=== PATIENT | male | born 1945 | race Caucasian/White ===

== ENCOUNTER 2020-08-15 11:14 | Outpatient (REF) | payer MEDICARE, SELFPAY ==
[2020-08-15 13:29] LABS: MANUAL DIFF FLAG NO
[2020-08-15 13:34] LABS: Basophils Percent Auto 0.5 % (0-2); Eosinophils Absolute Auto 0.3 X10*3/uL (0.0-0.4); Hematocrit 42.4 % (42-52); Hemoglobin 14.4 g/dl (14.0-18.0); Imm Gran Abs Auto 0.01 X10*3/uL (0.00-0.03); Imm Gran Pct Auto 0.2 % (0.0-0.4); Lymphocytes Absolute Auto 1.1 X10*3/uL (1.2-4.9); Lymphocytes Percent Auto 17.3 % (20-40); Mean Corpuscular Hemoglobin 32.2 pg (27.0-33.0); Mean Corpuscular Volume 94.9 fL (80-98); Mean Platelet Volume 9.9 fL (9.4-12.4); Monocytes Absolute Auto 0.6 X10*3/uL (0.1-1.2); Neutrophils Absolute Auto 4.3 X10*3/uL (2.0-8.3); Platelet Count 226 X10*3/uL (160-400); Red Blood Count 4.47 X10*6/uL (4.60-5.80); Red Cell Distribution Width 13.7 % (11.0-16.0); White Blood Count 6.4 X10*3/uL (4.8-10.8)
[2020-08-15 13:41] LABS: Estimated Average Glucose 137 mg/dL; Hemoglobin A1c % 6.4 %
[2020-08-15 13:49] LABS: Alanine Aminotransferase 19 U/L (0-40); Albumin Level 4.6 g/dL (3.5-5.0); Alkaline Phosphatase 53 U/L (39-117); Anion Gap 16 (12-20); Aspartate Amino Transferase 18 U/L (5-37); Bilirubin Total 1.1 mg/dL (0.0-1.0); Blood Urea Nitrogen 24 mg/dL (9-16); Calcium 9.1 mg/dL (8.4-10.2); Carbon Dioxide 23 mmol/L (22-29); Chloride 103 mmol/L (96-108); Cholesterol 129 mg/dL; Estimated Glomerular Filt Rate > 60; Glucose Random 108 mg/dL (60-115); HDL Cholesterol 50 mg/dL; LDL Cholesterol Calculated 57 mg/dl; Potassium 4.3 mmol/l (3.3-5.1); Sodium 138 mmol/L (135-145); Total Protein 6.9 g/dL (6.5-8.0); Triglycerides 114 mg/dL
== END 2020-08-15 11:15 | disposition home or self-care (01) ==
LOC: HO.LAB 11:14
PROVIDERS: Absent Provider Internal Medicine; PCP Family Medicine; Visit Provider Internal Medicine Medical Oncology
DX: C79.9 Secondary malignant neoplasm of unspecified site (principal); E11.9 Type 2 diabetes mellitus without complications; I10 Essential (primary) hypertension; E66.3 Overweight
CPT/HCPCS: 36415; 80053; 80061; 83036; 85025

== ENCOUNTER 2020-08-16 10:01 | Outpatient (REF) | payer MEDICARE, SELFPAY ==
--- NOTE | 2020-08-16 10:11 | XR_ITS ---
EXAMINATION: XR CHEST CLINICAL INFORMATION: Fall, trauma, pain right lateral chest. COMPARISON: Chest radiographs 12/01/2018, CT chest 11/15/2014 TECHNIQUE: 2 views of the chest were obtained. FINDINGS: There are minimally displaced fractures right posterior seventh and eighth ribs. There is no pneumothorax or pleural reaction or effusion. No lobar or segmental airspace consolidation. The heart is normal in size. The vascularity is normal. The hilar and mediastinal contours are normal. Remainder of the bony structures are unremarkable. There are surgical clips again seen outside the chest overlying the upper right hemithorax on the frontal view. IMPRESSION: 1. Fractures right posterior seventh and eighth ribs. 2. No pneumothorax, airspace consolidation, or effusion.
== END 2020-08-16 10:02 | disposition home or self-care (01) ==
LOC: HO.XRAY 10:01
PROVIDERS: PCP Family Medicine; Visit Provider Internal Medicine Medical Oncology
DX: S22.39XA Fracture of one rib, unspecified side, initial encounter for closed fracture (principal); W19.XXXA Unspecified fall, initial encounter; Y93.9 Activity, unspecified; Y92.9 Unspecified place or not applicable; Y99.9 Unspecified external cause status
CPT/HCPCS: 71046

== ENCOUNTER 2020-09-10 06:11 | Outpatient (REF) | payer MEDICARE, SELFPAY ==
[2020-09-10 06:59] LABS: Estimated Average Glucose 140 mg/dL; Hemoglobin A1c % 6.5 %
[2020-09-10 07:21] LABS: Alanine Aminotransferase 17 U/L (0-40); Albumin Level 4.5 g/dL (3.5-5.0); Alkaline Phosphatase 70 U/L (39-117); Anion Gap 13 (12-20); Aspartate Amino Transferase 16 U/L (5-37); Bilirubin Total 1.1 mg/dL (0.0-1.0); Blood Urea Nitrogen 18 mg/dL (9-16); Carbon Dioxide 25 mmol/L (22-29); Chloride 104 mmol/L (96-108); Estimated Glomerular Filt Rate > 60; Glucose Random 129 mg/dL (60-115); Potassium 4.4 mmol/l (3.3-5.1); Sodium 138 mmol/L (135-145); Total Protein 6.9 g/dL (6.5-8.0)
== END 2020-09-10 06:12 | disposition home or self-care (01) ==
LOC: HO.LAB 06:11
PROVIDERS: PCP Family Medicine; Visit Provider Internal Medicine
DX: I10 Essential (primary) hypertension (principal)
CPT/HCPCS: 80053; 83036

== ENCOUNTER 2020-10-22 05:57 | Outpatient (REF) | payer MEDICARE, SELFPAY ==
[2020-10-22 07:07] LABS: MANUAL DIFF FLAG NO
[2020-10-22 07:20] LABS: Basophils Percent Auto 0.4 % (0-2); Eosinophils Absolute Auto 0.4 X10*3/uL (0.0-0.4); Hematocrit 43.6 % (42-52); Hemoglobin 14.7 g/dl (14.0-18.0); Imm Gran Abs Auto 0.03 X10*3/uL (0.00-0.03); Imm Gran Pct Auto 0.4 % (0.0-0.4); Lymphocytes Percent Auto 12.6 % (20-40); Mean Corpuscular HGB Conc 33.7 g/dl (31.0-36.0); Mean Corpuscular Hemoglobin 32.1 pg (27.0-33.0); Mean Corpuscular Volume 95.2 fL (80-98); Mean Platelet Volume 9.9 fL (9.4-12.4); Monocytes Absolute Auto 0.8 X10*3/uL (0.1-1.2); Monocytes Percent Auto 9.6 % (2-11); Neutrophils Absolute Auto 5.9 X10*3/uL (2.0-8.3); Platelet Count 214 X10*3/uL (160-400); Red Blood Count 4.58 X10*6/uL (4.60-5.80); Red Cell Distribution Width 13.3 % (11.0-16.0); White Blood Count 8.1 X10*3/uL (4.8-10.8)
[2020-10-22 07:36] LABS: Estimated Average Glucose 140 mg/dL; Hemoglobin A1c % 6.5 %
[2020-10-22 07:40] LABS: Alanine Aminotransferase 17 U/L (0-40); Albumin Level 4.5 g/dL (3.5-5.0); Alkaline Phosphatase 54 U/L (39-117); Anion Gap 13 (12-20); Aspartate Amino Transferase 15 U/L (5-37); Blood Urea Nitrogen 23 mg/dL (9-16); Calcium 9.5 mg/dL (8.4-10.2); Carbon Dioxide 23 mmol/L (22-29); Chloride 106 mmol/L (96-108); Cholesterol 124 mg/dL; Estimated Glomerular Filt Rate > 60; Glucose Fasting 126 mg/dL (60-99); HDL Cholesterol 54 mg/dL; LDL Cholesterol Calculated 53 mg/dl; Potassium 4.4 mmol/l (3.3-5.1); Sodium 138 mmol/L (135-145); Triglycerides 88 mg/dL
[2020-10-22 07:48] LABS: TSH reflex Free T4 0.97 mIU/mL (0.32-4.0)
[2020-10-22 08:04] LABS: Prostate Specific Antigen 2.04 ng/mL (<0.05-4.0)
[2020-10-22 08:27] LABS: Creatinine Urine 68.21 mg/dL; Microalbum/Creatinine Ratio Ur 13.1 ug/mg cr
== END 2020-10-22 05:58 | disposition home or self-care (01) ==
LOC: HO.LAB 05:57
PROVIDERS: PCP Family Medicine; Visit Provider Internal Medicine Medical Oncology
DX: E78.5 Hyperlipidemia, unspecified (principal); C79.9 Secondary malignant neoplasm of unspecified site; E11.9 Type 2 diabetes mellitus without complications; I10 Essential (primary) hypertension; E66.3 Overweight
CPT/HCPCS: 36415; 80053; 80061; 82043; 83036; 84153; 84443; 85025

== ENCOUNTER → 2020-10-23 08:51 | Outpatient (BNVA) | payer MEDICARE, SELFPAY | PROVIDERS: PCP Family Medicine; Visit Provider Internal Medicine | DX: Z76.89 Persons encountering health services in other specified circumstances (principal) ==

== ENCOUNTER → 2020-10-24 14:24 | Outpatient (BNVA) | payer MEDICARE, SELFPAY | PROVIDERS: PCP Family Medicine; Visit Provider Internal Medicine | DX: Z13.89 Encounter for screening for other disorder (principal) | CPT/HCPCS: Q3014 ==

== ENCOUNTER 2021-01-21 06:14 | Outpatient (REF) | payer MEDICARE, SELFPAY ==
[2021-01-21 07:26] LABS: Alanine Aminotransferase 15 U/L (0-40); Albumin Level 4.3 g/dL (3.5-5.0); Alkaline Phosphatase 57 U/L (39-117); Anion Gap 15 (12-20); Aspartate Amino Transferase 18 U/L (5-37); Blood Urea Nitrogen 20 mg/dL (9-16); Calcium 9.2 mg/dL (8.4-10.2); Carbon Dioxide 22 mmol/L (22-29); Chloride 107 mmol/L (96-108); Estimated Glomerular Filt Rate > 60; Glucose Random 128 mg/dL (60-115); Potassium 4.8 mmol/L (3.3-5.1); Sodium 139 mmol/L (135-145); Total Protein 6.9 g/dL (6.5-8.0)
[2021-01-21 08:04] LABS: Estimated Average Glucose 137 mg/dL; Hemoglobin A1c % 6.4 %
== END 2021-01-21 06:15 | disposition home or self-care (01) ==
LOC: HO.LAB 06:14
PROVIDERS: PCP Internal Medicine Medical Oncology; Visit Provider Internal Medicine
DX: E11.65 Type 2 diabetes mellitus with hyperglycemia (principal)
CPT/HCPCS: 36415; 80053; 83036

== ENCOUNTER → 2021-01-23 15:18 | Outpatient (BNVA) | payer MEDICARE, SELFPAY | PROVIDERS: PCP Internal Medicine Medical Oncology; Visit Provider Internal Medicine | DX: E11.65 Type 2 diabetes mellitus with hyperglycemia (principal); E78.5 Hyperlipidemia, unspecified; I10 Essential (primary) hypertension; Z79.84 Long term (current) use of oral hypoglycemic drugs; Z71.3 Dietary counseling and surveillance | CPT/HCPCS: 82947; 99212 ==

== ENCOUNTER 2021-02-05 06:07 | Outpatient (REF) | payer MEDICARE, SELFPAY ==
[2021-02-05 06:57] LABS: Basophils Percent Auto 0.6 % (0-2); Eosinophils Absolute Auto 0.4 X10*3/uL (0.0-0.4); Eosinophils Percent Auto 7.7 % (0-4); Hematocrit 41.4 % (42-52); Hemoglobin 14.3 g/dl (14.0-18.0); Lymphocytes Absolute Auto 1.2 X10*3/uL (1.2-4.9); Lymphocytes Percent Auto 22.5 % (20-40); MANUAL DIFF FLAG NO; Mean Corpuscular HGB Conc 34.5 g/dl (31.0-36.0); Mean Corpuscular Hemoglobin 32.4 pg (27.0-33.0); Mean Corpuscular Volume 93.9 fL (80-98); Mean Platelet Volume 9.9 fL (9.4-12.4); Monocytes Absolute Auto 0.5 X10*3/uL (0.1-1.2); Monocytes Percent Auto 8.8 % (2-11); Neutrophils Absolute Auto 3.2 X10*3/uL (2.0-8.3); Neutrophils Percent Auto 60.4 % (45-73); Platelet Count 210 X10*3/uL (160-400); Red Blood Count 4.41 X10*6/uL (4.60-5.80); Red Cell Distribution Width 13.7 % (11.0-16.0); White Blood Count 5.3 X10*3/uL (4.8-10.8)
[2021-02-05 07:38] LABS: Alanine Aminotransferase 18 U/L (0-40); Albumin Level 4.4 g/dL (3.5-5.0); Alkaline Phosphatase 52 U/L (39-117); Anion Gap 14 (12-20); Aspartate Amino Transferase 16 U/L (5-37); Blood Urea Nitrogen 20 mg/dL (9-16); Calcium 9.1 mg/dL (8.4-10.2); Carbon Dioxide 23 mmol/L (22-29); Chloride 104 mmol/L (96-108); Cholesterol 132 mg/dL; Estimated Glomerular Filt Rate > 60; Glucose Random 133 mg/dL (60-115); HDL Cholesterol 47 mg/dL; LDL Cholesterol Calculated 62 mg/dl; Potassium 4.2 mmol/L (3.3-5.1); Sodium 137 mmol/L (135-145); Total Protein 6.7 g/dL (6.5-8.0); Triglycerides 116 mg/dL
[2021-02-05 07:52] LABS: Prostate Specific Antigen 1.78 ng/mL (<0.05-4.0)
[2021-02-05 08:05] LABS: Estimated Average Glucose 140 mg/dL; Hemoglobin A1c % 6.5 %
[2021-02-05 10:50] LABS: Creatinine Urine 79.99 mg/dL; Microalbum/Creatinine Ratio Ur 11.2 ug/mg cr
[2021-02-06 06:37] LABS: LDL Cholesterol Direct 66 mg/dL (<100)
== END 2021-02-05 06:08 | disposition home or self-care (01) ==
LOC: HO.LAB 06:07
PROVIDERS: Internal Medicine; PCP Internal Medicine Medical Oncology; Visit Provider Internal Medicine Medical Oncology
DX: I10 Essential (primary) hypertension (principal); E11.65 Type 2 diabetes mellitus with hyperglycemia; C79.9 Secondary malignant neoplasm of unspecified site; R07.9 Chest pain, unspecified; Z12.5 Encounter for screening for malignant neoplasm of prostate
CPT/HCPCS: 36415; 80053; 80061; 82043; 83036; 83721; 84153; 85025

== ENCOUNTER 2021-04-21 10:01 | Outpatient (REF) | payer MEDICARE, SELFPAY ==
[2021-04-21 12:57] LABS: Creatinine Urine 24.55 mg/dL
== END 2021-04-21 10:02 | disposition home or self-care (01) ==
LOC: HO.LAB 10:01
PROVIDERS: PCP Internal Medicine Medical Oncology; Visit Provider Internal Medicine
DX: Z13.89 Encounter for screening for other disorder (principal)

== ENCOUNTER → 2021-04-28 07:25 | Outpatient (BNVA) | payer MEDICARE, SELFPAY | PROVIDERS: PCP Internal Medicine Medical Oncology; Visit Provider Internal Medicine | DX: E11.65 Type 2 diabetes mellitus with hyperglycemia (principal); E78.5 Hyperlipidemia, unspecified; I10 Essential (primary) hypertension; Z79.899 Other long term (current) drug therapy | CPT/HCPCS: 82947; 99212 ==

== ENCOUNTER 2021-05-07 06:29 | Outpatient (REF) | payer MEDICARE, SELFPAY ==
[2021-05-07 06:59] LABS: MANUAL DIFF FLAG NO
[2021-05-07 07:02] LABS: Basophils Percent Auto 0.4 % (0-2); Eosinophils Absolute Auto 0.4 X10*3/uL (0.0-0.4); Eosinophils Percent Auto 7.4 % (0-4); Hematocrit 41.2 % (42-52); Hemoglobin 14.1 g/dl (14.0-18.0); Imm Gran Abs Auto 0.01 X10*3/uL (0.00-0.03); Imm Gran Pct Auto 0.2 % (0.0-0.4); Lymphocytes Absolute Auto 1.1 X10*3/uL (1.2-4.9); Lymphocytes Percent Auto 22.3 % (20-40); Mean Corpuscular HGB Conc 34.2 g/dl (31.0-36.0); Mean Corpuscular Hemoglobin 32.3 pg (27.0-33.0); Mean Corpuscular Volume 94.5 fL (80-98); Mean Platelet Volume 9.6 fL (9.4-12.4); Monocytes Absolute Auto 0.5 X10*3/uL (0.1-1.2); Neutrophils Absolute Auto 3.1 X10*3/uL (2.0-8.3); Neutrophils Percent Auto 59.7 % (45-73); Platelet Count 200 X10*3/uL (160-400); Red Blood Count 4.36 X10*6/uL (4.60-5.80); Red Cell Distribution Width 13.3 % (11.0-16.0); White Blood Count 5.1 X10*3/uL (4.8-10.8)
[2021-05-07 07:32] LABS: Anion Gap 12 (12-20); Blood Urea Nitrogen 27 mg/dL (9-16); Calcium 9.2 mg/dL (8.4-10.2); Carbon Dioxide 24 mmol/L (22-29); Chloride 106 mmol/L (96-108); Estimated Glomerular Filt Rate > 60; Glucose Fasting 127 mg/dL (60-99); Potassium 4.5 mmol/L (3.3-5.1); Sodium 137 mmol/L (135-145)
[2021-05-07 07:33] LABS: Alanine Aminotransferase 18 U/L (0-40); Albumin Level 4.4 g/dL (3.5-5.0); Alkaline Phosphatase 50 U/L (39-117); Aspartate Amino Transferase 19 U/L (5-37); Bilirubin Total 0.5 mg/dL (0.0-1.0); Cholesterol 125 mg/dL; HDL Cholesterol 49 mg/dL; LDL Cholesterol Calculated 59 mg/dl; Total Protein 6.6 g/dL (6.5-8.0); Triglycerides 85 mg/dL
[2021-05-07 08:09] LABS: Estimated Average Glucose 143 mg/dL; Hemoglobin A1c % 6.6 %
== END 2021-05-07 06:30 | disposition home or self-care (01) ==
LOC: HO.LAB 06:29
PROVIDERS: Absent Provider Internal Medicine; PCP Internal Medicine Medical Oncology; Visit Provider Internal Medicine Medical Oncology
DX: C79.9 Secondary malignant neoplasm of unspecified site (principal); I10 Essential (primary) hypertension; E11.9 Type 2 diabetes mellitus without complications; E66.3 Overweight
CPT/HCPCS: 36415; 80053; 80061; 83036; 85025

== ENCOUNTER 2021-05-16 10:29 | Outpatient (REF) | payer MEDICARE, SELFPAY ==
--- NOTE | ~2021-05-16 | XR_ITS ---
EXAMINATION: XR SHOULDER, LEFT CLINICAL INFORMATION: Left shoulder pain COMPARISON: None TECHNIQUE: AP external rotation, Grashey, scapular Y, and axillary views of the left shoulder. FINDINGS: There is a loss of left AC joint and lateral joint space with periarticular spurring. No visible acute fracture, dislocation or subluxation seen. The soft tissues are normal. XR/XR shoulder LT min 2V IMPRESSION: Mild degenerative changes left glenohumeral joint and AC joint. No visible acute fracture, dislocation or subluxation seen.
== END 2021-05-16 10:30 | disposition home or self-care (01) ==
LOC: HO.XRAY 10:29
PROVIDERS: PCP Internal Medicine Medical Oncology; Visit Provider Internal Medicine Medical Oncology
DX: M25.512 Pain in left shoulder (principal)
CPT/HCPCS: 73030

== ENCOUNTER 2021-09-03 06:01 | Outpatient (REF) | payer MEDICARE, SELFPAY ==
[2021-09-03 06:12] LABS: MANUAL DIFF FLAG NO
[2021-09-03 07:28] LABS: Basophils Percent Auto 0.5 % (0-2); Eosinophils Absolute Auto 0.4 X10*3/uL (0.0-0.4); Hematocrit 43.4 % (42-52); Hemoglobin 14.4 g/dl (14.0-18.0); Imm Gran Abs Auto 0.02 X10*3/uL (0.00-0.03); Imm Gran Pct Auto 0.3 % (0.0-0.4); Lymphocytes Absolute Auto 1.3 X10*3/uL (1.2-4.9); Lymphocytes Percent Auto 20.2 % (20-40); Mean Corpuscular HGB Conc 33.2 g/dl (31.0-36.0); Mean Corpuscular Hemoglobin 31.4 pg (27.0-33.0); Mean Corpuscular Volume 94.8 fL (80-98); Mean Platelet Volume 9.8 fL (9.4-12.4); Monocytes Absolute Auto 0.6 X10*3/uL (0.1-1.2); Monocytes Percent Auto 9.3 % (2-11); Neutrophils Percent Auto 63.7 % (45-73); Platelet Count 205 X10*3/uL (160-400); Red Blood Count 4.58 X10*6/uL (4.60-5.80); Red Cell Distribution Width 13.4 % (11.0-16.0); White Blood Count 6.3 X10*3/uL (4.8-10.8)
[2021-09-03 07:54] LABS: Alanine Aminotransferase 17 U/L (0-40); Albumin Level 4.5 g/dL (3.5-5.0); Alkaline Phosphatase 57 U/L (39-117); Anion Gap 14 (12-20); Aspartate Amino Transferase 15 U/L (5-37); Bilirubin Total 0.7 mg/dL (0.0-1.0); Blood Urea Nitrogen 23 mg/dL (9-16); Calcium 9.5 mg/dL (8.4-10.2); Carbon Dioxide 24 mmol/L (22-29); Chloride 102 mmol/L (96-108); Cholesterol 127 mg/dL; Estimated Glomerular Filt Rate > 60; Glucose Fasting 125 mg/dL (60-99); HDL Cholesterol 48 mg/dL; LDL Cholesterol Calculated 58 mg/dl; Potassium 4.4 mmol/L (3.3-5.1); Sodium 136 mmol/L (135-145); Triglycerides 107 mg/dL
[2021-09-03 08:08] LABS: Prostate Specific Antigen 1.45 ng/mL (<0.05-4.0)
== END 2021-09-03 06:02 | disposition home or self-care (01) ==
LOC: HO.LAB 06:01
PROVIDERS: Absent Provider Internal Medicine; PCP Internal Medicine Medical Oncology; Visit Provider Internal Medicine Medical Oncology
DX: Z12.5 Encounter for screening for malignant neoplasm of prostate (principal); C79.9 Secondary malignant neoplasm of unspecified site; I10 Essential (primary) hypertension; E11.9 Type 2 diabetes mellitus without complications; E66.3 Overweight; M25.512 Pain in left shoulder; Z87.891 Personal history of nicotine dependence
CPT/HCPCS: 36415; 80053; 80061; 84153; 85025

== ENCOUNTER 2022-01-13 06:07 | Outpatient (REF) | payer MEDICARE, SELFPAY ==
[2022-01-13 06:32] LABS: MANUAL DIFF FLAG NO
[2022-01-13 07:27] LABS: Basophils Percent Auto 0.6 % (0-2); Eosinophils Absolute Auto 0.4 X10*3/uL (0.0-0.4); Hematocrit 44.3 % (42.0-52.0); Hemoglobin 14.7 g/dl (14.0-18.0); Imm Gran Abs Auto 0.01 X10*3/uL (0.00-0.03); Imm Gran Pct Auto 0.2 % (0.0-0.4); Lymphocytes Absolute Auto 1.2 X10*3/uL (1.2-4.9); Lymphocytes Percent Auto 22.8 % (20-40); Mean Corpuscular HGB Conc 33.2 g/dl (31.0-36.0); Mean Corpuscular Hemoglobin 31.9 pg (27.0-33.0); Mean Corpuscular Volume 96.1 fL (80.0-98.0); Mean Platelet Volume 9.8 fL (9.4-12.4); Monocytes Absolute Auto 0.5 X10*3/uL (0.1-1.2); Monocytes Percent Auto 8.4 % (2-11); Neutrophils Absolute Auto 3.2 x10*3/uL (2.0-8.3); Platelet Count 221 X10*3/uL (160-400); Red Blood Count 4.61 X10*6/uL (4.60-5.80); Red Cell Distribution Width 13.4 % (11.0-16.0); White Blood Count 5.4 X10*3/uL (4.8-10.8)
[2022-01-13 07:33] LABS: Estimated Average Glucose 154 mg/dL
[2022-01-13 07:55] LABS: Alanine Aminotransferase 22 U/L (0-40); Albumin Level 4.3 g/dL (3.5-5.0); Alkaline Phosphatase 55 U/L (39-117); Anion Gap 13 (12-20); Aspartate Amino Transferase 17 U/L (5-37); Bilirubin Total 0.6 mg/dL (0.0-1.0); Blood Urea Nitrogen 19 mg/dL (9-16); Calcium 9.7 mg/dL (8.4-10.2); Carbon Dioxide 25 mmol/L (22-29); Chloride 104 mmol/L (96-108); Cholesterol 121 mg/dL; Estimated Glomerular Filt Rate > 60; Glucose Fasting 141 mg/dL (60-99); HDL Cholesterol 44 mg/dL; LDL Cholesterol Calculated 54 mg/dl; Potassium 4.4 mmol/L (3.3-5.1); Sodium 138 mmol/L (135-145); Total Protein 6.6 g/dL (6.5-8.0); Triglycerides 115 mg/dL
[2022-01-13 08:17] LABS: Prostate Specific Antigen 1.49 ng/mL (<0.05-4.0)
== END 2022-01-13 06:08 | disposition home or self-care (01) ==
LOC: HO.LAB 06:07
PROVIDERS: PCP Internal Medicine Medical Oncology; Visit Provider Internal Medicine Medical Oncology
DX: Z12.5 Encounter for screening for malignant neoplasm of prostate (principal); I10 Essential (primary) hypertension; E11.9 Type 2 diabetes mellitus without complications; N40.0 Benign prostatic hyperplasia without lower urinary tract symptoms; C79.9 Secondary malignant neoplasm of unspecified site
CPT/HCPCS: 36415; 80053; 80061; 83036; 84153; 85025

== ENCOUNTER 2022-04-22 05:58 | Outpatient (REF) | payer MEDICARE, SELFPAY ==
[2022-04-22 06:04] LABS: MANUAL DIFF FLAG NO
[2022-04-22 07:12] LABS: Basophils Percent Auto 0.4 % (0-2); Eosinophils Absolute Auto 0.3 X10*3/uL (0.0-0.4); Eosinophils Percent Auto 4.7 % (0-4); Hematocrit 43.3 % (42.0-52.0); Hemoglobin 14.3 g/dl (14.0-18.0); Imm Gran Abs Auto 0.02 X10*3/uL (0.00-0.03); Imm Gran Pct Auto 0.4 % (0.0-0.4); Lymphocytes Absolute Auto 1.1 X10*3/uL (1.2-4.9); Mean Corpuscular Hemoglobin 31.2 pg (27.0-33.0); Mean Corpuscular Volume 94.5 fL (80.0-98.0); Mean Platelet Volume 9.3 fL (9.4-12.4); Monocytes Absolute Auto 0.6 X10*3/uL (0.1-1.2); Monocytes Percent Auto 10.6 % (2-11); Neutrophils Absolute Auto 3.3 x10*3/uL (2.0-8.3); Neutrophils Percent Auto 62.9 % (45-73); Platelet Count 251 X10*3/uL (160-400); Red Blood Count 4.58 X10*6/uL (4.60-5.80); Red Cell Distribution Width 13.5 % (11.0-16.0); White Blood Count 5.3 X10*3/uL (4.8-10.8)
[2022-04-22 07:22] LABS: Estimated Average Glucose 157 mg/dL; Hemoglobin A1c % 7.1 %
[2022-04-22 07:44] LABS: Alanine Aminotransferase 19 U/L (0-40); Albumin Level 4.3 g/dL (3.5-5.0); Alkaline Phosphatase 62 U/L (39-117); Anion Gap 11 (12-20); Aspartate Amino Transferase 16 U/L (5-37); Bilirubin Total 0.7 mg/dL (0.0-1.0); Blood Urea Nitrogen 20 mg/dL (9-16); Calcium 9.2 mg/dL (8.4-10.2); Carbon Dioxide 26 mmol/L (22-29); Chloride 104 mmol/L (96-108); Cholesterol 127 mg/dL; Estimated Glomerular Filt Rate > 60; Glucose Random 122 mg/dL (60-115); HDL Cholesterol 36 mg/dL; LDL Cholesterol Calculated 66 mg/dl; Potassium 4.4 mmol/L (3.3-5.1); Sodium 137 mmol/L (135-145); Total Protein 6.7 g/dL (6.5-8.0); Triglycerides 126 mg/dL
[2022-04-22 09:07] LABS: Creatinine Urine 75.28 mg/dL; Microalbum/Creatinine Ratio Ur 21.2 ug/mg cr
== END 2022-04-22 05:59 | disposition home or self-care (01) ==
LOC: HO.LAB 05:58
PROVIDERS: PCP Internal Medicine Medical Oncology; Visit Provider Internal Medicine Medical Oncology
DX: I10 Essential (primary) hypertension (principal); E11.9 Type 2 diabetes mellitus without complications; C79.9 Secondary malignant neoplasm of unspecified site
CPT/HCPCS: 36415; 80053; 80061; 82043; 83036; 85025

== ENCOUNTER 2022-07-21 06:08 | Outpatient (REF) | payer MEDICARE, SELFPAY ==
[2022-07-21 06:13] LABS: MANUAL DIFF FLAG NO
[2022-07-21 07:12] LABS: Basophils Percent Auto 0.7 % (0-2); Eosinophils Absolute Auto 0.4 X10*3/uL (0.0-0.4); Eosinophils Percent Auto 7.3 % (0-4); Hematocrit 42.3 % (42.0-52.0); Hemoglobin 14.4 g/dl (14.0-18.0); Imm Gran Abs Auto 0.02 X10*3/uL (0.00-0.03); Imm Gran Pct Auto 0.3 % (0.0-0.4); Lymphocytes Absolute Auto 1.2 X10*3/uL (1.2-4.9); Lymphocytes Percent Auto 21.1 % (20-40); Mean Corpuscular Hemoglobin 31.8 pg (27.0-33.0); Mean Corpuscular Volume 93.4 fL (80.0-98.0); Mean Platelet Volume 9.4 fL (9.4-12.4); Monocytes Absolute Auto 0.5 X10*3/uL (0.1-1.2); Monocytes Percent Auto 9.3 % (2-11); Neutrophils Absolute Auto 3.5 x10*3/uL (2.0-8.3); Neutrophils Percent Auto 61.3 % (45-73); Platelet Count 185 X10*3/uL (160-400); Red Blood Count 4.53 X10*6/uL (4.60-5.80); Red Cell Distribution Width 13.4 % (11.0-16.0); White Blood Count 5.8 X10*3/uL (4.8-10.8)
[2022-07-21 07:16] LABS: Estimated Average Glucose 143 mg/dL; Hemoglobin A1c % 6.6 %
[2022-07-21 07:29] LABS: Alanine Aminotransferase 19 U/L (0-40); Albumin Level 4.3 g/dL (3.5-5.0); Alkaline Phosphatase 53 U/L (39-117); Anion Gap 15 (12-20); Aspartate Amino Transferase 18 U/L (5-37); Blood Urea Nitrogen 17 mg/dL (9-16); Calcium 9.4 mg/dL (8.4-10.2); Carbon Dioxide 23 mmol/L (22-29); Chloride 104 mmol/L (96-108); Cholesterol 133 mg/dL; Estimated Glomerular Filt Rate > 60; Glucose Fasting 126 mg/dL (60-99); HDL Cholesterol 45 mg/dL; LDL Cholesterol Calculated 55 mg/dl; Potassium 4.3 mmol/L (3.3-5.1); Sodium 138 mmol/L (135-145); Total Protein 6.9 g/dL (6.5-8.0); Triglycerides 168 mg/dL
[2022-07-21 07:42] LABS: Prostate Specific Antigen 1.93 ng/mL (<0.05-4.0)
== END 2022-07-21 06:09 | disposition home or self-care (01) ==
LOC: HO.LAB 06:08
PROVIDERS: PCP Internal Medicine Medical Oncology; Visit Provider Internal Medicine Medical Oncology
DX: Z12.5 Encounter for screening for malignant neoplasm of prostate (principal); C79.9 Secondary malignant neoplasm of unspecified site; E11.9 Type 2 diabetes mellitus without complications
CPT/HCPCS: 36415; 80053; 80061; 83036; 84153; 85025

== ENCOUNTER 2022-10-30 05:59 | Outpatient (REF) | payer MEDICARE, SELFPAY ==
[2022-10-30 06:05] LABS: MANUAL DIFF FLAG NO
[2022-10-30 07:19] LABS: Basophils Percent Auto 0.7 % (0-2); Eosinophils Absolute Auto 0.5 X10*3/uL (0.0-0.4); Hemoglobin 14.5 g/dl (14.0-18.0); Imm Gran Abs Auto 0.01 X10*3/uL (0.00-0.03); Imm Gran Pct Auto 0.2 % (0.0-0.4); Lymphocytes Absolute Auto 1.4 X10*3/uL (1.2-4.9); Lymphocytes Percent Auto 23.7 % (20-40); Mean Corpuscular HGB Conc 33.7 g/dl (31.0-36.0); Mean Corpuscular Hemoglobin 31.6 pg (27.0-33.0); Mean Corpuscular Volume 93.7 fL (80.0-98.0); Mean Platelet Volume 9.8 fL (9.4-12.4); Monocytes Absolute Auto 0.6 X10*3/uL (0.1-1.2); Neutrophils Absolute Auto 3.4 x10*3/uL (2.0-8.3); Neutrophils Percent Auto 57.4 % (45-73); Platelet Count 221 X10*3/uL (160-400); Red Blood Count 4.59 X10*6/uL (4.60-5.80); Red Cell Distribution Width 13.2 % (11.0-16.0)
[2022-10-30 07:34] LABS: Estimated Average Glucose 143 mg/dL; Hemoglobin A1c % 6.6 %
[2022-10-30 08:59] LABS: Alanine Aminotransferase 17 U/L (0-40); Albumin Level 4.4 g/dL (3.5-5.0); Alkaline Phosphatase 61 U/L (39-117); Anion Gap 16 (12-20); Aspartate Amino Transferase 17 U/L (5-37); Bilirubin Total 0.7 mg/dL (0.0-1.0); Blood Urea Nitrogen 17 mg/dL (9-16); Calcium 9.7 mg/dL (8.4-10.2); Carbon Dioxide 22 mmol/L (22-29); Chloride 105 mmol/L (96-108); Cholesterol 121 mg/dL; Estimated Glomerular Filt Rate > 60; Glucose Fasting 130 mg/dL (60-99); HDL Cholesterol 45 mg/dL; LDL Cholesterol Calculated 57 mg/dl; Potassium 4.6 mmol/L (3.3-5.1); Prostate Specific Antigen 1.24 ng/mL (<0.05-4.0); Sodium 138 mmol/L (135-145); Total Protein 6.7 g/dL (6.5-8.0); Triglycerides 99 mg/dL
[2022-10-30 09:39] LABS: Creatinine Urine 61.28 mg/dL
== END 2022-10-30 06:00 | disposition home or self-care (01) ==
LOC: HO.LAB 05:59
PROVIDERS: PCP Internal Medicine Medical Oncology; Visit Provider Internal Medicine Medical Oncology
DX: Z12.5 Encounter for screening for malignant neoplasm of prostate (principal); I10 Essential (primary) hypertension; E66.9 Obesity, unspecified; N40.0 Benign prostatic hyperplasia without lower urinary tract symptoms; E11.9 Type 2 diabetes mellitus without complications
CPT/HCPCS: 36415; 80053; 80061; 82043; 83036; 84153; 85025

== ENCOUNTER 2023-02-03 05:57 | Outpatient (REF) | payer MEDICARE, SELFPAY ==
[2023-02-03 06:02] LABS: MANUAL DIFF FLAG NO
[2023-02-03 08:15] LABS: Estimated Average Glucose 154 mg/dL
[2023-02-03 08:20] LABS: Basophils Percent Auto 0.7 % (0-2); Eosinophils Absolute Auto 0.4 X10*3/uL (0.0-0.4); Eosinophils Percent Auto 7.9 % (0-4); Hematocrit 44.3 % (42.0-52.0); Hemoglobin 14.6 g/dl (14.0-18.0); Lymphocytes Absolute Auto 1.2 X10*3/uL (1.2-4.9); Lymphocytes Percent Auto 22.6 % (20-40); Mean Corpuscular Hemoglobin 31.6 pg (27.0-33.0); Mean Corpuscular Volume 95.9 fL (80.0-98.0); Mean Platelet Volume 9.9 fL (9.4-12.4); Monocytes Absolute Auto 0.5 X10*3/uL (0.1-1.2); Monocytes Percent Auto 9.2 % (2-11); Neutrophils Absolute Auto 3.2 x10*3/uL (2.0-8.3); Neutrophils Percent Auto 59.6 % (45-73); Platelet Count 213 X10*3/uL (160-400); Red Blood Count 4.62 X10*6/uL (4.60-5.80); Red Cell Distribution Width 13.5 % (11.0-16.0); White Blood Count 5.4 X10*3/uL (4.8-10.8)
[2023-02-03 08:26] LABS: Creatinine Urine 89.55 mg/dL; Microalbum/Creatinine Ratio Ur 13.4 ug/mg cr
[2023-02-03 08:28] LABS: Alanine Aminotransferase 19 U/L (0-40); Albumin Level 4.3 g/dL (3.5-5.0); Alkaline Phosphatase 58 U/L (39-117); Anion Gap 15 (12-20); Aspartate Amino Transferase 17 U/L (5-37); Blood Urea Nitrogen 19 mg/dL (9-16); Calcium 9.5 mg/dL (8.4-10.2); Carbon Dioxide 24 mmol/L (22-29); Chloride 107 mmol/L (96-108); Cholesterol 125 mg/dL; Estimated Glomerular Filt Rate > 60; Glucose Fasting 136 mg/dL (60-99); HDL Cholesterol 42 mg/dL; LDL Cholesterol Calculated 57 mg/dl; Potassium 4.5 mmol/L (3.3-5.1); Sodium 141 mmol/L (135-145); Total Protein 6.5 g/dL (6.5-8.0); Triglycerides 131 mg/dL
== END 2023-02-03 05:58 | disposition home or self-care (01) ==
LOC: HO.LAB 05:57
PROVIDERS: PCP Internal Medicine Medical Oncology; Referring Provider Family Medicine; Visit Provider Internal Medicine Medical Oncology
DX: C79.9 Secondary malignant neoplasm of unspecified site (principal); I10 Essential (primary) hypertension; N40.0 Benign prostatic hyperplasia without lower urinary tract symptoms; E11.9 Type 2 diabetes mellitus without complications; E66.3 Overweight
CPT/HCPCS: 36415; 80053; 80061; 82043; 83036; 85025

== ENCOUNTER 2023-05-17 05:59 | Outpatient (REF) | payer MEDICARE, SELFPAY | END 2023-05-17 06:00 | disposition home or self-care (01) | LOC: HO.LAB 05:59 | PROVIDERS: PCP Internal Medicine Medical Oncology; Visit Provider Internal Medicine Medical Oncology | DX: I10 Essential (primary) hypertension (principal); E11.9 Type 2 diabetes mellitus without complications; E66.3 Overweight | CPT/HCPCS: 36415; 80053; 80061; 83036; 85025 ==

== ENCOUNTER 2023-11-20 07:50 | Outpatient (REF) | payer MEDICARE, SELFPAY ==
[2023-11-20 08:15] LABS: MANUAL DIFF FLAG NO
[2023-11-20 08:22] LABS: Basophils Percent Auto 0.5 % (0-2); Eosinophils Absolute Auto 0.2 X10*3/uL (0.0-0.4); Eosinophils Percent Auto 3.1 % (0-4); Hematocrit 39.6 % (42.0-52.0); Hemoglobin 13.3 g/dl (14.0-18.0); Imm Gran Abs Auto 0.02 X10*3/uL (0.00-0.03); Imm Gran Pct Auto 0.3 % (0.0-0.4); Lymphocytes Absolute Auto 1.1 X10*3/uL (1.2-4.9); Lymphocytes Percent Auto 19.3 % (20-40); Mean Corpuscular HGB Conc 33.6 g/dl (31.0-36.0); Mean Corpuscular Hemoglobin 31.1 pg (27.0-33.0); Mean Corpuscular Volume 92.5 fL (80.0-98.0); Mean Platelet Volume 8.5 fL (9.4-12.4); Monocytes Absolute Auto 0.7 X10*3/uL (0.1-1.2); Monocytes Percent Auto 11.3 % (2-11); Neutrophils Absolute Auto 3.8 x10*3/uL (2.0-8.3); Neutrophils Percent Auto 65.5 % (45-73); Platelet Count 269 X10*3/uL (160-400); Red Blood Count 4.28 X10*6/uL (4.60-5.80); Red Cell Distribution Width 13.9 % (11.0-16.0); White Blood Count 5.8 X10*3/uL (4.8-10.8)
[2023-11-20 08:39] LABS: Estimated Average Glucose 137 mg/dL; Hemoglobin A1C 159.1633 umol/L; Hemoglobin A1c % 6.4 % (<6.0)
[2023-11-20 09:15] LABS: Erythrocyte Sedimentation Rate 18 MM/HR (0-15)
[2023-11-20 09:18] LABS: Alanine Aminotransferase 13 U/L (0-40); Albumin Level 4.1 g/dL (3.5-5.0); Alkaline Phosphatase 85 U/L (39-117); Anion Gap 13 (12-20); Aspartate Amino Transferase 13 U/L (5-37); Bilirubin Total 0.3 mg/dL (0.0-1.0); Blood Urea Nitrogen 19 mg/dL (9-16); Calcium 9.7 mg/dL (8.4-10.2); Carbon Dioxide 25 mmol/L (22-29); Chloride 103 mmol/L (96-108); Cholesterol 116 mg/dL (<200); Estimated Glomerular Filt Rate > 60; Glucose Random 132 mg/dL (60-115); HDL Cholesterol 40 mg/dL (>40); LDL Cholesterol Calculated 66 mg/dL (<100); Potassium 4.1 mmol/L (3.3-5.1); Sodium 137 mmol/L (135-145); Total Protein 7.1 g/dL (6.5-8.0); Triglycerides 52 mg/dL (<150)
[2023-11-20 09:35] LABS: Prostate Specific Antigen 2.24 ng/mL (<0.05-4.0)
[2023-11-20 09:35] LABS: Creatinine Urine 85.29 mg/dL
[2023-11-20 09:36] LABS: Free T4 (Free Thyroxine) 1.09 ng/dL (0.71-1.85); Thyroid Stimulating Hormone 0.76 uIU/mL (0.32-4.0)
== END 2023-11-20 07:51 | disposition home or self-care (01) ==
LOC: HO.LAB 07:50
PROVIDERS: PCP Internal Medicine Medical Oncology; Visit Provider Internal Medicine Medical Oncology
DX: N40.0 Benign prostatic hyperplasia without lower urinary tract symptoms (principal); C79.9 Secondary malignant neoplasm of unspecified site; I10 Essential (primary) hypertension; E11.9 Type 2 diabetes mellitus without complications; E53.9 Vitamin B deficiency, unspecified; Z12.5 Encounter for screening for malignant neoplasm of prostate
CPT/HCPCS: 36415; 80053; 80061; 82043; 82550; 82570; 83036; 84153; 84439; 84443; 85025; 85652

== ENCOUNTER 2023-11-24 13:27 | Outpatient (AMB) | payer MEDICARE, SELFPAY ==
--- NOTE | 2023-11-24 13:30 | MHC.OFFVIS ---
Intake Vital Signs 11/24/23 13:33 Height 5 ft 10 in Weight 181 lb 8 oz BMI 26.0 BP 124/82 Blood Pressure Location Lt brachial Position Sitting Intake Visit Reasons: ENP-Peripheral Neuropathy-Confirmed Allergies morphine Allergy (Unknown, Verified 11/24/23 13:35) hallucinations HPI HPI Comments History of Present Illness Details 78 y/o male patient presents for new in-person visit for bilateral feet neuropathy. Pt reports bilateral feet numbness, started last July and got worsened lately, right foot is worse than left. Pt reports he went to camp in July, he felt really tired due to very high temp, it was over 90s. The next day, he woke up very tired and could not walk well. The weakness has been improved but still has difficulty walking and he feels numbness on ball of feet. Pt also reports lower back pain. He finished 25 session of physical therapy. he has been doing home PT. Pt had left hip replacement done 12 years ago, and ROM of left legs a little limited and slow. Pt reports he lost 25 lb since last July. He feels his whole body weakness. Thoracic spine and lumbar spine MRI result was C6-C7, L1-L2 suspicious for discitis osteomyelitis with progression of disc space and vertebral body collapse compared to 08/02/23. No epidural abscess. Degenerative changes of lumbar spine are similar to the previsous exam. Pt has Stage 4 melanoma s/p chemo, cleaned for 12 years. Pt has not have EMG done. [facility] Medical History HLD (hyperlipidemia) HTN (hypertension) T2DM (type 2 diabetes mellitus) Surgical History History of adenectomy History of excision of pilonidal cyst History of left hip replacement Hx of appendectomy Hx of tonsillectomy Family History Father Congestive heart failure Mother Aneurysm Social History (Updated 11/24/23 @ 13:41 by Shannan Gonsalez) Alcohol intake: current Comment: 2-3 a month Patient Tobacco Use Status: Former Tobacco user Cigarette Packs Per Day: 2 Years Smoked: 20 Review of Systems Const All systems reviewed & are unremarkable except as noted in HPI and below Physical Exam Vital Signs: Last Vital Signs BP 124/82 11/24/23 13:33 BMI result Body Mass Index 26.0 Const General: cooperative Nutritional Appearance: overweight Orientation/consciousness: patient oriented x3 Neck Neck: Yes full ROM and Yes supple Resp Effort & Inspection: normal respiratory effort and able to speak in complete sentences Neuro General: patient oriented x3 and moves all extremities Cranial nerves: Yes CN's II-XII intact bilaterally Cognition (Neuro): normal cognition Gait exam (Neuro): Antalgic gait present Motor exam (neuro): 5/5 motor strength present throughout Deep tendon reflexes (DTR's): Right patellar reflex intensity grade: 2+ and Left patellar reflex intensity grade: 1+ Assessment & Plan Assessment & Plan (1) Numbness and tingling of both feet: Code(s): R20.0 - Anesthesia of skin; R20.2 - Paresthesia of skin Plan Advised patient to undergo EMG of bilateral lower extremities. Will check labs for reversible causes of lower extremities numbness. May try Nervive supplement. Manage blood sugar well. Orders: Orders Vitamin B12 and Folate 11/24/23 R20.0 - Anesthesia of skin, R20.2 - Paresthesia of skin, E78.5 - Hyperlipidemia, unspecified, I10 - Essential (primary) hypertension, E11.9 - Type 2 diabetes mellitus without complications NE electromyogram (EMG) 11/24/23 R20.0 - Anesthesia of skin, R20.2 - Paresthesia of skin Erythrocyte Sedimentation Rate 11/24/23 R20.0 - Anesthesia of skin, R20.2 - Paresthesia of skin, E78.5 - Hyperlipidemia, unspecified, I10 - Essential (primary) hypertension, E11.9 - Type 2 diabetes mellitus without complications SIMONE Reflex Titer and Pattern 11/24/23 R20.0 - Anesthesia of skin, R20.2 - Paresthesia of skin, E78.5 - Hyperlipidemia, unspecified, I10 - Essential (primary) hypertension, E11.9 - Type 2 diabetes mellitus without complications Coding Level of Care Code New Pt Level 3 (55507) Diagnoses Numbness and tingling of both feet R20.0; R20.2
[2023-11-24 13:33] VITALS: BP 124/82; BMI 26.0
== END 2023-11-24 14:45 | disposition home or self-care (01) ==
PROVIDERS: PCP Internal Medicine Medical Oncology; Visit Provider Nurse Practitioner Family
DX: R20.0 Anesthesia of skin (principal); R20.2 Paresthesia of skin
CPT/HCPCS: 99203

== ENCOUNTER → 2023-11-24 13:27 | Outpatient (BNVA) | payer MEDICARE, SELFPAY | PROVIDERS: PCP Internal Medicine Medical Oncology; Visit Provider Nurse Practitioner Family | DX: R20.0 Anesthesia of skin (principal); R20.2 Paresthesia of skin | CPT/HCPCS: 99202 ==

== ENCOUNTER 2023-12-09 08:05 | Outpatient (REF) | payer MEDICARE, SELFPAY ==
--- NOTE | 2023-12-09 08:09 | EMG_ITS ---
Bilateral tibial and peroneal motor studies were performed. Bilateral superficial peroneal and sural sensory studies were performed. Tibial H reflexes were obtained and paraspinal muscles were tested with a needle. 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 MD LUKE Sun/YOANA / [id number]
== END 2023-12-09 08:06 | disposition home or self-care (01) ==
LOC: HO.NEURO 08:05
PROVIDERS: PCP Internal Medicine Medical Oncology; Visit Provider Nurse Practitioner Family
DX: R20.0 Anesthesia of skin (principal); R20.2 Paresthesia of skin
CPT/HCPCS: 95886; 95911

== ENCOUNTER 2023-12-28 08:01 | Outpatient (REF) | payer MEDICARE, SELFPAY ==
[2023-12-28 09:23] LABS: Erythrocyte Sedimentation Rate 13 MM/HR (0-15)
[2023-12-28 09:30] LABS: Folate 16.5 ng/mL (> or = 4.0); Vitamin B12 793 pg/mL (200-900)
[2024-01-03 14:58] LABS: Anti Nuclear Antibody Pattern Nuclear, Nucleolar; Anti Nuclear Antibody Screen POSITIVE (NEGATIVE)
== END 2023-12-28 08:02 | disposition home or self-care (01) ==
LOC: HO.LAB 08:01
PROVIDERS: PCP Internal Medicine Medical Oncology; Visit Provider Nurse Practitioner Family
DX: R20.0 Anesthesia of skin (principal); R20.2 Paresthesia of skin; E78.5 Hyperlipidemia, unspecified; I10 Essential (primary) hypertension; E11.9 Type 2 diabetes mellitus without complications
CPT/HCPCS: 36415; 82607; 82746; 85652; 86038; 86039

== ENCOUNTER 2024-01-12 06:00 | Outpatient (REF) | payer MEDICARE, SELFPAY ==
[2024-01-12 06:20] LABS: MANUAL DIFF FLAG NO
[2024-01-12 07:46] LABS: Basophils Percent Auto 0.6 % (0-2); Eosinophils Absolute Auto 0.3 X10*3/uL (0.0-0.4); Eosinophils Percent Auto 4.7 % (0-4); Hematocrit 40.3 % (42.0-52.0); Hemoglobin 13.6 g/dl (14.0-18.0); Imm Gran Abs Auto 0.01 X10*3/uL (0.00-0.03); Imm Gran Pct Auto 0.2 % (0.0-0.4); Lymphocytes Absolute Auto 1.2 X10*3/uL (1.2-4.9); Lymphocytes Percent Auto 18.6 % (20-40); Mean Corpuscular HGB Conc 33.7 g/dl (31.0-36.0); Mean Corpuscular Volume 91.8 fL (80.0-98.0); Mean Platelet Volume 9.2 fL (9.4-12.4); Monocytes Absolute Auto 0.6 X10*3/uL (0.1-1.2); Monocytes Percent Auto 9.5 % (2-11); Neutrophils Absolute Auto 4.3 x10*3/uL (2.0-8.3); Neutrophils Percent Auto 66.4 % (45-73); Platelet Count 262 X10*3/uL (160-400); Red Blood Count 4.39 X10*6/uL (4.60-5.80); Red Cell Distribution Width 14.5 % (11.0-16.0); White Blood Count 6.4 X10*3/uL (4.8-10.8)
[2024-01-12 07:55] LABS: Estimated Average Glucose 140 mg/dL; Hemoglobin A1c % 6.5 % (<6.0)
[2024-01-12 08:24] LABS: Creatinine Urine 52.08 mg/dL; Microalbum/Creatinine Ratio Ur 9.6 ug/mg cr (<30)
[2024-01-12 08:30] LABS: Alanine Aminotransferase 15 U/L (0-40); Albumin Level 4.1 g/dL (3.5-5.0); Alkaline Phosphatase 77 U/L (39-117); Anion Gap 12 (12-20); Aspartate Amino Transferase 13 U/L (5-37); Bilirubin Total 0.6 mg/dL (0.0-1.0); Blood Urea Nitrogen 24 mg/dL (9-16); Calcium 9.5 mg/dL (8.4-10.2); Carbon Dioxide 24 mmol/L (22-29); Chloride 104 mmol/L (96-108); Cholesterol 121 mg/dL (<200); Estimated Glomerular Filt Rate > 60; Glucose Fasting 123 mg/dL (60-99); HDL Cholesterol 42 mg/dL (>40); LDL Cholesterol Calculated 61 mg/dL (<100); Sodium 136 mmol/L (135-145); Triglycerides 91 mg/dL (<150)
== END 2024-01-12 06:01 | disposition home or self-care (01) ==
LOC: HO.LAB 06:00
PROVIDERS: PCP Internal Medicine Medical Oncology; Visit Provider Internal Medicine Medical Oncology
DX: I10 Essential (primary) hypertension (principal); E11.9 Type 2 diabetes mellitus without complications; E66.3 Overweight
CPT/HCPCS: 36415; 80053; 80061; 82043; 82570; 83036; 85025

== ENCOUNTER 2024-01-25 08:27 | Outpatient (AMB) | payer MEDICARE, SELFPAY ==
--- NOTE | 2024-01-25 08:32 | MHC.OFFVIS ---
Vital Signs 01/25/24 08:48 Height 5 ft 10 in Weight 176 lb 6 oz BMI 25.3 BP 118/70 Blood Pressure Location Lt brachial Position Sitting Pulse 79 Pulse Source Pulse Oximeter Pulse Oximetry (%) 99 Oxygen Delivery Method Room Air Intake Visit Reasons: 2 mo f/u - CONF w/address Intake Note: Patient presents 2 months f/u. Allergies morphine Allergy (Unknown, Verified 01/25/24 08:48) hallucinations HPI Comments Details: 78 y/o male patient presents for follow up of neuropathy. The bilateral lower extremities EMG result was moderately severe sensory and motor axonal peripheral neuropahty. Lab result reviewed. Fasting glucose was 123 and A1C was 6.5. SIMONE was positive and titer was 1:80. Pt reports bilateral feet numbness, started last July and got worsened lately, right foot is worse than left. The weakness has been improved but still has difficulty walking and he feels numbness on ball of feet. Pt also reports lower back pain. He finished 25 session of physical therapy, abd has been doing home PT. Pt had left hip replacement done 12 years ago, and ROM of left legs a little limited and slow. Pt reports he lost 25 lb since last July. He feels his whole body weakness. Thoracic spine and lumbar spine MRI result was C6-C7, L1-L2 suspicious for discitis osteomyelitis with progression of disc space and vertebral body collapse compared to 08/02/23. No epidural abscess. Degenerative changes of lumbar spine are similar to the previous exam. Pt has Stage 4 melanoma s/p chemo, cleaned for 12 years. [facility] Medical History HLD (hyperlipidemia) HTN (hypertension) T2DM (type 2 diabetes mellitus) Surgical History History of adenectomy History of excision of pilonidal cyst History of left hip replacement Hx of appendectomy Hx of tonsillectomy Family History (Updated 01/25/24 @ 08:52 by Charissa Lawrence CMA) Father Congestive heart failure Mother Aneurysm Sister Cancer Social History Alcohol intake: current Comment: 2-3 a month Patient Tobacco Use Status: Former Tobacco user Cigarette Packs Per Day: 2 Years Smoked: 20 Review of Systems Const All systems reviewed & are unremarkable except as noted in HPI and below Physical Exam Vital Signs: Last Vital Signs Pulse 79 01/25/24 08:48 BP 118/70 01/25/24 08:48 Pulse Ox 99 01/25/24 08:48 Oxygen Delivery Method Room Air 01/25/24 08:48 BMI result Body Mass Index 25.3 Const General: cooperative Nutritional Appearance: overweight Orientation/consciousness: patient oriented x3 Neck Neck: Yes full ROM and Yes supple Resp Effort & Inspection: normal respiratory effort and able to speak in complete sentences Neuro General: patient oriented x3 and moves all extremities Cranial nerves: Yes CN's II-XII intact bilaterally Cognition (Neuro): normal cognition Gait exam (Neuro): Antalgic gait present Motor exam (neuro): 5/5 motor strength present throughout Deep tendon reflexes (DTR's): Right patellar reflex intensity grade: 2+ and Left patellar reflex intensity grade: 1+ Assessment & Plan Assessment & Plan (1) Numbness and tingling of both feet: Code(s): R20.0 - Anesthesia of skin; R20.2 - Paresthesia of skin Category: Medical Plan Advised patient to try Nervive supplement for neuropathy. Manage blood sugar well.
[2024-01-25 08:48] VITALS: BP 118/70; PULSE 79; O2SAT 99; BMI 25.3
== END 2024-01-25 09:11 | disposition home or self-care (01) ==
PROVIDERS: PCP Internal Medicine Medical Oncology; Visit Provider Nurse Practitioner Family
DX: R20.0 Anesthesia of skin (principal); R20.2 Paresthesia of skin
CPT/HCPCS: 99213

== ENCOUNTER → 2024-01-25 08:27 | Outpatient (BNVA) | payer MEDICARE, SELFPAY | PROVIDERS: PCP Internal Medicine Medical Oncology; Visit Provider Nurse Practitioner Family | DX: R20.0 Anesthesia of skin (principal); R20.2 Paresthesia of skin | CPT/HCPCS: 99212 ==

== ENCOUNTER 2024-03-07 07:21 | Day surgery (SDC) | payer MEDICARE, SELFPAY ==
[2024-03-03 14:02] VITALS: BMI 25.3
--- NOTE | 2024-03-03 15:06 | P.CONAN_ITS ---
Documented by User: Amrita Zhang NP 03/03/24 15:06 HPI - Anesthesia Eval Consult details Narrative: 78yo M for Colonoscopy Anesthesia Pre-Procedure Meds Is the patient on any of the following meds?: GLP1/DPP4 PMFSH Active Problems Active Problems: All Active Problems Numbness and tingling of both feet (Acute) Stenosing tenosynovitis of finger (Acute) Immunization counseling (Acute) HLD (hyperlipidemia) (Acute) HTN (hypertension) (Acute) T2DM (type 2 diabetes mellitus) (Acute) Past Medical History Medical History (Updated 03/07/24 @ 08:13 by Lesa Cabrera, RN) Melanoma Degenerative disc disease, lumbar Back pain HLD (hyperlipidemia) HTN (hypertension) T2DM (type 2 diabetes mellitus) Family History Family History (Updated 01/25/24 @ 08:52 by Charissa Lawrence CMA) Father Congestive heart failure Mother Aneurysm Sister Cancer Surgical History Surgical History (Updated 03/03/24 @ 13:53 by Rubia Bullock RN) H/O colonoscopy History of adenectomy History of excision of pilonidal cyst History of left hip replacement Hx of appendectomy Hx of tonsillectomy Social History Social History Alcohol intake: current Alcohol intake frequency: holidays/special occasions only Comment: 2-3 a month Patient Tobacco Use Status: Former Tobacco user Cigarette Packs Per Day: 2 Years Smoked: 20 Are you DNR?: No Advance Directives: No Advance Directives Information Provided: Yes Meds Allergies Allergy/AdvReac Type Severity Reaction Status Date / Time morphine Allergy Unknown hallucinati Verified 01/25/24 08:48 ons Home Medications ?Medication ?Instructions ?Recorded ?Confirmed ?Last Taken ?Type amlodipine 5 mg tablet 5 mg PO DAILY 10/23/20 03/03/24 03/07/24 History blood sugar diagnostic #10 ea 10/23/20 01/23/21 Unknown History empagliflozin 25 mg tablet 25 mg PO DAILY 10/23/20 03/03/24 03/03/24 History irbesartan 150 mg tablet 150 mg PO DAILY 10/23/20 03/03/24 Unknown History metformin 1,000 mg tablet 500 mg PO BID 10/23/20 03/03/24 Unknown History multivitamin 1 tab PO DAILY 10/23/20 03/03/24 Unknown History omega-3 fatty acids 1,000 mg 1,000 mg PO TID 10/23/20 03/03/24 02/28/24 History capsule (Fish Oil Concentrate) pen needle, diabetic 32 gauge x #50 ea 10/23/20 04/28/21 Unknown History blood sugar diagnostic #10 ea 11/29/20 01/23/21 Unknown History tamsulosin 0.4 mg capsule 0.4 mg PO DAILY 11/24/23 03/03/24 Unknown History atorvastatin 40 mg tablet 80 mg PO DAILY 03/03/24 03/03/24 Unknown History glipizide 2.5 mg tablet, extended 2.5 mg PO DAILY 03/03/24 03/03/24 Unknown History release 24 hr zinc acetate 50 mg (zinc) capsule 50 mg PO DAILY 03/03/24 03/03/24 Unknown History Exam Height,Weight and Vital Signs: Height 5 ft 10 in Weight 79.832 kg Assessment and Plan Assessment Anesthesia Assessment: Chart Reviewed Documented by User: Stacie Bland MD 03/07/24 08:25 [facility] Past Medical History Medical History (Updated 03/07/24 @ 08:13 by Lesa Cabrera RN) Melanoma Degenerative disc disease, lumbar Back pain HLD (hyperlipidemia) HTN (hypertension) T2DM (type 2 diabetes mellitus) Family History Family History (Updated 01/25/24 @ 08:52 by Charissa Lwarence CMA) Father Congestive heart failure Mother Aneurysm Sister Cancer Family history of problems with anesthesia: No Surgical History Surgical History (Updated 03/03/24 @ 13:53 by Rubia Bullock RN) H/O colonoscopy History of adenectomy History of excision of pilonidal cyst History of left hip replacement Hx of appendectomy Hx of tonsillectomy History of Problems with Anesthesia: No Social History Social History Alcohol intake: current Alcohol intake frequency: holidays/special occasions only Comment: 2-3 a month Patient Tobacco Use Status: Former Tobacco user Cigarette Packs Per Day: 2 Years Smoked: 20 Are you DNR?: No Advance Directives: No Advance Directives Information Provided: Yes Meds Allergies Allergy/AdvReac Type Severity Reaction Status Date / Time morphine Allergy Unknown hallucinati Verified 01/25/24 08:48 ons Home Medications ?Medication ?Instructions ?Recorded ?Confirmed ?Last Taken ?Type amlodipine 5 mg tablet 5 mg PO DAILY 10/23/20 03/03/24 03/07/24 History blood sugar diagnostic #10 ea 10/23/20 01/23/21 Unknown History empagliflozin 25 mg tablet 25 mg PO DAILY 10/23/20 03/03/24 03/03/24 History irbesartan 150 mg tablet 150 mg PO DAILY 10/23/20 03/03/24 Unknown History metformin 1,000 mg tablet 500 mg PO BID 10/23/20 03/03/24 Unknown History multivitamin 1 tab PO DAILY 10/23/20 03/03/24 Unknown History omega-3 fatty acids 1,000 mg 1,000 mg PO TID 10/23/20 03/03/24 02/28/24 History capsule (Fish Oil Concentrate) pen needle, diabetic 32 gauge x #50 ea 10/23/20 04/28/21 Unknown History blood sugar diagnostic #10 ea 11/29/20 01/23/21 Unknown History tamsulosin 0.4 mg capsule 0.4 mg PO DAILY 11/24/23 03/03/24 Unknown History atorvastatin 40 mg tablet 80 mg PO DAILY 03/03/24 03/03/24 Unknown History glipizide 2.5 mg tablet, extended 2.5 mg PO DAILY 03/03/24 03/03/24 Unknown History release 24 hr zinc acetate 50 mg (zinc) capsule 50 mg PO DAILY 03/03/24 03/03/24 Unknown History Exam Airway Mallampati Class: III TM Dist: >3cm Neck ROM: Full Assessment and Plan Assessment Anesthesia Assessment: Anesthesia Plan Discussed Final Anesthetic Review Family History of Problems with Anesthesia: No History of Problems with Anesthesia: No NPO: Yes ASA Class: III Final Preanesthetic Review: No Changes in Pt Med Stat, Meds/Allgs Chart Reviewed, Consent Obtained/Reviewed and Anes Risks/Benef Reviewed Patient Risk: Intermediate Procedure Risk: Low Anesthetic Plan Anesthetic Plan: TIVA Disposition: Standard PACU
[2024-03-07 07:34] VITALS: BP 144/76; PULSE 90; RESP 20; TEMP 36.3; O2SAT 97; BMI 25.3
[2024-03-07 07:47] LABS: Glucose, Whole Blood 111 mg/dL (60-115)
--- NOTE | 2024-03-07 07:59 | PC.NURSE ---
results from fleets light liquid brown to tannish no solids
[2024-03-07] MEDS: Lactated Ringers 1,000 ML 100 ML IVCONT (08:09)
--- NOTE | 2024-03-07 09:00 | MHC.SHP ---
Pre-Procedural Eval Section A - 24 Hr Update-Section A only Date of Service: 03/07/24 Section B - Complete if H&P > 30 days Chief Complaint: Encounter for screening for malignant neoplasm of Details of Present Illness: see H&P no changes Relevant Family History (Specify if Yes): No Relevant Social History: None Present Medications: see Short Stay Collaborative assessment Medical History: No relevant PMH History of Previous Operations: No relevant previous surgery Allergies: Allergies Allergy/AdvReac Type Severity Reaction Status Date / Time morphine Allergy Unknown hallucinati Verified 01/25/24 08:48 ons Review of Systems Sugical H&P ROS: Negative: Constitution, Cardiovascular, Respiratory, Neurological, Psychiatric, Hem-Onc, Allergic/Immunologic, Gastrointestinal, Genitourinary, Musculoskeletal, Integumentary, Endocrine and Eyes/Ears/Nose/Throat Exam Surgical H&P Exam: Normal: HEENT, Normal: Heart, Normal: Lungs, Normal: Extremities, Normal: Abdomen, Normal: Skin and Normal: Neurological Plan Diagnosis/Plan: Unchanged I have reviewed the history and physical and performed a pertinent physical examination on my patient. No changes have occurred unless specified. Time Spent With Patient Time: Total time managing care of this patient today ____ minutes.
[2024-03-07 09:58] VITALS: BP 117/64; PULSE 85; RESP 16; TEMP 36.9; O2SAT 98
--- NOTE | 2024-03-07 10:09 | OP_ITS ---
DATE OF SERVICE: 03/07/2024 SURGEON: Eduardo Sandoval MD INDICATIONS: Colon cancer screening and prior history of adenomatous colon polyps. PREOPERATIVE DIAGNOSIS: POSTOPERATIVE DIAGNOSIS: PROCEDURE PERFORMED: Colonoscopy to the cecum with snare polypectomy. ESTIMATED BLOOD LOSS: COMPLICATIONS: ANESTHESIA: Monitored anesthesia care. ASSISTANTS: SPECIMENS: DESCRIPTION OF PROCEDURE: A history and physical was performed. The risks and benefits of the procedure were explained to the patient and informed consent was obtained. The patient was placed in the left lateral decubitus position. A digital rectal exam was performed and was found to be normal. The Olympus pediatric video colonoscope was introduced into the rectum and advanced to the cecum. The cecum was identified by transillumination, palpation, and identification of ileocecal valve. Examination was performed and the scope was removed. He tolerated the procedure well and was taken to recovery area in stable condition. FINDINGS: The terminal ileum was not examined. The visualized colonic mucosa was normal. The quality of the prep was marginal with a large amount of liquid stool left in the colon as well as some formed stool, which was washed and suctioned as best possible. This limited the sensitivity examination for detection of small polyps. Two polyps were identified. These measured less than 10 mm and were removed with a cold snare. These were located at 70 cm and 45 cm. There was moderate sigmoid diverticulosis. Retroflexed examination showed internal hemorrhoids. IMPRESSION: Colon polyps. RECOMMENDATION: Follow up the biopsy results. MD HAVEN Keating/JOSEL / [id number]
[2024-03-07 10:13] VITALS: BP 128/65; PULSE 86; RESP 16; TEMP 36.9; O2SAT 98
== END 2024-03-07 10:58 | disposition home or self-care (01) ==
PROVIDERS: PCP Internal Medicine Medical Oncology; Visit Provider Internal Medicine Gastroenterology
PROC: 0DJD8ZZ Inspection of Lower Intestinal Tract, Via Natural or Artificial Opening Endoscopic (ICD-10-PCS; CPT 45378; principal; 2024-03-07 09:10)
DX: Z12.11 Encounter for screening for malignant neoplasm of colon (principal); D12.6 Benign neoplasm of colon, unspecified; K57.30 Diverticulosis of large intestine without perforation or abscess without bleeding; K64.8 Other hemorrhoids; Z86.010 Personal history of colon polyps; I10 Essential (primary) hypertension; E11.9 Type 2 diabetes mellitus without complications; Z79.84 Long term (current) use of oral hypoglycemic drugs; Z88.5 Allergy status to narcotic agent
CPT/HCPCS: 45385; 82947; 88305; J2704

== ENCOUNTER 2024-04-04 06:04 | Outpatient (REF) | payer MEDICARE, SELFPAY ==
[2024-04-04 06:22] LABS: MANUAL DIFF FLAG NO
[2024-04-04 08:06] LABS: Basophils Percent Auto 0.6 % (0-2); Eosinophils Absolute Auto 0.3 X10*3/uL (0.0-0.4); Eosinophils Percent Auto 4.5 % (0-4); Hematocrit 41.1 % (42.0-52.0); Hemoglobin 13.8 g/dl (14.0-18.0); Imm Gran Abs Auto 0.02 X10*3/uL (0.00-0.03); Imm Gran Pct Auto 0.3 % (0.0-0.4); Lymphocytes Absolute Auto 1.1 X10*3/uL (1.2-4.9); Lymphocytes Percent Auto 16.2 % (20-40); Mean Corpuscular HGB Conc 33.6 g/dl (31.0-36.0); Mean Corpuscular Hemoglobin 31.5 pg (27.0-33.0); Mean Corpuscular Volume 93.8 fL (80.0-98.0); Mean Platelet Volume 9.6 fL (9.4-12.4); Monocytes Absolute Auto 0.6 X10*3/uL (0.1-1.2); Monocytes Percent Auto 8.7 % (2-11); Neutrophils Absolute Auto 4.6 x10*3/uL (2.0-8.3); Neutrophils Percent Auto 69.7 % (45-73); Platelet Count 252 X10*3/uL (160-400); Red Blood Count 4.38 X10*6/uL (4.60-5.80); Red Cell Distribution Width 14.2 % (11.0-16.0); White Blood Count 6.7 X10*3/uL (4.8-10.8)
[2024-04-04 08:18] LABS: Estimated Average Glucose 137 mg/dL; Hemoglobin A1c % 6.4 % (<6.0)
[2024-04-04 08:41] LABS: Alanine Aminotransferase 15 U/L (0-40); Albumin Level 4.2 g/dL (3.5-5.0); Alkaline Phosphatase 68 U/L (39-117); Anion Gap 15 (12-20); Aspartate Amino Transferase 16 U/L (5-37); Bilirubin Total 0.6 mg/dL (0.0-1.0); Blood Urea Nitrogen 20 mg/dL (9-16); Calcium 9.5 mg/dL (8.4-10.2); Carbon Dioxide 21 mmol/L (22-29); Chloride 106 mmol/L (96-108); Cholesterol 104 mg/dL (<200); Estimated Glomerular Filt Rate > 60; Glucose Fasting 112 mg/dL (60-99); HDL Cholesterol 45 mg/dL (>40); LDL Cholesterol Calculated 50 mg/dL (<100); Potassium 4.2 mmol/L (3.3-5.1); Sodium 138 mmol/L (135-145); Total Protein 6.9 g/dL (6.5-8.0); Triglycerides 46 mg/dL (<150)
[2024-04-04 08:58] LABS: Prostate Specific Antigen 1.52 ng/mL (<0.05-4.0)
== END 2024-04-04 06:05 | disposition home or self-care (01) ==
LOC: HO.LAB 06:04
PROVIDERS: PCP Internal Medicine Medical Oncology; Visit Provider Internal Medicine Medical Oncology
DX: N40.0 Benign prostatic hyperplasia without lower urinary tract symptoms (principal); I10 Essential (primary) hypertension; E11.9 Type 2 diabetes mellitus without complications; Z12.5 Encounter for screening for malignant neoplasm of prostate
CPT/HCPCS: 36415; 80053; 80061; 83036; 84153; 85025

== ENCOUNTER 2024-07-11 06:01 | Outpatient (REF) | payer MEDICARE, SELFPAY ==
[2024-07-11 07:34] LABS: Basophils Percent Auto 0.5 % (0-2); Eosinophils Absolute Auto 0.4 X10*3/uL (0.0-0.4); Eosinophils Percent Auto 6.6 % (0-4); Hematocrit 43.4 % (42.0-52.0); Hemoglobin 14.4 g/dl (14.0-18.0); Imm Gran Abs Auto 0.02 X10*3/uL (0.00-0.03); Imm Gran Pct Auto 0.4 % (0.0-0.4); Lymphocytes Absolute Auto 1.2 X10*3/uL (1.2-4.9); Lymphocytes Percent Auto 21.5 % (20-40); MANUAL DIFF FLAG SCAN; Mean Corpuscular HGB Conc 33.2 g/dl (31.0-36.0); Mean Corpuscular Hemoglobin 32.1 pg (27.0-33.0); Mean Corpuscular Volume 96.7 fL (80.0-98.0); Monocytes Absolute Auto 0.6 X10*3/uL (0.1-1.2); Monocytes Percent Auto 10.4 % (2-11); Neutrophils Absolute Auto 3.4 x10*3/uL (2.0-8.3); Neutrophils Percent Auto 60.6 % (45-73); PLT CLUMP 1; Red Blood Count 4.49 X10*6/uL (4.60-5.80); Red Cell Distribution Width 14.1 % (11.0-16.0); SCAN SMEAR FLAG 1
[2024-07-11 07:35] LABS: Estimated Average Glucose 134 mg/dL; Hemoglobin A1c % 6.3 % (<6.0)
[2024-07-11 07:51] LABS: Alanine Aminotransferase 19 U/L (0-40); Albumin Level 4.4 g/dL (3.5-5.0); Alkaline Phosphatase 70 U/L (39-117); Anion Gap 14 (12-20); Aspartate Amino Transferase 17 U/L (5-37); Bilirubin Total 0.7 mg/dL (0.0-1.0); Blood Urea Nitrogen 18 mg/dL (9-16); Carbon Dioxide 25 mmol/L (22-29); Chloride 105 mmol/L (96-108); Cholesterol 111 mg/dL (<200); Estimated Glomerular Filt Rate > 60; Glucose Fasting 115 mg/dL (60-99); HDL Cholesterol 47 mg/dL (>40); LDL Cholesterol Calculated 45 mg/dL (<100); Potassium 4.3 mmol/L (3.3-5.1); Sodium 140 mmol/L (135-145); Total Protein 7.3 g/dL (6.5-8.0); Triglycerides 99 mg/dL (<150)
[2024-07-11 08:02] LABS: Mean Platelet Volume 10.6 fL (9.4-12.4); Platelet Count 215 X10*3/uL (160-400); White Blood Count 5.6 X10*3/uL (4.8-10.8)
[2024-07-11 08:04] LABS: SLIDE REVIEW VERIFIED
[2024-07-11 12:24] LABS: Creatinine Urine 68.65 mg/dL; Microalbum/Creatinine Ratio Ur 14.5 ug/mg cr (<30)
== END 2024-07-11 06:02 | disposition home or self-care (01) ==
LOC: HO.LAB 06:01
PROVIDERS: PCP Internal Medicine Medical Oncology; Referring Provider Hospitalist; Visit Provider Internal Medicine Medical Oncology
DX: N40.0 Benign prostatic hyperplasia without lower urinary tract symptoms (principal); E11.9 Type 2 diabetes mellitus without complications; E66.3 Overweight; Z12.5 Encounter for screening for malignant neoplasm of prostate
CPT/HCPCS: 36415; 80053; 80061; 82043; 82570; 83036; 84153; 85025

== ENCOUNTER 2024-07-11 11:30 | Outpatient (REF) | payer MEDICARE, SELFPAY | END 2024-07-11 11:31 | disposition home or self-care (01) | LOC: HO.LNP 11:30 | PROVIDERS: Visit Provider Internal Medicine Medical Oncology | DX: Z13.89 Encounter for screening for other disorder (principal) ==

== ENCOUNTER 2025-01-05 06:33 | Outpatient (REF) | payer MEDICARE, SELFPAY ==
--- OUTSIDE RECORDS SUMMARY | 2025-01-05 06:37 | XMS_ITS ---
Author Organization Rony Roberts III, MD Address [address] [place] [address] [place] [address] Care Team Providers Care Territory Sales Executive Name Role Phone Rony Roberts Primary Care Provider REASON FOR VISIT Lab Request Social History Sex Assigned At : Social History Observation Description Sex Assigned At Male Encounters Encounter Location Date Provider Diagnosis Rony Roberts III, MD [address] [place] [address] [place] [phone] 01/04/2025 Rony Roberts Essential hypertensi on I10 ; Diabetes mellitus E11.9 ; Benign prostatic hyperplasia, unspecified whether lower urinary tract symptoms present N40.0 and Overweight E66.3 Assessments Encounter Date Diagnosis (ICD Code) Assessment Notes Treat ment Notes Treatment Clinical Notes 01/04/2025 Essential hypertension (ICD-10 - I10) 01/04/2025 Diabetes mellitus (ICD-10 - E11.9) 01/04/2025 Benign prostatic hyperplasia, unspecified whether lower urinary tract symptoms present (ICD-10 - N40.0) 01/04/2025 Overweight (ICD-10 - E66.3) Plan Of Treatment Pending Test Test Name Order Date PROFILE, FASTING (COMPREHENSIVE METABOLI C) 01/04/2025 PSA, TOTAL 01/04/2025 MICROALBUMIN, RANDOM 01/04/2025 CBC w DIFF 01/04/2025 Lipid Panel 01/04/2025 Hemoglobin A1c 01/04/2025 Next Appt Details Provider Name:Rony Roberts, 01/09/2025 02:00:00 PM, [address] [place] [address] [address], [place], [address], Progress Notes * Tj PAGEDOB: [birth year] (79 yo M)Acc No.[id number]:01/04/2025 Patient:?Tj PAGE :1945???Age:79 Y???Sex:Male Address:[address] [place] [phone] Subjective: * Chief Complaints: * ???Lab Request * Medical History:? * Surgical History:? * Hospitalization/Major Diagno stic Procedure:? * Medications:? Objective: * Vitals:? * Physical Examination:? Assessment: * Assessment: 1.?Essential hypertension - I10???2.?Diabetes mellitus - E11.9???3.?Benign prostatic hyperplasia, unspecified whether lower urinary tract symptoms present - N40.0???4.?Overweight - E66.3??? Plan: * Treatment: 2.?Diabetes mellitus?LAB: PROFILE, FASTING (COMPREHENSIVE METABOLIC) ?LAB: PSA, TOTAL ?LAB: MICROALBUMIN, RANDOM ?LAB: CBC w DIFF ?LAB: Lipid Panel ?LAB: Hemoglobin A1c 3.?Benign prostatic hyperpla glenn, unspecified whether lower urinary tract symptoms present?LAB: PROFILE, FASTING (COMPREHENSIVE METABOLIC) ?LAB: PSA, TOTAL ?LAB: MICROALBUMIN, RANDOM ?LAB: CBC w DIFF ?LAB: Lipid Panel ?LAB: Hemoglobin A1c 4.?Overweight?LAB: PROFILE, FASTING (COMPREHENSIVE METABOLIC) ?LAB: PSA, TOTAL ?LAB: MICROALBUMIN, RANDOM ?LAB: CBC w DIFF ?LAB: Lipid Panel ?LAB: Hemoglobin A1c * Procedure Codes:? * true * Date:? Generated for Roseann russ/Mahin/Gagan on:?01/05/2025 06:37 AM EST
--- OUTSIDE RECORDS SUMMARY | 2025-01-05 06:37 | XMS_ITS ---
Author Organization [facility] Address [address] [place] [address] Care Team Providers Care Cherry Picker Operator Name Role Phone Rony Roberts MD Primary Care Provider UnavailEduardo Feliz Jr Unavailable ALLERGIES Allergen (clinical drug ingredient) Drug/Non Drug Allergy documented on EMR Reaction Allergy Type Onset Date Status morphine Morphine Sulfate Unknown Drug Allergy Active REASON FOR VISIT Patient presents today for a recall colonoscopy MEDICATIONS Medication SIG (Take, Route, Frequency, Duration) Notes Start Date End Date Status glipiZIDE XL 2.5 MG 1 tablet Orally Once a day Active Ozempic (1 MG/DOSE) 2 MG/1.5ML as directed Subcutaneous Act vanessa Irbesartan 150 MG 1 tablet Orally Once a day Active amLODIPine Besylate 5 MG 1 tablet Orally Once a day Active metFORMIN HCl ER 500 MG 1 tablet with ev ening meal Orally twice a day Active Fish Oil 1000 MG 1 capsule Orally Thr ee times a day for 30 day(s) Active Zinc 50 MG 1 tablet Orally Once a day for 30 day(s) Active Empagliflozin 25 MG 1 tablet Orally Once a day for 30 day(s) Active Atorvastatin Calcium 80 MG 1 tablet Oral ly Once a day for 30 day(s) Active Tamsulosin HCl 0.4 MG as directed Orally Active Vision Formula - as directed Orally Active Multi Vitamin - 1 tablet Orally Once a day for 30 day(s) Active MiraLax (colon prep) 17 GM/SCOOP mixed with Gatorade or Crystal Light Orally begin at 5:00 p.m. the day before the procedure for 1 day 01/10/2024 Active Vitamin C & D3/Kaye Hips 500-1000-20 MG-UNIT-MG as directed Orally Active IMMUNIZATIONS Vaccine Route Administration Date Status Comme nts Influenza Unknown 01/10/2024 Refused PROBLEMS Problem Type ICD Code Onset Dates Problem Status W/U Status Risk SNOMED Code Notes Problem Personal history of colonic polyps (Z86.010) Active confirmed 034902742 Problem Long-term current use of high risk medication other than anticoagulant (Z79.899) Active confirmed 570764101 VITAL SIGNS Blood pressure systolic 000 mm Hg 01/10/20 24 Blood pressure diastolic 00 mm Hg 024 Height 70 in 01/10/2024 Weight 176 lb 6 oz lbs 01/10/2024 BMI 25.30 kg/m2 01/10/2024 Encounters Encounter Location Date Provider Diagnosis [facility] [address] [place] [address] 01/10/2024 Eduardo Sandoval Jr Colon cancer screening Z12.11 ; correction (current) use of oral hypoglycemic drugs Z79.84 ; Personal history of colonic polyps Z86.010 and Long-term current use of high risk medication other than anticoagulant Z79.899 ASSESSMENTS Encounter Date Diagnosis Assessment Notes Treatment Notes Treatment Clinical Notes 01/10/2024 Colon cancer screening (ICD-10 - Z12.11) Colonoscopy material was printed 01/10/2024 correction (current) use of oral hypoglycemic drugs (ICD-10 - Z79.84) 01/10/2024 Personal history of colonic polyps (ICD-10 - Z86.010) 01/10/2024 Long-term current use of high risk medication other than anticoagulant (ICD-10 - Z79.899) PLAN OF TREATMENT Medication Medication Name Sig Start Date Stop Date Notes MiraLax (colon prep) 17 GM/SCOOP mixed with Gatorade or Crystal Light Orally begin at 5:00 p.m. the day before the procedure for 1 day 01/10/2024 Treatment Notes Assessment Notes Colon cancer screening Colonoscopy mater ial was printed Future Test Test Name Order Date COLONOSCOPY 01/10/2024 Next Appt Details Follow Up: 1 Year, Reason: Progress Notes * Examination Category Sub-Category Detail Notes General Examination GENERAL APPEARANCE: in no ac [place] distress HEAD: normocephalic EYES: sclera non-icteric NECK/THYROID: no lymphadenopathy HEART: S1, S2 normal, no mu rmurs CHEST: normal shape and exp ansion LUNGS: clear to auscultatio n bilaterally ABDOMEN: soft, nontender, non distended, bowel sounds present, no organomegaly SKIN: anicteric EXTREMITIES: no clubbing, cyanosi s, or edema PSYCH: cognitive function i ntact ORAL CAVITY: mucosa moist
--- OUTSIDE RECORDS SUMMARY | 2025-01-05 06:37 | XMS_ITS | Patient Health Record ---
Author Organization [facility] Address [address] [place] [address] Care Team Providers Care Transportation Planning Technician Name Role Phone Rony Roberts MD Primary Care Provider Eduardo Tomlinson Jr Unavailable [phone] ALLERGIES Allergen (clinical drug ingredient) Drug/Non Drug Allergy documented on EMR Reaction Allergy Type Onset Date Status morphine Morphine Sulfate Unknown Drug Allergy Active RESULTS Component Value Reference Range Notes Glucose, Whole Blood Reviewed date:03/08/2024 08:41:24 AM Interpretation: Performing Lab:[facility], [address] [place] [phone] Notes/Report: Glucose, Whole Blood 111 60-115 mg/dL METER # : [id number] Pathology Reviewed date:03/09/2024 11:20:44 AM Interpretation: Performing Lab:[facility], [address] [place] [phone] Notes/Report: REASON FOR REFERRAL No Information MEDICATIONS Medication SIG (Take, Route, Frequency, Duration) Notes Start Date End Date Status MiraLax (colon prep) 17 GM/SCOOP mixed with Gatorade or Crystal Light Orally begin at 5:00 p.m. the day before the procedure for 1 day 01/10/2024 Active Atorvastatin Calcium 80 MG 1 tablet Oral ly Once a day for 30 day(s) Active Tamsulosin HCl 0.4 MG as directed Orally Active Ozempic (1 MG/DOSE) 2 MG/1.5ML as directed Subcutaneous Act vanessa Irbesartan 150 MG 1 tablet Orally Once a day Active amLODIPine Besylate 5 MG 1 tablet Orally Once a day Active Vitamin C & D3/Kaye Hips 500-1000-20 MG-UNIT-MG as directed Orally Active metFORMIN HCl ER 500 MG 1 tablet with ev ening meal Orally twice a day Active Vision Formula - as directed Orally Active glipiZIDE XL 2.5 MG 1 tablet Orally Once a day Active Multi Vitamin - 1 tablet Orally Once a day for 30 day(s) Active Fish Oil 1000 MG 1 capsule Orally Thr ee times a day for 30 day(s) Active Zinc 50 MG 1 tablet Orally Once a day for 30 day(s) Active Empagliflozin 25 MG 1 tablet Orally Once a day for 30 day(s) Active IMMUNIZATIONS Vaccine Route Administration Date Status Comme nts Flu vaccine no Preserv 3 and > Unknown 08/08/2014 Admin istered Flu vaccine no Preserv 3 and > Unknown 07/20/2017 Admin istered Influenza Unknown 01/10/2024 Refused SOCIAL HISTORY Sex Assigned At : Social History Observation Description Sex Assigned At Unknown PROBLEMS Problem Type ICD Code Onset Dates Problem Status W/U Status Risk SNOMED Code Notes Problem Colon cancer screening (Z12.11) Active confirmed 785328102 Problem Personal history of colonic polyps (Z86.010) Active confirmed 385183018 Problem Long-term use of aspirin therapy (Z79.82) Active confirmed 145233782 Problem Long-term current use of high risk medication other than anticoagulant (Z79.899) Active confirmed 848956762 Problem housing project 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 (current) use of oral hypoglycemic drugs (Z79.84) Active confirmed 191561782 VITAL SIGNS Blood pressure diastolic 00 mm Hg 01/10/2024 Height 70 in 01/10/2024 Blood pressure systolic 000 mm Hg 01/10/2024 Weight 176 lb 6 oz lbs 01/10/2024 BMI 25.30 kg/m2 01/10/2024 Encounters Encounter Location Date Provider Diagnosis [facility] [address] [place], [place] [id number] 03/07/2024 Eduardo Sandoval Jr Encounter for screening colonoscopy Z12.11 ; Personal history of colonic polyps Z86.010 and Colon polyps K63.5 [facility] [address] [place] [address] 01/10/2024 Eduardo Sandoval Jr Colon cancer screening Z12.11 ; housing project manager (current) use of oral hypoglycemic drugs Z79.84 ; Personal history of colonic polyps Z86.010 and Long-term current use of high risk medication other than anticoagulant Z79.899 [facility] [address] [place] [address] 03/09/2024 Eduardo Sandoval Jr ASSESSMENTS Encounter Date Diagnosis Assessment Notes Treatment Notes Treatment Clinical Notes 03/07/2024 Encounter for screening colonoscopy (ICD-10 - Z12.11) 03/07/2024 Personal history of colonic polyps (ICD-10 - Z86.010) 01/10/2024 Colon cancer screening (ICD-10 - Z12.11) Colonoscopy material was printed 01/10/2024 housing project manager (current) use of oral hypoglycemic drugs (ICD-10 - Z79.84) 03/07/2024 Colon polyps (ICD-10 - K63.5) 01/10/2024 Personal history of colonic polyps (ICD-10 - Z86.010) 01/10/2024 Long-term current use of high risk medication other than anticoagulant (ICD-10 - Z79.899) PLAN OF TREATMENT Future Test Test Name Order Date COLONOSCOPY 01/02/2015 COLONOSCOPY 05/27/2018 COLONOSCOPY 01/10/2024 Insurance Providers Payer Name Payer Address Payer Phone Subscriber Number Group Number Insured Name Patient Relationship to Insured Coverage Start Date Coverage End Date MEDICARE OF [place] [address] [place] [address] [phone] [id number] DESILETS , VINCENT Self - patient is the insured MEDEX ATTN CLAIMS [address] [place] [address] [id number] DESILETS , VINCENT Self - patient is the insured MEDICAL (GENERAL) HISTORY Medical History History ICD Code Hypertension Diabetes mellitus Colonoscopy, 09/25, tubular adenoma, fiv e-year followup Hyperlipidemia Low back pain, degenerative disc disease Melanoma Surgical History Surgery Date(Month/Year) appendectomy tonsillectomy pilonidal cyst excision left hip replacement 2009
--- OUTSIDE RECORDS SUMMARY | 2025-01-05 06:37 | XMS_ITS ---
Author Organization [facility] Address [address] [place] [address] Care Team Providers Care Card Puncher Name Role Phone Armando PARRA, Rony Primary Care Provider Unavailab Eduardo Cardenas Jr [phone] REASON FOR VISIT pathology/benign/no further screening colonoscopies Encounters Encounter Location Date Provider Diagnosis [facility] [address] [place] [address] 03/09/2024 Eduardo Sandoval Jr PLAN OF TREATMENT No Information
--- OUTSIDE RECORDS SUMMARY | 2025-01-05 06:38 | XMS_ITS | Clinical Summary ---
Author Organization [address] [facility] Address [address] [place] [address] Phone Care Team Providers Care Hospice Liaison Name Role Phone Physician, Pcp Unknown Primary Care Provider Michelle vailable Allergies No known active allergies Encounters Date Type Department Care Team Description 11/09/2024 1:15 PM EST Office Visit [facility] [place] [address] [address] Nazario Herrera DPM Diabetic mononeuropathy simplex (CMS/HCC) (Primary Dx); Dermatophytosis of nail; Type II diabetes mellitus with peripheral circulatory disorder (CMS/HCC); Pain in toe of right foot; Pain in toe of left foot from Last 3 Months Social History Tobacco Use Types Packs/Day Years Used Date Smoking Tobacco: Never Assessed Sex and Gender Information Value Date Recorded Sex Assigned at Not on file Legal Sex Male 4:37 PM EDT Gender Identity Not on file Sexual Orientation Not on file Last Filed Vital Signs Vital Sign Reading Time Taken Comments Blood Pressure - - Pulse - - Temperature - - Respiratory Rate - - Oxygen Saturation - - Inhaled Oxygen Concentration - - Weight 83.9 kg (185 lb) 11/09/2024 1:37 PM EST Height 175.3 cm (5' 9 ) 11/09/2024 1:37 PM EST Body Mass Index 27.32 11/09/2024 1:37 PM EST Plan of Treatment Upcoming Encounters Date Type Department Care Team (Late st Contact Info) Description 02/07/2025 8:15 AM EDT Office Visit [facility] [address] [address] Nazario Herrera DPM [address] [address] Health Maintenance Due Date Last Done Comments Diabetes: Annual GFR (Glomerular Filtration Rate) 1945 Diabetes: Annual Foot Exam 1957 Diabetes: Annual Retina Eye Exam 1957 DTaP,Tdap,and Td Vaccines (1 - Tdap) 1966 RSV Immunization Patients 60+ Years Old (1 - 1-dose 75+ series) 2022 COVID-19 Vaccine ( season) 2024 10/20/2021, 02/08/2021, 01/11/2021 Influenza Vaccine (#1) 2024 , 08/03/2020, 09/12/2019, Additional history exists Cholesterol Screening (Lipid Panel) 09/03/2024 Depression Screening 09/03/2024 Falls Risk Assessment 09/03/2024 Hepatitis C Screening 09/03/2024 Medicare Annual Wellness Visit 09/03/2024 Social Influencers of Health Screening 09/03/2024 Diabetes: Annual Urine Albumin-Creatinine Ratio (uACR) 11/09/2024 Diabetes: Blood Sugar Control Test (HGBA1C) 11/09/2024 Hypertension/CHF/CAD Annual BMP Blood Test 11/09/2024 Zoster Vaccines Completed 04/08/2021, 10/21/2020 Pneumococcal Vaccine: 50+ Years Completed 12/03/2021, 09/12/2019 HIB Vaccines Aged Out No longer eligi ble based on patient's age to complete this topic HPV Vaccines Aged Out No longer eligi ble based on patient's age to complete this topic Hepatitis A Vaccines Aged Out No long er eligible based on patient's age to complete this topic Hepatitis B Vaccines Aged Out No long er eligible based on patient's age to complete this topic IPV Vaccines Aged Out No longer eligi ble based on patient's age to complete this topic MMR Vaccines Aged Out No longer eligi ble based on patient's age to complete this topic Meningococcal ACWY Vaccine Aged Out N o longer eligible based on patient's age to complete this topic Meningococcal B Vacine Aged Out No lo nger eligible based on patient's age to complete this topic RSV Immunization Patients Under 20 months Aged Out No longer eligible based on patient's age to complete this topic Varicella Vaccines Aged Out No longer eligible based on patient's age to complete this topic Insurance MEDICARE MEDEX Care Teams Hospice Liaison Relationship Specialty Start Date End Date Physician, Pcp Unknown PCP - General 09/07/24
--- OUTSIDE RECORDS SUMMARY | 2025-01-05 06:38 | XMS_ITS ---
Author Organization Rony Roberts III, MD Address [address] [place] [address] [place] [address] Care Team Providers Care Revenue Audit Clerk Name Role Phone Rony Roberts Primary Care Provider REASON FOR VISIT Annual Exam Social History Sex Assigned At : Social History Observation Description Sex Assigned At Male Encounters Encounter Location Date Provider Diagnosis Rony Roberts III, MD [address] [place] [address] [place] [address] 11/23/2024 Rony Roberts Plan Of Treatment Next Appt Details Provider Name:Rony Roberts, 01/09/2025 02:00:00 PM, [address] [place] [address] [place], [address], Progress Notes * Tj PAGEDOB: [birth year] (79 yo M)Acc No.[id number]:11/23/2024 Progress Notes Patient:?Tj PAGE Provider:?Rony Robrets MD :1945???Age:79 Y???Sex:Male Kuldeep e:11/23/2024 Address:[address] [place], [place] [phone] Subjective: * Chief Complaints: * ???1. Annual Exam. * Medical History:? Objective: * Vitals:? Assessment: Plan: * Treatment: * Images: * The named appointment provid er may or may not be the originator of this progress note, and it is not deemed complete until electronically signed by the appointment provider. Sign off status: Pending * Provider:?Rony Roberts MD Date:?11/08 Generated for Roseann russ/Mahin/Yaimlaitting on:?01/05/2025 06:38 AM EST
[2025-01-05 06:53] LABS: MANUAL DIFF FLAG NO
[2025-01-05 07:50] LABS: Basophils Percent Auto 0.7 % (0-2); Eosinophils Absolute Auto 0.3 X10*3/uL (0.0-0.4); Eosinophils Percent Auto 5.7 % (0-4); Hematocrit 40.3 % (42.0-52.0); Hemoglobin 13.7 g/dl (14.0-18.0); Imm Gran Abs Auto 0.02 X10*3/uL (0.00-0.03); Imm Gran Pct Auto 0.3 % (0.0-0.4); Lymphocytes Absolute Auto 1.2 X10*3/uL (1.2-4.9); Mean Corpuscular Hemoglobin 31.6 pg (27.0-33.0); Mean Corpuscular Volume 93.1 fL (80.0-98.0); Mean Platelet Volume 9.1 fL (9.4-12.4); Monocytes Absolute Auto 0.7 X10*3/uL (0.1-1.2); Monocytes Percent Auto 11.6 % (2-11); Neutrophils Absolute Auto 3.7 x10*3/uL (2.0-8.3); Neutrophils Percent Auto 61.7 % (45-73); Platelet Count 264 X10*3/uL (160-400); Red Blood Count 4.33 X10*6/uL (4.60-5.80); Red Cell Distribution Width 13.2 % (11.0-16.0)
[2025-01-05 07:55] LABS: Estimated Average Glucose 151 mg/dL; Hemoglobin A1C 187.8351 umol/L; Hemoglobin A1c % 6.9 % (<6.0); Total Hemoglobin (HGBA1C) 3593.4256 umol/L
[2025-01-05 08:36] LABS: Microalbum/Creatinine Ratio Ur 15.6 ug/mg cr (<30)
[2025-01-05 08:53] LABS: Alanine Aminotransferase 17 U/L (0-40); Alkaline Phosphatase 65 U/L (39-117); Anion Gap 13 (12-20); Aspartate Amino Transferase 18 U/L (5-37); Bilirubin Total 0.4 mg/dL (0.0-1.0); Blood Urea Nitrogen 16 mg/dL (9-16); Calcium 9.4 mg/dL (8.4-10.2); Carbon Dioxide 22 mmol/L (22-29); Chloride 108 mmol/L (96-108); Cholesterol 97 mg/dL (<200); Estimated Glomerular Filt Rate > 60; Glucose Fasting 125 mg/dL (60-99); HDL Cholesterol 41 mg/dL (>40); LDL Cholesterol Calculated 47 mg/dL (<100); Potassium 4.3 mmol/L (3.3-5.1); Sodium 139 mmol/L (135-145); Total Protein 7.1 g/dL (6.5-8.0); Triglycerides 45 mg/dL (<150)
[2025-01-05 08:56] LABS: Prostate Specific Antigen 2.29 ng/mL (<0.05-4.0)
== END 2025-01-05 06:34 | disposition home or self-care (01) ==
LOC: HO.LAB 06:33
PROVIDERS: PCP Internal Medicine Medical Oncology; Visit Provider Internal Medicine Medical Oncology
DX: I10 Essential (primary) hypertension (principal); E11.9 Type 2 diabetes mellitus without complications; Z12.5 Encounter for screening for malignant neoplasm of prostate; N40.0 Benign prostatic hyperplasia without lower urinary tract symptoms; E66.3 Overweight
CPT/HCPCS: 36415; 80053; 80061; 82043; 82570; 83036; 84153; 85025

== ENCOUNTER 2025-04-03 06:00 | Outpatient (REF) | payer MEDICARE, SELFPAY ==
--- OUTSIDE RECORDS SUMMARY | 2025-04-03 06:03 | XMS_ITS ---
Author Organization Rony Roberts III, MD Address [address] [place] [address] [place] [address] Care Team Providers Care Director [employer] Name Role Phone Rony Roberts Primary Care Provider REASON FOR VISIT Message Social History Sex Assigned At : Social History Observation Description Sex Assigned At Male Encounters Encounter Location Date Provider Diagnosis Rony Roberts III, MD [address] [place] [address] [place] [address] 02/07/2025 Rony Roberts Plan Of Treatment Next Appt Details Provider Name:Rony Roberts, 04/11/2025 10:00:00 AM, [address] [place] [address] [place], [phone], Provider Name:Rony Roberts, 01/11/2026 02:00:00 PM, [address] [place] [address] [place], [address], Progress Notes * Tj PAGEDOB: [birth year] (79 yo M)Acc No.[id number]:02/07/2025 Patient:?Tj PAGE :1945???Age:79 Y???Sex:Male Address:[address] [place] [phone] * true * Date:? Generated for Roseann russ/Mahin/Gagan on:?04/03/2025 06:03 AM EDT
[2025-04-03 06:13] LABS: MANUAL DIFF FLAG NO
[2025-04-03 07:17] LABS: Basophils Percent Auto 0.6 % (0-2); Eosinophils Absolute Auto 0.3 X10*3/uL (0.0-0.4); Eosinophils Percent Auto 4.8 % (0-4); Hematocrit 40.6 % (42.0-52.0); Hemoglobin 13.7 g/dl (14.0-18.0); Imm Gran Abs Auto 0.02 X10*3/uL (0.00-0.03); Imm Gran Pct Auto 0.3 % (0.0-0.4); Lymphocytes Absolute Auto 1.4 X10*3/uL (1.2-4.9); Lymphocytes Percent Auto 20.4 % (20-40); Mean Corpuscular HGB Conc 33.7 g/dl (31.0-36.0); Mean Corpuscular Hemoglobin 32.3 pg (27.0-33.0); Mean Corpuscular Volume 95.8 fL (80.0-98.0); Mean Platelet Volume 9.6 fL (9.4-12.4); Monocytes Absolute Auto 0.7 X10*3/uL (0.1-1.2); Neutrophils Absolute Auto 4.3 x10*3/uL (2.0-8.3); Neutrophils Percent Auto 63.9 % (45-73); Platelet Count 234 X10*3/uL (160-400); Red Blood Count 4.24 X10*6/uL (4.60-5.80); Red Cell Distribution Width 13.9 % (11.0-16.0); White Blood Count 6.7 X10*3/uL (4.8-10.8)
[2025-04-03 07:57] LABS: Alanine Aminotransferase 19 U/L (0-40); Albumin Level 4.4 g/dL (3.5-5.0); Alkaline Phosphatase 67 U/L (39-117); Anion Gap 13 (12-20); Aspartate Amino Transferase 19 U/L (5-37); Bilirubin Total 0.5 mg/dL (0.0-1.0); Blood Urea Nitrogen 18 mg/dL (9-16); Calcium 9.5 mg/dL (8.4-10.2); Carbon Dioxide 24 mmol/L (22-29); Chloride 107 mmol/L (96-108); Cholesterol 113 mg/dL (<200); Estimated Glomerular Filt Rate > 60; Glucose Fasting 144 mg/dL (60-99); HDL Cholesterol 48 mg/dL (>40); LDL Cholesterol Calculated 52 mg/dL (<100); Potassium 4.2 mmol/L (3.3-5.1); Sodium 140 mmol/L (135-145); Total Protein 7.2 g/dL (6.5-8.0); Triglycerides 66 mg/dL (<150)
[2025-04-03 08:14] LABS: Prostate Specific Antigen 3.34 ng/mL (<0.05-4.0)
== END 2025-04-03 06:01 | disposition home or self-care (01) ==
LOC: HO.LAB 06:00
PROVIDERS: PCP Internal Medicine Medical Oncology; Visit Provider Internal Medicine Medical Oncology
DX: N40.0 Benign prostatic hyperplasia without lower urinary tract symptoms (principal); I10 Essential (primary) hypertension; C79.9 Secondary malignant neoplasm of unspecified site; E66.3 Overweight; Z12.5 Encounter for screening for malignant neoplasm of prostate
CPT/HCPCS: 36415; 80053; 80061; 84153; 85025

== ENCOUNTER 2025-07-05 06:02 | Outpatient (REF) | payer MEDICARE, SELFPAY ==
--- OUTSIDE RECORDS SUMMARY | 2024-03-07 05:10 | XMS_ITS ---
Author Organization [facility] Address [address] [place] [id number] Care Team Providers Care Tumble Tailstock Turret Lathe Operator Name Role Phone Armando PARRA, Rony Primary Care Provider Unavailab Eduardo Cardenas Jr [phone] REASON FOR VISIT screening Encounters Encounter Location Date Provider Diagnosis [facility] [place] [address] [place] [phone] 03/07/2024 Eduardo Sandoval Jr Encounter for screening [...] Of Treatment No Information Progress Notes * WNADA CREWS RDOB:[birth year] (79 yo M)Acc No.[id number]:03/07/2024 COLON WITH MAC Patient: Jona HEREDIA WANDA English Provider: Carri Sandoval MD :1945 A ge:78 Y S ex:Male Date:03/07/2024 Address:[address] [place], [place] [phone] Pcp:Rony Roberts MD Subjective: * Chief Complaints: * 1 . Screening. * Medical History: Objective: * Vitals: Assessment: * Assessment: 1. E ncounter for screening colonoscopy - Z12.11 (Primary) 2 . P ersonal history of colonic polyps - Z86.010 3 . C olon polyps - K63.5 Plan: * Treatment: * Procedure Codes: G 0105 COLOREC CANCR SCR; COLNSCPY HI RISK, [address]2063 LESION REMOVAL COLONOSCOPY, 0529F INTRVL 3+YRS PTS CLNSCP DOCD * * The named appointment provid er may or may not be the originator of this progress note, and it is not deemed complete until electronically signed by the appointment provider. Sign off status: Pending * Provider: Carri Sandoval MD Date: 0 03/07/2024 Generated for Roseann russ/Mahin/Yamilaitting on: 0 07/05/2025 06:04 AM EDT
--- OUTSIDE RECORDS SUMMARY | 2025-02-07 06:49 | XMS_ITS ---
Author Organization Rony Roberts III, MD Address [address] [place] [address] [place] [address] Care Team Providers Care User Experience Researcher Name Role Phone Rony Roberts Primary Care Provider [phone] REASON FOR VISIT Message Social History Sex Assigned At : Social History Observation Description Sex Assigned At Male Encounters Encounter Location Date Provider Diagnosis Rony Roberts III, MD [address] [place] [address] [place] [address] 02/07/2025 Rony Roberts Plan Of Treatment Next Appt Details Provider Name:Rony Roberts, 07/12/2025 09:15:00 AM, [address] [place] [address] [place], [address], Provider Name:Rony Roberts, 01/11/2026 02:00:00 PM, [address] [place] [address] [place], [address], Progress Notes * Tj PAGEDOB: [birth year] (79 yo M)Acc No.[id number]:02/07/2025 Patient: Jona HEREDIATj :1945 A ge:79 Y S ex:Male Address:[address] [place] [phone] * true * Date: Generated for Roseann russ/Mahin/Gagan on: 07/05/2025 06:05 AM EDT
--- OUTSIDE RECORDS SUMMARY | 2025-04-11 06:00 | XMS_ITS ---
Author Organization Rony Roberts III, MD Address [address] [place] [address] Care Team Providers Care Business Planner Name Role Phone Rony Roberts Primary Care Provider [phone] Allergies Allergen (clinical drug ingredient) Drug/Non Drug [...] Date Provider Diagnosis Rony Roberts III, MD [address] [place] [address] [place] [address] 04/11/2025 Rony Roberts Benign prostatic hyperplasia, unspecified [...] Up: 3 Months, Reason: OV Provider Name:Rony Roberts, 07/12/2025 09:15:00 AM, [address] [place] [address] , [facility] [address], [place], [address], Provider Name:Rony Roberts, 01/11/2026 02:00:00 PM, [address] [place] [address] [address], [place], [address], Progress Notes * Tj PAGEDOB: [birth year] (79 yo M)Acc No.[id number]:04/11/2025 Progress Notes Patient: Tj IVERSON Provider: Amador Roberts MD :1945 A ge:79 Y S ex:Male Date:04/11/2025 Address:[address] [place], [place] [phone] Subjective: * Chief Complaints: * B lepharospasmHistory of melanomaHypertensionDiabetesBenign prostatic hypertrophyLeft shoulder pain * HPI: C OVID-19 Screening: Kassie cagle recently had Botox injections around his eyes to stop twitching. He now has some twitching of his upper lip,, which the hand outside cutter is treating with observation. 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 He has a daughter and a 2 grandaughters and 2 grand sons. He was born in [place], [place]. * Medications: T akingOneTouch Ultra Test [...] List reviewed and reconciled with the patientTaking Perv[employer]rapeutics Ultra Test - Strip as directed In [...] 0.000 (Ref Range: 0.0-0.012 X10*3/uL) * Lab:[facility] * Collection Date 04/03/2025 01/05/2025 07/11/2024 Collection [...] 0 04/11/2025 Generated for Roseann russ/Mahin/Yamilaitting on: 0 07/05/2025 06:04 AM EDT History and Physical Notes * HPI (History [...]
--- OUTSIDE RECORDS SUMMARY | 2025-06-02 16:59 | XMS_ITS ---
Author Organization Rony Roberts III, MD Address [address] [place] [address] [place] [address] Care Team Providers Care Magazine Journalist Name Role Phone Rony Roberts Primary Care Provider Social History Sex Assigned At : Social History Observation Description Sex Assigned At Male Encounters Encounter Location Date Provider Diagnosis Rony Roberts III, MD [address] [place] [address] [place] [address] 06/02/2025 Rony Roberts Plan Of Treatment Next Appt Details Provider Name:Rony Roberts, 07/12/2025 09:15:00 AM, [address] [place] [address] [place], [address], Provider Name:Rony Roberts, 01/11/2026 02:00:00 PM, [address] [place] [address] [place], [address], Progress Notes * Tj PAGEDOCarri: [birth year] (79 yo M)Acc No.[id number]:06/02/2025 Patient: Jona HEREDIA Tj :1945 A ge:79 Y S ex:Male Address:[address] [place] [phone] * true * Date: Generated for Roseann russ/Mahin/Gagan on: 0 07/05/2025 06:05 AM EDT
--- OUTSIDE RECORDS SUMMARY | 2025-07-05 06:05 | XMS_ITS | Encounter Summary ---
Author Organization [facility] Address [address] [address] Phone Care Team Providers Care Biomedical Analytical Scientist Name Role Phone Rony Roberts MD Unavailable [phone] Bobby Pedraza DO Primary Care Provider [phone] Fabi Snell ADAPTED PHYSICAL EDUCATION TEACHER Unavailable [phone] Encounter Details Date Type Department Care Team (Late st Contact Info) Description 11/24/2017 Procedure Pass Jennifer Lank Imaging Department, [facility] [place], [place] [address] [facility], Floor [address] [place] [address] Social History Tobacco Use Types Packs/Day Years Used Date Smoking Tobacco: Former Sex and Gender Information Value Date Recorded Sex Assigned at Not on file Legal Sex Male 7:33 PM EST Gender Identity Not on file Sexual Orientation Not on file documented as of this encounter Plan of Treatment Not on file documented as of this encounter Visit Diagnoses Not on filedocumented in this encounter Care Teams Biomedical Analytical Scientist Relationship Specialty Start Date End Date Bobby Pedraza DO [address] [place], [place] [phone] PCP - General Internal Medicine 03/30/16 Rony Roberts MD [facility] [place] [address] Referring Physician Internal Medicine 02/03/16 Fabi Snell NP [address] [place] [address] [place] [address] [email or web address] 04/28/17 05/24/18 documented as of this encounter Additional Source Comments The information contained in this document represents components of the legal health record. It is not the complete legal health record.[facility]
--- OUTSIDE RECORDS SUMMARY | 2025-07-05 06:05 | XMS_ITS | Encounter Summary ---
Author Organization [facility] Address [address] [address] Phone Care Team Providers Care Laborer Cheesemaking Name Role Phone Rony Roberts MD Unavailable [phone] Bobby Pedraza DO Primary Care Provider [phone] Fabi Snell KILN TRANSFER OPERATOR Unavailable [phone] Encounter Details Date Type Department Care Team (Late st Contact Info) Description 04/28/2017 Procedure Pass Jennifer Lank Imaging Department, [facility] [place], [place] [address] [facility], Floor [address] [place] [address] Social History Tobacco Use Types Packs/Day Years [...] on filedocumented in this encounter Care Teams Laborer Cheesemaking Relationship Specialty Start Date End Date Bobby Pedraza DO 5 [place], [place] [phone] PCP - General Internal Medicine 03/30/16 Rony Roberts MD [facility] [place] [address] Referring Physician Internal Medicine 02/03/16 Fabi Snell NP [address] [place] [address] [place] [address] [email or web address] 04/28/17 05/24/18 documented as of this encounter Additional Source Comments The information contained in this document represents components of the legal health record. It is not the complete legal health record.[facility]
--- OUTSIDE RECORDS SUMMARY | 2025-07-05 06:05 | XMS_ITS | Encounter Summary ---
Author Organization [facility] Address [address] [address] Phone Care Team Providers Care New Account Interviewer Name Role Phone Rony Roberts MD Unavailable [phone] Bobby Pedraza DO Primary Care Provider [phone] Fabi Snell INTAKE NURSE Unavailable [phone] Encounter Details Date Type Department Care Team (Late st Contact Info) Description 04/28/2017 Procedure Pass Jennifer Lank Imaging Department, [facility] [place], [place] [address] [facility], Floor [address] [place] [address] Social History Tobacco Use Types Packs/Day Years [...] on filedocumented in this encounter Care Teams New Account Interviewer Relationship Specialty Start Date End Date Bobby Pedraza DO 5 [place], [place] [phone] PCP - General Internal Medicine 03/30/16 Rony Roberts MD [facility] [place] [address] Referring Physician Internal Medicine 02/03/16 Fabi Snell NP [address] [place] [address] [place] [address] [email or web address] 04/28/17 05/24/18 documented as of this encounter Additional Source Comments The information contained in this document represents components of the legal health record. It is not the complete legal health record.[facility]
--- OUTSIDE RECORDS SUMMARY | 2025-07-05 06:05 | XMS_ITS | Encounter Summary ---
Author Organization [facility] Address [address] [address] Phone Care Team Providers Care Clerical Adjuster Name Role Phone Rony Roberts MD Unavailable [phone] Bobby Pedraza DO Primary Care Provider [phone] Fabi Snell CRIMINAL PROFILER Unavailable [phone] Encounter Details Date Type Department Care Team (Late st Contact Info) Description 11/24/2017 Procedure Pass Jennifer Lank Imaging Department, [facility] [place], [place] [address] [facility], Floor [address] [place] [address] Social History Tobacco Use Types Packs/Day Years [...] on filedocumented in this encounter Care Teams Clerical Adjuster Relationship Specialty Start Date End Date Bobby Pedraza DO 5 [place], [place] [phone] PCP - General Internal Medicine 03/30/16 Rony Roberts MD [facility] [place] [address] Referring Physician Internal Medicine 02/03/16 Fabi Snell NP [address] [place] [address] [place] [address] [email or web address] 04/28/17 05/24/18 documented as of this encounter Additional Source Comments The information contained in this document represents components of the legal health record. It is not the complete legal health record.[facility]
--- OUTSIDE RECORDS SUMMARY | 2025-07-05 06:05 | XMS_ITS | Clinical Summary ---
Author Organization [facility] Address [address] [address] Phone Care Team Providers Care Sample Checker Name Role Phone Rony Roberts MD Unavailable [phone] Bobby Pedraza DO Primary Care Provider [phone] Allergies Active Allergy Reactions Criticality Noted Date Comments Morphine Unknown 02/06/2011 Medications amLODIPine (NORVASC) 5 MG tablet Dose: Not available; Form: Not available; Route: PO; Frequency: QD; Directions: Not available; Details: Dispense: Tablet(s); Date: 01/06/2011 01/06/2011 Active irbesartan (AVAPRO) 150 MG tablet Dose: 150 MG; Form: Take 1 TABLET; Route: PO; Frequency: QD; Directions: Not available; Details: Dispense: Tablet(s); Date: 01/06/2011 01/06/2011 Active glipiZIDE (GLUCOTROL) 2.5 MG 24 hr tablet 2 (two) times a day. Dose: 2.5 MG; Form: Take 1 TAB ER 24; Route: PO; Frequency: BID; Directions: Not available; Details: Dispense: Tablet(s); Date: 03/12/2015 03/12/2015 Active metFORMIN (GLUCOPHAGE) 500 MG tablet Take by mouth 2 (two) times a day. Dose: 750 MG; Form: Take 1.5 TABLET; Route: PO; Frequency: BID; Directions: Not available; Details: Dispense: Tablet(s); Date: 01/06/2011 01/06/2011 Active liraglutide (VICTOZA) 0.6 mg/0.1 mL (18 mg/3 mL) PnIj Inject 1.8 mg under the skin daily. Active empagliflozin (JARDIANCE) 10 mg tablet Take 10 mg by mouth daily. Active atorvastatin (LIPITOR) 40 MG tablet Take 40 mg by mouth daily. Active aspirin 81 MG EC tablet Take 81 mg by mouth daily. Active amoxicillin (AMOXIL) 250 MG capsuleIndicatio ns:prior to dental work Take 2,000 mg by mouth 3 (three) times a day. Indications : prior to dental work Active Active Problems Problem Noted Date Diagnosed Date Malignant melanoma 08/10/2012 Overview (12/29/2014): Malignant melanoma Hypertensive disorder 08/10/2012 Overview (12/29/2014): Hypertensive disorder Type 2 diabetes mellitus 01/06/2011 Overview (12/29/2014): Diabetes mellitus type 2 History of total hip replacement 01/06/2011 Overview (12/29/2014): Total replacement of hip; Left Social History Tobacco Use Types Packs/Day Years Used Date Smoking Tobacco: Former Education Answer Date Recorded Are you interested in more education? Not on akua e 03/04/2023 Are you concerned about learning? Not on file 03/04/2023 No 03/04/2023 No 03/04/2023 Digital Access Answer Date Recorded No 04/05/2023 No 04/05/2023 No 04/05/2023 Reliable internet access at home? Not on file 04/05/2023 Device with a working camera? Not on file Sex and Gender Information Value Date Recorded Sex Assigned at Not on file Legal Sex Male 7:33 PM EST Gender Identity Not on file Sexual Orientation Not on file Last Filed Vital Signs Vital Sign Reading Time Taken Comments Blood Pressure 145/76 07/08/2021 7:23 AM EDT Pulse 97 07/08/2021 7:23 AM EDT Temperature 36.8 C (98.2 F) 07/08/2021 7:23 AM EDT Respiratory Rate 18 07/08/2021 7:23 AM EDT Oxygen Saturation 95% 07/08/2021 7:23 AM EDT Inhaled Oxygen Concentration - - Weight 88.3 kg (194 lb 10.7 oz) 07/08/2021 7:23 AM EDT Height 175.5 cm (5' 9.09 ) 07/08/2021 7:23 AM ED T Body Mass Index 28.67 07/08/2021 7:23 AM EDT Plan of Treatment Health Maintenance Due Date Last Done Comments Adult Td,Tdap Booster 1945 BLOOD PRESSURE 1945 DEPRESSION SCREENING 1959 SMOKING Hx and SMOKELESS TOBACCO SCREENING 1960 HEMOGLOBIN A1C 04/24/2012 10/24/2011, 10/21/2011 DIABETIC EYE EXAM 01/05/2015 CREATININE LEVEL 05/25/2019 05/25/2018, , 11/24/2017, Additional history exists POTASSIUM LEVEL 05/25/2019 05/25/2018, 11/08, 04/28/2017, Additional history exists PNEUMOCOCCAL VACCINES (50+ years) (2 of 2 - PCV) 09/12/2020 09/12/2019 RSV VACCINE (1 - 1-dose 75+ series) 2022 COVID-19 VACCINE (2 - 2023- season) 2024 02/08/2021 HEPATITIS C SCREENING Completed 01/13/2011, 011 ZOSTER VACCINES Completed 04/08/2021, 10/08, 06/30/2017 HEPATITIS A VACCINES Aged Out No long er eligible based on patient's age to complete this topic HIB VACCINES Aged Out No longer eligi ble based on patient's age to complete this topic MENINGOCOCCAL VACCINES (ACWY) Aged Out No longer eligible based on patient's age to complete this topic MENINGOCOCCAL VACCINES (B) Aged Out N o longer eligible based on patient's age to complete this topic Medical Devices Not on file Procedures Procedure Name Priority Date/Time Associated Diagnosis Comments BASIC METABOLIC PANEL Routine 05/25/2018 6:38 AM EDT Malignant melanoma, unspecified site HISTORICAL LAB Routine 10/24/2011 9:48 AM EST HISTORICAL LAB Routine 01/13/2011 10:44 AM EST from Last 3 Months or Most Recently Relevant to Health Maintenance Results * (ABNORMAL) Basic metabolic panel (05/25/2018 6:38 AM EDT) SODIUM 139 135 - 145 mmol/L [facility] LIC# [id number] Comment:SLT HEMOLYSIS CHLORIDE 105 98 - 108 mmol/L [facility] LIC# [id number] Comment:SLT HEMOLYSIS POTASSIUM 5.0 3.5 - 5.0 mmol/L [facility] LIC# [id number] Comment:SLT HEMOLYSIS CO2 23 23 - 32 mmol/L [facility] LIC# [id number] Comment:SLT HEMOLYSIS BUN 21 9 - 25 mg/dL [facility] LIC# [id number] Comment:SLT HEMOLYSIS CREATININE 0.72 0.7 - 1.3 mg/dL [facility] LIC# [id number] Comment:SLT HEMOLYSIS GLUCOSE 154(H) 70 - 100 mg/dL [facility] LIC# [id number] Comment:SLT HEMOLYSIS CALCIUM 9.7 8.8 - 10.5 mg/dL [facility] LIC# [id number] Comment:SLT HEMOLYSIS EGFR 95 >59 mL/min/1.7 3m2 [facility] LIC# [id number] Comment:If patient is Kisha n-Marshallese, multiply result by 1.159. Estimated glomerular filtration rate calculated using the CKD-EPI equation. ANION GAP 11 5 - 17 mmol/L [facility] LIC# [id number] Blood 05/25/2018 6:38 AM EDT 05/25/2018 6:48 AM EDT us Femi Wyman MD LAB BLOOD ORDERABLES Edited Resu lt - Final [facility] LIC# [id number] [address] [place] [address] * (ABNORMAL) Historical Lab (10/24/2011 9:48 AM EST) Only the most recent of2 resultswithin the time period is included. HGB A1C 7.6(A) 4.2 - 5.8 % [facility] 10/24/2011 9:48 AM EST Comment:BLOOD us Edmond Feliciano MD LAB BLOOD ORDERABLES Final Re sult [address] [address] from Last 3 Months or Most Recently Relevant to Health Maintenance Insurance MEDICARE PART A & B [facility] MEDEX SUPPLEMENT MEDICARE PART A & B [employer] MEDEX SUPPLEMENT MEDICARE PART A & B [employer] MEDEX SUPPLEMENT MEDICARE PART A & B [facility] MEDEX SUPPLEMENT MEDICARE PART A & B [employer] MEDEX SUPPLEMENT MEDICARE PART A & B [employer] MEDEX SUPPLEMENT MEDICARE PART A & B [employer] MEDEX SUPPLEMENT MEDICARE PART A & B [employer] MEDEX SUPPLEMENT MEDICARE PART A & B [facility] MEDEX SUPPLEMENT Care Teams Sample Checker Relationship Specialty Start Date End Date Bobby Pedraza DO [address] [place] [address] PCP - General Internal Medicine 03/30/16 Rony Roberts MD [address] [place] [address] Referring Physician Internal Medicine 02/03/16 Additional Source Comments The information contained in this document represents components of the legal health record. It is not the complete legal health record.[facility]
--- OUTSIDE RECORDS SUMMARY | 2025-07-05 06:05 | XMS_ITS | Encounter Summary ---
Author Organization [facility] Address [address] [address] Phone Care Team Providers Care Interactive Media Marketing Strategist Name Role Phone Rony Roberts MD Unavailable [phone] Bobby Pedraza DO Primary Care Provider [phone] Fabi Snell SECURITY SYSTEMS MANAGER Unavailable [phone] Encounter Details Date Type Department Care Team (Late st Contact Info) Description 11/24/2017 Procedure Pass Jennifer Lank Imaging Department, [facility] [place], [place] [address] [facility], Floor [address] [place] [address] Social History Tobacco Use Types Packs/Day Years [...] on filedocumented in this encounter Care Teams Interactive Media Marketing Strategist Relationship Specialty Start Date End Date Bobby Pedraza DO 5 [place], [place] [phone] PCP - General Internal Medicine 03/30/16 Rony Roberts MD [facility] [place] [address] Referring Physician Internal Medicine 02/03/16 Fabi Snell NP [address] [place] [address] [place] [address] [email or web address] 04/28/17 05/24/18 documented as of this encounter Additional Source Comments The information contained in this document represents components of the legal health record. It is not the complete legal health record.[facility]
--- OUTSIDE RECORDS SUMMARY | 2025-07-05 06:05 | XMS_ITS | Patient Health Record ---
Author Organization Rony Roberts III, MD Address [address] [place] [address] Care Team Providers Care Zoning Assistant Name Role Phone Rony Roberts Primary Care Provider Allergies Allergen (clinical drug ingredient) Drug/Non Drug Allergy documented on EMR Reaction Allergy Type Onset Date Status morphine Morphine Sulfate Unknown Drug Allergy Active Results Component Value Reference Range Notes Lipid Panel Reviewed date:01/08/2025 03:16:11 PM Interpretation: Performing Lab:[facility], [address] [place] [phone] Notes/Report: Triglycerides 45 <150 mg/dL Desirable Triglyceride: less than 150 mg/dL Borderline High Triglyceride 150-199 mg/dL High Triglyceride: 200-499 mg/dL Very High Triglyceride: greater than or equal to 5OO mg/dL Cholesterol 97 <200 mg/dL Desirable Cholesterol: less than 200 mg/dL Borderline High Cholesterol: 200-239 mg/dL High Cholesterol: greater than 239 mg/dL LDL Cholesterol Calculated 47 <100 mg/dL Desirable LDL: less than 100 mg/dL Near Optimal/Above Optimal LDL: 110-129 mg/dL Borderline High LDL: 130-159 mg/dL High LDL: 160-189 mg/dL Very High LDL: greater than or equal to 190 mg/dL HDL Cholesterol 41 >40 mg/dL Desirable HDL: greater than 40 mg/dL Note: This HDL assay may give artificially low results in patients with liver disease. Hemoglobin A1c Reviewed date:01/08/2025 03:16:12 PM Interpretation: Performing Lab:[facility], [address] [place] [phone] Notes/Report: Hemoglobin A1c % 6.9 <6.0 % Hemoglobin A1C Reference Range Adults: 4.8 - 6.0 % Non diabetic: < 6.0 % Goal: < 7.0 % Additional Action Suggested: > 8.0 % Note: Hemoglobin A1c results are invalid for patients with abnormal amounts of HbF. Blood transfusions may impact the HbA1c concentration in the patient sample. Estimated Average Glucose 151 eAG = Estimated average glucose which is %A1C expressed as average glucose, using the formula of the B6V-Lujlbye Average Glucose study (ADAG), Diabetes Care, Vol.31,#8, Jun. 2007 Complete Blood Count Auto Di ff Reviewed date:07/12/2024 09:07:02 AM Interpretation: Performing Lab:[facility], [address] [place] [phone] Notes/Report: White Blood Count 5.6 4.8-10.8 X10*3/uL Red Blood Count 4.49 4.60-5.80 X10*6/uL Hemoglobin 14.4 14.0-18.0 g/dl Hematocrit 43.4 42.0-52.0 % Mean Corpuscular Volume 96.7 80.0-98.0 fL Mean Corpuscular Hemoglobin 32.1 27.0-33.0 pg Mean Corpuscular HGB Conc 33.2 31.0-36.0 g/dl Red Cell Distribution Width 14.1 11.0-16.0 % Platelet Count 215 160-400 X10*3/uL Mean Platelet Volume 10.6 9.4-12.4 fL Neutrophils Percent Auto 60.6 45-73 % Imm Gran Pct Auto 0.4 0.0-0.4 % Lymphocytes Percent Auto 21.5 20-40 % Monocytes Percent Auto 10.4 2-11 % Eosinophils Percent Auto 6.6 0-4 % Basophils Percent Auto 0.5 0-2 % NRBC Pct Auto 0.0 0.0-0.2 /100WBC Neutrophils Absolute Auto 3.4 2.0-8.3 x10*3/u L Imm Gran Abs Auto 0.02 0.00-0.03 X10*3/uL Lymphocytes Absolute Auto 1.2 1.2-4.9 X10*3/u L Monocytes Absolute Auto 0.6 0.1-1.2 X10*3/uL Eosinophils Absolute Auto 0.4 0.0-0.4 X10*3/u L Basophils Absolute Auto 0.0 0.0-0.2 X10*3/uL NRBC Abs Auto 0.000 0.0-0.012 X10*3/uL White Blood Count 5.6 4.8-10.8 X10*3/uL Red Blood Count 4.49 4.60-5.80 X10*6/uL Hemoglobin 14.4 14.0-18.0 g/dl Hematocrit 43.4 42.0-52.0 % Mean Corpuscular Volume 96.7 80.0-98.0 fL Mean Corpuscular Hemoglobin 32.1 27.0-33.0 pg Mean Corpuscular HGB Conc 33.2 31.0-36.0 g/dl Red Cell Distribution Width 14.1 11.0-16.0 % Platelet Count 215 160-400 X10*3/uL Mean Platelet Volume 10.6 9.4-12.4 fL Neutrophils Percent Auto 60.6 45-73 % Imm Gran Pct Auto 0.4 0.0-0.4 % Lymphocytes Percent Auto 21.5 20-40 % Monocytes Percent Auto 10.4 2-11 % Eosinophils Percent Auto 6.6 0-4 % Basophils Percent Auto 0.5 0-2 % NRBC Pct Auto 0.0 0.0-0.2 /100WBC Neutrophils Absolute Auto 3.4 2.0-8.3 x10*3/u L Imm Gran Abs Auto 0.02 0.00-0.03 X10*3/uL Lymphocytes Absolute Auto 1.2 1.2-4.9 X10*3/u L Monocytes Absolute Auto 0.6 0.1-1.2 X10*3/uL Eosinophils Absolute Auto 0.4 0.0-0.4 X10*3/u L Basophils Absolute Auto 0.0 0.0-0.2 X10*3/uL NRBC Abs Auto 0.000 0.0-0.012 X10*3/uL CORRECTED REPORT CORRECTED REPORT Comprehensive [place]. Panel Fa st Reviewed date:07/12/2024 09:07:02 AM Interpretation: Performing Lab:[facility], [address] [place] [phone] Notes/Report: Sodium 140 135-145 mmol/L Potassium 4.3 3.3-5.1 mmol/L Chloride 105 96-108 mmol/L Carbon Dioxide 25 22-29 mmol/L Anion Gap 14 12-20 Blood Urea Nitrogen 18 9-16 mg/dL Creatinine 0.75 0.5-1.4 mg/dL Estimated Glomerular Filt Rate > 60 NOTE: For -[place] individuals, multiply the result by 1.210. Chronic Kidney Disease: Estimated GFR < 60 mL/min/1.73m2 Severe Kidney Disease: Estimated GFR < 15 mL/min/1.73m2 Glucose Fasting 115 60-99 mg/dL A fasting glucose from 100-125 mg/dl is considered impaired (pre-diabetes). Calcium 10.0 8.4-10.2 mg/dL Bilirubin Total 0.7 0.0-1.0 mg/dL Aspartate Amino Transferase 17 5-37 U/L Alanine Aminotransferase 19 0-40 U/L Total Protein 7.3 6.5-8.0 g/dL Albumin Level 4.4 3.5-5.0 g/dL Alkaline Phosphatase 70 39-117 U/L Lipid Panel Reviewed date:07/12/2024 09:07:02 AM Interpretation: Performing Lab:[facility], [address] [place] [phone] Notes/Report: Triglycerides 99 <150 mg/dL Desirable Triglyceride: less than 150 mg/dL Borderline High Triglyceride 150-199 mg/dL High Triglyceride: 200-499 mg/dL Very High Triglyceride: greater than or equal to 5OO mg/dL Cholesterol 111 <200 mg/dL Desirable Cholesterol: less than 200 mg/dL Borderline High Cholesterol: 200-239 mg/dL High Cholesterol: greater than 239 mg/dL LDL Cholesterol Calculated 45 <100 mg/dL Desirable LDL: less than 100 mg/dL Near Optimal/Above Optimal LDL: 110-129 mg/dL Borderline High LDL: 130-159 mg/dL High LDL: 160-189 mg/dL Very High LDL: greater than or equal to 190 mg/dL HDL Cholesterol 47 >40 mg/dL Desirable HDL: greater than 40 mg/dL Note: This HDL assay may give artificially low results in patients with liver disease. Prostate Specific Antigen Reviewed date:07/12/2024 09:07:02 AM Interpretation: Performing Lab:[facility], [address] [place] [phone] Notes/Report: Prostate Specific Antigen 2.00 <0.05-4.0 ng/mL PSA methodology: Nath Alinity i Chemiluminescent Microparticle Immunoassay (CMIA) Microalbumin, Random Reviewed date:07/12/2024 09:07:02 AM Interpretation: Performing Lab:[facility], [address] [place] [phone] Notes/Report: Creatinine Urine 68.65 Microalbumin Urine 10.0 Microalbum/Creatinine Ratio Ur 14.5 <30 ug/mg cr Albumin/Creatinine Ratio Reference Ranges: Normal: < 30 ug/mg creatinine Microalbuminuria: 30 - 300 ug/mg creatinine Clinical Albuminuria: > 300 ug/mg creatinine SLIDE REVIEW Reviewed date:07/12/2024 09:07:02 AM Interpretation: Performing Lab:[facility], [address] [place] [phone] Notes/Report: SLIDE REVIEW VERIFIED Hemoglobin A1c Reviewed date:07/12/2024 09:07:02 AM Interpretation: Performing Lab:[facility], [address] [place] [phone] Notes/Report: Hemoglobin A1c % 6.3 <6.0 % Hemoglobin A1C Reference Range Adults: 4.8 - 6.0 % Non diabetic: < 6.0 % Goal: < 7.0 % Additional Action Suggested: > 8.0 % Note: Hemoglobin A1c results are invalid for patients with abnormal amounts of HbF. Blood transfusions may impact the HbA1c concentration in the patient sample. Estimated Average Glucose 134 eAG = Estimated average glucose which is %A1C expressed as average glucose, using the formula of the I8O-Qbapndm Average Glucose study (ADAG), Diabetes Care, Vol.31,#8, 2007 Diabetic Eye Exam Reviewed date:01/09/2025 03:19:12 PM Interpretation:undefined Performing Lab: Notes/Report: undefined Complete Blood Count Auto Di ff Reviewed date:01/08/2025 03:16:11 PM Interpretation: Performing Lab:[facility], [address] [place] [phone] Notes/Report: White Blood Count 6.0 4.8-10.8 X10*3/uL Red Blood Count 4.33 4.60-5.80 X10*6/uL Hemoglobin 13.7 14.0-18.0 g/dl Hematocrit 40.3 42.0-52.0 % Mean Corpuscular Volume 93.1 80.0-98.0 fL Mean Corpuscular Hemoglobin 31.6 27.0-33.0 pg Mean Corpuscular HGB Conc 34.0 31.0-36.0 g/dl Red Cell Distribution Width 13.2 11.0-16.0 % Platelet Count 264 160-400 X10*3/uL Mean Platelet Volume 9.1 9.4-12.4 fL Neutrophils Percent Auto 61.7 45-73 % Imm Gran Pct Auto 0.3 0.0-0.4 % Lymphocytes Percent Auto 20.0 20-40 % Monocytes Percent Auto 11.6 2-11 % Eosinophils Percent Auto 5.7 0-4 % Basophils Percent Auto 0.7 0-2 % NRBC Pct Auto 0.0 0.0-0.2 /100WBC Neutrophils Absolute Auto 3.7 2.0-8.3 x10*3/u L Imm Gran Abs Auto 0.02 0.00-0.03 X10*3/uL Lymphocytes Absolute Auto 1.2 1.2-4.9 X10*3/u L Monocytes Absolute Auto 0.7 0.1-1.2 X10*3/uL Eosinophils Absolute Auto 0.3 0.0-0.4 X10*3/u L Basophils Absolute Auto 0.0 0.0-0.2 X10*3/uL NRBC Abs Auto 0.000 0.0-0.012 X10*3/uL Comprehensive [place]. Panel Fa st Reviewed date:01/08/2025 03:16:11 PM Interpretation: Performing Lab:[address] [phone] Notes/Report: Sodium 139 135-145 mmol/L Potassium 4.3 3.3-5.1 mmol/L Chloride 108 96-108 mmol/L Carbon Dioxide 22 22-29 mmol/L Anion Gap 13 12-20 Blood Urea Nitrogen 16 9-16 mg/dL Creatinine 0.67 0.5-1.4 mg/dL Estimated Glomerular Filt Rate > 60 Chronic Kidney Disease: Estimated GFR < 60 mL/min/1.73m2 Severe Kidney Disease: Estimated GFR < 15 mL/min/1.73m2 Glucose Fasting 125 60-99 mg/dL A fasting glucose from 100-125 mg/dl is considered impaired (pre-diabetes). Calcium 9.4 8.4-10.2 mg/dL Bilirubin Total 0.4 0.0-1.0 mg/dL Aspartate Amino Transferase 18 5-37 U/L Alanine Aminotransferase 17 0-40 U/L Total Protein 7.1 6.5-8.0 g/dL Albumin Level 4.0 3.5-5.0 g/dL Alkaline Phosphatase 65 39-117 U/L Prostate Specific Antigen Reviewed date:01/08/2025 03:16:11 PM Interpretation: Performing Lab:[address] [phone] Notes/Report: Prostate Specific Antigen 2.29 <0.05-4.0 ng/mL PSA methodology: Nath Alinity i Chemiluminescent Microparticle Immunoassay (CMIA) Microalbumin, Random Reviewed date:01/08/2025 03:16:11 PM Interpretation: Performing Lab:[address] [phone] Notes/Report: Creatinine Urine 63.90 Microalbumin Urine 10.0 Microalbum/Creatinine Ratio Ur 15.6 <30 ug/mg cr Albumin/Creatinine Ratio Reference Ranges: Normal: < 30 ug/mg creatinine Microalbuminuria: 30 - 300 ug/mg creatinine Clinical Albuminuria: > 300 ug/mg creatinine Complete Blood Count Auto Di ff Reviewed date:04/03/2025 03:31:57 PM Interpretation: Performing Lab:[address] [phone] Notes/Report: White Blood Count 6.7 4.8-10.8 X10*3/uL Red Blood Count 4.24 4.60-5.80 X10*6/uL Hemoglobin 13.7 14.0-18.0 g/dl Hematocrit 40.6 42.0-52.0 % Mean Corpuscular Volume 95.8 80.0-98.0 fL Mean Corpuscular Hemoglobin 32.3 27.0-33.0 pg Mean Corpuscular HGB Conc 33.7 31.0-36.0 g/dl Red Cell Distribution Width 13.9 11.0-16.0 % Platelet Count 234 160-400 X10*3/uL Mean Platelet Volume 9.6 9.4-12.4 fL Neutrophils Percent Auto 63.9 45-73 % Imm Gran Pct Auto 0.3 0.0-0.4 % Lymphocytes Percent Auto 20.4 20-40 % Monocytes Percent Auto 10.0 2-11 % Eosinophils Percent Auto 4.8 0-4 % Basophils Percent Auto 0.6 0-2 % NRBC Pct Auto 0.0 0.0-0.2 /100WBC Neutrophils Absolute Auto 4.3 2.0-8.3 x10*3/u L Imm Gran Abs Auto 0.02 0.00-0.03 X10*3/uL Lymphocytes Absolute Auto 1.4 1.2-4.9 X10*3/u L Monocytes Absolute Auto 0.7 0.1-1.2 X10*3/uL Eosinophils Absolute Auto 0.3 0.0-0.4 X10*3/u L Basophils Absolute Auto 0.0 0.0-0.2 X10*3/uL NRBC Abs Auto 0.000 0.0-0.012 X10*3/uL Comprehensive [place]. Panel Fa st Reviewed date:04/03/2025 03:31:57 PM Interpretation: Performing Lab:[facility], [address] [place] [phone] Notes/Report: Sodium 140 135-145 mmol/L Potassium 4.2 3.3-5.1 mmol/L Chloride 107 96-108 mmol/L Carbon Dioxide 24 22-29 mmol/L Anion Gap 13 12-20 Blood Urea Nitrogen 18 9-16 mg/dL Creatinine 0.77 0.5-1.4 mg/dL Estimated Glomerular Filt Rate > 60 Chronic Kidney Disease: Estimated GFR < 60 mL/min/1.73m2 Severe Kidney Disease: Estimated GFR < 15 mL/min/1.73m2 Glucose Fasting 144 60-99 mg/dL A fasting glucose of 126 mg/dl or greater on more than one occasion is considered diagnostic of diabetes. Calcium 9.5 8.4-10.2 mg/dL Bilirubin Total 0.5 0.0-1.0 mg/dL Aspartate Amino Transferase 19 5-37 U/L Alanine Aminotransferase 19 0-40 U/L Total Protein 7.2 6.5-8.0 g/dL Albumin Level 4.4 3.5-5.0 g/dL Alkaline Phosphatase 67 39-117 U/L Lipid Panel Reviewed date:04/03/2025 03:31:57 PM Interpretation: Performing Lab:[address] [phone] Notes/Report: Triglycerides 66 <150 mg/dL Desirable Triglyceride: less than 150 mg/dL Borderline High Triglyceride 150-199 mg/dL High Triglyceride: 200-499 mg/dL Very High Triglyceride: greater than or equal to 5OO mg/dL Cholesterol 113 <200 mg/dL Desirable Cholesterol: less than 200 mg/dL Borderline High Cholesterol: 200-239 mg/dL High Cholesterol: greater than 239 mg/dL LDL Cholesterol Calculated 52 <100 mg/dL Desirable LDL: less than 100 mg/dL Near Optimal/Above Optimal LDL: 110-129 mg/dL Borderline High LDL: 130-159 mg/dL High LDL: 160-189 mg/dL Very High LDL: greater than or equal to 190 mg/dL HDL Cholesterol 48 >40 mg/dL Desirable HDL: greater than 40 mg/dL Note: This HDL assay may give artificially low results in patients with liver disease. Prostate Specific Antigen Reviewed date:04/03/2025 03:31:57 PM Interpretation: Performing Lab:[address] [phone] Notes/Report: Prostate Specific Antigen 3.34 <0.05-4.0 ng/mL PSA methodology: Nath Alinity i Chemiluminescent Microparticle Immunoassay (CMIA) Reason For Referral Reason Consult and Treat Routine Nail Care Diagnosis 1 Diabetes mellitus (E 11.9) Referral Organization Rony Roberts III, MD Referring Provider First Name Rony Referring Provider Last Name Armando Referring Provider Speciality Internal M edicine Referred Provider MESFIN HERRERA Referred Provider Specialty Podiatry General Notes Elly Tenorio 08/23/2024 10:18:37 AM > Referral faxed with attachments. Patient contacted Dr. 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 Referral Priority Routine Referral Appointment Date 11/09/2024 Reason evaluation and treat ment back pain for 12 months DJD and DDD Diagnosis 1 Back pain (M54.9) Referral Organization Rony Roberts III, MD Referring Provider First Name Rony Referring Provider Last Name Armando Referring Provider Speciality Internal edicine Referred Provider Spine and Sp ann marie Cowen Referred Provider Specialty Physical Med icine General Notes Neetu Lai CMA 01/15 11:03:02 AM > ref/demo/progress note and prior MRI faxed to [facility] pt aware of this, Neetu Lai CMA 01/16/2025 03:33:07 PM >Called [facility] pt has appt with Dr Traore on 02/07/2025 at 10:30am Referral Priority Routine Referral Appointment Date 02/07/2025 Medications Medication SIG (Take, Route, Frequency, Duration) Notes Start Date End Date Status Tamsulosin HCl 0.4 MG 1 capsule Orally Once a day 06/09/2021 Active Ozempic (0.25 or 0.5 MG/DOSE) 2 MG/3ML as directed Subcutaneous Active Semaglutide 3 MG as directed Orally Active Empagliflozin 25 MG 1 tablet Orally Once a day Active Fish Oil Active amLODIPine Besylate 5 MG 1 tablet Orally Once a day Active Zinc Active Lutein Active Multivitamin Active OneTouch Ultra Test - One strip In Vitro Once a day for 90 days E11.9 Diabetes mellitus Active traZODone HCl 100 MG 1 tablet at bedtime Orally one tab at bedtime 01/09/2025 Active Atorvastatin Calcium 40 MG 1 tablet Orally Once a day Active metFORMIN HCl 1000 MG 1 tablet with a me al Orally Twice a day Active Vitamin C Active Irbesartan 150 MG 1 tablet Oral Once a day (Avapro) Active Immunizations Vaccine Route Administration Date Status Comme nts Influenza no Preserv 3 and > Unknown 08/18/2016 Adminis tered Influenza no Preserv 3 and > Unknown 09/14/2018 Adminis tered Influenza no Preserv 3 and > Unknown 09/12/2019 Adminis tered PCV Unknown 09/12/2019 Administered PCV13 Unknown 12/03/2021 Administered Pneumococcal Unknown 09/12/2019 Administered FLuzone HD PF Unknown 10/15/2022 Administered Decline: Influenza Unknown 08/22/2014 Refused Social History Tobacco Use: Social History Observation Description Date Details (start date - stop date) Former Smoker NA - NA Sex Assigned At : Social History Observation Description Sex Assigned At Male Tobacco Control (Standard) Question Answer Notes Tobacco use: Former smoker How long has it been since you last smoked? Grea ter than 10 years Additional Findings: Tobacco non-user Ex-cigaret te smoker AUDIT-C (Standard) Question Answer Notes Did you have a drink contain ing alcohol in the past year? Yes How often did you have six o r more drinks on one occasion in the past year? 2 to 4 times a month (2 points) How many drinks did you have on a typical day when you were drinking in the past year? 1 or 2 drinks (0 point) How often did you have a dri nk containing alcohol in the past year? Never (0 point) Points 2 Interpretation Negative Problems Problem Type SNOMED Code ICD Code Onset Dates Problem Status W/U Status Risk Notes Problem [id number] Former smoker (Z87.891) Active confirmed He is highly motivated not to smoke and we have discussed strategies for maintenance of abstinence in time of illness distress. Problem 102539689 Overweight (E66.3) Active confirmed He remains overweight but has gained 5 pounds. We discussed diet and nutrition. We made a plan to lose weight at a rate of 1 pound per week through a diet restricted in fat calories and sodium. Problem 26824507 Diabetes mellitus (E11.9) Active confirmed His fasting glucose is 144. He is feeling well. No change in his regimen was made. He has gained 5 pounds we discussed a weight reduction program. Problem 49385310 Essential hypertension (I10) Active confirmed His blood pressure is currently stable and no change in his regimen was necessary today. Problem Peripheral neuropathy (612017758) Peripheral neuropathy (G62.9) Active confirmed Diabetic ppolyneuropathy is mild and he is able to conduct all of the activities of daily living. No additional treatment is recommended today. Problem 88513633 Colonic polyp (K63.5) Active confirmed He will continu e to have his colonoscopies at the appropriate intervals. Problem 826130761 Metastatic malignant melanoma (C79.9) Active confirmed There was no si gn of a new primary melanoma or recurrent melanoma in any location on today's examination. Problem Shoulder pain, left (M25.512) Active confirmed He has had a mild pain in his shoulder for over a year but it is recently become worse. It is likely arthritic or inflammatory but x-rays have been ordered. He will use ibuprofen and a heating pad. If necessary he will be referred for injections. Problem 47937891 Age-related cataract of both eyes, unspecified age-related cataract type (H25.9) Active confirmed He is medically cleared for both operations. If necessary, he'll be seen before the first procedure. The rrisk is small and the benefit is great. He is given medical clearance. Problem 245977944 Benign prostatic hyperplasia, unspecified whether lower urinary tract symptoms present (N40.0) Active confirmed He rises from sleep twice a night to urinate. We discussed lifestyle modification has a way of reducing nocturia.His prostatism is stable. Problem 365981817 Obstipation (K59.00) Active confirmed He will use MiraLax and milk of magnesia and senna. He will also is fleets enemas. Vital Signs Heart Rate 85 /min 04/11/2025 Temperature 97.9 degrees Fahrenheit 04/11/2025 Blood pressure diastolic 67 mm Hg 04/11/2025 Height 70 in 04/11/2025 Blood pressure systolic 126 mm Hg 04/11/2025 Weight 192 lbs 04/11/2025 BMI 27.55 kg/m2 04/11/2025 Encounters Encounter Location Date Provider Diagnosis Rony Roberts III, MD [address] [place] [address] [place] [address] 2024 Rony Roberts Benign prostatic hyperplasia, unspecified whether lower urinary tract symptoms present N40.0 ; Former smoker Z87.891 ; Metastatic malignant melanoma C79.9 ; Essential hypertension I10 ; Shoulder pain, left M25.512 ; Diabetes mellitus E11.9 and Age-related cataract of both eyes, unspecified age-related cataract type H25.9 Rony Roberts III, MD [address] [place] [address] [place] [address] 08/31/2024 Rony Roberts Diabetes mellitus E11.9 ; Age-related cataract of both eyes, unspecified age-related cataract type H25.9 ; Benign prostatic hyperplasia, unspecified whether lower urinary tract symptoms present N40.0 ; Metastatic malignant melanoma C79.9 ; Essential hypertension I10 ; Peripheral neuropathy G62.9 and Former smoker Z87.891 Rony Roberts III, MD [address] [place] [address] [place] [address] 01/09/2025 Rony Roberts Benign prostatic hyperplasia, unspecified whether lower urinary tract symptoms present N40.0 ; Metastatic malignant melanoma C79.9 ; Essential hypertension I10 ; Overweight E66.3 ; Diabetes mellitus E11.9 ; Peripheral neuropathy G62.9 ; Age-related cataract of both eyes, unspecified age-related cataract type H25.9 and Former smoker Z87.891 Rony Roberts III, MD [address] [place] [address] [place] [address] 02/06/2025 Rony Roberts Benign prostatic hyperplasia, unspecified whether lower urinary tract symptoms present N40.0 ; Metastatic malignant melanoma C79.9 ; Former smoker Z87.891 ; Diabetes mellitus E11.9 ; Essential hypertension I10 ; Shoulder pain, left M25.512 ; Overweight E66.3 and Recurrent low back pain M54.50 Rony Roberts III, MD [address] [place] [address] [place] [address] 04/11/2025 Rony Roberts Benign prostatic hyperplasia, unspecified whether lower urinary tract symptoms present N40.0 ; Metastatic malignant melanoma C79.9 ; Diabetes mellitus E11.9 ; Overweight E66.3 ; Essential hypertension I10 ; Former smoker Z87.891 ; Shoulder pain, left M25.512 and Peripheral neuropathy G62.9 Rony Roberts III, MD [address] [place] [address] [place] [address] 2024 Rony Roberts III, MD [address] [place] [address] [place] [address] 07/19/2024 Rony Roberts III, MD [address] [place] [address] [place] [address] 08/23/2024 Rony Roberts III, MD [address] [place] [address] [place] [address] 01/04/2025 Rony Roberts Essential hypertensi on I10 ; Diabetes mellitus E11.9 ; Benign prostatic hyperplasia, unspecified whether lower urinary tract symptoms present N40.0 and Overweight E66.3 Rony Roberts III, MD [address] [place] [address] [place] [address] 01/09/2025 Rony Roberts III, MD [address] [place] [address] [place] [address] 01/15/2025 Rony Roberts III, MD [address] [place] [address] [place] [address] 02/07/2025 Rony Roberts III, MD [address] [place] [address] [place] [address] 06/02/2025 Rony Roberts III, MD [address] [place] [address] [place] [address] 07/11/2024 Rony Roberts III, MD [address] [place] [address] [place] [address] 08/15/2024 Rony Roberts Assessments Encounter Date Diagnosis (ICD Code) Assessment Notes Treatment Notes Treatment Clinical Notes 2024 Former smoker (ICD-10 - Z87.891) He is highly motivated not to smoke and we have discussed strategies for maintenance of abstinence in time of illness distress. 2024 Benign prostatic hyperplasia, unspecified whether lower urinary tract symptoms present (ICD-10 - N40.0) He rises from sleep once a night to urinate. We discussed lifestyle modification has a way of reducing nocturia. 08/31/2024 Diabetes mellitus (ICD-10 - E11.9) His fasting glucose was 115 and his hemoglobin A1c is 6.3. His weight is in the normal range. His lipids are stable. No change in his regimen as needed. 08/31/2024 Age-related cataract of both eyes, unspecified age-related cataract type (ICD-10 - H25.9) He is medically cleared for both operations. If necessary, he'll be seen before the first procedure. The rrisk is small and the benefit is great. He is given medical clearance. 01/09/2025 Metastatic malignant melanoma (ICD-10 - C79.9) There was no sign of a new primary melanoma or recurrent melanoma in any location on today's examination. 01/09/2025 Benign prostatic hyperplasia, unspecified whether lower urinary tract symptoms present (ICD-10 - N40.0) He rises from sleep once a night to urinate. We discussed lifestyle modification has a way of reducing nocturia. 02/06/2025 Metastatic malignant melanoma (ICD-10 - C79.9) There was no sign of a new primary melanoma or recurrent melanoma in any location on today's examination. 02/06/2025 Benign prostatic hyperplasia, unspecified whether lower urinary tract symptoms present (ICD-10 - N40.0) He rises from sleep twice a night to urinate. We discussed lifestyle modification has a way of reducing nocturia.His prostatism is stable. 04/11/2025 Metastatic malignant melanoma (ICD-10 - C79.9) There was no sign of a new primary melanoma or recurrent melanoma in any location on today's examination. 04/11/2025 Benign prostatic hyperplasia, unspecified whether lower urinary tract symptoms present (ICD-10 - N40.0) He rises from sleep twice a night to urinate. We discussed lifestyle modification has a way of reducing nocturia.His prostatism is stable. 01/04/2025 Essential hypertension (ICD-10 - I10) 2024 Metastatic malignant melanoma (ICD-10 - C79.9) There is no sign of recurrent malignant melanoma at this time. Observation and surveillance will continue. 08/31/2024 Benign prostatic hyperplasia, unspecified whether lower urinary tract symptoms present (ICD-10 - N40.0) He rises from sleep once a night to urinate. We discussed lifestyle modification has a way of reducing nocturia. 01/09/2025 Essential hypertension (ICD-10 - I10) His blood pressure is currently stable and no change in his regimen was necessary today. 02/06/2025 Former smoker (ICD-10 - Z87.891) He is highly motivated not to smoke and we have discussed strategies for maintenance of abstinence in time of illness distress. 04/11/2025 Diabetes mellitus (ICD-10 - E11.9) His fasting glucose is 144. He is feeling well. No change in his regimen was made. He has gained 5 pounds we discussed a weight reduction program. 01/04/2025 Diabetes mellitus (ICD-10 - E11.9) 2024 Essential hypertension (ICD-10 - I10) His blood pressure is currently stable at 135/70. with No change in his regimen was needed. 08/31/2024 Metastatic malignant melanoma (ICD-10 - C79.9) There is no sign of recurrent malignant melanoma at this time. Observation and surveillance will continue. 01/09/2025 Overweight (ICD-10 - E66.3) His body mass index is 26. He has gained 2 pounds. We discussed diet and nutrition today. We discussed lifestyle modifications she could make to reduce his weight. We made a plan to lose weight at a rate of one half of a pound per week. 02/06/2025 Diabetes mellitus (ICD-10 - E11.9) His fasting glucose was 125 and his hemoglobin A1c is 6.9. His weight is in the normal range. His lipids are stable. No change in his regimen as needed. 04/11/2025 Overweight (ICD-10 - E66.3) He remains overweight but has gained 5 pounds. We discussed diet and nutrition. We made a plan to lose weight at a rate of 1 pound per week through a diet restricted in fat calories and sodium. 01/04/2025 Benign prostatic hyperplasia, unspecified whether lower urinary tract symptoms present (ICD-10 - N40.0) 2024 Shoulder pain, left (ICD-10 - M25.512) He has had a mild pain in his shoulder for over a year but it is recently become worse. It is likely arthritic or inflammatory but x-rays have been ordered. He will use ibuprofen and a heating pad. If necessary he will be referred for injections. 08/31/2024 Essential hypertension (ICD-10 - I10) His blood pressure is currently stable at 128/65. with No change in his regimen was needed. 01/09/2025 Diabetes mellitus (ICD-10 - E11.9) His fasting glucose was 125 and his hemoglobin A1c is 6.9. His weight is in the normal range. His lipids are stable. No change in his regimen as needed. 02/06/2025 Essential hypertension (ICD-10 - I10) His blood pressure is currently stable and no change in his regimen was necessary today. 04/11/2025 Essential hypertension (ICD-10 - I10) His blood pressure is currently stable and no change in his regimen was necessary today. 01/04/2025 Overweight (ICD-10 - E66.3) 2024 Diabetes mellitus (ICD-10 - E11.9) His fasting glucose was 115 and his hemoglobin A1c is 6.3. His weight is in the normal range. His lipids are stable. No change in his regimen as needed. 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 No additional treatment is recommended today. 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 No additional treatment is recommended today. 02/06/2025 Shoulder pain, left (ICD-10 - M25.512) He has had a mild pain in his shoulder for over a year but it is recently become worse. It is likely arthritic or inflammatory but x-rays have been ordered. He will use ibuprofen and a heating pad. If necessary he will be referred for injections. 04/11/2025 Former smoker (ICD-10 - Z87.891) He is highly motivated not to smoke and we have discussed strategies for maintenance of abstinence in time of illness distress. 2024 Age-related cataract of both eyes, unspecified age-related cataract type (ICD-10 - H25.9) He is medically cleared for both operations. If necessary, he'll be seen before the first procedure. The rrisk is small and the benefit is great. He is given medical clearance. 08/31/2024 Former smoker (ICD-10 - Z87.891) He is highly motivated not to smoke and we have discussed strategies for maintenance of abstinence in time of illness distress. 01/09/2025 Age-related cataract of both eyes, unspecified age-related cataract type (ICD-10 - H25.9) He is medically cleared for both operations. If necessary, he'll be seen before the first procedure. The rrisk is small and the benefit is great. He is given medical clearance. 02/06/2025 Overweight (ICD-10 - E66.3) His body mass index is 26. He has gained 2 pounds. We discussed diet and nutrition today. We discussed lifestyle modifications she could make to reduce his weight. We made a plan to lose weight at a rate of one half of a pound per week. 04/11/2025 Shoulder pain, left (ICD-10 - M25.512) He has had a mild pain in his shoulder for over a year but it is recently become worse. It is likely arthritic or inflammatory but x-rays have been ordered. He will use ibuprofen and a heating pad. If necessary he will be referred for injections. 01/09/2025 Former smoker (ICD-10 - Z87.891) He is highly motivated not to smoke and we have discussed strategies for maintenance of abstinence in time of illness distress. 02/06/2025 Recurrent low back pain (ICD-10 - M54.50) This is resolving and is 90% gone. He will gradually resume normal life. 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 No additional treatment is recommended today. Plan Of Treatment Pending Test Test Name Order Date PROFILE, FASTING (COMPREHENSIVE METABOLI C) 01/09/2025 PROFILE, FASTING (COMPREHENSIVE METABOLI C) 01/10/2024 PROFILE, FASTING (COMPREHENSIVE METABOLI C) 06/09/2021 PROFILE, FASTING (COMPREHENSIVE METABOLI C) 02/17/2021 PROFILE, FASTING (COMPREHENSIVE METABOLI C) 11/15/2020 PROFILE, FASTING (COMPREHENSIVE METABOLI C) 11/19/2023 PROFILE, FASTING (COMPREHENSIVE METABOLI C) 05/24/2023 PROFILE, FASTING (COMPREHENSIVE METABOLI C) 01/04/2025 PROFILE, FASTING (COMPREHENSIVE METABOLI C) 01/25/2020 PROFILE, FASTING (COMPREHENSIVE METABOLI C) 10/26/2019 PROFILE, FASTING (COMPREHENSIVE METABOLI C) 07/29/2022 PROFILE, FASTING (COMPREHENSIVE METABOLI C) 04/27/2022 PROFILE, FASTING (COMPREHENSIVE METABOLI C) 02/11/2023 PROFILE, FASTING (COMPREHENSIVE METABOLI C) 01/19/2022 PROFILE, FASTING (COMPREHENSIVE METABOLI C) 11/05/2022 PROFILE, FASTING (COMPREHENSIVE METABOLI C) 04/11/2025 PROFILE, FASTING (COMPREHENSIVE METABOLI C) 09/15/2021 PROFILE, FASTING (COMPREHENSIVE METABOLI C) 04/17/2024 PROFILE, FASTING (COMPREHENSIVE METABOLI C) 01/17/2024 PROFILE, RANDOM (COMPREHENSIVE METABOLIC ) 12/02/2020 PROFILE, RANDOM (COMPREHENSIVE METABOLIC ) 07/26/2018 PROFILE, RANDOM (COMPREHENSIVE METABOLIC ) 12/12/2018 HEMOGLOBIN A1C (GLYCOHEMOGLOBIN) 022 HEMOGLOBIN A1C (GLYCOHEMOGLOBIN) 022 HEMOGLOBIN A1C (GLYCOHEMOGLOBIN) 021 HEMOGLOBIN A1C (GLYCOHEMOGLOBIN) 019 HEMOGLOBIN A1C (GLYCOHEMOGLOBIN) 021 HEMOGLOBIN A1C (GLYCOHEMOGLOBIN) 021 HEMOGLOBIN A1C (GLYCOHEMOGLOBIN) 018 HEMOGLOBIN A1C (GLYCOHEMOGLOBIN) 021 HEMOGLOBIN A1C (GLYCOHEMOGLOBIN) 023 HEMOGLOBIN A1C (GLYCOHEMOGLOBIN) 020 HEMOGLOBIN A1C (GLYCOHEMOGLOBIN) 019 HEMOGLOBIN A1C (GLYCOHEMOGLOBIN) 022 HEMOGLOBIN A1C (GLYCOHEMOGLOBIN) 023 LIPID PANEL 10/26/2019 LIPID PANEL 07/29/2022 LIPID PANEL 02/11/2023 LIPID PANEL 11/05/2022 LIPID PANEL 09/15/2021 LIPID PANEL 06/09/2021 LIPID PANEL 12/02/2020 LIPID PANEL 02/17/2021 LIPID PANEL 05/24/2023 LIPID PANEL 01/25/2020 TSH (THYROID STIMULATING HORMONE) 2023 CPK 11/19/2023 PSA, TOTAL 04/11/2025 PSA, TOTAL 11/19/2023 PSA, TOTAL 04/17/2024 PSA, TOTAL 01/17/2024 PSA, TOTAL 01/09/2025 PSA, TOTAL 09/15/2021 PSA, TOTAL 06/09/2021 PSA, TOTAL 12/02/2020 PSA, TOTAL 01/04/2025 PSA, TOTAL 04/27/2022 PSA, TOTAL SCREEN 07/29/2022 MICROALBUMIN, RANDOM 05/24/2023 MICROALBUMIN, RANDOM 01/19/2022 MICROALBUMIN, RANDOM 11/05/2022 MICROALBUMIN, RANDOM 07/29/2022 MICROALBUMIN, RANDOM 11/15/2020 MICROALBUMIN, RANDOM 12/02/2020 MICROALBUMIN, RANDOM 01/04/2025 CBC w DIFF 12/02/2020 CBC w DIFF 01/04/2025 CBC w DIFF 04/27/2022 CBC w DIFF 01/25/2020 CBC w DIFF 10/26/2019 CBC w DIFF 04/11/2025 CBC w DIFF 12/12/2018 CBC w DIFF 05/24/2023 CBC w DIFF 02/11/2023 CBC w DIFF 01/19/2022 CBC w DIFF 01/17/2024 CBC w DIFF 01/09/2025 CBC w DIFF 11/05/2022 CBC w DIFF 09/15/2021 CBC w DIFF 07/29/2022 CBC w DIFF 06/09/2021 CBC w DIFF 07/26/2018 CBC w DIFF 02/17/2021 CBC w DIFF 11/15/2020 SED RATE (ESR) 11/19/2023 SED RATE (ESR) 10/26/2019 SED RATE (ESR) 12/12/2018 MRI LUMBAR SPINE W&WO CONTRAST MRI THORACIC SPINE W&WO CONTRAST 024 XR CHEST 2 VIEW PA & LAT 08/16/2020 XR SHOULDER LT 2 VIEWS 05/16/2021 CBC WITH AUTO DIFF 04/17/2024 CBC WITH AUTO DIFF 01/10/2024 CBC WITH AUTO DIFF 11/19/2023 Lipid Panel 04/27/2022 Lipid Panel 04/11/2025 Lipid Panel 04/17/2024 Lipid Panel 01/19/2022 Lipid Panel 01/17/2024 Lipid Panel 01/09/2025 Microalbumin, Random 04/11/2025 Microalbumin, Random 04/17/2024 Hemoglobin A1c 04/27/2022 Hemoglobin A1c 01/17/2024 Hemoglobin A1c 04/11/2025 Hemoglobin A1c 04/17/2024 Next Appt Details Provider Name:Rony Roberts, 07/12/2025 09:15:00 AM, [address] [place] [address] [place], [address], Provider Name:Rony Roberts, 01/11/2026 02:00:00 PM, [address] [place] [address] [place], [place], [address], Insurance Providers Payer Name Payer Address Payer Phone Subscriber Number Group Number Insured Name Patient Relationship to Insured Coverage Start Date Coverage End Date MEDICARE NGS [address] [place] [phone] [id number] DesileTj kurtz Self - patient is the insured [facility] [address] [place], [place] [id number] [phone] [id number] DesileTj kurtz Self - patient is the insured Medical (General) History Medical History History ICD Code hypertension type II diabetes obesity melanoma colonic polyps 2015 bph Bilateral cataracts Diabetes Surgical History Surgery Date(Month/Year) Cataract surgery No history Colonoscopy 09/2018 Left Hip replacement Interferon axillary dissection Appendectomy Tonsilectomy colonoscopy 5 polyps 2015 right axillary dissection 2012 excision Robinson 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
--- OUTSIDE RECORDS SUMMARY | 2025-07-05 06:06 | XMS_ITS | Encounter Summary ---
Author Organization [facility] Address [address] [address] Phone Care Team Providers Care Retail Beauty Specialist Name Role Phone Rony Roberts MD Unavailable [phone] Bobby Pedraza DO Primary Care Provider [phone] Fabi Snell FRONT END ARCHITECT Unavailable [phone] Encounter Details Date Type Department Care Team (Late st Contact Info) Description 10/21/2016 Procedure Pass [facility] [address] [address] Social History Tobacco Use Types Packs/Day Years [...] on filedocumented in this encounter Care Teams Retail Beauty Specialist Relationship Specialty Start Date End Date Bobby Pedraza DO [address] [place] [address] PCP - General Internal Medicine 03/30/16 Rony Roberts MD [address] [place] [address] Referring Physician Internal Medicine 02/03/16 Fabi Snell NP [address] [place] [address] [place] [address] [email or web address] 04/28/17 05/24/18 documented as of this encounter Additional Source Comments The information contained in this document represents components of the legal health record. It is not the complete legal health record.[facility]
--- OUTSIDE RECORDS SUMMARY | 2025-07-05 06:06 | XMS_ITS | Encounter Summary ---
Author Organization [facility] Address [address] [address] Phone Care Team Providers Care Hospice Liaison Name Role Phone Rony Roberts MD Unavailable [phone] Bobby Pedraza DO Primary Care Provider [phone] Fabi Snell ADOPTION COUNSELOR Unavailable [phone] Encounter Details Date Type Department Care Team (Late st Contact Info) Description 10/21/2016 Procedure Pass [facility] Provider Relations Representative [facility] [address] [address] Social History Tobacco Use Types Packs/Day Years [...] on filedocumented in this encounter Care Teams Hospice Liaison Relationship Specialty Start Date End Date Bobby Pedraza DO [address] [place] [address] PCP - General Internal Medicine 03/30/16 Rony Roberts MD [address] [place] [address] Referring Physician Internal Medicine 02/03/16 Fabi Snell NP [address] [place] [address] [place] [address] [email or web address] 04/28/17 05/24/18 documented as of this encounter Additional Source Comments The information contained in this document represents components of the legal health record. It is not the complete legal health record.[facility]
--- OUTSIDE RECORDS SUMMARY | 2025-07-05 06:06 | XMS_ITS | Clinical Summary ---
Author Organization [address] [place] [address] Address [address] [place] [address] Phone Care Team Providers Care Equine Manager Name Role Phone Physician, Pcp Unknown Primary Care Provider Michelle vailable Allergies No known active allergies Encounters Date Type Department Care Team Description 05/14/2025 8:30 AM EDT Office Visit [facility] [address] [address] Nazario Herrera DPM Acquired hammer toe of right foot (Primary Dx); Dermatophytosis of nail; Diabetic mononeuropathy simplex (CMS/HCC V24, CMS/HCC V28); Type II diabetes mellitus with peripheral circulatory disorder (CMS/HCC V24, CMS/HCC V28); Pain in toe of right foot; Pain in toe of left foot; Hammer toe of left foot from Last 3 [...] - - Weight 83.9 kg (185 lb) 02/07/2025 8:04 AM EDT Height 175.3 cm (5' 9.02 ) 02/07/2025 8:04 AM ED T Body Mass Index 27.31 02/07/2025 8:04 AM EDT Plan of Treatment Upcoming Encounters Date Type Department Care Team ([facility] st Contact Info) Description 08/14/2025 8:30 AM EDT Office Visit [facility] [address] [address] Nazario Herrera, DPM [address] [place] [address] Health Maintenance Due Date Last Done Comments Diabetes: Annual GFR (Glomerular Filtration Rate) 1947 Diabetes: Annual Foot Exam 1957 Diabetes: Annual Retina Eye Exam 1957 RSV Immunization Adult Patients (1 - 1-dose 75+ series) 2022 COVID-19 Vaccine ( season) 2024 10/20/2021, 02/08/2021, 01/11/2021 Cholesterol Screening (Lipid Panel) 09/03/2024 Falls Risk Assessment 09/03/2024 Hepatitis C Screening 09/03/2024 Medicare Annual Wellness Visit 09/03/2024 Social Influencers of Health Screening 09/03/2024 Depression Screening 11/08/2024 Diabetes: Annual Urine Albumin-Creatinine Ratio (uACR) 11/09/2024 Diabetes: Blood Sugar Control Test (HGBA1C) 11/09/2024 Hypertension/CHF/CAD Annual BMP Blood Test 11/09/2024 Influenza Vaccine (#1) 2025 , 10/15/2022, 07/09/2021, Additional history exists DTaP,Tdap,and Td Vaccines (2 - Td or Tdap) 11/26/2031 11/26/2021 Zoster Vaccines Completed 04/08/2021, 10/08, 04/08/2020, Additional history exists Pneumococcal Vaccine: 50+ Years Completed 12/03/2021, 09/12/2019 [...] age to complete this topic Meningococcal B Vaccine Aged Out No l onger eligible based on patient's age to complete this topic RSV Immunization Patients Under 20 months Aged Out No longer eligible based on patient's age to complete this topic Varicella Vaccines Aged Out No longer eligible based on patient's age to complete this topic Insurance MEDICARE MED [id number] Care Teams Equine Manager Relationship Specialty Start Date End Date Physician, Pcp Unknown PCP - General 09/07/24
--- OUTSIDE RECORDS SUMMARY | 2025-07-05 06:06 | XMS_ITS | Patient Health Record ---
Author Organization [facility] Address [address] [place] [address] Care Team Providers Care Devulcanizer Tender Name Role Phone Rony Roberts MD Primary Care Provider UnavailEduardo Feliz Jr Unavailable Allergies Allergen (clinical drug ingredient) Drug/Non Drug Allergy documented on EMR Reaction Allergy Type Onset Date Status morphine Morphine Sulfate Unknown Drug Allergy Active Reason For Referral No Information Medications Medication SIG (Take, Route, Frequency, Duration) [...] Once a day for 30 day(s) Active Immunizations Vaccine Route Administration Date Status Comme nts Flu vaccine no Preserv 3 and > Unknown 08/08/2014 Admin istered Flu vaccine no Preserv 3 and > Unknown 07/20/2017 Admin istered Influenza Unknown 01/10/2024 Refused Problems Problem Type SNOMED Code ICD Code Onset Dates Problem Status W/U Status Risk Notes Problem 511341108 Colon cancer screening (Z12.11) Active confirmed Problem 842094829 Personal history of colonic polyps (Z86.010) Active confirmed Problem 093618002 Long-term use of aspirin therapy (Z79.82) Active confirmed Problem 621083007 Long-term curren t use of high risk medication other than anticoagulant (Z79.899) Active confirmed Problem 513430001 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 animal 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) use of oral hypoglycemic drugs (Z79.84) Active confirmed Plan Of Treatment Future Test Test Name Order Date COLONOSCOPY 01/02/2015 COLONOSCOPY 05/27/2018 COLONOSCOPY 01/10/2024 Insurance Providers Payer Name Payer Address Payer Phone Subscriber Number Group Number Insured Name Patient Relationship to Insured Coverage Start Date Coverage End Date MEDICARE OF [place] [address] [place] [address] [id number] DESILETS , VINCENT Self - patient is the insured [employer] CLAIMS [address] [place] [address] [phone] [id number] DESILETS , VINCENT Self - patient is the insured Medical (General) History Medical History History ICD Code Hypertension Diabetes mellitus Colonoscopy, 09/25, tubular adenoma, fiv e-year followup Hyperlipidemia Low back pain, degenerative disc disease Melanoma Surgical History Surgery Date(Month/Year) appendectomy tonsillectomy pilonidal cyst excision left hip replacement 2009
--- OUTSIDE RECORDS SUMMARY | 2025-07-05 06:06 | XMS_ITS | Encounter Summary ---
Author Organization [facility] Address [address] [address] Phone Care Team Providers Care Brake Lining Finisher Name Role Phone Rony Roberts MD Unavailable Bobby Pedraza DO Primary Care Provider [phone] Fabi Snell LABOR RELATIONS OFFICER Unavailable [phone] Encounter Details Date Type Department Care Team (Late st Contact Info) Description 03/18/2017 Procedure Pass [facility] [address] [address] Social History Tobacco Use Types Packs/Day Years [...] on filedocumented in this encounter Care Teams Brake Lining Finisher Relationship Specialty Start Date End Date Bobby Pedraza DO [address] [place] [address] PCP - General Internal Medicine 03/30/16 Rony Roberts MD [address] [place] [address] Referring Physician Internal Medicine 02/03/16 Fabi Snell NP [address] [place] [address] [place] [address] [email or web address] 04/28/17 05/24/18 documented as of this encounter Additional Source Comments The information contained in this document represents components of the legal health record. It is not the complete legal health record.[facility]
--- OUTSIDE RECORDS SUMMARY | 2025-07-05 06:06 | XMS_ITS | Encounter Summary ---
Author Organization [facility] Address [address] [address] Phone Care Team Providers Care Lamination Inspector Name Role Phone Rony Roberts MD Unavailable [phone] Bobby Pedraza DO Primary Care Provider [phone] Fabi Snell NP Unavailable [phone] Encounter Details Date Type Department Care Team (Late st Contact Info) Description 10/19/2016 Transcribe Orders Jennifer Lank Imaging Department, [facility], Radiography [address] [facility], Floor [address] [place] [address] Miguel Ángel Florentino MD [address] [place] [address] [email or web address] Pre-procedural laboratory examination (Primary Dx) Social History Tobacco Use Types Packs/Day Years Used Date Smoking Tobacco: Former Sex and Gender Information Value Date Recorded Sex Assigned at Not on file Legal Sex Male 7:33 PM EST Gender Identity Not on file Sexual Orientation Not on file documented as of this encounter Plan of Treatment Not on file documented as of this encounter Results * Creatinine/eGFR (10/21/2016 7:48 AM EST) CREATININE 0.78 0.7 - 1.3 mg/dL [facility] LIC# [id number] EGFR >60 mL/min/1.7 3m2 [facility] LIC# [id number] Comment:Abnormal if <60 mL/m in/1.73m2. If patient is -[place], multiply the result by 1.21. 10/21/2016 7:48 AM EST 10/21/2016 7:57 AM EST us Miguel Ángel Florentino MD LAB BLOOD ORDERABL ES Final Result [facility] LIC# [id number] [address] [id number] documented in this encounter Visit Diagnoses Diagnosis Pre-procedural laboratory examination- Primary documented in this encounter Care Teams Lamination Inspector Relationship Specialty Start Date End Date Bobby Pedraza DO [address] [place] [address] PCP - General Internal Medicine 03/30/16 Rony Roberts MD [address] [place] [address] Referring Physician Internal Medicine 02/03/16 Fabi Snell, MECHANICAL SERVICE TECHNICIAN [address] [place] [address] [place] [address] [email or web address] 04/28/17 05/24/18 documented as of this encounter Additional Source Comments The information contained in this document represents components of the legal health record. It is not the complete legal health record.[facility]
[2025-07-05 06:39] LABS: MANUAL DIFF FLAG NO
[2025-07-05 07:15] LABS: Hematocrit 42.0 % (42.0-52.0); Hemoglobin 14.1 g/dl (14.0-18.0); Imm Gran Abs Auto 0.01 X10*3/uL (0.00-0.03); Imm Gran Pct Auto 0.2 % (0.0-0.4); Lymphocytes Absolute Auto 0.9 X10*3/uL (1.2-4.9); Mean Corpuscular HGB Conc 33.6 g/dl (31.0-36.0); Mean Corpuscular Hemoglobin 31.6 pg (27.0-33.0); Mean Corpuscular Volume 94.2 fL (80.0-98.0); NRBC Abs Auto 0.000 X10*3/uL (0.0-0.012); NRBC Pct Auto 0.0 /100WBC (0.0-0.2); Platelet Count 243 X10*3/uL (160-400); Red Blood Count 4.46 X10*6/uL (4.60-5.80); White Blood Count 5.4 X10*3/uL (4.8-10.8)
[2025-07-05 07:55] LABS: Alanine Aminotransferase 23 U/L (0-40); Albumin Level 4.6 g/dL (3.5-5.0); Alkaline Phosphatase 66 U/L (39-117); Anion Gap 14 (12-20); Aspartate Amino Transferase 21 U/L (5-37); Blood Urea Nitrogen 21 mg/dL (9-16); Calcium 9.6 mg/dL (8.4-10.2); Carbon Dioxide 25 mmol/L (22-29); Chloride 103 mmol/L (96-108); Cholesterol 118 mg/dL (<200); Estimated Glomerular Filt Rate > 60; HDL Cholesterol 42 mg/dL (>40); Potassium 4.3 mmol/L (3.3-5.1); Sodium 138 mmol/L (135-145); Total Protein 7.5 g/dL (6.5-8.0); Triglycerides 112 mg/dL (<150)
[2025-07-05 07:58] LABS: Hemoglobin A1C 209.7775 umol/L; Total Hemoglobin (HGBA1C) 3751.1097 umol/L
[2025-07-05 08:06] LABS: Prostate Specific Antigen 2.83 ng/mL (<0.05-4.0)
[2025-07-05 08:09] LABS: Microalbum/Creatinine Ratio Ur 10.9 ug/mg cr (<30)
== END 2025-07-05 06:03 | disposition home or self-care (01) ==
LOC: HO.LAB 06:02
PROVIDERS: PCP Internal Medicine Medical Oncology; Visit Provider Internal Medicine Medical Oncology
DX: N40.0 Benign prostatic hyperplasia without lower urinary tract symptoms (principal); E11.9 Type 2 diabetes mellitus without complications; E66.3 Overweight; Z12.5 Encounter for screening for malignant neoplasm of prostate
CPT/HCPCS: 36415; 80053; 80061; 82043; 82570; 83036; 84153; 85025

== ENCOUNTER 2025-08-13 14:40 | Emergency (ER) | payer MEDICARE, SELFPAY ==
--- OUTSIDE RECORDS SUMMARY | 2024-03-07 05:10 | XMS_ITS ---
Author Organization [facility] Address [address] [place] [id number] Care Team Providers Care Escrow Clerk Name Role Phone Armando PARRA, Rony Primary Care Provider Unavailab Eduardo Cardenas Jr [phone] REASON FOR VISIT screening Encounters Encounter Location Date Provider Diagnosis [facility] [place] [place] Outpatient [address] [place] [phone] 03/07/2024 Eduardo Sandoval Jr Encounter for screening [...] * WANDA CREWS RDOB:[birth year] (80 yo M)Acc No.[id number]:03/07/2024 COLON WITH MAC Patient: Jona HEREDIA WANDA English Provider: Carri Sandoval MD :1945 A ge:78 Y S ex:Male Date:03/07/2024 Address:[address] [place], [place] [phone] Pcp:Rony Roberts MD Subjective: * Chief Complaints: * 1 . Screening. * Medical History: Objective: * Vitals: Assessment: * Assessment: 1. E ncounter for screening colonoscopy - Z12.11 (Primary) 2 . P ersonal history of colonic polyps - Z86.010 3 . C olon polyps - K63.5 Plan: * Treatment: * Procedure Codes: G 0105 COLOREC CANCR SCR; COLNSCPY HI RISK, [address]41 LESION REMOVAL COLONOSCOPY, 0529F INTRVL 3+YRS PTS CLNSCP DOCD * * The named appointment provid er may or may not be the originator of this progress note, and it is not deemed complete until electronically signed by the appointment provider. Sign off status: Pending * Provider: Carri Sandoval MD Date: 0 03/07/2024 Generated for Roseann russ/Mahin/Yamilaitting on: 06:36 PM EDT
--- OUTSIDE RECORDS SUMMARY | 2025-02-07 06:49 | XMS_ITS ---
Author Organization Rony Roberts III, MD Address [address] [place] [address] [place] [address] Care Team Providers Care Supervisor [employer] Name Role Phone Dr. Rony Roberts III Primary Care Provider REASON FOR VISIT Message Social History Sex Assigned At : Social History Observation Description Sex Assigned At Male Encounters Encounter Location Date Provider Diagnosis Rony Roberts III, MD [address] [place] [address] [place] [address] 02/07/2025 Rony Roberts Plan Of Treatment Next Appt Details Provider Name:Rony Roberts , 10/11/2025 09:45:00 AM, [address] [place] [address] [place], [address], Provider Name:Rony Roberts , 01/11/2026 02:00:00 PM, [address] [place] [address] [place], [address], Progress Notes * Tj PAGEDOB: [birth year] (79 yo M)Acc No.[id number]:02/07/2025 Patient: Jona Tj HEREDIA :1945 A ge:79 Y S ex:Male Address:[address] [place] [phone] * true * Date: Generated for Roseann russ/Mahin/Gagan on: 06:37 PM EDT
--- OUTSIDE RECORDS SUMMARY | 2025-04-11 06:00 | XMS_ITS ---
Author Organization Rony Roberts III, MD Address [address] [place] [address] Care Team Providers Care Bow String Maker Name Role Phone Dr. Rony Roberts III Primary Care Provider [phone] Allergies Allergen (clinical drug ingredient) Drug/Non Drug Allergy documented on EMR Reaction Allergy Type Onset Date Status Morphine Sulfate Unknown Drug Allergy Active REASON [...] Date Provider Diagnosis Rony Roberts III, MD [address] [place] [address] [place] [address] 04/11/2025 Rony Roberts Benign prostatic hyperplasia, unspecified [...] Provider Name:Rony Roberts , 10/11/2025 09:45:00 AM, [address] [place] [address] DR, [facility] [address], [place], [address], Provider Name:Rony Roberts , 01/11/2026 02:00:00 PM, [address] [place] [address] [address], [place], [address], Progress Notes * Tj PAGEDOB: [birth year] (79 yo M)Acc No.[id number]:04/11/2025 Progress Notes Patient: Tj IVERSON Provider: Amador Roberts MD :1945 A ge:79 Y S ex:Male Date:04/11/2025 Address:[address] [place], [place] [id number] Subjective: * Chief Complaints: * B lepharospasmHistory of melanomaHypertensionDiabetesBenign prostatic hypertrophyLeft shoulder pain * HPI: C OVID-19 Screening: Kassie cagle recently had Botox injections around his eyes to stop twitching. He now has some twitching of his upper lip,, which the ram car operator is treating with observation. 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 He has a daughter and a 2 grandaughters and 2 grand sons. He was born in [place], [place]. * Medications: T akingOneTouch Ultra Test [...] List reviewed and reconciled with the patientTaking Omniox Ultra Test - Strip as directed In [...] 0 04/11/2025 Generated for Roseann russ/Mahin/Yamilaitting on: 1 06:36 PM EDT History and Physical Notes * HPI [...]
--- OUTSIDE RECORDS SUMMARY | 2025-06-02 16:59 | XMS_ITS ---
Author Organization Rony Roberts III, MD Address [address] [place] [address] [place] [address] Care Team Providers Care Bank Manager Name Role Phone Dr. Rony Roberts III Primary Care Provider Social History Sex Assigned At : Social History Observation Description Sex Assigned At Male Encounters Encounter Location Date Provider Diagnosis Rony Roberts III, MD [address] [place] [address] [place] [address] 06/02/2025 Rony Roberts Plan Of Treatment Next Appt Details Provider Name:Rony Roberts , 10/11/2025 09:45:00 AM, [address] [place] [address] [place], [address], Provider Name:Rony Roberts , 01/11/2026 02:00:00 PM, [address] [place] [address] [place], [address], Progress Notes * Tj PAGEDOB: [birth year] (79 yo M)Acc No.[id number]:06/02/2025 Patient: Jona HEREDIATj :1945 A ge:79 Y S ex:Male Address:[address] [place] [address] * true * Date: Generated for Roseann russ/Mahin/Gagan on: 06:37 PM EDT
--- OUTSIDE RECORDS SUMMARY | 2025-07-12 05:15 | XMS_ITS ---
Author Organization Rony Roberts III, MD Address [address] [place] [address] Care Team Providers Care Sisal Operator Name Role Phone Dr. Rony Roberts [...] has it been since you last smoked? Boboa ter than 10 years Additional Findings: Tobacco non-user Ex-cigaret te smoker Vital Signs Blood pressure systolic 129 mm Hg 07/12/20 25 Blood pressure diastolic 64 mm Hg 025 Heart Rate 80 /min 07/12/2025 Height 70 in 07/12/2025 Weight 183 lbs 07/12/2025 BMI 26.25 kg/m2 07/12/2025 Encounters Encounter Location Date Provider Diagnosis Rony Roberts III, MD [address] [place] [address] [place] [address] 07/12/2025 Rony Roberts Benign prostatic hyperplasia, unspecified [...] Provider Name:Rony Roberts , 10/11/2025 09:45:00 AM, [address] [place] [address] [address] [place], [place], [address], Provider Name:Rony Roberts , 01/11/2026 02:00:00 PM, [address] [place] [address] [address], [place], [address], Progress Notes * Ehsan PAGEnatashaDOB: [birth year] (79 yo M)Acc No.[id number]:07/12/2025 Progress Notes Patient: Tj IVERSON Provider: Amador Roberts MD :1945 A ge:79 Y S ex:Male Date:07/12/2025 Address:[address] [place], [place] [id number] Subjective: * Chief Complaints: * H istory [...] 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 He has a daughter and a 2 grandaughters and 2 grand sons. He was born in [place], [place]. * Medications: T akingamLODIPine Besylate 5 [...] Range: 0.0-0.012 X10*3/uL) * Lab:Rosalba Kaplan Elvira fonutain Fast * Collection Date 07/05/2025 04/03/2025 01/05/2025 [...] AB: Hemoglobin A1c 4. O thers Continue OneDelivery Herouch Ultra Test Strip, -, One strip, In [...] 07/12/2025 Generated for Roseann russ/Mahin/Yamilaitting on: 1 06:36 [...]
--- NOTE | ~2025-08-13 | CT_ITS ---
CLINICAL HISTORY: fall. hip fracture CT abdomen and pelvis without IV contrast. COMPARISON: None FINDINGS: Small hiatal hernia. Small left pleural effusion. Non-contrast appearance of the liver, spleen and pancreas are without evidence of injury. Normal gallbladder. Normal adrenal glands. Markedly atrophic pancreas. Non-contrast appearance of the kidneys are without evidence of injury. No hydronephrosis. Large right renal cystic lesion measuring up to 10.5 cm. Right renal calculi measuring up to 0.5 cm Nonobstructing left renal calculi measuring up to 0.8 cm. Left renal cystic lesions measuring up to 2.0 cm. No free intraperitoneal fluid or air. No mesenteric edema. No bowel obstruction. Moderate colonic stool burden. Mild distal colonic diverticulosis without evidence of diverticulitis. Appendix is not seen. No mesenteric or retroperitoneal lymphadenopathy. No evidence of abdominal aorta injury. Phrase with moderate No evidence of urinary bladder injury. No free fluid present in the pelvis. No inguinal lymphadenopathy. Visualized portions of the proximal right femur appear intact. Left total hip arthroplasty appears in anatomic alignment. No evidence of hardware loosening or failure. Visualized portions of the proximal left femur appear intact. Bones of the pelvis including the sacrum appear intact. Straightening of the normal lumbar lordosis. Vertebral body heights are maintained. Fusion of the L1 and L2 vertebral bodies. Advanced multilevel lumbar spondylosis. No lower rib fracture identified. IMPRESSION: 1. No acute intra-abdominal or pelvic findings. No evidence of solid organ injury on this noncontrast exam. 2. Status post left total hip arthroplasty without evidence of hardware complication. 3. Small left pleural effusion. 4. Nonobstructing renal calculi present bilaterally measuring up to 0.8 cm on the left. This document has been electronically signed by: Evelio Purcell MD on 08/13/2025 17:44:13
--- NOTE | ~2025-08-13 | CT_ITS ---
CLINICAL HISTORY: fall. Pnuemoni? CT chest without IV contrast. COMPARISON: CT abdomen and pelvis dated 08/13/25 at 16:38 EDT FINDINGS: No pericardial effusion. Coronary artery calcifications present within the LAD, circumflex and RCA. Aortic annular calcifications. Normal esophagus. Small hiatal hernia. No supraclavicular or axillary lymphadenopathy. There is edema along the left axilla. No pneumothorax. Trace left pleural effusion. Subpleural fibrosis along the anterior right upper lobe. Small amount of secretions present within the trachea and left mainstem bronchus. No bronchial wall thickening. No bronchiectasis. Findings of the upper abdomen are reported on CT of the abdomen and pelvis performed at the same time. Normal vertebral body alignment. No vertebral body height loss. No evidence of vertebral injury. There is edema within the left axilla. Displaced fracture of the left scapular body with likely extension into the glenoid. Advanced degenerative changes of the right shoulder. Sternum is intact. No acute rib fracture identified. 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 IMPRESSION: 1. Comminuted displaced fracture of the left scapular body with likely extension into the glenoid. There is adjacent soft tissue edema. 2. Small left pleural effusion. 3. Coronary artery atherosclerosis. This document has been electronically signed by: Evelio Purcell MD on 08/13/2025 17:53:55
--- NOTE | ~2025-08-13 | CT_ITS ---
CLINICAL HISTORY: fall head trauma CT cervical spine without contrast. COMPARISON: None FINDINGS: Straightening of the normal cervical lordosis, likely positional. Vertebral body heights are maintained. No evidence of acute vertebral body injury. Nuchal ligament ossification present. Skull base and intracranial structures appear normal. Calcified plaque present at the carotid bulb on the right. Degenerative pannus present at C1-C2 anteriorly. C2-C3: Facet joint arthrosis on the left. C3-C4: Anterior marginal osteophytes. Loss of disc space height. Uncovertebral joint hypertrophy. Facet joint arthrosis. Moderate bilateral neural foraminal narrowing. C4-C5: No significant neuroforaminal narrowing or spinal canal stenosis. C5-C6: Anterior marginal osteophytes. Loss of disc space height. Uncovertebral joint hypertrophy. Mild to moderate bilateral neural foraminal narrowing, [id number]-right. C6-C7: Anterior marginal osteophytes. Loss of disc space height. Uncovertebral joint hypertrophy. Mild right neural foraminal narrowing. IMPRESSION: 1. No evidence of acute injury to the cervical spine. This document has been electronically signed by: Evelio Purcell MD on 08/13/2025 17:44:46
--- NOTE | ~2025-08-13 | XR_ITS ---
EXAMINATION: XR SHOULDER, LEFT CLINICAL INFORMATION: fall. Fracture? COMPARISON: 05/16/2021. TECHNIQUE: Three views of the left shoulder. FINDINGS: There is an acute fracture through the superior glenoid, which traverses the base of the coracoid process. There is mild displacement. There are no additional fractures or dislocation. Glenohumeral joint is anatomically aligned. The AC joint is intact. There are moderate degenerative changes in the AC joint. There is no soft tissue abnormality. The ribs appear intact. XR/XR shoulder LT min 2V IMPRESSION: Mildly displaced fracture through the superior glenoid, extending through the base of the coracoid process. Electronically signed by: Sarmad Robles MD 08/13/2025 04:57 PM EDT
--- NOTE | ~2025-08-13 | CT_ITS ---
CLINICAL HISTORY: Fall CT head without contrast. COMPARISON: None FINDINGS: The visualized paranasal sinuses are clear. The mastoid air cells are clear. No calvarial fracture. Atherosclerotic intracranial vasculature. No evidence for mass or mass effect. No intracranial hemorrhage or abnormal extra-axial fluid collection. Basal ganglia mineralization present bilaterally. No CT evidence of acute infarct. The ventricles are proportional with the degree of mild global cerebral volume loss without evidence of hydrocephalus. Basilar cisterns are patent. There are periventricular areas of low attenuation compatible with mild white matter small vessel disease. Posterior fossa appears unremarkable. IMPRESSION: 1. No acute intracranial findings. This document has been electronically signed by: Evelio Purcell MD on 08/13/2025 17:54:50
--- NOTE | ~2025-08-13 | XR_ITS ---
EXAMINATION: XR FEMUR, LEFT CLINICAL INFORMATION: fall. medial thigh pain COMPARISON: None available. TECHNIQUE: AP and lateral views of the left femur were obtained. FINDINGS: Total hip replacement has been performed on the left. Acetabular cup is secured with 2 screws. The femoral stem makes good cortical contact. No fracture is evident. There is moderate narrowing of the medial greater than lateral joint spaces of the knee with marginal and central osteophytes. No knee joint effusion is evident. XR/XR femur LT 2V IMPRESSION: No acute fracture. Total left hip replacement. Moderate left knee osteoarthritis. Electronically signed by: Geo Castelan MD 08/13/2025 04:59 PM EDT
--- OUTSIDE RECORDS SUMMARY | 2025-08-13 09:30 | XMS_ITS ---
Author Organization Rony Roberts III, MD Address [address] [place] [address] Care Team Providers Care Oil Spraying Machine Operator Name Role Phone Dr. Rony Roberts III Primary Care Provider Allergies Allergen (clinical drug ingredient) Drug/Non Drug Allergy documented on EMR Reaction Allergy Type Onset Date Status Morphine Sulfate Unknown Drug Allergy Active REASON FOR VISIT Fell down some stairs today 08/13/2025- Left shoulder and left thigh injury Medications Medication SIG (Take, Route, Frequency, Duration) [...] non-user Ex-cigaret te smoker Vital Signs Temperature 97.3 degrees Fahrenheit 08/13/20 25 Blood pressure systolic 157 mm Hg 08/13/20 25 Blood pressure diastolic 78 mm Hg 025 Heart Rate 85 /min 08/13/2025 Height 70 in 08/13/2025 Weight 181 lbs 08/13/2025 BMI 25.97 kg/m2 08/13/2025 Encounters Encounter Location Date Provider Diagnosis Rony Roberts III, MD [address] [place] [address] [address] [place] [address] 08/13/2025 Rony Roberts Benign prostatic hyperplasia, unspecified whether lower urinary tract symptoms present N40.0 Assessments Encounter Date Diagnosis (ICD Code) Assessment Notes Treatment Notes Treatment Clinical Notes 08/13/2025 Benign prostatic hyperplasia, unspecified whether lower urinary tract symptoms present (ICD-10 - N40.0) He rises from sleep twice a night to urinate. We discussed lifestyle modification has a way of reducing nocturia.His prostatism is stable. Plan Of Treatment Medication Medication Name Sig [...] day E11.9 Diabetes mellitus Next Appt Details Provider Name:Rony Roberts , 10/11/2025 09:45:00 AM, [address] [place] [address] [address], [place], [address], Provider Name:Rony Roberts , 01/11/2026 02:00:00 PM, [address] [place] [address] [address], [place], [address], Progress Notes * Tj PAGEDOB: [birth year] (80 yo M)Acc No.[id number]:08/13/2025 Patient: Tj IVERSON Provider: Amador Roberts MD :1945 A ge:80 Y S ex:Male Date:08/13/2025 Address:[address] [place], [place] [id number] Subjective: * Chief Complaints: * 1 . Fell down some stairs today 08/13/2025- Left shoulder and left thigh injury. * HPI: C OVID-19 Screening: patient ended up going to ER at [facility] from office. * Medical History: H ypertension, type II diabetes, Obesity, Melanoma, Colonic polyps 2014, Bph, Bilateral cataracts, Diabetes. * Surgical History: e xcision Robinson level IV melanoma from back 11/2002, right axillary dissection 2011, colonoscopy 5 polyps 2014, Tonsilectomy , Appendectomy , axillary dissection , Interferon , Left Hip replacement , Colonoscopy 09/2018, No history , Cataract surgery . * Hospitalization/Major Diagno stic Procedure: D enies Past Hospitalization. 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 He has a daughter and a 2 grandaughters and 2 grand sons. He was born in [place], [place]. * Medications: T aking OneTouch Ultra Test - Strip One strip In Vitro Once a day , Notes to Pharmacist: E11.9 Diabetes mellitus, Taking amLODIPine Besylate 5 MG Tablet 1 tablet Orally Once a day , Taking metFORMIN HCl 1000 MG Tablet 1 tablet with a meal Orally Twice a day , Taking Irbesartan 150 MG Tablet 1 tablet Oral Once a day , Notes to Pharmacist: (Demarcus), Taking Atorvastatin Calcium 40 MG Tablet 1 tablet Orally Once a day , Taking Semaglutide 3 MG Tablet as directed Orally , Taking Empagliflozin 25 MG Tablet 1 tablet Orally Once a day , Taking Tamsulosin HCl 0.4 MG Capsule 1 capsule Orally Once a day , Taking Ozempic (0.25 or 0.5 MG/DOSE) 2 MG/3ML Solution Pen-injector as directed Subcutaneous , Taking Lutein , Taking Multivitamin , Taking Fish Oil , Taking Zinc , Taking Vitamin C , Taking traZODone HCl 100 MG Tablet 1 tablet at bedtime Orally one tab at bedtime , Medication List reviewed and reconciled with the patient * Allergies: M orphine Sulfate: Side Effects. Objective: * Vitals: H t: 70, Wt:181, BMI:25.97, BP:157/78, HR:85, Temp:97.3, Ht-cm: 177.8, Wt-k.1. Assessment: * Assessment: 1. B enign prostatic hyperplasia, unspecified whether lower urinary tract symptoms present - N40.0 N otes :He rises from sleep twice a night to urinate. We discussed lifestyle modification has a way of reducing nocturia.His prostatism is stable. Plan: * Treatment: 2. O thers Continue OneTouch Ultra Test Strip, -, One strip, In Vitro, Once a day, Notes to Pharmacist: E11.9 Diabetes mellitus. * Images: * The named appointment provid er may or may not be the originator of this progress note, and it is not deemed complete until electronically signed by the appointment provider. Sign off status: Pending * Provider: Amador Roberts MD Date: Generated for Roseann russ/Mahin/Gagan on: 06:37 PM EDT
[2025-08-13 15:53] VITALS: BP 143/73; PULSE 93; RESP 16; TEMP 36.8; O2SAT 99; BMI 25.7
--- NOTE | 2025-08-13 16:21 | ED_ITS ---
HPI - General Adult General Chief complaint: Fall Stated complaint: Sent here by pcp to get xray of hips and shoulder Time Seen by Provider: 08/13/25 16:58 Source: patient and family (patient's ) Mode of arrival: ambulatory Limitations: no limitations History of Present Illness ED Provider: Erinn Cheney PA-C HPI narrative: This is a 80 year old male with a history of melanoma in remission, HLD, HTN, and diabetes mellitus that presents for evaluation post mechanical fall. He reports that around 9:45 this morning he was bringing a large cooler among other things up the stairs when he fell down 4-5 stairs primarily on his left side. He denies blood thinner use or loss of consciousness. He denies hitting his head but states that it dragged down the stairs creating a bruise on the left side. He has a lump on the left side of his head. He is reporting posterior left shoulder pain as well as medial thigh pain. He describes the thigh pain as feeling muscular. He denies headache, hearing changes, or vision changes. He denies chest pain or abdominal pain. Related Data Home Medications ?Medication ?Instructions ?Recorded ?Confirmed amlodipine 5 mg tablet 5 mg PO DAILY 10/23/2003/03 blood sugar diagnostic #10 ea 10/23/20 01/23/21 empagliflozin 25 mg tablet 25 mg PO DAILY 10/23/20 irbesartan 150 mg tablet 150 mg PO DAILY 10/23/20 metformin 1,000 mg tablet 500 mg PO BID 10/23/2003/03 multivitamin 1 tab PO DAILY 10/23/2002/07 omega-3 fatty acids 1,000 mg 1,000 mg PO TID 10/23/20 03/03/24 capsule (Fish Oil Concentrate) pen needle, diabetic 32 gauge x #50 ea 10/23/20 blood sugar diagnostic #10 ea 11/29/20 01/23/21 tamsulosin 0.4 mg capsule 0.4 mg PO DAILY 11/24/23 atorvastatin 40 mg tablet 80 mg PO DAILY 03/03/2402/07 glipizide 2.5 mg tablet, extended 2.5 mg PO DAILY 02/0703/03/24 release 24 hr zinc acetate 50 mg (zinc) capsule 50 mg PO DAILY 03/0303/03/24 Previous Rx's ?Medication ?Instructions ?Recorded semaglutide 0.25 mg or 0.5 mg (2 0.5 mg (0.374 mL) sub cut QWEEK 4 01/06/21 mg/1.5 mL) subcutaneous pen doses #1.5 mL injector (Ozempic) blood-glucose meter (OneTouch #1 ea 03/19/21 Ultra2 Meter kit) blood sugar diagnostic (OneTouch #100 strips 02/25/23 Ultra Test strips) Allergies Allergy/AdvReac Type Severity Reaction Status Date / Time morphine Allergy Unknown hallucinati Verified 08/13/25 15:57 ons Review of Systems Constitutional: Constitutional: Reports as per HPI Eyes: Eyes: Reports as per HPI ENT: Reports as per HPI Cardiovascular: Cardiovascular: Reports as per HPI Respiratory: Respiratory: Reports as per HPI Gastrointestinal: Gastrointestinal: Reports as per HPI Genitourinary: Genitourinary: Reports as per HPI Musculoskeletal: Musculoskeletal: Reports as per HPI Integumentary/Breasts: Skin/Breast: Reports as per HPI Neurologic: Reports as per HPI Psychiatric: Psychiatric: Reports as per HPI Endocrine: Endocrine: Reports as per HPI Hematologic/Lymphatic: Hematologic/Lymphatic: Reports as per HPI Allergic/Immunologic: Allergic/Immunologic: Reports as per HPI [facility] Past Medical History Attestation statement: The following information was validated with the patient. (all information validated with the patient's ) Source: old records reviewed, obtained from family (patient's provided additional history and confirmed the history provided by the patient. ) and nursing notes reviewed Medical History Melanoma Degenerative disc disease, lumbar Back pain HLD (hyperlipidemia) HTN (hypertension) T2DM (type 2 diabetes mellitus) Surgical History H/O colonoscopy History of adenectomy History of excision of pilonidal cyst History of left hip replacement Hx of appendectomy Hx of tonsillectomy Family History Family History Father Congestive heart failure Mother Aneurysm Sister Cancer Social History Social History Alcohol intake: current Alcohol intake frequency: holidays/special occasions only Comment: 2-3 a month Patient Tobacco Use Status: Former Tobacco user Cigarette Packs Per Day: 2 Years Smoked: 20 Physical Exam ED Vital Signs: Vital Signs - 24 hr 08/13/25 15:53 08/13/25 16:59 Temperature 98.2 F 98.5 F Pulse Rate 93 96 Respiratory Rate 16 14 Blood Pressure 143/73 H 162/78 H Pulse Oximetry 99 98 Oxygen Delivery Method Room Air Room Air BMI result Body Mass Index 25.7 Const General: cooperative, no acute distress, alert and awake Nutritional Appearance: well nourished Orientation/consciousness: patient oriented x3 HENMT Head: Yes atraumatic and Yes hematoma (left side of scalp / forehead) Ears: hearing grossly normal bilaterally and external ears normal General nose exam: Normal external nose present, no nasal discharge noted and no epistaxis Face and sinus: Yes normal facial exam, No abrasion and No laceration Mouth: Normal oral and palatal mucosa present, no drooling and no muffled voice Eyes General: appearance normal, both eyes and all related structures Periorbital: periorbital findings normal Eyelids: Yes eyelids normal Conjunctivae: conjunctivae normal Pupils: Equal, round and reactive pupils present EOM: EOMs intact bilaterally Neck Neck: Yes other (Cervical collar present. ) Resp Effort & Inspection: normal respiratory effort and able to speak in complete sentences Neuro General: patient oriented x3, moves all extremities and CN's II-XI intact bilaterally Cranial nerves: Yes Equal, round and reactive pupils present Cognition (Neuro): normal cognition Extrem Other: pain with ROM of the left shoulder General: Yes capillary refill normal Psych Appearance: grossly normal Mental Status: mental status grossly normal Affect: normal affect Attitude: cooperative Thought process: Normal thought process present Thought content: Normal thought content present Insight: Good insight present (Psych) Course Course Course Narrative: RME: [age] year male presents to ED for left shoulder left medial thigh pain after walking up the stairs and tripping and falling and hitting left side of his head. Patient has small lump or abrasion hematoma left lateral scalp. Positive for left shoulder and left medial thigh tenderness. Patient is sent for imaging. Patient denies having any chest pain dizziness or abdominal pain before falling. Patient was carrying items on up the stairs tripped and fell onto his left side. Procedures Orthopedic Splinting/Casting Left shoulder: Side: left Upper Extremity Injury Location: shoulder Upper Extremity Immobilizer: sling/shoulder immobilizer Medical Decision Making Medical Decision Making MDM Narrative: Patient is a 80 year old assigned male at with a history of melanoma in remission, HLD, HTN, and diabetes mellitus that presents for evaluation post mechanical fall. Patient's physical exam was as noted in the physical exam portion of this note. Patient's left shoulder x-ray showed a mildly displaced fracture through the superior glenoid extended through the base of the coracoid process. Patient's left femur x-ray showed no acute process. Patient's CT head and c-spine showed no acute findings. Patient's chest CT ordered by the provider in triage showed a comminuted displaced fracture of the left scapular body with likely extension into the glenoid with soft tissue edema. Incidental finding of a small left pleural effusion and coronary artery atherosclerosis. Patient's abdominal / pelvis CT ordered by the provider in triage showed no acute process but did show an incidental finding of non-obstructing bilateral calculi measuring 0.8cm at their largest. I consulted with the orthopedic team who recommended placing the patient's LUE in a sling and having him follow up on an outpatient basis. I explained my physical exam findings as well as all test results to the patient and the patient's . I answered all questions asked by the patient and the patient's . Patient's LUE was placed in a sling, without incident. Patient's PMS was intact prior to and after sling placement. I stressed the importance of the patient taking his medication as directed (either prescribed or as the over the counter packaging recommends). I stressed the importance of the patient following up with his primary care provider and the orthopedic team. I stressed the importance of the patient returning to the emergency department immediately if his symptoms were to worsen or if he were to develop any dizziness, shortness of breath, difficulty breathing, chest pain, blurry vision, loss of vision, nausea, vomiting, abdominal pain, fever, chills, back pain, or any other complaints. Patient and the patient's verbalized agreement and understanding with this treatment plan and discharge. Differential Diagnosis Differential Diagnoses: The differential diagnosis associated with the presentation includes Left shoulder fracture Left humerus fracture Fall Admission/Observation Consideration of admission/observation: Escalation of care including admission/observation considered Patient would have been admitted to the hospital had his work up had any findings where hospital admission was appropriate and his clinical presentation warranted hospital admission. Consult Healthcare Provider Management of the patient was discussed with: Vice President Of Instruction (I spoke with the orthopedic team as noted in the MDM Rationale portion of this note. ) Independent Interpretation I performed an independent interpretation of an: Plain X-Ray and CT Scan Interpretation: My interpretation is in agreement with the radiologist's impression of these imaging studies. Reason for Exam: fall. Fracture? EXAMINATION: XR SHOULDER, LEFT CLINICAL INFORMATION: fall. Fracture? COMPARISON: 05/16/2021. TECHNIQUE: Three views of the left shoulder. FINDINGS: There is an acute fracture through the superior glenoid, which traverses the base of the coracoid process. There is mild displacement. There are no additional fractures or dislocation. Glenohumeral joint is anatomically aligned. The AC joint is intact. There are moderate degenerative changes in the AC joint. There is no soft tissue abnormality. The ribs appear intact. XR/XR shoulder LT min 2V IMPRESSION: Mildly displaced fracture through the superior glenoid, extending through the base of the coracoid process. Electronically signed by: Sarmad Robles MD 08/13/2025 04:57 PM EDT Dictated By: Sarmad Robles MD Signed By: Electronically signed by Sarmad Robles MD 08/13/25 1657 Reason for Exam: fall. medial thigh pain EXAMINATION: XR FEMUR, LEFT CLINICAL INFORMATION: fall. medial thigh pain COMPARISON: None available. TECHNIQUE: AP and lateral views of the left femur were obtained. FINDINGS: Total hip replacement has been performed on the left. Acetabular cup is secured with 2 screws. The femoral stem makes good cortical contact. No fracture is evident. There is moderate narrowing of the medial greater than lateral joint spaces of the knee with marginal and central osteophytes. No knee joint effusion is evident. XR/XR femur LT 2V IMPRESSION: No acute fracture. Total left hip replacement. Moderate left knee osteoarthritis. Electronically signed by: Geo Castelan MD 08/13/2025 04:59 PM EDT RP Dictated By: Geo Castelan MD Signed By: Electronically signed by Geo Castelan MD 08/13/25 1659 Report Number: [id number] Reason for Exam: fall. hip fracture CLINICAL HISTORY: fall. hip fracture CT abdomen and pelvis without IV contrast. COMPARISON: None FINDINGS: Small hiatal hernia. Small left pleural effusion. Non-contrast appearance of the liver, spleen and pancreas are without evidence of injury. Normal gallbladder. Normal adrenal glands. Markedly atrophic pancreas. Non-contrast appearance of the kidneys are without evidence of injury. No hydronephrosis. Large right renal cystic lesion measuring up to 10.5 cm. Right renal calculi measuring up to 0.5 cm Nonobstructing left renal calculi measuring up to 0.8 cm. Left renal cystic lesions measuring up to 2.0 cm. No free intraperitoneal fluid or air. No mesenteric edema. No bowel obstruction. Moderate colonic stool burden. Mild distal colonic diverticulosis without evidence of diverticulitis. Appendix is not seen. No mesenteric or retroperitoneal lymphadenopathy. No evidence of abdominal aorta injury. Phrase with moderate No evidence of urinary bladder injury. No free fluid present in the pelvis. No inguinal lymphadenopathy. Visualized portions of the proximal right femur appear intact. Left total hip arthroplasty appears in anatomic alignment. No evidence of hardware loosening or failure. Visualized portions of the proximal left femur appear intact. Bones of the pelvis including the sacrum appear intact. Straightening of the normal lumbar lordosis. Vertebral body heights are maintained. Fusion of the L1 and L2 vertebral bodies. Advanced multilevel lumbar spondylosis. No lower rib fracture identified. IMPRESSION: 1. No acute intra-abdominal or pelvic findings. No evidence of solid organ injury on this noncontrast exam. 2. Status post left total hip arthroplasty without evidence of hardware complication. 3. Small left pleural effusion. 4. Nonobstructing renal calculi present bilaterally measuring up to 0.8 cm on the left. This document has been electronically signed by: Evelio Purcell MD on 08/13/2025 17:44:13 Dictated By: Evelio Purcell MD Signed By: Electronically signed by Evelio Purcell MD 08/13/25 1745 Report Number: [id number] Reason for Exam: fall head trauma CLINICAL HISTORY: fall head trauma CT cervical spine without contrast. COMPARISON: None FINDINGS: Straightening of the normal cervical lordosis, likely positional. Vertebral body heights are maintained. No evidence of acute vertebral body injury. Nuchal ligament ossification present. Skull base and intracranial structures appear normal. Calcified plaque present at the carotid bulb on the right. Degenerative pannus present at C1-C2 anteriorly. C2-C3: Facet joint arthrosis on the left. C3-C4: Anterior marginal osteophytes. Loss of disc space height. Uncovertebral joint hypertrophy. Facet joint arthrosis. Moderate bilateral neural foraminal narrowing. C4-C5: No significant neuroforaminal narrowing or spinal canal stenosis. C5-C6: Anterior marginal osteophytes. Loss of disc space height. Uncovertebral joint hypertrophy. Mild to moderate bilateral neural foraminal narrowing, [id number]. C6-C7: Anterior marginal osteophytes. Loss of disc space height. Uncovertebral joint hypertrophy. Mild right neural foraminal narrowing. IMPRESSION: 1. No evidence of acute injury to the cervical spine. This document has been electronically signed by: Evelio Purcell MD on 08/13/2025 17:44:46 Dictated By: Evelio Purcell MD Signed By: Electronically signed by Evelio Purcell MD 08/13/25 9314 Report Number: [id number] Reason for Exam: fall. Pnuemoni? CLINICAL HISTORY: fall. Pnuemoni? CT chest without IV contrast. COMPARISON: CT abdomen and pelvis dated 08/13/25 at 16:38 EDT FINDINGS: No pericardial effusion. Coronary artery calcifications present within the LAD, circumflex and RCA. Aortic annular calcifications. Normal esophagus. Small hiatal hernia. No supraclavicular or axillary lymphadenopathy. There is edema along the left axilla. No pneumothorax. Trace left pleural effusion. Subpleural fibrosis along the anterior right upper lobe. Small amount of secretions present within the trachea and left mainstem bronchus. No bronchial wall thickening. No bronchiectasis. Findings of the upper abdomen are reported on CT of the abdomen and pelvis performed at the same time. Normal vertebral body alignment. No vertebral body height loss. No evidence of vertebral injury. There is edema within the left axilla. Displaced fracture of the left scapular body with likely extension into the glenoid. Advanced degenerative changes of the right shoulder. Sternum is intact. No acute rib fracture identified. 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 IMPRESSION: 1. Comminuted displaced fracture of the left scapular body with likely extension into the glenoid. There is adjacent soft tissue edema. 2. Small left pleural effusion. 3. Coronary artery atherosclerosis. This document has been electronically signed by: Evelio Purcell MD on 08/13/2025 17:53:55 Dictated By: Evelio Purcell MD Signed By: Electronically signed by Evelio Purcell MD 08/13/25 7008 Report Number: [id number] Reason for Exam: Fall CLINICAL HISTORY: Fall CT head without contrast. COMPARISON: None FINDINGS: The visualized paranasal sinuses are clear. The mastoid air cells are clear. No calvarial fracture. Atherosclerotic intracranial vasculature. No evidence for mass or mass effect. No intracranial hemorrhage or abnormal extra-axial fluid collection. Basal ganglia mineralization present bilaterally. No CT evidence of acute infarct. The ventricles are proportional with the degree of mild global cerebral volume loss without evidence of hydrocephalus. Basilar cisterns are patent. There are periventricular areas of low attenuation compatible with mild white matter small vessel disease. Posterior fossa appears unremarkable. IMPRESSION: 1. No acute intracranial findings. This document has been electronically signed by: Evelio Purcell MD on 08/13/2025 17:54:50 Dictated By: Evelio Purcell MD Signed By: Electronically signed by Evelio Purcell MD 08/13/25 [id number] Radiology Impression Discussion of test interpretation with radiology: I have reviewed the radiologist's reading. Independent Historian Clinical information obtained from an independent historian. History obtained fr om or confirmed by: Spouse (Patient's provided additional history and confirmed the history provided by the patient. ) Critical Care Time Critical Care Time Critical Care Time: Yes Total Critical Care Time: 33 Attestation: I spent 33 minutes of Critical Care Time with this patient. This does not include time spent on separately reported billable procedures. Discharge Plan Discharge Clinical Impression: Closed fracture of shoulder, Fall Patient Disposition: Home, Self-Care Instructions: Scapular Fracture (ED), Fall Prevention (ED) Additional Instructions: Please keep your left upper extremity in the sling and do NOT bear any weight on it (use it to brace yourself or help get yourself out of chairs, etc.). Every 1 hour for 10 minutes, remove the sling and move your left ELBOW ONLY to avoid freezing the joint. Your CT scan of the chest showed an incidental finding of bilateral kidney stones measuring at the largest, 0.8cm on the left side. It also showed an incidental finding of a small left sided pleural effusion - there is nothing to do about this at this time. Call to establish and follow up with the orthopedic team. IF you are prescribed home medications and/or you are taking over the counter medications at home - it is very important you continue to do so as prescribed / directed unless told otherwise. Follow up with your primary care provider. Return to the emergency department immediately if your symptoms worsen or if you develop any numbness, tingling, dizziness, shortness of breath, difficulty breathing, chest pain, blurry vision, loss of vision, nausea, vomiting, abdominal pain, fever, chills, back pain, or any other complaints. Please see the information below about our Patient Portal. If you are not yet enrolled in the [facility] Patient Portal, you will receive an enrollment email invitation following your visit to any [facility] care setting. You may also self-enroll in the Patient Portal by visiting our website: [email or web address] The following information is required to access the Patient Portal: - Your [facility] Medical Record Number - Your personal home email address (must match what is in your electronic medical record, Registration staff can assist with this) - Name - Date of Capabilities of the Patient Portal: - Message some providers - View upcoming appointments - Access your health summary, medical history, and visit history - View current conditions and allergies - View procedure and lab results - View your medications, including guidelines, side effects, and precautions - Complete pre-appointment questionnaires requested by your provider - Ready summary reports of your office visits and procedures To access the Patient Portal Mobile Audra, follow these directions: - Search TripConnect in the Audra Store or SeeSpace Store - Download the Audra - Search for [facility] - Enter your login/password Prescriptions: No Action amlodipine 5 mg tablet 5 mg PO DAILY metformin 1,000 mg tablet 500 mg PO BID Jardiance 25 mg tablet 25 mg PO DAILY irbesartan 150 mg tablet 150 mg PO DAILY (DME) pen needle, diabetic 32 gauge x 32 needle See Rx Instructions .ROUTE DAILY Qty: 50 Rx Instructions: As directed (DME) blood sugar diagnostic Strip See Rx Instructions .ROUTE .MEDSUPPLY Qty: 10 Rx Instructions: As directed omega-3 fatty acids [Fish Oil Concentrate] 1,000 mg capsule 1,000 mg PO TID multivitamin Tablet 1 tab PO DAILY (DME) blood sugar diagnostic Strip See Rx Instructions .ROUTE .MEDSUPPLY Qty: 10 Rx Instructions: As directed Ozempic 0.25 mg or 0.5 mg(2 mg/1.5 mL) pen injector 0.5 mg subcut QWEEK Qty: 1.5 11RF Patient Comments: Pt takes on Wednesday Rx Instructions: Start 0.25 mg once a week x 4 weeks, then increase to 0.5 mg once a week thereafter. (DME) blood-glucose meter [OneTouch Ultra2 Meter] Kit See Rx Instructions .ROUTE .MEDSUPPLY Qty: 1 0RF Rx Instructions: As directed (DME) OneTouch Ultra Test Strip See Rx Instructions .ROUTE .COMPLEX Qty: 100 11RF Dose Instruction: USE TO TEST BLOOD SUGAR TWICE DAILY Rx Instructions: USE TO TEST BLOOD SUGAR TWICE DAILY zinc acetate 50 mg (zinc) Capsule 50 mg PO DAILY glipizide 2.5 mg Tablet Extended Release 24hr 2.5 mg PO DAILY atorvastatin 40 mg tablet 80 mg PO DAILY tamsulosin 0.4 mg capsule 0.4 mg PO DAILY Referrals: [facility] Orthopedic Surgeons [Provider Group] Referral Note: Call to establish and follow up with the orthopedic team for your left shoulder fracture. Rony Roberts MD [Primary Care Provider, Internal Medicine] Interventions: ED Discharge Assessment Last Done: 08/13/25 18:20 Discharge Date/Time: 08/13/25 18:20 Print Language: Norwegian
[2025-08-13 16:59] VITALS: BP 162/78; PULSE 96; RESP 14; TEMP 36.9; O2SAT 98
[2025-08-13 18:20] VITALS: BP 162/78; PULSE 96; RESP 14; TEMP 36.9; O2SAT 98
--- OUTSIDE RECORDS SUMMARY | 2025-08-13 18:36 | XMS_ITS | Encounter Summary ---
Author Organization [facility] Address [address] [address] Phone Care Team Providers Care Craft Recruiter Name Role Phone Rony Roberts MD Unavailable [phone] Bobby Pedraza DO Primary Care Provider [phone] Fabi Snell AGRICULTURAL EQUIPMENT OPERATOR Unavailable [phone] Encounter Details Date Type Department Care Team (Late st Contact Info) Description 04/28/2017 Procedure Pass Jennifer Lank Imaging Department, [facility] [place], [place] [address] [facility] [place] [address] Social History Tobacco Use Types Packs/Day Years [...] on filedocumented in this encounter Care Teams Craft Recruiter Relationship Specialty Start Date End Date Bobby Pedraza DO [address] [place] [address] [id number] PCP - General Internal Medicine 03/30/16 Rony Roberts MD [address] [place] [address] [place] [address] Referring Physician Internal Medicine 02/03/16 Fabi Snell AGRICULTURAL EQUIPMENT OPERATOR [address] [place] [address] [place] [address] [email or web address] 04/28/17 05/24/18 documented as of this encounter Additional Source Comments The information contained in this document represents components of the legal health record. It is not the complete legal health record.[facility]
--- OUTSIDE RECORDS SUMMARY | 2025-08-13 18:36 | XMS_ITS | Encounter Summary ---
Author Organization [facility] Address [address] [address] Phone Care Team Providers Care Rouge Sifter Name Role Phone Rony Roberts MD Unavailable [phone] Bobby Pedraza DO Primary Care Provider [phone] Fabi Snell RETAIL INTERIOR DESIGNER Unavailable [phone] Encounter Details Date Type Department Care Team (Late st Contact Info) Description 04/28/2017 Procedure Pass Jennifer Lank Imaging Department, [facility] [place] [place] [address] [facility], Floor [address] [place] [address] Social History Tobacco Use Types Packs/Day Years [...] on filedocumented in this encounter Care Teams Rouge Sifter Relationship Specialty Start Date End Date Bobby Pedraza DO [address] [place] [address] [id number] PCP - General Internal Medicine 03/30/16 Rony Roberts MD [address] [place] [address] [place] [id number] Referring Physician Internal Medicine 02/03/16 Fabi Snell RETAIL INTERIOR DESIGNER [address] [place] [address] [place] [address] [email or web address] 04/28/17 05/24/18 documented as of this encounter Additional Source Comments The information contained in this document represents components of the legal health record. It is not the complete legal health record.[facility]
--- OUTSIDE RECORDS SUMMARY | 2025-08-13 18:37 | XMS_ITS | Patient Health Record ---
Author Organization [facility] Address [address] [place] [phone] Care Team Providers Care Machine Joint Cutter Name Role Phone Rony Roberts MD Primary Care Provider UnavailEduardo Feliz Jr Unavailable Allergies Allergen (clinical drug ingredient) Drug/Non Drug Allergy documented on EMR Reaction Allergy Type Onset Date Status Morphine Sulfate Unknown Drug Allergy Active Reason [...] Problem Status W/U Status Risk Notes Problem 140496515 Colon cancer screening (Z12.11) Active confirmed Problem 481979659 Personal history of colonic polyps (Z86.010) Active confirmed Problem 475261172 Long-term use of aspirin therapy (Z79.82) Active confirmed Problem 895827561 Long-term curren t use of high risk medication other than anticoagulant (Z79.899) Active confirmed Problem 327663587 detention (current) use of oral hypoglycemic drugs (Z79.84) Active confirmed Plan Of Treatment Future Test Test Name Order Date COLONOSCOPY 01/02/2015 COLONOSCOPY 05/27/2018 COLONOSCOPY 01/10/2024 Insurance Providers Payer Name Payer Address Payer Phone Subscriber Number Group Number Insured Name Patient Relationship to Insured Coverage Start Date Coverage End Date MEDICARE OF [place] [address] [place] [address] [id number] DESILETS , VINCENT Self - patient is the insured [employer] ATT[employer] CLAIMS [address] [place] [address] [id number] DESILETS , VINCENT Self - patient is the insured Medical (General) History Medical History History ICD Code Hypertension Diabetes mellitus Colonoscopy, 09/25, tubular adenoma, fiv e-year followup Hyperlipidemia Low back pain, degenerative disc disease Melanoma Surgical History Surgery Date(Month/Year) appendectomy tonsillectomy pilonidal cyst excision left hip replacement 2009
--- OUTSIDE RECORDS SUMMARY | 2025-08-13 18:37 | XMS_ITS | Encounter Summary ---
Author Organization [facility] Address [address] [address] Phone Care Team Providers Care Instructional Coordinator Name Role Phone Rony Roberts MD Unavailable [phone] Bobby Pedraza DO Primary Care Provider [phone] Fabi Snell WICK TENDER Unavailable [phone] Encounter Details Date Type Department Care Team (Late st Contact Info) Description 11/24/2017 Procedure Pass Jennifer Lank Imaging Department, [facility] [place], [place] [address] [facility], Floor [address] [place] [address] Social History Tobacco Use Types Packs/Day Years [...] on filedocumented in this encounter Care Teams Instructional Coordinator Relationship Specialty Start Date End Date Bobby Pedraza DO [address] [place] [address] [id number] PCP - General Internal Medicine 03/30/16 Rony Roberts MD [address] [place] [address] [place] [address] Referring Physician Internal Medicine 02/03/16 Fabi Snell WICK TENDER [address] [place] [address] [place] [address] [email or web address] 04/28/17 05/24/18 documented as of this encounter Additional Source Comments The information contained in this document represents components of the legal health record. It is not the complete legal health record.[facility]
--- OUTSIDE RECORDS SUMMARY | 2025-08-13 18:37 | XMS_ITS | Encounter Summary ---
Author Organization [facility] Address [address] [address] Phone Care Team Providers Care Freight Rate Clerk Name Role Phone Rony Roberts MD Unavailable Bobby Pedraza DO Primary Care Provider [phone] Fabi Snell BICYCLE I ASSEMBLER Unavailable [phone] Encounter Details Date Type Department Care Team (Late st Contact Info) Description 11/24/2017 Procedure Pass Jennifer Lank Imaging Department, [facility] [place], [place] [address] [facility], Floor [address] [place] [address] Social History Tobacco Use Types Packs/Day Years [...] on filedocumented in this encounter Care Teams Freight Rate Clerk Relationship Specialty Start Date End Date Bobby Pedraza DO [address] [place] [address] PCP - General Internal Medicine 03/30/16 Rony Roberts MD [address] [place] [address] [place] [address] Referring Physician Internal Medicine 02/03/16 Fabi Snell BICYCLE I ASSEMBLER [address] [place] [address] [place] [address] [email or web address] 04/28/17 05/24/18 documented as of this encounter Additional Source Comments The information contained in this document represents components of the legal health record. It is not the complete legal health record.[facility]
--- OUTSIDE RECORDS SUMMARY | 2025-08-13 18:37 | XMS_ITS | Clinical Summary ---
Author Organization [facility] Address [address] [address] Phone Care Team Providers Care Metal Model Builder Name Role Phone Rony Roberts MD Unavailable [phone] Bobby Pedraza DO Primary Care Provider [phone] Allergies Active Allergy Reactions Criticality Noted Date [...] VACCINE (1 - 1-dose 75+ series) 2022 INFLUENZA VACCINE (#1) 2025 0, 07/09/2020, 09/12/2019, Additional history exists COVID-19 VACCINE (2 - 2024- season) 2025 02/08/2021 HEPATITIS C SCREENING Completed 01/13/2011, 011 [...] EDT) SODIUM 139 135 - 145 mmol/L [facility] LIC# [id number] Comment:SLT HEMOLYSIS CHLORIDE 105 98 - 108 mmol/L [facility] LIC# [id number] Comment:SLT HEMOLYSIS POTASSIUM 5.0 3.5 - 5.0 mmol/L [facility] LIC# [id number] Comment:SLT HEMOLYSIS CO2 23 23 - 32 mmol/L [facility] LIC# [id number] Comment:SLT HEMOLYSIS BUN 21 9 - 25 mg/dL [facility] LIC# [id number] Comment:SLT HEMOLYSIS CREATININE 0.72 0.7 - 1.3 mg/dL [facility] LIC# [id number] Comment:SLT HEMOLYSIS GLUCOSE 154(H) 70 - 100 mg/dL [facility] LIC# [id number] Comment:SLT HEMOLYSIS CALCIUM 9.7 8.8 - 10.5 mg/dL [facility] LIC# [id number] Comment:SLT HEMOLYSIS EGFR 95 >59 mL/min/1.7 3m2 [facility] LIC# [id number] Comment:If patient is Kisha n-Romanian, multiply result by 1.159. Estimated glomerular filtration rate calculated using the CKD-EPI equation. ANION GAP 11 5 - 17 mmol/L [facility] LIC# [id number] Blood 05/25/2018 6:38 AM EDT 05/25/2018 6:48 AM EDT us Femi Wyman MD LAB BLOOD ORDERABLES Edited Resu lt - Final [facility] [place] LIC# [id number] [address] [place] [address] * (ABNORMAL) Historical Lab (10/24/2011 9:48 AM EST) Only the most recent of2 resultswithin the time period is included. HGB A1C 7.6(A) 4.2 - 5.8 % [facility] 10/24/2011 9:48 AM EST Comment:BLOOD us Edmond Feliciano MD LAB BLOOD ORDERABLES Final Re sult Performing Organization Address City/[facility] Co de Phone Number [address] [address] from Last 3 Months or Most Recently Relevant to Health Maintenance Insurance MEDICARE PART A & B [facility] MEDEX SUPPLEMENT MEDICARE PART A & B [employer] SU[employer] MEDICARE PART A & B [employer] SUPP[employer] MEDICARE PART A & B [facility] MEDEX SUPPLEMENT MEDICARE PART A & B [employer] SUPPLEMENT MEDICARE PART A & B [employer] SUPPLEMENT MEDICARE PART A & B [employer] SUPPLEMENT [employer] SUPPLE[employer] MEDICARE PART A & B [employer] SUPPLEMENT Care Teams Metal Model Builder Relationship Specialty Start Date End Date Bobby Pedraza DO [address] [place] [address] PCP - General Internal Medicine 03/30/16 Rony Roberts MD [address] [place] [address] [place] [address] Referring Physician Internal Medicine 02/03/16 Additional Source Comments The information contained in this document represents components of the legal health record. It is not the complete legal health record.[facility]
--- OUTSIDE RECORDS SUMMARY | 2025-08-13 18:37 | XMS_ITS | Encounter Summary ---
Author Organization [facility] Address [address] [address] Phone Care Team Providers Care Commercial Loan Collection Officer Name Role Phone Rony Roberts MD Unavailable [phone] Bobby Pedraza DO Primary Care Provider [phone] Fabi Snell MANAGEMENT RECRUITER Unavailable [phone] Encounter Details Date Type Department Care Team (Late st Contact Info) Description 11/24/2017 Procedure Pass Jennifer Lank Imaging Department, [facility] [place] [place] [address] [facility], Floor [address] [place] [address] Social History Tobacco Use Types Packs/Day Years [...] on filedocumented in this encounter Care Teams Commercial Loan Collection Officer Relationship Specialty Start Date End Date Bobby Pedraza DO [address] [place] [address] [phone] PCP - General Internal Medicine 03/30/16 Rony Roberts MD [address] [place] [address] [place] [address] Referring Physician Internal Medicine 02/03/16 Fabi Snell MANAGEMENT RECRUITER [address] [place] [address] [place] [address] [email or web address] 04/28/17 05/24/18 documented as of this encounter Additional Source Comments The information contained in this document represents components of the legal health record. It is not the complete legal health record.[facility]
--- OUTSIDE RECORDS SUMMARY | 2025-08-13 18:37 | XMS_ITS | Patient Health Record ---
Author Organization Rony Roberts III, MD Address [address] 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 Rony Roberts III Primary Care Provider Allergies Allergen (clinical drug ingredient) Drug/Non Drug Allergy documented on EMR Reaction Allergy Type Onset Date Status Morphine Sulfate Unknown Drug Allergy Active Results Component Value Reference Range Notes Lipid Panel Reviewed date:01/08/2025 03:16:11 PM Interpretation: Performing Lab:[facility], [address] [place] [phone] Notes/Report: Triglycerides 45 <150 mg/dL Desirable Triglyceride: [...] A1c Reviewed date:01/08/2025 03:16:12 PM Interpretation: Performing Lab:[facility], [address] [place] [phone] Notes/Report: Hemoglobin A1c % 6.9 <6.0 % [...] average glucose, using the formula of the N1N-Dclzuxs Average Glucose study (ADAG), Diabetes Care, Vol.31,#8, Jun. 2007 Diabetic Eye Exam Reviewed date:01/09/2025 03:19:12 PM Interpretation:undefined Performing Lab: Notes/Report: undefined Complete Blood Count Auto Di ff Reviewed date:01/08/2025 03:16:11 PM Interpretation: Performing Lab:[facility], [address] [place] [phone] Notes/Report: White Blood Count 6.0 4.8-10.8 X10*3/uL [...] 0.0-0.2 /100WBC Neutrophils Absolute Auto 3.7 2.0-8.3 x10*3/uL Imm Gran Abs Auto 0.02 0.00-0.03 X10*3/uL Lymphocytes Absolute Auto 1.2 1.2-4.9 X10*3/uL Monocytes Absolute Auto 0.7 0.1-1.2 X10*3/uL Eosinophils Absolute Auto 0.3 0.0-0.4 X10*3/uL Basophils Absolute Auto 0.0 0.0-0.2 X10*3/uL NRBC Abs Auto 0.000 0.0-0.012 X10*3/uL Comprehensive [facility]. Panel Fa st Reviewed date:01/08/2025 03:16:11 PM Interpretation: Performing Lab:[address] [phone] Notes/Report: Sodium 139 135-145 mmol/L Potassium 4.3 [...] Antigen Reviewed date:01/08/2025 03:16:11 PM Interpretation: Performing Lab:[address] [phone] Notes/Report: Prostate Specific Antigen 2.29 <0.05-4.0 ng/mL PSA methodology: Nath Alinity i Chemiluminescent Microparticle Immunoassay (CMIA) Microalbumin, Random Reviewed date:01/08/2025 03:16:11 PM Interpretation: Performing Lab:[facility], [address] [place] [phone] Notes/Report: Creatinine Urine 63.90 Microalbumin Urine 10.0 Microalbum/Creatinine Ratio Ur 15.6 <30 ug/mg cr Albumin/Creatinine Ratio Reference Ranges: Normal: < 30 ug/mg creatinine Microalbuminuria: 30 - 300 ug/mg creatinine Clinical Albuminuria: > 300 ug/mg creatinine Complete Blood Count Auto Di ff Reviewed date:04/03/2025 03:31:57 PM Interpretation: Performing Lab:[facility], [address] [place] [phone] Notes/Report: White Blood Count 6.7 4.8-10.8 X10*3/uL [...] 0.0-0.2 /100WBC Neutrophils Absolute Auto 4.3 2.0-8.3 x10*3/uL Imm Gran Abs Auto 0.02 0.00-0.03 X10*3/uL Lymphocytes Absolute Auto 1.4 1.2-4.9 X10*3/uL Monocytes Absolute Auto 0.7 0.1-1.2 X10*3/uL Eosinophils Absolute Auto 0.3 0.0-0.4 X10*3/uL Basophils Absolute Auto 0.0 0.0-0.2 X10*3/uL NRBC Abs Auto 0.000 0.0-0.012 X10*3/uL Comprehensive [facility]. Panel Fa Reviewed date:04/03/2025 03:31:57 PM Interpretation: Performing Lab:[facility], [address] [place] [phone] Notes/Report: Sodium 140 135-145 mmol/L Potassium 4.2 [...] Panel Reviewed date:04/03/2025 03:31:57 PM Interpretation: Performing Lab:[facility], [address] [place] [phone] Notes/Report: Triglycerides 66 <150 mg/dL Desirable Triglyceride: [...] Antigen Reviewed date:04/03/2025 03:31:57 PM Interpretation: Performing Lab:[facility], [address] [place] [phone] Notes/Report: Prostate Specific Antigen 3.34 <0.05-4.0 ng/mL PSA methodology: Nath Alinity i Chemiluminescent Microparticle Immunoassay (CMIA) Complete Blood Count Auto Di ff Reviewed date:07/10/2025 04:49:00 AM Interpretation: Performing Lab:[facility], [address] [place] [phone] Notes/Report: White Blood Count 5.4 4.8-10.8 X10*3/uL Red Blood Count 4.46 4.60-5.80 X10*6/uL Hemoglobin 14.1 14.0-18.0 g/dl Hematocrit 42.0 42.0-52.0 % Mean Corpuscular Volume 94.2 80.0-98.0 fL Mean Corpuscular Hemoglobin 31.6 27.0-33.0 pg Mean Corpuscular HGB Conc 33.6 31.0-36.0 g/dl Red Cell Distribution Width 13.8 11.0-16.0 % Platelet Count 243 160-400 X10*3/uL Mean Platelet Volume 9.1 9.4-12.4 fL Neutrophils Percent Auto 67.8 45-73 % Imm Gran Pct Auto 0.2 0.0-0.4 % Lymphocytes Percent Auto 16.3 20-40 % Monocytes Percent Auto 8.3 2-11 % Eosinophils Percent Auto 6.8 0-4 % Basophils Percent Auto 0.6 0-2 % NRBC Pct Auto 0.0 0.0-0.2 /100WBC Neutrophils Absolute Auto 3.7 2.0-8.3 x10*3/uL Imm Gran Abs Auto 0.01 0.00-0.03 X10*3/uL Lymphocytes Absolute Auto 0.9 1.2-4.9 X10*3/uL Monocytes Absolute Auto 0.5 0.1-1.2 X10*3/uL Eosinophils Absolute Auto 0.4 0.0-0.4 X10*3/uL Basophils Absolute Auto 0.0 0.0-0.2 X10*3/uL NRBC Abs Auto 0.000 0.0-0.012 X10*3/uL Comprehensive [facility]. Panel Fa Reviewed date:07/10/2025 04:49:00 AM Interpretation: Performing Lab:[facility], [address] [place] [phone] Notes/Report: Sodium 138 135-145 mmol/L Potassium 4.3 3.3-5.1 mmol/L Chloride 103 96-108 mmol/L Carbon Dioxide 25 22-29 mmol/L Anion Gap 14 12-20 Blood Urea Nitrogen 21 9-16 mg/dL Creatinine 0.71 0.5-1.4 mg/dL Estimated Glomerular Filt Rate > 60 Chronic Kidney Disease: Estimated GFR < 60 mL/min/1.73m2 Severe Kidney Disease: Estimated GFR < 15 mL/min/1.73m2 Glucose Fasting 119 60-99 mg/dL A fasting glucose from 100-125 mg/dl is considered impaired (pre-diabetes). Calcium 9.6 8.4-10.2 mg/dL Bilirubin Total 0.6 0.0-1.0 mg/dL Aspartate Amino Transferase 21 5-37 U/L Alanine Aminotransferase 23 0-40 U/L Total Protein 7.5 6.5-8.0 g/dL Albumin Level 4.6 3.5-5.0 g/dL Alkaline Phosphatase 66 39-117 U/L Lipid Panel Reviewed date:07/10/2025 04:49:00 AM Interpretation: Performing Lab:[facility], [address] [place] [phone] Notes/Report: Triglycerides 112 <150 mg/dL Desirable Triglyceride: less than 150 mg/dL Borderline High Triglyceride 150-199 mg/dL High Triglyceride: 200-499 mg/dL Very High Triglyceride: greater than or equal to 5OO mg/dL Cholesterol 118 <200 mg/dL Desirable Cholesterol: less than 200 mg/dL Borderline High Cholesterol: 200-239 mg/dL High Cholesterol: greater than 239 mg/dL LDL Cholesterol Calculated 54 <100 mg/dL Desirable LDL: less than 100 mg/dL Near Optimal/Above Optimal LDL: 110-129 mg/dL Borderline High LDL: 130-159 mg/dL High LDL: 160-189 mg/dL Very High LDL: greater than or equal to 190 mg/dL HDL Cholesterol 42 >40 mg/dL Desirable HDL: greater than 40 mg/dL Note: This HDL assay may give artificially low results in patients with liver disease. Prostate Specific Antigen Reviewed date:07/10/2025 04:49:00 AM Interpretation: Performing Lab:[facility], [address] [place] [phone] Notes/Report: Prostate Specific Antigen 2.83 <0.05-4.0 ng/mL PSA methodology: Nath Alinity i Chemiluminescent Microparticle Immunoassay (CMIA) Microalbumin, Random Reviewed date:07/10/2025 04:49:00 AM Interpretation: Performing Lab:[facility], [address] [place] [phone] Notes/Report: Creatinine Urine 54.99 Microalbumin Urine 6.0 Microalbum/Creatinine Ratio Ur 10.9 <30 ug/mg cr Albumin/Creatinine Ratio Reference Ranges: Normal: < 30 ug/mg creatinine Microalbuminuria: 30 - 300 ug/mg creatinine Clinical Albuminuria: > 300 ug/mg creatinine Hemoglobin A1c Reviewed date:07/10/2025 04:49:00 AM Interpretation: Performing Lab:[facility], [address] [place] [phone] Notes/Report: Hemoglobin A1c % 7.3 <6.0 % Hemoglobin A1C Reference Range Adults: 4.8 - 6.0 % Non diabetic: < 6.0 % Goal: < 7.0 % Additional Action Suggested: > 8.0 % Note: Hemoglobin A1c results are invalid for patients with abnormal amounts of HbF. Blood transfusions may impact the HbA1c concentration in the patient sample. Estimated Average Glucose 163 eAG = Estimated average glucose which is %A1C expressed as average glucose, using the formula of the L3P-Uefjcnv Average Glucose study (ADAG), Diabetes Care, Vol.31,#8, Jun. 2007 CT cervical spine wo con (No t yet reviewed by provider) Interpretation: Performing Lab: Notes/Report: [address] [place] [address] CT Scan Report Signed Patient: Tj Page MR#: [id number] : 1945 Acct:[id number] Age/Sex: 80 / M ADM Date: 08/13/25 Loc: HO.ED Attending Dr: Ordering Physician: Valdemar Li Date of Service: 08/13/25 Procedure(s): CT cervical spine wo IV con Accession Number(s): [id number] cc: Valdemar Li; Rony Roberts MD Report Number: [id number]: Total DLP = 0.00 mGy-cm Reason for Exam: fall head trauma CLINICAL HISTORY: fall head trauma CT cervical spine without contrast. COMPARISON: None FINDINGS: Straightening of the normal cervical lordosis, likely positional. Vertebral body heights are maintained. No evidence of acute vertebral body injury. Nuchal ligament ossification present. Skull base and intracranial structures appear normal. Calcified plaque present at the carotid bulb on the right. Degenerative pannus present at C1-C2 anteriorly. C2-C3: Facet joint arthrosis on the left. C3-C4: Anterior marginal osteophytes. Loss of disc space height. Uncovertebral joint hypertrophy. Facet joint arthrosis. Moderate bilateral neural foraminal narrowing. C4-C5: No significant neuroforaminal narrowing or spinal canal stenosis. C5-C6: Anterior marginal osteophytes. Loss of disc space height. Uncovertebral joint hypertrophy. Mild to moderate bilateral neural foraminal narrowing, [id number]-cdta-right. C6-C7: Anterior marginal osteophytes. Loss of disc space height. Uncovertebral joint hypertrophy. Mild right neural foraminal narrowing. IMPRESSION: 1. No evidence of acute injury to the cervical spine. This document has been electronically signed by: Evelio Purcell MD on 08/13/2025 17:44:46 Dictated By: Evelio Purcell MD Signed By: <Electronically signed by Evelio Purcell MD in [place]> 08/13/251745 DD/ 43 TD/TT: 08/13/251743 Breeder Hen Service Technician: [address] [address] [address] Scan Report Signed Patient: Tj Page MR#: [id number] : 1945 Acct:[id number] Age/Sex: 80 / M ADM Date: 08/13/25 Loc: HO.ED Attending Dr: Ordering Physician: Valdemar Li Date of Service: 08/13/25 Procedure(s): CT cervical spine wo IV con Accession Number(s): [id number] cc: Valdemar Li; Rony Roberts MD Report Number: [id number]: Total DLP = 0.00 mGy-cm Reason for Exam: fal l head trauma CLINICAL HISTORY: fa ll head trauma CT cervical spine without contrast. COMPARISON: None FINDINGS: Straightening of the normal cervical lordosis, likely positional. Vertebral body heigh ts are maintained. No evidence of acute vertebral body injury. Nuchal ligam ent ossification present. Skull base and intracranial structures appear normal. Calcified plaque present at the carotid bulb on the right. Degenerative pannus present at C1 -C2 anteriorly. C2-C3: Facet joint arthrosis on the left. C3-C4: Anterior marginal osteophytes. Loss of disc space height. Uncovertebral joint hypertrophy. Facet joint arthrosis. Moderate bilateral neural foraminal narrowing. C4-C5: No significan t neuroforaminal narrowing or spinal canal stenosis. C5-C6: Anterior marginal osteophytes. Loss of disc space height. Uncovertebral joint hypertrophy. Mild to moderate bilateral neural foraminal narrowing, ropy-hnujolf-pynl-right . C6-C7: Anterior marginal osteophytes. Loss of disc space height. Uncovertebral joint hypertrophy. Mild right neural foraminal narrowing. IMPRESSION: 1. No evidence of ac [place] injury to the cervical spine. This document has be en electronically signed by: Evelio Purcell MD on 08/13/2025 17:44:46 Dictated By: Evelio Purcell MD Signed By: <Electronically signed by Evelio Purcell MD in [place]> 08/13/251745 DD/ 43 TD/TT: 08/13/251743 Breeder Hen Service Technician: CT chest wo con (Not yet rev iewed by provider) Interpretation: Performing Lab: Notes/Report: [address] [address] [address] Scan Report Signed Patient: Tj Page MR#: [id number] : 1945 Acct:[id number] Age/Sex: 80 / M ADM Date: 08/13/25 Loc: HO.ED Attending Dr: Ordering Physician: Valdemar Li Date of Service: 08/13/25 Procedure(s): CT chest wo IV con Accession Number(s): [id number] cc: Valdemar Li; Rony Roberts MD Report Number: [id number]: Total DLP = 0.00 mGy-cm Reason for Exam: fall. Pnuemoni? CLINICAL HISTORY: fall. Pnuemoni? CT chest without IV contrast. COMPARISON: CT abdomen and pelvis dated 08/13/25 at 16:38 EDT FINDINGS: No pericardial effusion. Coronary artery calcifications present within the LAD, circumflex and RCA. Aortic annular calcifications. Normal esophagus. Small hiatal hernia. No supraclavicular or axillary lymphadenopathy. There is edema along the left axilla. No pneumothorax. Trace left pleural effusion. Subpleural fibrosis along the anterior right upper lobe. Small amount of secretions present within the trachea and left mainstem bronchus. No bronchial wall thickening. No bronchiectasis. Findings of the upper abdomen are reported on CT of the abdomen and pelvis performed at the same time. Normal vertebral body alignment. No vertebral body height loss. No evidence of vertebral injury. There is edema within the left axilla. Displaced fracture of the left scapular body with likely extension into the glenoid. Advanced degenerative changes of the right shoulder. Sternum is intact. No acute rib fracture identified. 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 IMPRESSION: 1. Comminuted displaced fracture of the left scapular body with likely extension into the glenoid. There is adjacent soft tissue edema. 2. Small left pleural effusion. 3. Coronary artery atherosclerosis. This document has been electronically signed by: Evelio Purcell MD on 08/13/2025 17:53:55 Dictated By: Evelio Purcell MD Signed By: <Electronically signed by Evelio Purcell MD in [place]> 08/13/251754 DD/ 52 TD/TT: 08/13/251752 Breeder Hen Service Technician: [address] [address] [address] Scan Report Signed Patient: Tj Page MR#: [id number] : 1945 Acct:[id number] Age/Sex: 80 / M ADM Date: 08/13/25 Loc: HO.ED Attending Dr: Ordering Physician: Valdemar Li Date of Service: 08/13/25 Procedure(s): CT ned st wo IV con Accession Number(s): [id number] cc: Valdemar Li; Rony Roberts MD Report Number: [id number]: Total DLP = 0.00 mGy-cm Reason for Exam: fal l. Pnuemoni? CLINICAL HISTORY: fa ll. Pnuemoni? CT chest without IV contrast. COMPARISON: CT abdom en and pelvis dated 08/13/25 at 16:38 EDT FINDINGS: No pericardial effusion. Coronary artery calcifications present within the LAD, circumflex and RCA. Aortic annular calcifications. Normal esophagus. Sm all hiatal hernia. No supraclavicular or axillary lymphadenopathy. There is edema along the left axilla. No pneumothorax. Tra ce left pleural effusion. Subpleural fibrosis along the anterior right upper lobe. Small amount of secretions present within the trachea and left mainstem bronchus. No bronchi al wall thickening. No bronchiectasis. Findings of the uppe r abdomen are reported on CT of the abdomen and pelvis performed at the [facility] e time. Normal vertebral bod y alignment. No vertebral body height loss. No evidence of vertebra l injury. There is edema withi n the left axilla. Displaced fracture o f the left scapular body with likely extension into the glenoid. Advanced degenerativ e changes of the right shoulder. Sternum is intact. No acute rib fractur e identified. 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 IMPRESSION: 1. Comminuted displa zhang fracture of the left scapular body with likely extension into the glenoid. There is adjacent soft tissue edema. 2. Small left pleura l effusion. 3. Coronary artery atherosclerosis. This document has be en electronically signed by: Evelio Purcell MD on 08/13/2025 17:53:55 Dictated By: Evelio Purcell MD Signed By: <Electronically signed by Evelio Purcell MD in [place]> 08/13/251754 DD/ 52 TD/TT: 08/13/251752 Breeder Hen Service Technician: CT head/brain wo con (Not ye t reviewed by provider) Interpretation: Performing Lab: Notes/Report: [facility] [address] [place] [address] CT Scan Report Signed Patient: Tj Page MR#: [id number] : 1945 Acct:[id number] Age/Sex: 80 / M ADM Date: 08/13/25 Loc: .ED Attending Dr: Ordering Physician: Valdemar Li Date of Service: 08/13/25 Procedure(s): CT head/brain wo IV con Accession Number(s): [id number] cc: Valdemar Li; Rony Roberts MD Report Number: [id number]: Total DLP = 0.00 mGy-cm Reason for Exam: Fall CLINICAL HISTORY: Fall CT head without contrast. COMPARISON: None FINDINGS: The visualized paranasal sinuses are clear. The mastoid air cells are clear. No calvarial fracture. Atherosclerotic intracranial vasculature. No evidence for mass or mass effect. No intracranial hemorrhage or abnormal extra-axial fluid collection. Basal ganglia mineralization present bilaterally. No CT evidence of acute infarct. The ventricles are proportional with the degree of mild global cerebral volume loss without evidence of hydrocephalus. Basilar cisterns are patent. There are periventricular areas of low attenuation compatible with mild white matter small vessel disease. Posterior fossa appears unremarkable. IMPRESSION: 1. No acute intracranial findings. This document has been electronically signed by: Evelio Purcell MD on 08/13/2025 17:54:50 Dictated By: Evelio Purcell MD Signed By: <Electronically signed by Evelio Purcell MD in OV> 08/13/251755 DD/ 53 TD/TT: 08/13/251753 Breeder Hen Service Technician: [address] [address] [address] Scan Report Signed Patient: Tj Page MR#: [id number] : 1945 Acct:[id number] Age/Sex: 80 / M ADM Date: 08/13/25 Loc: .ED Attending Dr: Ordering Physician: Valdemar Li Date of Service: 08/13/25 Procedure(s): CT head/brain wo IV con Accession Number(s): [id number] cc: Valdemar Li; Rony Roberts MD Report Number: [id number]: Total DLP = 0.00 mGy-cm Reason for Exam: Fall CLINICAL HISTORY: Fall CT head without contrast. COMPARISON: None FINDINGS: The visualized paranasal sinuses are clear. The mastoid air cells are clear. No calvarial fractur e. Atherosclerotic intracranial vasculature. No evidence for mass or mass effect. No intracranial hemorrhage or abnormal extra-axial fluid collection. Basal ganglia mineralizati on present bilaterally. No CT evidence of ac [place] infarct. The ventricles are proportional with the degree of mild global cerebral volume loss without evidence of hydrocephalus. Basilar cisterns are patent. There are periventricular areas of low attenuation compatible with mild white matter small vessel disease. Posterior fossa appe ars unremarkable. IMPRESSION: 1. No acute intracranial findings. This document has be en electronically signed by: Evelio Purcell MD on 08/13/2025 17:54:50 Dictated By: Evelio Purcell MD Signed By: <Electronically signed by Evelio Purcell MD in OV> 08/13/251755 DD/ 53 TD/TT: 08/13/251753 Breeder Hen Service Technician: CT abdomen pelvis wo con (No t yet reviewed by provider) Interpretation: Performing Lab: Notes/Report: [address] [address] [address] Scan Report Signed Patient: Tj Page MR#: [id number] : 1945 Acct:[id number] Age/Sex: 80 / M ADM Date: 08/13/25 Loc: HO.ED Attending Dr: Ordering Physician: Valdemar Li Date of Service: 08/13/25 Procedure(s): CT abdomen pelvis wo IV con Accession Number(s): [id number] cc: Valdemar Li; Rony Roberts MD Report Number: [id number]: Total DLP = 0.00 mGy-cm Reason for Exam: fall. hip fracture CLINICAL HISTORY: fall. hip fracture CT abdomen and pelvis without IV contrast. COMPARISON: None FINDINGS: Small hiatal hernia. Small left pleural effusion. Non-contrast appearance of the liver, spleen and pancreas are without evidence of injury. Normal gallbladder. Normal adrenal glands. Markedly atrophic pancreas. Non-contrast appearance of the kidneys are without evidence of injury. No hydronephrosis. Large right renal cystic lesion measuring up to 10.5 cm. Right renal calculi measuring up to 0.5 cm Nonobstructing left renal calculi measuring up to 0.8 cm. Left renal cystic lesions measuring up to 2.0 cm. No free intraperitoneal fluid or air. No mesenteric edema. No bowel obstruction. Moderate colonic stool burden. Mild distal colonic diverticulosis without evidence of diverticulitis. Appendix is not seen. No mesenteric or retroperitoneal lymphadenopathy. No evidence of abdominal aorta injury. Phrase with moderate No evidence of urinary bladder injury. No free fluid present in the pelvis. No inguinal lymphadenopathy. Visualized portions of the proximal right femur appear intact. Left total hip arthroplasty appears in anatomic alignment. No evidence of hardware loosening or failure. Visualized portions of the proximal left femur appear intact. Bones of the pelvis including the sacrum appear intact. Straightening of the normal lumbar lordosis. Vertebral body heights are maintained. Fusion of the L1 and L2 vertebral bodies. Advanced multilevel lumbar spondylosis. No lower rib fracture identified. IMPRESSION: 1. No acute intra-abdominal or pelvic findings. No evidence of solid organ injury on this noncontrast exam. 2. Status post left total hip arthroplasty without evidence of hardware complication. 3. Small left pleural effusion. 4. Nonobstructing renal calculi present bilaterally measuring up to 0.8 cm on the left. This document has been electronically signed by: Evelio Purcell MD on 08/13/2025 17:44:13 Dictated By: Evelio Purcell MD Signed By: <Electronically signed by Evelio Purcell MD in [place]> 08/13/251744 DD/ 43 TD/TT: 08/13/251743 Breeder Hen Service Technician: [address] [address] [address] Scan Report Signed Patient: Tj Page MR#: [id number] : 1945 Acct:[id number] Age/Sex: 80 / M ADM Date: 08/13/25 Loc: HO.ED Attending Dr: Ordering Physician: Valdemar Li Date of Service: 08/13/25 Procedure(s): CT abdomen pelvis wo IV con Accession Number(s): [id number] cc: Valdemar Li; Rony Roberts MD Report Number: [id number]: Total DLP = 0.00 mGy-cm Reason for Exam: fal l. hip fracture CLINICAL HISTORY: fa ll. hip fracture CT abdomen and pelvi s without IV contrast. COMPARISON: None FINDINGS: Small hiatal hernia. Small left pleural effusion. Non-contrast appeara nce of the liver, spleen and pancreas are without evidence of injury. Normal gallbladder. Normal adrenal glands. Markedly atrophic pancreas. Non-contrast appeara nce of the kidneys are without evidence of injury. No hydronephrosis. Larg e right renal cystic lesion measuring up to 10.5 cm. Right renal calculi measuring up to 0.5 cm Nonobstructing left renal calculi measuring up to 0.8 cm. Left renal cystic lesions measuring up to 2.0 cm. No free intraperiton eal fluid or air. No mesenteric edema. No bowel obstruction. Moderat e colonic stool burden. Mild distal colonic diverticulosis witho ut evidence of diverticulitis. Appendix is not seen . No mesenteric or retroperitoneal lymphadenopathy. No evidence of abdominal aorta injury. Phrase with moderate No evidence of urina ry bladder injury. No free fluid presen t in the pelvis. No inguinal lymphadenopathy. Visualized portions of the proximal right femur appear intact. Left total hip arthroplasty appears in anatomic alignment. No evidence of hardware loosening o r failure. Visualized portions of the proximal left femur appear intact. Bones of the pelvis including the sacrum appear intact. Straightening of the normal lumbar lordosis. Vertebral body heights are maintained. Fusion o f the L1 and L2 vertebral bodies. Advanced multilevel lumbar spondylosis. No lower rib fractur e identified. IMPRESSION: 1. No acute intra-abdominal or pelvic findings. No evidence of solid organ injury on this noncontrast exam. 2. Status post left total hip arthroplasty without evidence of hardware complication. 3. Small left pleura l effusion. 4. Nonobstructing re nal calculi present bilaterally measuring up to 0.8 cm on the left. This document has be en electronically signed by: Evelio Purcell MD on 08/13/2025 17:44:13 Dictated By: Evelio Purcell MD Signed By: <Electronically signed by Evelio Purcell MD in OV> 08/13/25 1745 DD/ 1744 TD/TT: 08/13/25 1744 Breeder Hen Service Technician: XR femur LT 2V (Not yet revi ewed by provider) Interpretation: Performing Lab: Notes/Report: [address] [address] XRay Report Signed Patient: Tj Page MR#: [id number] : 1945 Acct:[id number] Age/Sex: 80 / M ADM Date: 08/13/25 Loc: HO.ED Attending Dr: Ordering Physician: Valdemar Li Date of Service: 08/13/25 Procedure(s): XR femur LT 2V Accession Number(s): [id number] cc: Valdemar Li; Rony Roberts MD Reason for Exam: fall. medial thigh pain EXAMINATION: XR FEMUR, LEFT CLINICAL INFORMATION: fall. medial thigh pain COMPARISON: None available. TECHNIQUE: AP and lateral views of the left femur were obtained. FINDINGS: Total hip replacement has been performed on the left. Acetabular cup is secured with 2 screws. The femoral stem makes good cortical contact. No fracture is evident. There is moderate narrowing of the medial greater than lateral joint spaces of the knee with marginal and central osteophytes. No knee joint effusion is evident. XR/XR femur LT 2V IMPRESSION: No acute fracture. Total left hip replacement. Moderate left knee osteoarthritis. Electronically signed by: Geo Castelan MD 08/13/2025 04:59 PM EDT Dictated By: Geo Castelan MD Signed By: <Electronically signed by Geo Castelan MD in OV> 08/13/25 1659 DD/ 1630 TD/TT: 08/13/25 1640 Breeder Hen Service Technician: [address] [address] XRay Report Signed Patient: Tj Page MR#: [id number] : 1945 Acct:[id number] Age/Sex: 80 / M ADM Date: 08/13/25 Loc: HO.ED Attending Dr: Ordering Physician: Valdemar Li Date of Service: 08/13/25 Procedure(s): XR fem ur LT 2V Accession Number(s): [id number] cc: Valdemar Li; Rony Roberts MD Reason for Exam: fal l. medial thigh pain EXAMINATION: XR FEMUR, LEFT CLINICAL INFORMATION: fall. medial thigh pain COMPARISON: None available. TECHNIQUE: AP and lateral views of the left femur were obtained. FINDINGS: Total hip replacemen t has been performed on the left. Acetabular cup is secured with 2 screws. The femoral stem aniket es good cortical contact. No fracture is evident. There is moderate narrowing of the medial greater than lateral joint spaces of the knee w ith marginal and central osteophytes. No knee joint effusion is evident. XR/XR femur LT 2V IMPRESSION: No acute fracture. Total left hip replacement. Moderate left knee osteoarthritis. Electronically ingrid d by: Geo Castelan MD 08/13/2025 04:59 PM EDT RP Dictated By: Geo Castelan MD Signed By: <Electronically signed by Geo Castelan MD in OV> 08/13/25 1659 DD/ 1630 TD/TT: 08/13/25 1640 Breeder Hen Service Technician: XR shoulder LT min 2V (Not y et reviewed by provider) Interpretation: Performing Lab: Notes/Report: [address] [address] XRay Report Signed Patient: Tj Page MR#: [id number] : 1945 Acct:[id number] Age/Sex: 80 / M ADM Date: 08/13/25 Loc: HO.ED Attending Dr: Ordering Physician: Valdemar Li Date of Service: 08/13/25 Procedure(s): XR shoulder LT min 2V Accession Number(s): [id number] cc: Valdemar Li; Rony Roberts MD Reason for Exam: fall. Fracture? EXAMINATION: XR SHOULDER, LEFT CLINICAL INFORMATION: fall. Fracture? COMPARISON: 05/16/2021. TECHNIQUE: Three views of the left shoulder. FINDINGS: There is an acute fracture through the superior glenoid, which traverses the base of the coracoid process. There is mild displacement. There are no additional fractures or dislocation. Glenohumeral joint is anatomically aligned. The AC joint is intact. There are moderate degenerative changes in the AC joint. There is no soft tissue abnormality. The ribs appear intact. XR/XR shoulder LT min 2V IMPRESSION: Mildly displaced fracture through the superior glenoid, extending through the base of the coracoid process. Electronically signed by: Sarmad Robles MD 08/13/2025 04:57 PM EDT RP Dictated By: Sarmad Robles MD Signed By: <Electronically signed by Sarmad Robles MD in OV> 08/13/25 1657 DD/ 1629 TD/TT: 08/13/25 1640 Breeder Hen Service Technician: [place] [address] XRay Report Signed Patient: Tj Page MR#: [id number] : 1945 Acct:[id number] Age/Sex: 80 / M ADM Date: 08/13/25 Loc: HO.ED Attending Dr: Ordering Physician: Valdemar Li Date of Service: 08/13/25 Procedure(s): XR shoulder LT min 2V Accession Number(s): [id number] cc: Valdemar Li; Rony Roberts MD Reason for Exam: fal l. Fracture? EXAMINATION: XR SHOULDER, LEFT CLINICAL INFORMATION: fall. Fracture? COMPARISON: 05/16/2021. TECHNIQUE: Three views of the l eft shoulder. FINDINGS: There is an acute fracture through the superior glenoid, which traverses the base o f the coracoid process. There is mild displacement. There are no additio nal fractures or dislocation. Glenohumeral joint is anatomically aligned. The AC joint is inta ct. There are moderate degenerative changes in the AC joint. There is no soft tis navid abnormality. The ribs appear intact. XR/XR shoulder LT min 2V IMPRESSION: Mildly displaced fracture through the superior glenoid, extending through the base of the coracoid process. Electronically ingrid d by: Sarmad Robles MD 08/13/2025 04:57 PM EDT Dictated By: Sarmad Robles MD Signed By: <Electronically signed by Sarmad Robles MD in OV> 08/13/25 1657 DD/ 1629 TD/TT: 08/13/25 1640 Breeder Hen Service Technician: Reason For Referral Reason Consult and Treat Routine Nail Care Diagnosis 1 Diabetes mellitus (E 11.9) Referral Organization Rony Roberts III, MD Referring Provider First Name Rony Referring Provider Last Name Armando Referring Provider Speciality Internal edicine Referred Provider MESFIN HERRERA Referred Provider Specialty Podiatry General Notes DElly 08/23/2024 10:18:37 AM > Referral faxed with attachments. Patient contacted Dr. 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 Referral Priority Routine Referral Appointment Date 11/09/2024 Reason evaluation and treat ment back pain for 12 months DJD and DDD Diagnosis 1 Back pain (M54.9) Referral Organization Rony Roberts III, MD Referring Provider First Name Rony Referring Provider Last Name Armando Referring Provider Speciality Internal edicine Referred Provider [facility] Referred Provider Specialty Physical Med icine General Notes Joelle Neetuvicente VELASCO 01/15 11:03:02 AM > ref/demo/progress note and prior MRI [facility] pt aware of this, Joelle Neetuvicente VELASCO 01/16/2025 03:33:07 PM >[facility]ed [facility] pt has appt with Dr Traore on 02/07/2025 at 10:30am Referral Priority Routine Referral Appointment Date 02/07/2025 Medications Medication SIG (Take, Route, Frequency, Duration) Notes Start Date End Date Status metFORMIN HCl 1000 MG 1 tablet with a me al Orally Twice a day Active Vitamin C Active Atorvastatin Calcium 40 MG 1 tablet Orally Once a day Active Irbesartan 150 MG 1 tablet Oral Once a day (Avapro) Active traZODone HCl 100 MG 1 tablet at bedtime Orally one tab at bedtime 01/09/2025 Active Multivitamin Active Lutein Active amLODIPine Besylate 5 MG 1 tablet Orally Once a day Active Zinc Active OneTouch Ultra Test - One strip In Vitro Once a day E11.9 Diabetes mellitus Active Fish Oil Active Empagliflozin 25 MG 1 tablet Orally Once a day Active Semaglutide 3 MG as directed Orally Active Ozempic (0.25 or 0.5 MG/DOSE) 2 MG/3ML as directed Subcutaneous Active Tamsulosin HCl 0.4 MG 1 capsule Orally Once a day 06/09/2021 Active Immunizations Vaccine Route Administration Date Status [...] Problem Status W/U Status Risk Notes Problem 4858816 Former smoker (Z87.891) Active confirmed He is highly motivated not to smoke and we have discussed strategies for maintenance of abstinence in time of illness distress. Problem 673625387 Overweight (E66.3) Active confirmed He has lost 9 pounds and his body mass index is 26. We reviewed diet and nutrition today. We made a plan to continue weight loss until his BMI is in the normal range. Problem 64257471 Diabetes mellitus (E11.9) Active confirmed His hemoglobin A1c has increased from 6.9-7.3. His fasting glucose is 119. He has lost weight. He admits to dietary indiscretions but says he is now back on the wagon. Problem 14663174 Essential hypertension (I10) Active confirmed His blood pressure is currently stable. The current regimen was continued. 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 No additional treatment is recommended today. Problem 56758503 Colonic polyp (K63.5) Active confirmed He will continu e to have his colonoscopies at the appropriate intervals. Problem 408416594 Metastatic malignant melanoma (C79.9) Active confirmed There was no si gn of a new primary melanoma or recurrent melanoma in any location on today's examination. Problem Shoulder joint pain (797680716) Shoulder pain, left (M25.512) Active confirmed He has had a mild pain in his shoulder for over a year but it is recently become worse. It is likely arthritic or inflammatory but x-rays have been ordered. He will use ibuprofen and a heating pad. If necessary he will be referred for injections. Problem 62055814 Age-related cataract of both eyes, unspecified age-related cataract type (H25.9) Active confirmed He is medically cleared for both operations. If necessary, he'll be seen before the first procedure. The rrisk is small and the benefit is great. He is given medical clearance. Problem 694716574 Benign prostatic hyperplasia, unspecified whether lower urinary tract symptoms present (N40.0) Active confirmed He rises from sleep twice a night to urinate. We discussed lifestyle modification has a way of reducing nocturia.His prostatism is stable. Problem 201439147 Obstipation (K59.00) Active confirmed He will use MiraLax and milk of magnesia and senna. He will also is fleets enemas. Vital Signs Heart Rate 85 /min 08/13/2025 Temperature 97.3 degrees Fahrenheit 08/13/2025 Blood pressure diastolic 78 mm Hg 08/13/2025 Height 70 in 08/13/2025 Blood pressure systolic 157 mm Hg 08/13/2025 Weight 181 lbs 08/13/2025 BMI 25.97 kg/m2 08/13/2025 Encounters Encounter Location Date Provider Diagnosis Rony Roberts III, MD [address] [place] [address] [place] [address] 08/13/2025 Rony Roberts Benign prostatic hyperplasia, unspecified whether lower urinary tract symptoms present N40.0 Rony Roberts III, MD [address] [place] [address] [place] [address] 08/31/2024 Rony Roberts Diabetes mellitus E11.9 ; Age-related cataract of both eyes, unspecified age-related cataract type H25.9 ; Benign prostatic hyperplasia, unspecified whether lower urinary tract symptoms present N40.0 ; Metastatic malignant melanoma C79.9 ; Essential hypertension I10 ; Peripheral neuropathy G62.9 and Former smoker Z87.891 Rony Roberts III, MD [address] [place] [address] [place] [address] 01/09/2025 Rony Roberts Benign prostatic hyperplasia, unspecified whether lower urinary tract symptoms present N40.0 ; Metastatic malignant melanoma C79.9 ; Essential hypertension I10 ; Overweight E66.3 ; Diabetes mellitus E11.9 ; Peripheral neuropathy G62.9 ; Age-related cataract of both eyes, unspecified age-related cataract type H25.9 and Former smoker Z87.891 Rony Roberts III, MD [address] [place] [address] [place] [address] 02/06/2025 Rony Roberts Benign prostatic hyperplasia, unspecified whether lower urinary tract symptoms present N40.0 ; Metastatic malignant melanoma C79.9 ; Former smoker Z87.891 ; Diabetes mellitus E11.9 ; Essential hypertension I10 ; Shoulder pain, left M25.512 ; Overweight E66.3 and Recurrent low back pain M54.50 Rony Roberts III, MD [address] [place] [address] [place] [address] 04/11/2025 Rony Roberts Benign prostatic hyperplasia, unspecified whether lower urinary tract symptoms present N40.0 ; Metastatic malignant melanoma C79.9 ; Diabetes mellitus E11.9 ; Overweight E66.3 ; Essential hypertension I10 ; Former smoker Z87.891 ; Shoulder pain, left M25.512 and Peripheral neuropathy G62.9 Rony Roberts III, MD [address] [place] [address] [place] [address] 07/12/2025 Rony Roberts Benign prostatic hyperplasia, unspecified whether lower urinary tract symptoms present N40.0 ; Metastatic malignant melanoma C79.9 ; Diabetes mellitus E11.9 ; Essential hypertension I10 ; Former smoker Z87.891 and Overweight E66.3 Rony Roberts III, MD [address] [place] [address] [place] [address] 08/23/2024 Rony Roberts III, MD [address] [place] [address] [place] [address] 01/04/2025 Rony Roberts Essential hypertensi on I10 ; Diabetes mellitus E11.9 ; Benign prostatic hyperplasia, unspecified whether lower urinary tract symptoms present N40.0 and Overweight E66.3 Rony Roberts III, MD [address] [place] [address] [place] [address] 01/09/2025 Rony Roberts III, MD [address] [place] [address] [place] [address] 01/15/2025 Rony Roberts III, MD [address] [place] [address] [place] [address] 02/07/2025 Rony Roberts III, MD [address] [place] [address] [place] [address] 06/02/2025 Rony Roberts III, MD [address] [place] [address] [place] [address] 08/15/2024 Rony Roberts Assessments Encounter Date Diagnosis (ICD Code) Assessment Notes Treatment Notes Treatment Clinical Notes 08/13/2025 Benign prostatic hyperplasia, unspecified whether lower urinary tract symptoms present (ICD-10 - N40.0) He rises from sleep twice a night to urinate. We discussed lifestyle modification has a way of reducing nocturia.His prostatism is stable. 08/31/2024 Diabetes mellitus (ICD-10 - E11.9) His [...] in any location on today's examination. 07/12/2025 Benign prostatic hyperplasia, unspecified whether lower urinary tract symptoms present (ICD-10 - N40.0) He rises from sleep twice a night to urinate. We discussed lifestyle modification has a way of reducing nocturia.His prostatism is stable. 01/04/2025 Essential hypertension (ICD-10 - I10) 08/31/2024 Benign prostatic hyperplasia, unspecified whether lower [...] pounds we discussed a weight reduction program. 07/12/2025 Diabetes mellitus (ICD-10 - E11.9) His hemoglobin A1c has increased from 6.9-7.3. His fasting glucose is 119. He has lost weight. He admits to dietary indiscretions but says he is now back on the wagon. 01/04/2025 Diabetes mellitus (ICD-10 - E11.9) 08/31/2024 Metastatic malignant melanoma (ICD-10 - C79.9) [...] diet restricted in fat calories and sodium. 07/12/2025 Essential hypertension (ICD-10 - I10) His blood pressure is currently stable. The current regimen was continued. 01/04/2025 Benign prostatic hyperplasia, unspecified whether lower urinary tract symptoms present (ICD-10 - N40.0) 08/31/2024 Essential hypertension (ICD-10 - I10) His [...] change in his regimen was necessary today. 07/12/2025 Former smoker (ICD-10 - Z87.891) He is highly motivated not to smoke and we have discussed strategies for maintenance of abstinence in time of illness distress. 01/04/2025 Overweight (ICD-10 - E66.3) 08/31/2024 Peripheral neuropathy (ICD-10 - G62.9) Diabetic [...] his BMI is in the normal range. 08/31/2024 Former smoker (ICD-10 - Z87.891) He [...] Order Date PROFILE, FASTING (COMPREHENSIVE METABOLI C) 06/09/2021 PROFILE, FASTING (COMPREHENSIVE METABOLI C) 01/09/2025 PROFILE, FASTING (COMPREHENSIVE METABOLI C) 02/17/2021 PROFILE, FASTING (COMPREHENSIVE METABOLI C) 01/10/2024 PROFILE, FASTING (COMPREHENSIVE METABOLI C) 11/15/2020 PROFILE, FASTING (COMPREHENSIVE METABOLI C) 11/19/2023 PROFILE, FASTING (COMPREHENSIVE METABOLI C) 05/24/2023 PROFILE, FASTING (COMPREHENSIVE METABOLI C) 01/25/2020 PROFILE, FASTING (COMPREHENSIVE METABOLI C) 01/04/2025 PROFILE, FASTING (COMPREHENSIVE METABOLI C) 10/26/2019 PROFILE, FASTING (COMPREHENSIVE METABOLI C) 07/29/2022 PROFILE, FASTING (COMPREHENSIVE METABOLI C) 04/27/2022 PROFILE, FASTING (COMPREHENSIVE METABOLI C) 02/11/2023 PROFILE, FASTING (COMPREHENSIVE METABOLI C) 01/19/2022 PROFILE, FASTING (COMPREHENSIVE METABOLI C) 11/05/2022 PROFILE, FASTING (COMPREHENSIVE METABOLI C) 09/15/2021 PROFILE, FASTING (COMPREHENSIVE METABOLI C) 04/11/2025 PROFILE, FASTING (COMPREHENSIVE METABOLI C) 01/17/2024 PROFILE, FASTING (COMPREHENSIVE METABOLI C) 04/17/2024 PROFILE, FASTING (COMPREHENSIVE METABOLI C) 07/12/2025 PROFILE, RANDOM (COMPREHENSIVE METABOLIC ) 07/26/2018 PROFILE, RANDOM (COMPREHENSIVE METABOLIC ) 12/12/2018 PROFILE, RANDOM (COMPREHENSIVE METABOLIC ) 12/02/2020 HEMOGLOBIN A1C (GLYCOHEMOGLOBIN) 021 HEMOGLOBIN A1C (GLYCOHEMOGLOBIN) 021 HEMOGLOBIN A1C (GLYCOHEMOGLOBIN) 018 HEMOGLOBIN A1C (GLYCOHEMOGLOBIN) 021 HEMOGLOBIN A1C (GLYCOHEMOGLOBIN) 023 HEMOGLOBIN A1C (GLYCOHEMOGLOBIN) 020 HEMOGLOBIN A1C (GLYCOHEMOGLOBIN) 019 HEMOGLOBIN A1C (GLYCOHEMOGLOBIN) 022 HEMOGLOBIN A1C (GLYCOHEMOGLOBIN) 023 HEMOGLOBIN A1C (GLYCOHEMOGLOBIN) 022 HEMOGLOBIN A1C (GLYCOHEMOGLOBIN) 022 HEMOGLOBIN A1C (GLYCOHEMOGLOBIN) 021 HEMOGLOBIN A1C (GLYCOHEMOGLOBIN) 019 LIPID PANEL 02/11/2023 LIPID PANEL 11/05/2022 LIPID PANEL 09/15/2021 LIPID PANEL 06/09/2021 LIPID PANEL 12/02/2020 LIPID PANEL 02/17/2021 LIPID PANEL 05/24/2023 LIPID PANEL 01/25/2020 LIPID PANEL 10/26/2019 LIPID PANEL 07/29/2022 TSH (THYROID STIMULATING HORMONE) 2023 CPK 11/19/2023 PSA, TOTAL 04/11/2025 PSA, TOTAL 04/17/2024 PSA, TOTAL 07/12/2025 PSA, TOTAL 01/17/2024 PSA, TOTAL 01/09/2025 PSA, TOTAL 09/15/2021 PSA, TOTAL 06/09/2021 PSA, TOTAL 12/02/2020 PSA, TOTAL 01/04/2025 PSA, TOTAL 04/27/2022 PSA, TOTAL 11/19/2023 PSA, TOTAL SCREEN 07/29/2022 MICROALBUMIN, RANDOM 01/19/2022 MICROALBUMIN, RANDOM 11/05/2022 MICROALBUMIN, RANDOM 07/29/2022 MICROALBUMIN, RANDOM 11/15/2020 MICROALBUMIN, RANDOM 12/02/2020 MICROALBUMIN, RANDOM 01/04/2025 MICROALBUMIN, RANDOM 05/24/2023 CBC w DIFF 01/04/2025 CBC w DIFF 04/27/2022 CBC w DIFF 01/25/2020 CBC w DIFF 10/26/2019 CBC w DIFF 12/12/2018 CBC w DIFF 05/24/2023 CBC w DIFF 02/11/2023 CBC w DIFF 04/11/2025 CBC w DIFF 01/19/2022 CBC w DIFF 07/12/2025 CBC w DIFF 01/17/2024 CBC w DIFF 11/05/2022 CBC w DIFF 01/09/2025 CBC w DIFF 09/15/2021 CBC w DIFF 07/29/2022 CBC w DIFF 06/09/2021 CBC w DIFF 07/26/2018 CBC w DIFF 02/17/2021 CBC w DIFF 11/15/2020 CBC w DIFF 12/02/2020 SED RATE (ESR) 11/19/2023 SED RATE (ESR) 10/26/2019 SED RATE (ESR) 12/12/2018 MRI LUMBAR SPINE W&WO CONTRAST MRI THORACIC SPINE W&WO CONTRAST 024 XR CHEST 2 VIEW PA & LAT 08/16/2020 XR SHOULDER LT 2 VIEWS 05/16/2021 CBC WITH AUTO DIFF 11/19/2023 CBC WITH AUTO DIFF 01/10/2024 CBC WITH AUTO DIFF 04/17/2024 Lipid Panel 04/27/2022 Lipid Panel 04/11/2025 Lipid Panel 01/19/2022 Lipid Panel 04/17/2024 Lipid Panel 07/12/2025 Lipid Panel 01/17/2024 Lipid Panel 01/09/2025 Microalbumin, Random 04/11/2025 Microalbumin, Random 04/17/2024 CT cervical spine wo con 08/13/2025 CT chest wo con 08/13/2025 CT head/brain wo con 08/13/2025 CT abdomen pelvis wo con 08/13/2025 XR femur LT 2V 08/13/2025 XR shoulder LT min 2V 08/13/2025 Hemoglobin A1c 04/27/2022 Hemoglobin A1c 07/12/2025 Hemoglobin A1c 01/17/2024 Hemoglobin A1c 04/11/2025 Hemoglobin A1c 04/17/2024 Next Appt Details Provider Name:Rony Roberts , 10/11/2025 09:45:00 AM, [address] [facility] [address], [place], [address], Provider Name:Rony Roberts , 01/11/2026 02:00:00 PM, [address] [facility] [address], [place], [address], Insurance Providers Payer Name Payer Address Payer Phone Subscriber Number Group Number Insured Name Patient Relationship to Insured Coverage Start Date Coverage End Date MEDICARE NGS [address] [place] [address] [id number] Desilets , Vincent Self - patient is the insured [facility] [address] [place], [place] [id number] [phone] [id number] Desilets , Vincent Self - patient is the insured Medical (General) History Medical History History ICD Code hypertension type II diabetes obesity melanoma colonic polyps 2014 bph Bilateral cataracts Diabetes Surgical History Surgery Date(Month/Year) Cataract surgery No history Colonoscopy 09/2018 Left Hip replacement Interferon axillary dissection Appendectomy Tonsilectomy colonoscopy 5 polyps 2014 right axillary dissection 2012 excision Robinson level IV melanoma from ba ck 11/2002 Hospitalization History Reason Date(Month/Year)
--- OUTSIDE RECORDS SUMMARY | 2025-08-13 18:38 | XMS_ITS | Clinical Summary ---
Author Organization [address] [place] [address] [address] [place] [address] Phone Care Team Providers Care Electrical Technician Instructor Name Role Phone Physician, Pcp Unknown Primary Care Provider Michelle vailable Allergies No known active allergies Encounters Date Type Department Care Team Description 05/14/2025 8:30 AM EDT Office Visit Orthopedic Surgery [facility] [address] [address] Nazario Herrera DPM Acquired hammer [...] 02/07/2025 8:04 AM EDT Plan of Treatment Health Maintenance Due Date Last Done Comments Diabetes: Annual GFR (Glomerular Filtration Rate) 1945 Diabetes: Annual Foot Exam 1957 Diabetes: Annual Retina Eye Exam 1955 RSV Immunization Adult Patients (1 - 1-dose 75+ series) 2022 Cholesterol Screening (Lipid Panel) 09/03/2024 Falls Risk Assessment 09/03/2024 Hepatitis C Screening 09/03/2024 Medicare Annual Wellness Visit 09/03/2024 Social Influencers of Health Screening 09/03/2024 Depression Screening 11/08/2024 Diabetes: Annual Urine Albumin-Creatinine Ratio (uACR) 11/09/2024 Diabetes: Blood Sugar Control Test (HGBA1C) 11/09/2024 Hypertension/CHF/CAD Annual BMP Blood Test 11/09/2024 COVID-19 Vaccine ( season) 2025 10/20/2021, 02/08/2021, 01/11/2021 Influenza Vaccine (#1) 2025 , 10/15/2022, 07/09/2021, [...] to complete this topic Insurance MEDICARE [facility] [facility] Care Teams Electrical Technician Instructor Relationship Specialty Start Date End Date Physician, Pcp Unknown PCP - General 09/07/24
--- OUTSIDE RECORDS SUMMARY | 2025-08-13 18:38 | XMS_ITS | Encounter Summary ---
Author Organization [facility] Address [address] [address] Phone Care Team Providers Care Cone Sewer Name Role Phone Rony Roberts MD Unavailable Bobby Pedraza DO Primary Care Provider [phone] Fabi Snell NP Unavailable [phone] Encounter Details Date Type Department Care Team (Late st Contact Info) Description 10/19/2016 Transcribe Orders Jennifer Lank Imaging Department, [facility] [place], Radiography [address] [facility], Floor [address] [place] [address] Miguel Ángel Florentino MD [address] [place] [address] [email or web address] Pre-procedural laboratory examination (Primary Dx) Social [...] EST) CREATININE 0.78 0.7 - 1.3 mg/dL [facility] LIC# [id number] EGFR >60 mL/min/1.7 3m2 [facility] LIC# [id number] Comment:Abnormal if <60 mL/m in/1.73m2. If patient is -Barb[place], multiply the result by 1.21. 10/21/2016 7:48 AM EST 10/21/2016 7:57 AM EST us Miguel Ángel Florentino MD LAB BLOOD ORDERABL ES Final Result [facility] LIC# [id number] [address] [id number] documented in this encounter Visit Diagnoses Diagnosis Pre-procedural laboratory examination- Primary documented in this encounter Care Teams Cone Sewer Relationship Specialty Start Date End Date Bobby Pedraza DO [address] [place] [address] PCP - General Internal Medicine 03/30/16 Rony Roberts MD [address] [place] [address] [place] [address] Referring Physician Internal Medicine 02/03/16 Fabi Snell NP [address] [place] [address] Dr PALM [address] [place] [id number] [email or web address] 04/28/17 05/24/18 documented as of this encounter Additional Source Comments The information contained in this document represents components of the legal health record. It is not the complete legal health record.[facility]
--- OUTSIDE RECORDS SUMMARY | 2025-08-13 18:38 | XMS_ITS | Encounter Summary ---
Author Organization [facility] Address [address] [address] Phone Care Team Providers Care Rn Home Health Name Role Phone Rony Roberts MD Unavailable [phone] Bobby Pedraza DO Primary Care Provider [phone] Fabi Snell TICKET COLLECTOR OR USHER Unavailable [phone] Encounter Details Date Type Department Care Team (Late st Contact Info) Description 10/21/2016 Procedure Pass [facility] Stationary Engineer Refrig[facility] [address] [address] Social History Tobacco Use Types Packs/Day Years [...] on filedocumented in this encounter Care Teams Rn Home Health Relationship Specialty Start Date End Date Bobby Pedraza DO [address] [place] [address] PCP - General Internal Medicine 03/30/16 Rony Roberts MD [address] [place] [address] [place] [address] Referring Physician Internal Medicine 02/03/16 Fabi Snell NP [address] [place] [address] [place] [address] [email or web address] [facility] 04/28/17 05/24/18 documented as of this encounter Additional Source Comments The information contained in this document represents components of the legal health record. It is not the complete legal health record.[facility]
--- OUTSIDE RECORDS SUMMARY | 2025-08-13 18:38 | XMS_ITS | Encounter Summary ---
Author Organization [facility] Address [address] [address] Phone Care Team Providers Care Assembler Trim Name Role Phone Rony Roberts MD Unavailable [phone] Bobby Pedraza DO Primary Care Provider [phone] Fabi Snell MOLDED GOODS SPOT PICKER Unavailable [phone] Encounter Details Date Type Department Care Team (Late st Contact Info) Description 10/21/2016 Procedure Pass [facility]' Meat Slicer [facility] [address] [address] Social History Tobacco Use Types Packs/Day Years [...] on filedocumented in this encounter Care Teams Assembler Trim Relationship Specialty Start Date End Date Bobby Pedraza DO [address] [place] [address] PCP - General Internal Medicine 03/30/16 Rony Roberts MD [address] [place] [address] [place] [address] Referring Physician Internal Medicine 02/03/16 Fabi Snell NP [address] [place] [address] [place] [address] [email or web address] 04/28/17 05/24/18 documented as of this encounter Additional Source Comments The information contained in this document represents components of the legal health record. It is not the complete legal health record.[facility]
--- OUTSIDE RECORDS SUMMARY | 2025-08-13 18:38 | XMS_ITS | Encounter Summary ---
Author Organization [facility] [place] [facility] Address [address] [address] Phone Care Team Providers Care Heavy Equipment Diesel Mechanic Name Role Phone Rony Roberts MD Unavailable [phone] Bobby Pedraza DO Primary Care Provider [phone] Fabi Snell WOODENWARE ASSEMBLER Unavailable [phone] Encounter Details Date Type Department Care Team (Late st Contact Info) Description 03/18/2017 Procedure Pass [facility] Alignment Technician [facility] [address] [address] Social History Tobacco Use Types Packs/Day Years [...] on filedocumented in this encounter Care Teams Heavy Equipment Diesel Mechanic Relationship Specialty Start Date End Date Bobby Pedraza DO [address] [place] [address] PCP - General Internal Medicine 03/30/16 Rony Roberts MD [address] [place] [address] [place] [address] Referring Physician Internal Medicine 02/03/16 Fabi Snell NP [address] [place] [address] [place] [address] [email or web address] Family Medicine 04/28/17 05/24/18 documented as of this encounter Additional Source Comments The information contained in this document represents components of the legal health record. It is not the complete legal health record.[facility] [place] [facility]
== END 2025-08-13 18:20 | disposition home or self-care (01) ==
PROVIDERS: Emergency Provider Student in an Organized Health Care Education/Training Program; PCP Internal Medicine Medical Oncology
DX: S42.142A Displaced fracture of glenoid cavity of scapula, left shoulder, initial encounter for closed fracture (principal); W10.9XXA Fall (on) (from) unspecified stairs and steps, initial encounter; Y93.9 Activity, unspecified; Y92.9 Unspecified place or not applicable; Y99.9 Unspecified external cause status; I10 Essential (primary) hypertension; E11.9 Type 2 diabetes mellitus without complications; E78.5 Hyperlipidemia, unspecified; M79.652 Pain in left thigh; Z96.642 Presence of left artificial hip joint; Z79.899 Other long term (current) drug therapy
CPT/HCPCS: 29105; 70450; 71250; 72125; 73030; 73552; 74176; 99283; 99284

== ENCOUNTER → 2025-08-13 16:14 | Outpatient (BNV) | payer MEDICARE, SELFPAY | PROVIDERS: PCP Internal Medicine Medical Oncology; Visit Provider Radiology Diagnostic Radiology | DX: S42.142A Displaced fracture of glenoid cavity of scapula, left shoulder, initial encounter for closed fracture (principal); W10.8XXA Fall (on) (from) other stairs and steps, initial encounter | CPT/HCPCS: 73030 ==

== ENCOUNTER 2025-08-22 08:31 | Outpatient (REF) | payer MEDICARE, SELFPAY ==
--- OUTSIDE RECORDS SUMMARY | 2024-03-07 05:10 | XMS_ITS ---
Author Organization [facility] Address [address] [place] [id number] Care Team Providers Care Care Specialist Name Role Phone Armando PARRA, Rony Primary Care Provider Unavailab Eduardo Cardenas Jr REASON FOR VISIT screening Encounters Encounter Location Date Provider Diagnosis [facility] Outpatient [address] [place] [id number] 03/07/2024 Eduardo Sandoval Jr Encounter for screening colonoscopy Z12.11 ; Personal history of colonic polyps Z86.010 and Colon polyps K63.5 Assessments Encounter Date Diagnosis (ICD Code) Assessment Notes Treatment Notes Treatment Clinical Notes Section Notes 03/07/2024 Encounter for screening colonoscopy (ICD-10 - Z12.11) 03/07/2024 Personal history of colonic polyps (ICD-10 - Z86.010) 03/07/2024 Colon polyps (ICD-10 - K63.5) Plan Of Treatment No Information Progress Notes * WANDA CREWS RDOB:[birth year] (80 yo M)Acc No.[id number]:03/07/2024 COLON WITH MAC Patient: Jona HEREDIA WANDA English Provider: Carri Sandoval MD :1945 A ge:78 Y S ex:Male Date:03/07/2024 Address:[address] [place], [place] [phone] Pcp:Rony Roberts MD Subjective: * Chief Complaints: * 1 . Screening. * Medical History: Objective: * Vitals: Assessment: * Assessment: 1. E ncounter for screening colonoscopy - Z12.11 (Primary) 2 . P ersonal history of colonic polyps - Z86.010 3 . C olon polyps - K63.5 Plan: * Treatment: * Procedure Codes: G 0105 COLOREC CANCR SCR; COLNSCPY HI RISK, 11951 LESION REMOVAL COLONOSCOPY, 0529F INTRVL 3+YRS PTS CLNSCP DOCD * * The named appointment provid er may or may not be the originator of this progress note, and it is not deemed complete until electronically signed by the appointment provider. Sign off status: Pending * Provider: Carri Sandoval MD Date: 0 03/07/2024 Generated for Roseann russ/Mahin/Gagan on: 08:56 AM EDT
--- OUTSIDE RECORDS SUMMARY | 2025-07-12 05:15 | XMS_ITS ---
Author Organization Rony Roberts III, MD Address [address] [place] [address] Care Team Providers Care Culinary Intern Name Role Phone Dr. Rony Roberts III [...] Date Provider Diagnosis Rony Roberts III, MD [address] [place] [address] [place] [address] 07/12/2025 Rony Roberts Benign prostatic hyperplasia, unspecified [...] Provider Name:Rony Roberts , 10/11/2025 09:45:00 AM, [address] [place] [address] [address], [place], [address], Provider Name:Rony Roberts , 01/11/2026 02:00:00 PM, [address] [place] [address] [address], [place], [address], Progress Notes * hEsan PAGEnatashaDOB: [birth year] (79 yo M)Acc No.[id number]:07/12/2025 Progress Notes Patient: Tj IVERSON Provider: Amador Roberts MD :1945 A ge:79 Y S ex:Male Date:07/12/2025 Address:[address] [place], [place] [id number] Subjective: * Chief Complaints: * H istory [...] 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 He has a daughter and a 2 grandaughters and 2 grand sons. He was born in [place], [place]. * Medications: T akingamLODIPine Besylate 5 [...] AB: Hemoglobin A1c 4. O thers Continue OneeXenSauch Ultra Test Strip, -, One strip, In [...] 07/12/2025 Generated for Roseann russ/Mahin/Yamilaitting on: 1 08:57 AM EDT History and Physical Notes * [...]
--- OUTSIDE RECORDS SUMMARY | 2025-08-13 09:30 | XMS_ITS ---
Author Organization Rony Roberts III, MD Address [address] [place] [address] Care Team Providers Care Punch Box Tender Name Role Phone Dr. Rony Roberts III [...] Problem Status W/U Status Risk Notes Problem 806366456 Closed fracture of left shoulder, initial encounter (S42.92XA) Active confirmed Imaging in the emergency room showed a fracture of the shoulder. The arm is immobilized in a sling and he will be sent to orthopedics. Problem 26540118 Unspecified fall, initial encounter (W19.XXXA) Active confirmed He tripped on the stair well. He did not lose consciousness or chest pain. There was no vertigo. Problem Obesity (643258059) Obesity (278.00) Active confirmed We discussed a [...] Date Provider Diagnosis Rony Roberts III, MD [address] [place] [address] [place] [address] 08/13/2025 Rony Roberts Unspecified fall, initial encounter [...] Provider Name:Rony Roberts , 10/11/2025 09:45:00 AM, [address] [place] [address] [address], [place], [address], Provider Name:Rony Roberts , 01/11/2026 02:00:00 PM, [address] [place] [address] [address], [place], [address], Progress Notes * Tj PAGEDOB: [birth year] (80 yo M)Acc No.[id number]:08/13/2025 Patient: Tj IVERSON Provider: Amador Roberts MD :1945 A ge:80 Y S ex:Male Date:08/13/2025 Address:[address] [place], [place] [id number] Subjective: * Chief Complaints: * F all [...] was sent in a wheelchair to the [facility] emergency room for an urgent care and [...] cagle is , 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 He has a daughter and a 2 grandaughters and 2 grand sons. He was born in [place], [place]. * [facility]ations[facility] - Strip One [...] List reviewed and reconciled with the patientTaking [employer] Ultra Test - Strip One strip In [...] true * Provider: Amador Roberts MD Date: 1 Generated for Roseann russ/Mahin/eTransmitting on: 1 08:58 AM EDT History and Physical Notes * Examination Category [...]
--- OUTSIDE RECORDS SUMMARY | 2025-08-14 05:05 | XMS_ITS ---
Author Organization Rony Roberts III, MD Address [address] [place] [address] [place] [address] Care Team Providers Care Hydrometeorologist Name Role Phone Dr. Rony Roberts III Primary Care Provider REASON FOR VISIT Message Social History Sex Assigned At : Social History Observation Description Sex Assigned At Male Encounters Encounter Location Date Provider Diagnosis Rony Roberts III, MD [address] [place] [address] [place] [address] 08/14/2025 Rony Roberts Plan Of Treatment Next Appt Details Provider Name:Rony Roberts , 10/11/2025 09:45:00 AM, [address] [place] [address] [place], [address], Provider Name:Rony Roberts , 01/11/2026 02:00:00 PM, [address] [place] [address] [place], [address], Progress Notes * Tj PAGEDOB: [birth year] (80 yo M)Acc No.[id number]:08/14/2025 Patient: Jona Tj HEREDIA :1945 A ge:80 Y S ex:Male Address:[address] [place] [phone] * Addendum: * 08/14/2025 1 0:07 AM EDT Neetu Lai CRAFT COORDINATOR > [address] Roberts called [facility] [phone] to make sure they received the information from the pt ER visit. they do have [facility] ER notes and X rays will be reviewed by Sheila Mishra and pt will be called with appt . Dr Roberts made aware of this * true * Date: Generated for Roseann russ/Mahin/eTransmitting on: 1 08:57 AM EDT
--- OUTSIDE RECORDS SUMMARY | 2025-08-15 10:25 | XMS_ITS ---
Author Organization Rony Roberts III, MD Address [address] [place] [address] [place] [address] Care Team Providers Care Plastic Finisher Name Role Phone Dr. Rony Roberts III Primary Care Provider [phone] REASON FOR VISIT Message Social History Sex Assigned At : Social History Observation Description Sex Assigned At Male Encounters Encounter Location Date Provider Diagnosis Rony Roberts III, MD [address] [place] [address] [place] [address] 08/15/2025 Rony Roberts Plan Of Treatment Next Appt Details Provider Name:Rony Roberts , 10/11/2025 09:45:00 AM, [address] [place] [address] [place], [address], Provider Name:Rony Roberts , 01/11/2026 02:00:00 PM, [address] [place] [address] [place], [address], Progress Notes * Tj PAGEDOB: [birth year] (80 yo M)Acc No.[id number]:08/15/2025 Patient: Jona Tj HEREDIA :1945 A ge:80 Y S ex:Male Address:[address] [place] [phone] * true * Date: Generated for Roseann russ/Mahin/Gagan on: 08:56 AM EDT
--- NOTE | ~2025-08-22 | XR_ITS ---
EXAMINATION: XR SHOULDER, LEFT CLINICAL INFORMATION: M25.512 - Pain in left shoulder COMPARISON: 08/13/2025. TECHNIQUE: Two views of the left shoulder. FINDINGS: There is redemonstration of fracture through the superior glenoid, which traverses the base of the coracoid process. There is mild displacement. Fracture lines are still well defined without gross periosteal new bone formation. There are no additional fractures or dislocation. Glenohumeral joint is anatomically aligned. The AC joint is intact. There are moderate degenerative changes in the AC joint. There is no soft tissue abnormality. The ribs appear intact. XR/XR shoulder LT min 2V IMPRESSION: No significant interval change in the mildly displaced fracture through the superior glenoid, extending through the base of the coracoid process. Electronically signed by: Sarmad Robles MD 08/22/2025 02:43 PM EDT
--- OUTSIDE RECORDS SUMMARY | 2025-08-22 12:06 | XMS_ITS ---
Author Organization Rony Roberts III, MD Address [address] [place] [address] [place] [address] Care Team Providers Care Billboard Erector Helper Name Role Phone Dr. Rony Roberts III Primary Care Provider REASON FOR VISIT FYI Social History Sex Assigned At : Social History Observation Description Sex Assigned At Male Encounters Encounter Location Date Provider Diagnosis Rony Roberts III, MD [address] [place] [address] [place] [address] 08/22/2025 Rony Roberts Plan Of Treatment Next Appt Details Provider Name:Rony Roberts , 10/11/2025 09:45:00 AM, [address] [place] [address] [place], [address], Provider Name:Rony Roberts , 01/11/2026 02:00:00 PM, [address] [place] [address] [place], [address], Progress Notes * Tj PAGEDOB: [birth year] (80 yo M)Acc No.[id number]:08/22/2025 Patient: Jona Tj HEREDIA :1945 A ge:80 Y S ex:Male Address:[address] [place] [phone] * true * Date: Generated for Roseann russ/Mahin/Gagan on: 08:58 AM EDT
--- OUTSIDE RECORDS SUMMARY | 2025-08-23 08:57 | XMS_ITS | Encounter Summary ---
Author Organization [facility] Address [address] [address] Phone Care Team Providers Care Tank Cleaning Supervisor Name Role Phone Rony Roberts MD Unavailable [phone] Bobby Pedraza DO Primary Care Provider [phone] Fabi Snell FIELD MAP EDITOR Unavailable [phone] Encounter Details Date Type Department Care Team (Late st Contact Info) Description 11/24/2017 Procedure Pass Jennifer Lank Imaging Department, [facility] [place], MRI [address] [facility], Floor [address]1 [place] [address] Social History Tobacco Use Types Packs/Day Years [...] on filedocumented in this encounter Care Teams Tank Cleaning Supervisor Relationship Specialty Start Date End Date Bobby Pedraza DO [address] [place] [address] PCP - General Internal Medicine 03/30/16 Rony Roberts MD [address] [place] [address] [place] [address] Referring Physician Internal Medicine 02/03/16 Fabi Snell FIELD MAP EDITOR [address] [place] [address] [place] [address] [email or web address] 04/28/17 05/24/18 documented as of this encounter Additional Source Comments The information contained in this document represents components of the legal health record. It is not the complete legal health record.[facility]
--- OUTSIDE RECORDS SUMMARY | 2025-08-23 08:57 | XMS_ITS | Encounter Summary ---
Author Organization [facility] Address [address] [address] Phone Care Team Providers Care Telehealth Nurse Educator Name Role Phone Rony Roberts MD Unavailable [phone] Bobby Pedraza DO Primary Care Provider [phone] Fabi Snell FUNDRAISING OFFICER Unavailable [phone] Encounter Details Date Type Department Care Team (Late st Contact Info) Description 11/24/2017 Procedure Pass Jennifer Lank Imaging Department, [facility] [place], [place] [address] [facility], Floor [address] [place] [address] Social History Tobacco Use Types Packs/Day Years [...] on filedocumented in this encounter Care Teams Telehealth Nurse Educator Relationship Specialty Start Date End Date Bobby Pedraza DO [address] [place] [address] [phone] PCP - General Internal Medicine 03/30/16 Rony Roberts MD [address] [place] [address] [place] [address] Referring Physician Internal Medicine 02/03/16 Fabi Snell FUNDRAISING OFFICER [address] [place] [address] [place] [address] [email or web address] 04/28/17 05/24/18 documented as of this encounter Additional Source Comments The information contained in this document represents components of the legal health record. It is not the complete legal health record.[facility]
--- OUTSIDE RECORDS SUMMARY | 2025-08-23 08:57 | XMS_ITS | Encounter Summary ---
Author Organization [facility] Address [address] [address] Phone Care Team Providers Care Blood Bank Calendar Control Clerk Name Role Phone Rony Roberts MD Unavailable [phone] Bobby Pedraza DO Primary Care Provider [phone] Fabi Snell CNC SERVICE TECHNICIAN Unavailable [phone] Encounter Details Date Type Department Care Team (Late st Contact Info) Description 04/28/2017 Procedure Pass Jennifer Lank Imaging Department, [facility] [place], [place] [address] [facility], Floor [address]1 [place] [address] Social History Tobacco Use Types Packs/Day Years [...] on filedocumented in this encounter Care Teams Blood Bank Calendar Control Clerk Relationship Specialty Start Date End Date Bobby Pedraza DO [address] [place] [address] [phone] PCP - General Internal Medicine 03/30/16 Rony Roberts MD [address] [place] [address] [place] [address] Referring Physician Internal Medicine 02/03/16 Fabi Snell CNC SERVICE TECHNICIAN [address] [place] [address] [place] [address] [email or web address] 04/28/17 05/24/18 documented as of this encounter Additional Source Comments The information contained in this document represents components of the legal health record. It is not the complete legal health record.[facility]
--- OUTSIDE RECORDS SUMMARY | 2025-08-23 08:57 | XMS_ITS | Encounter Summary ---
Author Organization [facility] Address [address] [address] Phone Care Team Providers Care Powertrain Engineer Name Role Phone Rony Roberts MD Unavailable [phone] Bobby Pedraza DO Primary Care Provider [phone] Fabi Snell RADIOCOMMUNICATIONS TECHNICIAN Unavailable [phone] Encounter Details Date Type Department Care Team (Late st Contact Info) Description 04/28/2017 Procedure Pass Jennifer Lank Imaging Department, [facility] [place], [place] [address] [facility], Floor [address] [place] [address] Social History Tobacco Use Types Packs/Day Years [...] on filedocumented in this encounter Care Teams Powertrain Engineer Relationship Specialty Start Date End Date Bobby Pedraza DO [address] [place] [address] [id number] PCP - General Internal Medicine 03/30/16 Rony Roberts MD [address] [place] [address] [place] [address] Referring Physician Internal Medicine 02/03/16 Fabi Snell RADIOCOMMUNICATIONS TECHNICIAN [address] [place] [address] [place] [address] [email or web address] 04/28/17 05/24/18 documented as of this encounter Additional Source Comments The information contained in this document represents components of the legal health record. It is not the complete legal health record.[facility]
--- OUTSIDE RECORDS SUMMARY | 2025-08-23 08:57 | XMS_ITS | Encounter Summary ---
Author Organization [facility] Address [address] [address] Phone Care Team Providers Care Rounder And Backer Name Role Phone Rony Roberts MD Unavailable [phone] Bobby Pedraza DO Primary Care Provider [phone] Fabi Snell ACCREDITED FARM MANAGER Unavailable [phone] Encounter Details Date Type Department Care Team (Late st Contact Info) Description 11/24/2017 Procedure Pass Jennifer Lank Imaging Department, [facility] [place] 450 [facility], Floor [address]1 [place] [address] Social History Tobacco Use Types Packs/Day Years [...] on filedocumented in this encounter Care Teams Rounder And Backer Relationship Specialty Start Date End Date Bobby Pedraza DO [address] [place] [address] [id number] PCP - General Internal Medicine 03/30/16 Rony Roberts MD [address] [place] [address] [place] [address] Referring Physician Internal Medicine 02/03/16 Fabi Snell ACCREDITED FARM MANAGER [address] [place] [address] [place] [address] [email or web address] 04/28/17 05/24/18 documented as of this encounter Additional Source Comments The information contained in this document represents components of the legal health record. It is not the complete legal health record.[facility]
--- OUTSIDE RECORDS SUMMARY | 2025-08-23 08:58 | XMS_ITS | Patient Health Record ---
Author Organization Rony Roberts III, MD Address [address] [place] [address] Care Team Providers Care Director Of Hospitality Name Role Phone Dr. Rony Roberts III Primary Care Provider Allergies Allergen (clinical drug ingredient) Drug/Non Drug Allergy documented on EMR Reaction Allergy Type Onset Date Status Morphine Sulfate Unknown Drug Allergy Active Results Component Value Reference Range Notes Lipid Panel Reviewed date:01/08/2025 03:16:11 PM Interpretation: Performing Lab:[facility], [address] [place] [address] Notes/Report: Triglycerides 45 <150 mg/dL Desirable Triglyceride: [...] A1c Reviewed date:01/08/2025 03:16:12 PM Interpretation: Performing Lab:[facility], [address] [place] [address] Notes/Report: Hemoglobin A1c % 6.9 <6.0 % [...] average glucose, using the formula of the G6C-Qurzqga Average Glucose study (ADAG), Diabetes Care, Vol.31,#8, Jun. 2007 Diabetic Eye Exam Reviewed date:01/09/2025 03:19:12 PM Interpretation:undefined Performing Lab: Notes/Report: undefined Complete Blood Count Auto Di ff Reviewed date:01/08/2025 03:16:11 PM Interpretation: Performing Lab:[facility], [address] [place] [address] Notes/Report: White Blood Count 6.0 4.8-10.8 X10*3/uL [...] NRBC Abs Auto 0.000 0.0-0.012 X10*3/uL Comprehensive [place]. Panel Fa st Reviewed date:01/08/2025 03:16:11 PM Interpretation: Performing Lab:[address] [address] Notes/Report: Sodium 139 135-145 mmol/L Potassium 4.3 [...] Antigen Reviewed date:01/08/2025 03:16:11 PM Interpretation: Performing Lab:[address] [address] Notes/Report: Prostate Specific Antigen 2.29 <0.05-4.0 ng/mL PSA methodology: Nath Alinity i Chemiluminescent Microparticle Immunoassay (CMIA) Microalbumin, Random Reviewed date:01/08/2025 03:16:11 PM Interpretation: Performing Lab:[facility], [address] [place] [address] Notes/Report: Creatinine Urine 63.90 Microalbumin Urine 10.0 Microalbum/Creatinine Ratio Ur 15.6 <30 ug/mg cr Albumin/Creatinine Ratio Reference Ranges: Normal: < 30 ug/mg creatinine Microalbuminuria: 30 - 300 ug/mg creatinine Clinical Albuminuria: > 300 ug/mg creatinine Complete Blood Count Auto Di ff Reviewed date:04/03/2025 03:31:57 PM Interpretation: Performing Lab:[facility], [address] [place] [address] Notes/Report: White Blood Count 6.7 4.8-10.8 X10*3/uL [...] NRBC Abs Auto 0.000 0.0-0.012 X10*3/uL Comprehensive [place]. Panel Fa Reviewed date:04/03/2025 03:31:57 PM Interpretation: Performing Lab:[facility], [address] [place] [address] Notes/Report: Sodium 140 135-145 mmol/L Potassium 4.2 [...] Panel Reviewed date:04/03/2025 03:31:57 PM Interpretation: Performing Lab:[facility], [address] [place] [address] Notes/Report: Triglycerides 66 <150 mg/dL Desirable Triglyceride: [...] Antigen Reviewed date:04/03/2025 03:31:57 PM Interpretation: Performing Lab:[facility], [address] [place] [address] Notes/Report: Prostate Specific Antigen 3.34 <0.05-4.0 ng/mL PSA methodology: Nath Alinity i Chemiluminescent Microparticle Immunoassay (CMIA) Complete Blood Count Auto Di ff Reviewed date:07/10/2025 04:49:00 AM Interpretation: Performing Lab:[facility], [address] [place] [address] Notes/Report: White Blood Count 5.4 4.8-10.8 X10*3/uL [...] NRBC Abs Auto 0.000 0.0-0.012 X10*3/uL Comprehensive [place]. Panel Fa Reviewed date:07/10/2025 04:49:00 AM Interpretation: Performing Lab:[facility], [address] [place] [address] Notes/Report: Sodium 138 135-145 mmol/L Potassium 4.3 [...] Panel Reviewed date:07/10/2025 04:49:00 AM Interpretation: Performing Lab:[facility], [address] [place] [address] Notes/Report: Triglycerides 112 <150 mg/dL Desirable Triglyceride: [...] Antigen Reviewed date:07/10/2025 04:49:00 AM Interpretation: Performing Lab:[facility], [address] [place] [address] Notes/Report: Prostate Specific Antigen 2.83 <0.05-4.0 ng/mL PSA methodology: Nath Alinity i Chemiluminescent Microparticle Immunoassay (CMIA) Microalbumin, Random Reviewed date:07/10/2025 04:49:00 AM Interpretation: Performing Lab:[facility], [address] [place] [address] Notes/Report: Creatinine Urine 54.99 Microalbumin Urine 6.0 Microalbum/Creatinine Ratio Ur 10.9 <30 ug/mg cr Albumin/Creatinine Ratio Reference Ranges: Normal: < 30 ug/mg creatinine Microalbuminuria: 30 - 300 ug/mg creatinine Clinical Albuminuria: > 300 ug/mg creatinine Hemoglobin A1c Reviewed date:07/10/2025 04:49:00 AM Interpretation: Performing Lab:[address] [address] Notes/Report: Hemoglobin A1c % 7.3 <6.0 % [...] average glucose, using the formula of the B1F-Zdwyksk Average Glucose study (ADAG), Diabetes Care, Vol.31,#8, Jun. 2007 CT cervical spine wo con Reviewed date:08/18/2025 06:22:24 AM Interpretation: Performing Lab: Notes/Report: [address] [place] [address] CT Scan Report Signed Patient: Tj Page MR#: [id number] : 1945 Acct:[id number] Age/Sex: 80 / M ADM Date: 08/13/25 Loc: HO.ED Attending Dr: Ordering Physician: Valdemar Li Date of Service: 08/13/25 Procedure(s): CT cervical spine wo IV con Accession Number(s): [id number] cc: Valdemar Li; Rony Roberts MD Report Number: [id number]: Total DLP = 0.00 mGy-cm Reason for [...] Mild to moderate bilateral neural foraminal narrowing, fmgm-trhuboj-zuzq-right. C6-C7: Anterior marginal osteophytes. Loss of disc space height. Uncovertebral joint hypertrophy. Mild right neural foraminal narrowing. IMPRESSION: 1. No evidence of acute injury to the cervical spine. This document has been electronically signed by: Evelio Purcell MD on 08/13/2025 17:44:46 Dictated By: Evelio Purcell MD Signed By: <Electronically signed by Evelio Purcell MD in OV> 08/13/251745 DD/ 43 TD/TT: 08/13/251743 Network Development Coordinator: [address] [address] [address] Scan Report Signed Patient: Tj Page MR#: [id number] : 1945 Acct:[id number] Age/Sex: 80 / M ADM Date: 08/13/25 Loc: HO.ED Attending Dr: Ordering Physician: Valdemar Li Date of Service: 08/13/25 Procedure(s): CT cervical spine wo IV con Accession Number(s): [id number] cc: Valdemar Li; Rony Roberts MD Report Number: [id number]: Total DLP = 0.00 mGy-cm Reason for [...] Mild to moderate bilateral neural foraminal narrowing, uqcr-fravuvu-bhsj-right . C6-C7: Anterior marginal osteophytes. Loss of disc space height. Uncovertebral joint hypertrophy. Mild right neural foraminal narrowing. IMPRESSION: 1. No evidence of [place] injury to the cervical spine. This document has be en electronically signed by: Evelio Purcell MD on 08/13/2025 17:44:46 Dictated By: Evelio Purcell MD Signed By: <Electronically signed by Evelio Purcell MD in OV> 08/13/251745 DD/ 43 TD/TT: 08/13/251743 Network Development Coordinator: CT chest cierra dean Reviewed date:08/18/2025 06:22:24 AM Interpretation: Performing Lab: Notes/Report: [address] [address] [address] Scan Report Signed Patient: Tj Page MR#: [id number] : 1945 Acct:[id number] Age/Sex: 80 / M ADM Date: 08/13/25 Loc: HO.ED Attending Dr: Ordering Physician: Valdemar Li Date of Service: 08/13/25 Procedure(s): CT chest wo IV con Accession Number(s): [id number] cc: Valdemar Li; Rony Roberts MD Report Number: [id number]: Total DLP = 0.00 mGy-cm Reason for [...] in OV> 08/13/251754 DD/ 52 TD/TT: 08/13/251752 Network Development Coordinator: [place] [address] CT Scan Report Signed Patient: Tj Page MR#: [id number] : 1945 Acct:[id number] Age/Sex: 80 / M ADM Date: 08/13/25 Loc: HO.ED Attending Dr: Ordering Physician: Valdemar Li Date of Service: 08/13/25 Procedure(s): CT ned st wo IV con Accession Number(s): [id number] cc: Valdemar Li; Rony Roberts MD Report Number: [id number]: Total DLP = 0.00 mGy-cm Reason for [...] the abdomen and pelvis performed at the [facility] e time. Normal vertebral bod y alignment. [...] in OV> 08/13/251754 DD/ 52 TD/TT: 08/13/251752 Network Development Coordinator: CT head/brain wo con Reviewed date:08/18/2025 06:22:24 AM Interpretation: Performing Lab: Notes/Report: [facility] [address] [place] [address] CT Scan Report Signed Patient: Tj Page MR#: [id number] : 1945 Acct:[id number] Age/Sex: 80 / M ADM Date: 08/13/25 Loc: HO.ED Attending Dr: Ordering Physician: Valdemar Li Date of Service: 08/13/25 Procedure(s): CT head/brain wo IV con Accession Number(s): [id number] cc: Valdemar Li; Rony Roberts MD Report Number: [id number]: Total DLP = 0.00 mGy-cm Reason for [...] in OV> 08/13/251755 DD/ 53 TD/TT: 08/13/251753 Network Development Coordinator: [facility] [address] [place] [address] [address] [address] Scan Report Signed Patient: Tj Page MR#: [id number] : 1945 Acct:[id number] Age/Sex: 80 / M ADM Date: 08/13/25 Loc: HO.ED Attending Dr: Ordering Physician: Valdemar Li Date of Service: 08/13/25 Procedure(s): CT head/brain wo IV con Accession Number(s): [id number] cc: Valdemar Li; Rony Roberts MD Report Number: [id number]: Total DLP = 0.00 mGy-cm Reason for [...] present bilaterally. No CT evidence of [place] infarct. The ventricles are proportional with the [...] in OV> 08/13/251755 DD/ 53 TD/TT: 08/13/251753 Network Development Coordinator: CT abdomen pelvis wo con Reviewed date:08/18/2025 06:22:24 AM Interpretation: Performing Lab: Notes/Report: [place] [address] CT Scan Report Signed Patient: Tj Page MR#: [id number] : 1945 Acct:[id number] Age/Sex: 80 / M ADM Date: 08/13/25 Loc: HO.ED Attending Dr: Ordering Physician: Valdemar Li Date of Service: 08/13/25 Procedure(s): CT abdomen pelvis wo IV con Accession Number(s): [id number] cc: Valdemar Li; Rony Roberts MD Report Number: [id number]: Total DLP = 0.00 mGy-cm Reason for [...] in OV> 08/13/251744 DD/ 43 TD/TT: 08/13/251743 Network Development Coordinator: [address] [address] [address] Scan Report Signed Patient: Tj Page MR#: [id number] : 1945 Acct:[id number] Age/Sex: 80 / M ADM Date: 08/13/25 Loc: HO.ED Attending Dr: Ordering Physician: Valdemar Li Date of Service: 08/13/25 Procedure(s): CT abdomen pelvis wo IV con Accession Number(s): [id number] cc: Valdemar Li; Rony Roberts MD Report Number: [id number]: Total DLP = 0.00 mGy-cm Reason for [...] 08/13/25 1745 DD/ 1744 TD/TT: 08/13/25 1744 Network Development Coordinator: XR femur LT 2V Reviewed date:08/18/2025 06:22:24 AM Interpretation: Performing Lab: Notes/Report: [address] [address] XRay Report Signed Patient: Tj Page MR#: [id number] : 1945 Acct:[id number] Age/Sex: 80 / M ADM Date: 08/13/25 Loc: HO.ED Attending Dr: Ordering Physician: Valdemar Li Date of Service: 08/13/25 Procedure(s): XR femur LT 2V Accession Number(s): [id number] cc: Valdemar Li; Rony Roberts MD Reason [...] MD 08/13/2025 04:59 PM EDT Dictated By: eGo Castelan MD Signed By: <Electronically signed by Geo Castelan MD in OV> 08/13/25 1659 DD/ 1630 TD/TT: 08/13/25 1640 Network Development Coordinator: [address] [address] XRay Report Signed Patient: Tj Page MR#: [id number] : 1945 Acct:[id number] Age/Sex: 80 / M ADM Date: 08/13/25 Loc: HO.ED Attending Dr: Ordering Physician: Valdemar Li Date of Service: 08/13/25 Procedure(s): XR fem ur LT 2V Accession Number(s): [id number] cc: Valdemar Li; Rony Roberts MD Reason [...] 08/13/25 1659 DD/ 1630 TD/TT: 08/13/25 1640 Network Development Coordinator: XR shoulder LT min 2V Reviewed date:08/18/2025 06:22:24 AM Interpretation: Performing Lab: Notes/Report: [address] [address] XRay Report Signed Patient: Tj Page MR#: [id number] : 1945 Acct:[id number] Age/Sex: 80 / M ADM Date: 08/13/25 Loc: .ED Attending Dr: Ordering Physician: Valdemar Li Date of Service: 08/13/25 Procedure(s): XR shoulder LT min 2V Accession Number(s): [id number] cc: Valdemar Li; Rony Roberts MD Reason [...] 08/13/25 1657 DD/ 1629 TD/TT: 08/13/25 1640 Network Development Coordinator: [place] [address] XRay Report Signed Patient: Tj Page MR#: [id number] : 1945 Acct:[id number] Age/Sex: 80 / M ADM Date: 08/13/25 Loc: HO.ED Attending Dr: Ordering Physician: Valdemar Li Date of Service: 08/13/25 Procedure(s): XR shoulder LT min 2V Accession Number(s): [id number] cc: Valdemar Li; Rony Roberts MD Reason [...] 08/13/25 1657 DD/ 1629 TD/TT: 08/13/25 1640 Network Development Coordinator: Reason For Referral Reason Consult and Treat [...] 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 Referral Priority Routine Referral Appointment Date 11/09/2024 Reason evaluation and treat ment back pain for 12 months DJD and DDD Diagnosis 1 Back pain (M54.9) Referral Organization Rony Roberts III, MD Referring Provider First Name Rony Referring Provider Last Name Armando Referring Provider Speciality Internal edicine [facility] Specialty Physical [facility] General Notes Neetu Lai CMA 01/15 11:03:02 [...] Status W/U Status Risk Notes Problem Obesity (018851150) Obesity (278.00) Active confirmed We discussed a healthy diet gradually reduction in weight watchers and portion control. Problem 0740973 Former smoker (Z87.891) Active confirmed He is highly motivated not to smoke and we have discussed strategies for maintenance of abstinence in time of illness distress. Problem 232685904 Overweight (E66.3) Active confirmed He has lost 9 pounds and his body mass index is 26. We reviewed diet and nutrition today. We made a plan to continue weight loss until his BMI is in the normal range. Problem 73865442 Diabetes mellitus (E11.9) Active confirmed His hemoglobin A1c has increased from 6.9-7.3. His fasting glucose is 119. He has lost weight. He admits to dietary indiscretions but says he is now back on the wagon. Problem 38136039 Unspecified fall, initial encounter (W19.XXXA) Active confirmed He tripped on t he stair well. He did not lose consciousness or chest pain. There was no vertigo. Problem 17795511 Essential hypertension (I10) Active confirmed His blood pressure is currently stable. The current regimen was continued. 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 No additional treatment is recommended today. Problem 79301868 Colonic polyp (K63.5) Active confirmed He will continu e to have his colonoscopies at the appropriate intervals. Problem 037860020 Metastatic malignant melanoma (C79.9) Active confirmed There was no si gn of a new primary melanoma or recurrent melanoma in any location on today's examination. Problem Shoulder joint pain (989925727) Shoulder pain, left (M25.512) Active confirmed He has had a mild pain in his shoulder for over a year but it is recently become worse. It is likely arthritic or inflammatory but x-rays have been ordered. He will use ibuprofen and a heating pad. If necessary he will be referred for injections. Problem 72906637 Age-related cataract of both eyes, unspecified age-related cataract type (H25.9) Active confirmed He is medically cleared for both operations. If necessary, he'll be seen before the first procedure. The rrisk is small and the benefit is great. He is given medical clearance. Problem 249573421 Benign prostatic hyperplasia, unspecified whether lower urinary tract symptoms present (N40.0) Active confirmed He rises from sleep twice a night to urinate. We discussed lifestyle modification has a way of reducing nocturia.His prostatism is stable. Problem 677415106 Obstipation (K59.00) Active confirmed He will use MiraLax and milk of magnesia and senna. He will also is fleets enemas. Problem 745506552 Closed fracture of left shoulder, initial encounter [...] Provider Diagnosis Rony Roberts III, MD [address] [place] [address] [place] [address] 08/31/2024 Rony Roberts Diabetes mellitus E11.9 ; Age-related cataract of both eyes, unspecified age-related cataract type H25.9 ; Benign prostatic hyperplasia, unspecified whether lower urinary tract symptoms present N40.0 ; Metastatic malignant melanoma C79.9 ; Essential hypertension I10 ; Peripheral neuropathy G62.9 and Former smoker Z87.891 Rony Roberts III, MD [address] [place] [address] [place] [address] 01/09/2025 Rony Roberts Benign prostatic hyperplasia, unspecified whether lower urinary tract symptoms present N40.0 ; Metastatic malignant melanoma C79.9 ; Essential hypertension I10 ; Overweight E66.3 ; Diabetes mellitus E11.9 ; Peripheral neuropathy G62.9 ; Age-related cataract of both eyes, unspecified age-related cataract type H25.9 and Former smoker Z87.891 Rony Roberts III, MD [address] [place] [address] [place] [address] 02/06/2025 Rony Roberts Benign prostatic hyperplasia, unspecified whether lower urinary tract symptoms present N40.0 ; Metastatic malignant melanoma C79.9 ; Former smoker Z87.891 ; Diabetes mellitus E11.9 ; Essential hypertension I10 ; Shoulder pain, left M25.512 ; Overweight E66.3 and Recurrent low back pain M54.50 Rony Roberts III, MD [address] [place] [address] [place] [address] 04/11/2025 Rony Roberts Benign prostatic hyperplasia, unspecified whether lower urinary tract symptoms present N40.0 ; Metastatic malignant melanoma C79.9 ; Diabetes mellitus E11.9 ; Overweight E66.3 ; Essential hypertension I10 ; Former smoker Z87.891 ; Shoulder pain, left M25.512 and Peripheral neuropathy G62.9 Rony Roberts III, MD [address] [place] [address] [place] [address] 07/12/2025 Rony Roberts Benign prostatic hyperplasia, unspecified whether lower urinary tract symptoms present N40.0 ; Metastatic malignant melanoma C79.9 ; Diabetes mellitus E11.9 ; Essential hypertension I10 ; Former smoker Z87.891 and Overweight E66.3 oRny Roberts III, MD [address] [place] [address] [place] [address] 08/13/2025 Rnoy Roberts Unspecified fall, initial encounter W19.XXXA ; Benign prostatic hyperplasia, unspecified whether lower urinary tract symptoms present N40.0 ; Closed fracture of left shoulder, initial encounter S42.92XA ; Essential hypertension I10 ; Obesity 278.00 ; Former smoker Z87.891 ; Diabetes mellitus E11.9 and Peripheral neuropathy G62.9 Rony Roberts III, MD [address] [place] [address] [place] [address] 08/23/2024 Rony Roberts III, MD [address] [place] [address] [place] [address] 01/04/2025 Rony Roberts Essential hypertensi on I10 ; Diabetes mellitus E11.9 ; Benign prostatic hyperplasia, unspecified whether lower urinary tract symptoms present N40.0 and Overweight E66.3 Rony Roberts III, MD [address] [place] [address] [place] [address] 01/09/2025 Rony Roberts III, MD [address] [place] [address] [place] [address] 01/15/2025 Rony Roberts III, MD [address] [place] [address] [place] [address] 02/07/2025 Rony Roberts III, MD [address] [place] [address] [place] [address] 06/02/2025 Rony Roberts III, MD [address] [place] [address] [address] [place] [address] 08/14/2025 Rony Roberts III, MD [address] [place] [address] [place] [address] 08/15/2025 Rony Roberts III, MD [address] [place] [address] [address] [place] [address] 08/22/2025 Rony Roberts Assessments Encounter Date Diagnosis [...] C) 01/10/2024 PROFILE, FASTING (COMPREHENSIVE METABOLI C) 02/17/2021 PROFILE, [...] C) 07/12/2025 PROFILE, RANDOM (COMPREHENSIVE METABOLIC ) 12/02/2020 PROFILE, RANDOM (COMPREHENSIVE METABOLIC ) 07/26/2018 PROFILE, RANDOM (COMPREHENSIVE METABOLIC ) 12/12/2018 HEMOGLOBIN A1C (GLYCOHEMOGLOBIN) 021 HEMOGLOBIN A1C (GLYCOHEMOGLOBIN) 019 HEMOGLOBIN A1C (GLYCOHEMOGLOBIN) 021 HEMOGLOBIN A1C (GLYCOHEMOGLOBIN) 021 HEMOGLOBIN A1C (GLYCOHEMOGLOBIN) 018 HEMOGLOBIN A1C (GLYCOHEMOGLOBIN) 021 HEMOGLOBIN A1C (GLYCOHEMOGLOBIN) 023 HEMOGLOBIN A1C (GLYCOHEMOGLOBIN) 020 HEMOGLOBIN A1C (GLYCOHEMOGLOBIN) 019 HEMOGLOBIN A1C (GLYCOHEMOGLOBIN) 022 HEMOGLOBIN A1C (GLYCOHEMOGLOBIN) 023 HEMOGLOBIN A1C (GLYCOHEMOGLOBIN) 022 HEMOGLOBIN A1C (GLYCOHEMOGLOBIN) 022 LIPID PANEL 07/29/2022 LIPID PANEL 02/11/2023 LIPID PANEL 11/05/2022 LIPID PANEL 09/15/2021 LIPID PANEL 06/09/2021 LIPID PANEL 12/02/2020 LIPID PANEL 02/17/2021 LIPID PANEL 05/24/2023 LIPID PANEL 01/25/2020 LIPID PANEL 10/26/2019 TSH (THYROID STIMULATING HORMONE) 2023 CPK 11/19/2023 PSA, TOTAL 04/11/2025 PSA, TOTAL 04/17/2024 PSA, TOTAL 07/12/2025 PSA, TOTAL 01/17/2024 PSA, TOTAL 01/09/2025 PSA, TOTAL 09/15/2021 PSA, TOTAL 06/09/2021 PSA, TOTAL 12/02/2020 PSA, TOTAL 01/04/2025 PSA, TOTAL 04/27/2022 PSA, TOTAL 11/19/2023 PSA, TOTAL SCREEN 07/29/2022 MICROALBUMIN, RANDOM 05/24/2023 MICROALBUMIN, RANDOM 01/19/2022 MICROALBUMIN, RANDOM 11/05/2022 MICROALBUMIN, RANDOM 07/29/2022 MICROALBUMIN, RANDOM 11/15/2020 MICROALBUMIN, RANDOM 12/02/2020 MICROALBUMIN, RANDOM 01/04/2025 CBC w DIFF 01/04/2025 CBC w DIFF 04/27/2022 CBC w DIFF 01/25/2020 CBC w DIFF 10/26/2019 CBC w DIFF 12/12/2018 CBC w DIFF 04/11/2025 CBC w DIFF 05/24/2023 CBC w DIFF [...] 2 VIEWS 05/16/2021 CBC WITH AUTO DIFF 01/10/2024 CBC WITH AUTO DIFF 11/19/2023 CBC WITH AUTO DIFF 04/17/2024 Lipid Panel 04/27/2022 Lipid Panel 04/11/2025 Lipid Panel 01/19/2022 Lipid Panel 04/17/2024 Lipid Panel 07/12/2025 Lipid Panel 01/17/2024 Lipid Panel 01/09/2025 Microalbumin, Random 04/11/2025 Microalbumin, Random 04/17/2024 Hemoglobin A1c 04/27/2022 Hemoglobin A1c 07/12/2025 Hemoglobin A1c 01/17/2024 Hemoglobin A1c 04/11/2025 Hemoglobin A1c 04/17/2024 Next Appt Details Provider Name:Rony Roberts , 10/11/2025 09:45:00 AM, [address] [place] [address] [place], [place], [address], Provider Name:Rony Roberts , 01/11/2026 02:00:00 PM, [address] [place] [address] [place], [place], [address], Insurance Providers Payer Name Payer Address Payer Phone Subscriber Number Group Number Insured Name Patient Relationship to Insured Coverage Start Date Coverage End Date MEDICARE NGS [address] [facility] [address] [id number] Desilets , Vincent Self - patient is the insured [facility] [address] [place], [place] [id number] [phone] [id number] Desilets , Vincent Self - patient [...]
--- OUTSIDE RECORDS SUMMARY | 2025-08-23 08:58 | XMS_ITS | Clinical Summary ---
Author Organization [facility] Address [address] [address] Phone Care Team Providers Care Pad Extractor Tender Name Role Phone Rony Roberts MD Unavailable [phone] Bobby Pedraza DO Primary Care Provider [phone] Allergies Active Allergy Reactions Criticality Noted Date [...] EDT) SODIUM 139 135 - 145 mmol/L [facility] LIC# [id number] Comment:SLT HEMOLYSIS CHLORIDE 105 98 - 108 mmol/L [facility] LIC# [id number] Comment:SLT HEMOLYSIS POTASSIUM 5.0 3.5 - 5.0 mmol/L [facility] LIC# [id number] Comment:SLT HEMOLYSIS CO2 23 23 - 32 mmol/L [facility] LIC# [id number] Comment:SLT HEMOLYSIS BUN 21 9 - 25 mg/dL [facility] LIC# [id number] Comment:SLT HEMOLYSIS CREATININE 0.72 0.7 - 1.3 mg/dL [facility] LIC# [id number] Comment:SLT HEMOLYSIS GLUCOSE 154(H) 70 - 100 mg/dL [facility] LIC# [id number] Comment:SLT HEMOLYSIS CALCIUM 9.7 8.8 - 10.5 mg/dL [facility] LIC# [id number] Comment:SLT HEMOLYSIS EGFR 95 >59 mL/min/1.7 3m2 [facility] LIC# [id number] Comment:If patient is Kisha n-New Zealander, multiply result by 1.159. Estimated glomerular filtration rate calculated using the CKD-EPI equation. ANION GAP 11 5 - 17 mmol/L [facility] LIC# [id number] Blood 05/25/2018 6:38 AM EDT 05/25/2018 6:48 AM EDT us Femi Wyman MD LAB BLOOD ORDERABLES Edited Resu lt - Final [facility] [place] LIC# [id number] [address] [place] [address] * (ABNORMAL) Historical Lab (10/24/2011 9:48 AM EST) Only the most recent of2 resultswithin the time period is included. HGB A1C 7.6(A) 4.2 - 5.8 % [facility] 10/24/2011 9:48 AM EST Comment:BLOOD us Edmond Feliciano MD LAB BLOOD ORDERABLES Final Re sult Performing Organization Address City/[facility] Co de Phone Number [address] [address] from Last 3 Months or Most Recently Relevant to Health Maintenance Insurance MEDICARE PART A & B [facility] MEDEX SUPPLEMENT MEDICARE PART A & B [employer] MEDEX SUPPLEMENT MEDICARE PART A & B [employer] MEDEX SUPPLEMENT MEDICARE PART A & B [facility] MEDEX SUPPLEMENT MEDICARE PART A & B [employer] MEDEX SUPPLEMENT MEDICARE PART A & B [employer] MEDEX SUPPLEMENT MEDICARE PART A & B [employer] MEDEX SUPPLEMENT [employer] MEDEX SUPPLEMENT MEDICARE PART A & B [employer] MEDEX SUPPLEMENT Care Teams Pad Extractor Tender Relationship Specialty Start Date End Date Bobby Pedraza DO [address] [place] [address] PCP - General Internal Medicine 03/30/16 Rony Roberts MD [address] [place] [address] [place] [address] Referring Physician Internal Medicine 02/03/16 Additional Source Comments The information contained in this document represents components of the legal health record. It is not the complete legal health record.[facility]
--- OUTSIDE RECORDS SUMMARY | 2025-08-23 08:59 | XMS_ITS | Encounter Summary ---
Author Organization [facility] Address [address] [address] Phone Care Team Providers Care Adobe Maker Name Role Phone Rony Roberts MD Unavailable [phone] Bobby Pedraza DO Primary Care Provider [phone] Fabi Snell VALET RUNNER Unavailable [phone] Encounter Details Date Type Department Care Team (Late st Contact Info) Description 03/18/2017 Procedure Pass [facility] [address] [address] Social History Tobacco Use Types Packs/Day Years [...] on filedocumented in this encounter Care Teams Adobe Maker Relationship Specialty Start Date End Date Bobby Pedraza DO [address] [place] [address] PCP - General Internal Medicine 03/30/16 Rony Roberts MD [address] [place] [address] [place] [address] Referring Physician Internal Medicine 02/03/16 Fabi Snell NP [address] [place] [address] [place] [address] [email or web address] 04/28/17 05/24/18 documented as of this encounter Additional Source Comments The information contained in this document represents components of the legal health record. It is not the complete legal health record.[facility]
--- OUTSIDE RECORDS SUMMARY | 2025-08-23 08:59 | XMS_ITS | Encounter Summary ---
Author Organization [facility] Address [address] [address] Phone Care Team Providers Care Bottle Feeder Name Role Phone Rony Roberts MD Unavailable [phone] Bobby Pedraza DO Primary Care Provider [phone] Fabi Snell NP Unavailable [phone] Encounter Details Date Type Department Care Team (Late st Contact Info) Description 10/19/2016 Transcribe Orders Jennifer Lank Imaging Department, [facility] [place], Radiography [address] [facility], Floor [address]1 [place] [address] Miguel Ángel Florentino MD [address] [place] [address] [email or web address] Pre-procedural laboratory examination (Primary Dx) Social [...] EST) CREATININE 0.78 0.7 - 1.3 mg/dL [facility] LIC# [id number] EGFR >60 mL/min/1.7 3m2 [facility] LIC# [id number] Comment:Abnormal if <60 mL/m in/1.73m2. If patient is -Jamaican, multiply the result by 1.21. 10/21/2016 7:48 AM EST 10/21/2016 7:57 AM EST us Miguel Ángel Florentino MD LAB BLOOD ORDERABL ES Final Result [facility] LIC# [id number] [address] [place] [id number] documented in this encounter Visit Diagnoses Diagnosis Pre-procedural laboratory examination- Primary documented in this encounter Care Teams Bottle Feeder Relationship Specialty Start Date End Date Bobyb Pedraza DO [address] [place] [address] PCP - General Internal Medicine 03/30/16 Rony Roberts MD [address] [place] [address] [place] [address] Referring Physician Internal Medicine 02/03/16 Fabi Snell NP [address] [place] [address] Dr [address]M [address] [place] [address] [email or web address] 04/28/17 05/24/18 documented as of this encounter Additional Source Comments The information contained in this document represents components of the legal health record. It is not the complete legal health record.[facility]
--- OUTSIDE RECORDS SUMMARY | 2025-08-23 08:59 | XMS_ITS | Patient Health Record ---
Author Organization [facility] Address [address] [place] [address] Care Team Providers Care Floor Director Name Role Phone Rony Roberts MD Primary [...] Status Risk Notes Problem Colon cancer screening (142786132) Colon cancer screening (Z12.11) Active confirmed Problem History of polyp of colon (situation) (145375262) Personal history of colonic polyps (Z86.010) Active confirmed Problem Long-term current use of antiplatelet drug (053502212437840 ) Long-term use of aspirin therapy (Z79.82) Active confirmed Problem Long-term current use of drug therapy (807672708) Long-term current use of high risk medication other than anticoagulant (Z79.899) Active confirmed Problem Long-term current use of drug therapy (035402896) long-term (current) use of oral hypoglycemic drugs (Z79.84) Active confirmed Plan Of Treatment Future Test Test Name Order Date COLONOSCOPY 01/02/2015 COLONOSCOPY 05/27/2018 COLONOSCOPY 01/10/2024 Insurance Providers Payer Name Payer Address Payer Phone Subscriber Number Group Number Insured Name Patient Relationship to Insured Coverage Start Date Coverage End Date MEDICARE OF [place] [address] [place] [address] [phone] [id number] DESILETS , VINCENT Self - patient is the insured MEDEX ATTN CLAIMS [address] [place] [address] [phone] [id number] DESILETS , VINCENT Self - patient is the insured Medical (General) History Medical History History ICD Code Hypertension Diabetes mellitus Colonoscopy, 09/25, tubular adenoma, fiv e-year followup Hyperlipidemia Low back pain, degenerative disc disease Melanoma Surgical History Surgery Date(Month/Year) appendectomy tonsillectomy pilonidal cyst excision left hip replacement 2009
--- OUTSIDE RECORDS SUMMARY | 2025-08-23 08:59 | XMS_ITS | Clinical Summary ---
Author Organization [address] [place] [address] Address [address] [place] [address] Phone Care Team Providers Care Textile Screen Printer Name Role Phone Physician, Pcp Unknown Primary [...] Upcoming Encounters Date Type Department Care Team ([facility] st Contact Info) Description 10/22/2025 8:45 AM EST Office Visit Orthopedic Surgery - [place] [address] [phone] Nazario Herrera DPM [address] [phone] Health Maintenance Due Date Last Done Comments [...] to complete this topic Insurance MEDICARE MEDEX [facility] Care Teams Textile Screen Printer Relationship Specialty Start Date End Date Physician, Pcp Unknown PCP - General 09/07/24
--- OUTSIDE RECORDS SUMMARY | 2025-08-23 08:59 | XMS_ITS | Encounter Summary ---
Author Organization [facility] Address [address] [address] Phone Care Team Providers Care Mend Worker Name Role Phone Rony Roberts MD Unavailable [phone] Bobby Pedraza DO Primary Care Provider [phone] Fabi Snell DIRECTOR OF MANUFACTURING Unavailable [phone] Encounter Details Date Type Department Care Team (Late st Contact Info) Description 10/21/2016 Procedure Pass [facility] [address] [address] Social History Tobacco Use Types Packs/Day Years [...] on filedocumented in this encounter Care Teams Mend Worker Relationship Specialty Start Date End Date Bobby Pedraza DO [address] [place] [address] PCP - General Internal Medicine 03/30/16 Rony Roberts MD [address] [place] [address] [place] [address] Referring Physician Internal Medicine 02/03/16 Fabi Snell NP [address] [place] [address] [place] [address] [email or web address] 04/28/17 05/24/18 documented as of this encounter Additional Source Comments The information contained in this document represents components of the legal health record. It is not the complete legal health record.[facility]
--- OUTSIDE RECORDS SUMMARY | 2025-08-23 08:59 | XMS_ITS | Encounter Summary ---
Author Organization [facility] Address [address] [address] Phone Care Team Providers Care Senior Ui Software Engineer Name Role Phone Rony Roberts MD Unavailable [phone] Bobby Pedraza DO Primary Care Provider [phone] Fabi Snell RETAIL COORDINATOR Unavailable [phone] Encounter Details Date Type Department Care Team (Late st Contact Info) Description 10/21/2016 Procedure Pass [facility] [address] [address] Social History Tobacco Use Types Packs/Day Years [...] on filedocumented in this encounter Care Teams Senior Ui Software Engineer Relationship Specialty Start Date End Date Bobby Pedraza DO [address] [place] [address] PCP - General Internal Medicine 03/30/16 Rony Roberts MD [address] [place] [address] [place] [address] Referring Physician Internal Medicine 02/03/16 Fabi Snell NP [address] [place] [address] [place] [address] [email or web address] 04/28/17 05/24/18 documented as of this encounter Additional Source Comments The information contained in this document represents components of the legal health record. It is not the complete legal health record.[facility]
== END 2025-08-22 08:32 | disposition home or self-care (01) ==
LOC: HO.HOSX 08:31
PROVIDERS: Visit Provider Physician Assistant
DX: S42.142A Displaced fracture of glenoid cavity of scapula, left shoulder, initial encounter for closed fracture (principal); W10.9XXA Fall (on) (from) unspecified stairs and steps, initial encounter
CPT/HCPCS: 73030; 99202

== ENCOUNTER 2025-08-22 13:00 | Outpatient (AMB) | payer MEDICARE, SELFPAY ==
--- OUTSIDE RECORDS SUMMARY | 2024-03-07 05:10 | XMS_ITS ---
Author Organization [facility] Address [address] [place] [phone] Care Team Providers Care Band Top Maker Name Role Phone Armando PARRA, Rony Primary Care Provider Unavailab Eduardo Cardenas Jr REASON FOR VISIT screening Encounters Encounter Location Date Provider Diagnosis [facility] [place] Outpatient [address] [place] [phone] 03/07/2024 Eduardo Sandoval Jr Encounter for screening [...] * WANDA CREWS RDOB:[birth year] (80 yo M)Acc No.[id number]:03/07/2024 COLON WITH MAC Patient: Jona HEREDIA WANDA English Provider: Carri Sandoval MD :1945 A ge:78 Y S ex:Male Date:03/07/2024 Address:[address] [place], [place] [phone] Pcp:Rony Roberts MD Subjective: * Chief Complaints: * 1 . Screening. * Medical History: Objective: * Vitals: Assessment: * Assessment: 1. E ncounter for screening colonoscopy - Z12.11 (Primary) 2 . P ersonal history of colonic polyps - Z86.010 3 . C olon polyps - K63.5 Plan: * Treatment: * Procedure Codes: G 0105 COLOREC CANCR SCR; COLNSCPY HI RISK, 16905 LESION REMOVAL COLONOSCOPY, 0529F INTRVL 3+YRS PTS CLNSCP DOCD * * The named appointment provid er may or may not be the originator of this progress note, and it is not deemed complete until electronically signed by the appointment provider. Sign off status: Pending * Provider: Carri Sandoval MD Date: 0 03/07/2024 Generated for Roseann russ/Mahin/Gagan on: 04:43 PM EDT
--- OUTSIDE RECORDS SUMMARY | 2025-07-12 05:15 | XMS_ITS ---
Author Organization Rony Roberts III, MD Address [address] [address] Care Team Providers Care Hvac Field Service Technician Name Role Phone Dr. Rony Roberts III Primary Care Provider [phone] Allergies Allergen (clinical drug ingredient) Drug/Non Drug [...] Date Provider Diagnosis Rony Roberts III, MD [address] [place] [address] [place] [address] 07/12/2025 Rony Roberts Benign prostatic hyperplasia, unspecified [...] Provider Name:Rony Roberts , 10/11/2025 09:45:00 AM, [address] [place] [address] [address], [place], [address], Provider Name:Rony Roberts , 01/11/2026 02:00:00 PM, [address] [place] [address] [address], [place], [address], Progress Notes * Ehsan PAGEnatashaDOB: [birth year] (79 yo M)Acc No.[id number]:07/12/2025 Progress Notes Patient: Tj IVERSON Provider: Amador Roberts MD :1945 A ge:79 Y S ex:Male Date:07/12/2025 Address:[address] [place], [place] [id number] Subjective: * Chief Complaints: * H istory [...] 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 He has a daughter and a 2 grandaughters and 2 grand sons. He was born in [place], [place]. * Medications: T akingamLODIPine Besylate 5 [...] AB: Hemoglobin A1c 4. O thers Continue OnecrowdSPRINGuch Ultra Test Strip, -, One strip, In [...] 07/12/2025 Generated for Roseann russ/Mahin/Yamilaitting on: 1 04:44 PM EDT History and Physical Notes * [...]
--- OUTSIDE RECORDS SUMMARY | 2025-08-13 09:30 | XMS_ITS ---
Author Organization Rony Roberts III, MD Address [address] [place] [address] Care Team Providers Care Switch Box Installer Name Role Phone Dr. Rony Roberts III [...] Problem Status W/U Status Risk Notes Problem 228986170 Closed fracture of left shoulder, initial encounter (S42.92XA) Active confirmed Imaging in the emergency room showed a fracture of the shoulder. The arm is immobilized in a sling and he will be sent to orthopedics. Problem 39506001 Unspecified fall, initial encounter (W19.XXXA) Active confirmed He tripped on the stair well. He did not lose consciousness or chest pain. There was no vertigo. Problem Obesity (862325790) Obesity (278.00) Active confirmed We discussed a [...] Date Provider Diagnosis Rony Roberts III, MD [address] [place] [address] [place] [address] 08/13/2025 Rony Roberts Unspecified fall, initial encounter [...] Provider Name:Rony Roberts , 10/11/2025 09:45:00 AM, [address] [place] [address] [address], [place], [address], Provider Name:Rony Roberts , 01/11/2026 02:00:00 PM, [address] [place] [address] [address], [place], [address], Progress Notes * Tj PAGEDOB: [birth year] (80 yo M)Acc No.[id number]:08/13/2025 Patient: Tj IVERSON Provider: Amador Roberts MD :1945 A ge:80 Y S ex:Male Date:08/13/2025 Address:[address] [place], [place] [id number] Subjective: * Chief Complaints: * F all [...] was sent in a wheelchair to the [facility] emergency room for an urgent care and [...] cagle is , 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 He has a daughter and a 2 grandaughters and 2 grand sons. He was born in [place], [place]. * [facility]: [facility] - Strip One strip [...] List reviewed and reconciled with the patientTaking [employer] Ultra Test - Strip One strip In [...] 1 Generated for Roseann russ/Mahin/eTransmitting on: 1 04:45 PM EDT History and Physical Notes * Examination [...]
--- OUTSIDE RECORDS SUMMARY | 2025-08-14 05:05 | XMS_ITS ---
Author Organization Rony Roberts III, MD Address [address] [place] [address] [place] [address] Care Team Providers Care Steward/Stewardess Wine Name Role Phone Dr. Rony Roberts III Primary Care Provider REASON FOR VISIT Message Social History Sex Assigned At : Social History Observation Description Sex Assigned At Male Encounters Encounter Location Date Provider Diagnosis Rony Roberts III, MD [address] [place] [address] [place] [address] 08/14/2025 Rony Roberts Plan Of Treatment Next Appt Details Provider Name:Rony Roberts , 10/11/2025 09:45:00 AM, [address] [place] [address] [place], [address], Provider Name:Rony Roberts , 01/11/2026 02:00:00 PM, [address] [place] [address] [place], [address], Progress Notes * Tj PAGEDOB: [birth year] (80 yo M)Acc No.[id number]:08/14/2025 Patient: Jona Tj HEREDIA :1945 A ge:80 Y S ex:Male Address:[address] [place] [phone] * Addendum: * 08/14/2025 1 0:07 AM EDT Neetu Lai HEADER MACHINE OPERATOR > [address] Roberts called [facility] [phone] to make sure they received the information from the pt ER visit. they do have [facility] ER notes and X rays will be reviewed by Sheila Mishra and pt will be called with appt . Dr Roberts made aware of this * true * Date: Generated for Roseann russ/Mahin/eTransmitting on: 1 04:44 PM EDT
--- OUTSIDE RECORDS SUMMARY | 2025-08-15 10:25 | XMS_ITS ---
Author Organization Rony Roberts III, MD Address [address] [place] [address] [place] [address] Care Team Providers Care Spa Director/Finance Name Role Phone Dr. Rony Roberts III Primary Care Provider REASON FOR VISIT Message Social History Sex Assigned At : Social History Observation Description Sex Assigned At Male Encounters Encounter Location Date Provider Diagnosis Rony Roberts III, MD [address] [place] [address] [place] [address] 08/15/2025 Rony Roberts Plan Of Treatment Next Appt Details Provider Name:Rony Roberts , 10/11/2025 09:45:00 AM, [address] [place] [address] [place], [address], Provider Name:Rony Roberts , 01/11/2026 02:00:00 PM, [address] [place] [address] [place], [address], Progress Notes * Tj PAGEDOB: [birth year] (80 yo M)Acc No.[id number]:08/15/2025 Patient: Jona Tj HEREDIA :1945 A ge:80 Y S ex:Male Address:[address] [place] [phone] * true * Date: Generated for Roseann russ/Mahin/Gagan on: 04:44 PM EDT
--- OUTSIDE RECORDS SUMMARY | 2025-08-22 12:06 | XMS_ITS ---
Author Organization Rony Roberts III, MD Address [address] [place] [address] [place] [address] Care Team Providers Care Biological Science Technician Name Role Phone Dr. Rony Roberts III Primary Care Provider [phone] REASON FOR VISIT FYI Social History Sex Assigned At : Social History Observation Description Sex Assigned At Male Encounters Encounter Location Date Provider Diagnosis Rony Roberts III, MD [address] [place] [address] [place] [address] 08/22/2025 Rony Roberts Plan Of Treatment Next Appt Details Provider Name:Rony Roberts , 10/11/2025 09:45:00 AM, [address] [place] [address] [place], [address], Provider Name:Rony Roberts , 01/11/2026 02:00:00 PM, [address] [place] [address] [place], [address], Progress Notes * Tj PAGEDOB: [birth year] (80 yo M)Acc No.[id number]:08/22/2025 Patient: Jona Tj HEREDIA :1945 A ge:80 Y S ex:Male Address:[address] [place] [phone] * true * Date: Generated for Roseann russ/Mahin/Gagan on: 04:45 PM EDT
--- NOTE | 2025-08-22 13:15 | A.OFFVIS_ITS ---
Vital Signs 08/22/25 13:26 Height 5 ft 10 in Weight 179 lb BMI 25.7 Intake Visit Reasons: ED- LT shoulder fx, DOI 08/13/25 Intake Note: Tj is a 80 year old male who presents today as a new patient for an ER follow uo of left shoulder fracture, DOI 08/13/25. Patient presented to [facility] ER status post fall on left shoulder from 4-5 steps upon carring a cooler upstairs. He had x-rays and he was placed in a sling. Today patient reports that he continues to have discomfort and bruising. His discomfort has improved since injury. He mentions history of chronic back pain from arthritis that he feels makes his discomfort worse. He continues use of sling as instructed. Allergies morphine Allergy (Unknown, Verified 08/22/25 13:26) hallucinations Medication List - Last Reconciled 08/22/25 by Deepak Cobb PA-C acetaminophen 650 mg (2 x 325 mg) PO Q4-6H PRN 30 days amlodipine 5 mg PO DAILY atorvastatin 80 mg PO DAILY blood sugar diagnostic As directed blood sugar diagnostic (OneTouch Ultra Test strips) USE TO TEST BLOOD SUGAR TWICE DAILY blood sugar diagnostic As directed blood-glucose meter (OneTouch Ultra2 Meter kit) As directed celecoxib (Celebrex) 200 mg PO BID 30 days empagliflozin 25 mg PO DAILY irbesartan 150 mg PO DAILY metformin 500 mg PO BID multivitamin 1 tab PO DAILY omega-3 fatty acids (Fish Oil Concentrate) 1,000 mg PO TID pen needle, diabetic As directed semaglutide (Ozempic) 0.5 mg (0.374 mL) subcut QWEEK 4 doses tamsulosin 0.4 mg PO DAILY zinc acetate 50 mg PO DAILY HPI HPI ED- LT shoulder fx, DOI 08/13/25: Details: 80-year-old gentleman presents to the office today for an injury he sustained to his left shoulder on 08/13/2025. He states he was carrying a cooler up the stairs when he fell landing on the left side. He was seen in the emergency department where x-rays were obtained and he was found to have a nondisplaced fracture through the left glenoid. He was placed in a sling and referred to our office for ortho eval. ON LICENSE OF [facility] Medical History Melanoma Degenerative disc disease, lumbar Back pain HLD (hyperlipidemia) HTN (hypertension) T2DM (type 2 diabetes mellitus) Surgical History H/O colonoscopy History of adenectomy History of excision of pilonidal cyst History of left hip replacement Hx of appendectomy Hx of tonsillectomy Family History Father Congestive heart failure Mother Aneurysm Sister Cancer Social History Alcohol intake: current Alcohol intake frequency: holidays/special occasions only Comment: 2-3 a month Patient Tobacco Use Status: Former Tobacco user Cigarette Packs Per Day: 2 Years Smoked: 20 Review of Systems Const All systems reviewed & are unremarkable except as noted in HPI and below Physical Exam Vital Signs: BMI result Body Mass Index 25.7 Const General: cooperative and no acute distress Orientation/consciousness: patient oriented x3 Resp Effort & Inspection: normal respiratory effort and able to speak in complete sentences Cardio Peripheral pulses: Peripheral pulses 2+ throughout Neuro General: patient oriented x3 Extrem Other: Left shoulder is normal to inspection he does have some residual ecchymosis. No tenderness to palpation. Neurovascularly intact. Office Procedures AMB Fracture Care Fracture Billing Code: Fracture Billing Code Results Reviewed Results Reviewed: Xrays were obtained in the office today and personally reviewed by me Assessment & Plan Assessment & Plan (1) Fracture of glenoid cavity of left scapula: Code(s): S42.142A - Displaced fracture of glenoid cavity of scapula, left shoulder, initial encounter for closed fracture Category: Medical Plan: Patient will discontinue the use of the sling. He can perform activities at waist level and nothing overhead no contact or impact activities. I did give him a prescription for Celebrex and Tylenol to help with his discomfort. I would like to see him back in 4-6 weeks with x-rays, sooner if needed. Orders: Orders XR shoulder LT min 2V Today M25.512 - Pain in left shoulder Medications: New celecoxib (Celebrex) 200 mg PO BID 60 caps 3RF 30 days acetaminophen 650 mg (2 x 325 mg) PO Q4-6H PRN 240 tabs 0RF fever or pain 30 days Coding Level of Care Code New Pt Level 3 (14838) Complex EM visit Add On G2211 Diagnoses Fracture of glenoid cavity of left scapula S42.142A CPT Codes Fracture Care - Fracture Billing Code: Fracture Billing Code ([id number])
[2025-08-22 13:26] VITALS: BMI 25.7
--- OUTSIDE RECORDS SUMMARY | 2025-08-22 16:44 | XMS_ITS | Encounter Summary ---
Author Organization [facility] Address [address] [address] Phone Care Team Providers Care Retail Store Associate Name Role Phone Rony Roberts MD Unavailable [phone] Bobby Pedraza DO Primary Care Provider [phone] Fabi Snell MILLINERY WORKER Unavailable [phone] Encounter Details Date Type Department Care Team (Late st Contact Info) Description 04/28/2017 Procedure Pass Jennifer Lank Imaging Department, [facility] [place], [place] [address] [facility], [address] [place] [address] Social History Tobacco Use Types Packs/Day Years [...] filedocumented in this encounter Care Teams Retail Store Associate Relationship Specialty Start Date End Date Bobby Pedraza DO [address] [place] [address] [phone] PCP - General Internal Medicine 03/30/16 Rony Roberts MD [address] [place] [address] [place] [address] Referring Physician Internal Medicine 02/03/16 Fabi Snell MILLINERY WORKER [address] [place] [address] [place] [address] [email or web address] Family [email or web address] 04/28/17 05/24/18 documented as of this encounter Additional Source Comments The information contained in this document represents components of the legal health record. It is not the complete legal health record.[facility]
--- OUTSIDE RECORDS SUMMARY | 2025-08-22 16:44 | XMS_ITS | Encounter Summary ---
Author Organization [facility] Address [address] [address] Phone Care Team Providers Care Parish Worker Name Role Phone Rony Roberts MD Unavailable [phone] Bobby Pedraza DO Primary Care Provider [phone] Fabi Snell NAILER MACHINE Unavailable [phone] Encounter Details Date Type Department Care Team (Late st Contact Info) Description 11/24/2017 Procedure Pass Jennifer Lank Imaging Department, [facility] [place], [place] [address] [facility], [address] [place] [address] Social History Tobacco Use Types Packs/Day Years [...] on filedocumented in this encounter Care Teams Parish Worker Relationship Specialty Start Date End Date Bobby Pedraza DO [address] [place] [phone] PCP - General Internal Medicine 03/30/16 Rony Roberts MD [address] [place] [address] [place] [address] Referring Physician Internal Medicine 02/03/16 Fabi Snell NAILER MACHINE [address] [place] [address] [place] [address] [email or web address] Family Medicine 04/28/17 05/24/18 documented as of this encounter Additional Source Comments The information contained in this document represents components of the legal health record. It is not the complete legal health record.[facility]
--- OUTSIDE RECORDS SUMMARY | 2025-08-22 16:44 | XMS_ITS | Encounter Summary ---
Author Organization [facility] Address [address] [address] Phone Care Team Providers Care Summer Analyst Name Role Phone Rony Roberts MD Unavailable [phone] Bobby Pedraza DO Primary Care Provider [phone] Fabi Snell COMPANY MANAGER Unavailable [phone] Encounter Details Date Type Department Care Team (Late st Contact Info) Description 11/24/2017 Procedure Pass Jennifer Lank Imaging Department, [facility] [place], [place] [address] [facility] [place] [address] Social History Tobacco Use Types Packs/Day Years [...] on filedocumented in this encounter Care Teams Summer Analyst Relationship Specialty Start Date End Date Bobby Pedraza DO [address] [place] [address] [phone] PCP - General Internal Medicine 03/30/16 Rony Roberts MD [address] [place] [address] [place] [address] Referring Physician Internal Medicine 02/03/16 Fabi Snell COMPANY MANAGER [address] [place] [address] [place] [address] [email or web address] Family Medicine 04/28/17 05/24/18 documented as of this encounter Additional Source Comments The information contained in this document represents components of the legal health record. It is not the complete legal health record.[facility]
--- OUTSIDE RECORDS SUMMARY | 2025-08-22 16:44 | XMS_ITS | Encounter Summary ---
Author Organization [facility] Address [address] [address] Phone Care Team Providers Care Sign Maintenance Name Role Phone Rony Roberts MD Unavailable [phone] Bobby Pedraza DO Primary Care Provider [phone] Fabi Snell PERIODICALS CLERK Unavailable [phone] Encounter Details Date Type Department Care Team (Late st Contact Info) Description 11/24/2017 Procedure Pass Jennifer Lank Imaging Department, [facility] [place] [place] [address] [facility], [address] [place] [address] Social History Tobacco Use Types Packs/Day Years [...] on filedocumented in this encounter Care Teams Sign Maintenance Relationship Specialty Start Date End Date Bobby Pedraza DO [address] [place] [address] [phone] PCP - General Internal Medicine 03/30/16 Rony Roberts MD [address] [place] [address] [place] [address] Referring Physician Internal Medicine 02/03/16 Fabi Snell PERIODICALS CLERK [address] [place] [address] [place] [address] [email or web address] Family Medicine 04/28/17 05/24/18 documented as of this encounter Additional Source Comments The information contained in this document represents components of the legal health record. It is not the complete legal health record.[facility]
--- OUTSIDE RECORDS SUMMARY | 2025-08-22 16:44 | XMS_ITS | Encounter Summary ---
Author Organization [facility] Address [address] [address] Phone Care Team Providers Care College Hire Name Role Phone Rony Roberts MD Unavailable Bobby Pedraza DO Primary Care Provider [phone] Fabi Snell INVESTIGATIVE ANALYST Unavailable [phone] Encounter Details Date Type Department Care Team (Late st Contact Info) Description 04/28/2017 Procedure Pass Jennifer Lank Imaging Department, [facility] [place], [place] [address] [facility], [address] [place] [address] Social History Tobacco Use Types Packs/Day Years [...] on filedocumented in this encounter Care Teams College Hire Relationship Specialty Start Date End Date Bobby Pedraza DO [address] [place] [address] [phone] PCP - General Internal Medicine 03/30/16 Rony Roberts MD [address] [place] [address] [place] [address] Referring Physician Internal Medicine 02/03/16 Fabi Snell INVESTIGATIVE ANALYST [address] [place] [address] [place] [address] [email or web address] Family [email or web address] 04/28/17 05/24/18 documented as of this encounter Additional Source Comments The information contained in this document represents components of the legal health record. It is not the complete legal health record.[facility]
--- OUTSIDE RECORDS SUMMARY | 2025-08-22 16:45 | XMS_ITS | Patient Health Record ---
Author Organization Rony Roberts III, MD Address [address] [address] Care Team Providers Care Clinical Documentation Developer Name Role Phone Dr. oRny Roberts III Primary Care Provider Allergies Allergen (clinical drug ingredient) Drug/Non Drug Allergy documented on EMR Reaction Allergy Type Onset Date Status Morphine Sulfate Unknown Drug Allergy Active Results Component Value Reference Range Notes Lipid Panel Reviewed date:01/08/2025 03:16:11 PM Interpretation: Performing Lab:[facility], [address] [place] [phone] Notes/Report: Triglycerides 45 <150 mg/dL Desirable Triglyceride: [...] A1c Reviewed date:01/08/2025 03:16:12 PM Interpretation: Performing Lab:[facility], [address] [place] [phone] Notes/Report: Hemoglobin A1c % 6.9 <6.0 % [...] average glucose, using the formula of the D0T-Ggdaqaw Average Glucose study (ADAG), Diabetes Care, Vol.31,#8, Jun. 2007 Diabetic Eye Exam Reviewed date:01/09/2025 03:19:12 PM Interpretation:undefined Performing Lab: Notes/Report: undefined Complete Blood Count Auto Di ff Reviewed date:01/08/2025 03:16:11 PM Interpretation: Performing Lab:[facility], [address] [place] [phone] Notes/Report: White Blood Count 6.0 4.8-10.8 X10*3/uL [...] NRBC Abs Auto 0.000 0.0-0.012 X10*3/uL Comprehensive [place]. Panel Fa st Reviewed date:01/08/2025 03:16:11 PM Interpretation: Performing Lab:[address] [address] Notes/Report: Sodium 139 135-145 mmol/L Potassium 4.3 [...] Antigen Reviewed date:01/08/2025 03:16:11 PM Interpretation: Performing Lab:[address] [address] Notes/Report: Prostate Specific Antigen 2.29 <0.05-4.0 ng/mL PSA methodology: Nath Alinity i Chemiluminescent Microparticle Immunoassay (CMIA) Microalbumin, Random Reviewed date:01/08/2025 03:16:11 PM Interpretation: Performing Lab:[facility], [address] [place] [phone] Notes/Report: Creatinine Urine 63.90 Microalbumin Urine 10.0 Microalbum/Creatinine Ratio Ur 15.6 <30 ug/mg cr Albumin/Creatinine Ratio Reference Ranges: Normal: < 30 ug/mg creatinine Microalbuminuria: 30 - 300 ug/mg creatinine Clinical Albuminuria: > 300 ug/mg creatinine Complete Blood Count Auto Di ff Reviewed date:04/03/2025 03:31:57 PM Interpretation: Performing Lab:[facility], [address] [place] [phone] Notes/Report: White Blood Count 6.7 4.8-10.8 X10*3/uL [...] NRBC Abs Auto 0.000 0.0-0.012 X10*3/uL Comprehensive [place]. Panel Fa Reviewed date:04/03/2025 03:31:57 PM Interpretation: Performing Lab:[facility], [address] [place] [phone] Notes/Report: Sodium 140 135-145 mmol/L Potassium 4.2 [...] Panel Reviewed date:04/03/2025 03:31:57 PM Interpretation: Performing Lab:[facility], [address] [place] [phone] Notes/Report: Triglycerides 66 <150 mg/dL Desirable Triglyceride: [...] Antigen Reviewed date:04/03/2025 03:31:57 PM Interpretation: Performing Lab:[facility], [address] [place] [phone] Notes/Report: Prostate Specific Antigen 3.34 <0.05-4.0 ng/mL PSA methodology: Nath Alinity i Chemiluminescent Microparticle Immunoassay (CMIA) Complete Blood Count Auto Di ff Reviewed date:07/10/2025 04:49:00 AM Interpretation: Performing Lab:[facility], [address] [place] [phone] Notes/Report: White Blood Count 5.4 4.8-10.8 X10*3/uL [...] NRBC Abs Auto 0.000 0.0-0.012 X10*3/uL Comprehensive [place]. Panel Fa Reviewed date:07/10/2025 04:49:00 AM Interpretation: Performing Lab:[facility], [address] [place] [phone] Notes/Report: Sodium 138 135-145 mmol/L Potassium 4.3 [...] Panel Reviewed date:07/10/2025 04:49:00 AM Interpretation: Performing Lab:[facility], [address] [place] [phone] Notes/Report: Triglycerides 112 <150 mg/dL Desirable Triglyceride: [...] Antigen Reviewed date:07/10/2025 04:49:00 AM Interpretation: Performing Lab:[facility], [address] [place] [phone] Notes/Report: Prostate Specific Antigen 2.83 <0.05-4.0 ng/mL PSA methodology: Nath Alinity i Chemiluminescent Microparticle Immunoassay (CMIA) Microalbumin, Random Reviewed date:07/10/2025 04:49:00 AM Interpretation: Performing Lab:[facility], [address] [place] [phone] Notes/Report: Creatinine Urine 54.99 Microalbumin Urine 6.0 Microalbum/Creatinine Ratio Ur 10.9 <30 ug/mg cr Albumin/Creatinine Ratio Reference Ranges: Normal: < 30 ug/mg creatinine Microalbuminuria: 30 - 300 ug/mg creatinine Clinical Albuminuria: > 300 ug/mg creatinine Hemoglobin A1c Reviewed date:07/10/2025 04:49:00 AM Interpretation: Performing Lab:[address] [address] Notes/Report: Hemoglobin A1c % 7.3 <6.0 % [...] average glucose, using the formula of the Y9I-Pleidco Average Glucose study (ADAG), Diabetes Care, Vol.31,#8, Jun. 2007 CT cervical spine wo con Reviewed date:08/18/2025 06:22:24 AM Interpretation: Performing Lab: Notes/Report: [address] [place] [address] CT Scan Report Signed Patient: Tj Page MR#: [id number] : 1945 Acct:[id number] Age/Sex: 80 / M ADM Date: 08/13/25 Loc: HO.ED Attending Dr: Ordering Physician: Valdemar Li Date of Service: 08/13/25 Procedure(s): CT cervical spine wo IV con Accession Number(s): [id number] cc: Valdemar Li; Rony Roberts MD Report Number: [id number]: Total DLP = 0.00 mGy-cm Reason for [...] Mild to moderate bilateral neural foraminal narrowing, dtjj-danqpab-bpyq-right. C6-C7: Anterior marginal osteophytes. Loss of disc space height. Uncovertebral joint hypertrophy. Mild right neural foraminal narrowing. IMPRESSION: 1. No evidence of acute injury to the cervical spine. This document has been electronically signed by: Evelio Purcell MD on 08/13/2025 17:44:46 Dictated By: Evelio Purcell MD Signed By: <Electronically signed by Evelio Purcell MD in OV> 08/13/251745 DD/ 43 TD/TT: 08/13/251743 Oven Drier Tender: [address] [address] [address] Scan Report Signed Patient: Tj Page MR#: [id number] : 1945 Acct:[id number] Age/Sex: 80 / M ADM Date: 08/13/25 Loc: HO.ED Attending Dr: Ordering Physician: Valdemar Li Date of Service: 08/13/25 Procedure(s): CT cervical spine wo IV con Accession Number(s): [id number] cc: Valdemar Li; Rony Roberts MD Report Number: [id number]: Total DLP = 0.00 mGy-cm Reason for [...] Mild to moderate bilateral neural foraminal narrowing, ugwd-tewsxmz-hdkq-right . C6-C7: Anterior marginal osteophytes. Loss of disc space height. Uncovertebral joint hypertrophy. Mild right neural foraminal narrowing. IMPRESSION: 1. No evidence of ac [place] injury to the cervical spine. This document has be en electronically signed by: Evelio Purcell MD on 08/13/2025 17:44:46 Dictated By: Evelio Purcell MD Signed By: <Electronically signed by Evelio Purcell MD in OV> 08/13/251745 DD/ 43 TD/TT: 08/13/251743 Oven Drier Tender: CT chest cierra dean Reviewed date:08/18/2025 06:22:24 AM Interpretation: Performing Lab: Notes/Report: [address] [address] [address] Scan Report Signed Patient: Tj Page MR#: [id number] : 1945 Acct:[id number] Age/Sex: 80 / M ADM Date: 08/13/25 Loc: HO.ED Attending Dr: Ordering Physician: Valdemar Li Date of Service: 08/13/25 Procedure(s): CT chest wo IV con Accession Number(s): [id number] cc: Valdemar Li; Rony Roberts MD Report Number: [id number]: Total DLP = 0.00 mGy-cm Reason for [...] in OV> 08/13/251754 DD/ 52 TD/TT: 08/13/251752 Oven Drier Tender: [place] [address] [address] Scan Report Signed Patient: Tj Page MR#: [id number] : 1945 Acct:[id number] Age/Sex: 80 / M ADM Date: 08/13/25 Loc: HO.ED Attending Dr: Ordering Physician: Valdemar Li Date of Service: 08/13/25 Procedure(s): CT ned st wo IV con Accession Number(s): [id number] cc: Valdemar Li; Rony Roberts MD Report Number: [id number]: Total DLP = 0.00 mGy-cm Reason for [...] the abdomen and pelvis performed at the [facility] time. Normal vertebral bod y alignment. [...] in OV> 08/13/251754 DD/ 52 TD/TT: 08/13/251752 Oven Drier Tender: CT head/brain wo con Reviewed date:08/18/2025 06:22:24 AM Interpretation: Performing Lab: Notes/Report: [facility] [address] [place] [address] CT Scan Report Signed Patient: Tj Page MR#: [id number] : 1945 Acct:[id number] Age/Sex: 80 / M ADM Date: 08/13/25 Loc: HO.ED Attending Dr: Ordering Physician: Valdemar Li Date of Service: 08/13/25 Procedure(s): CT head/brain wo IV con Accession Number(s): [id number] cc: Valdemar Li; Rony Roberts MD Report Number: [id number]: Total DLP = 0.00 mGy-cm Reason for [...] in OV> 08/13/251755 DD/ 53 TD/TT: 08/13/251753 Oven Drier Tender: [facility] [address] [place] [address] [address] [address] Scan Report Signed Patient: Tj Page MR#: [id number] : 1945 Acct:[id number] Age/Sex: 80 / M ADM Date: 08/13/25 Loc: HO.ED Attending Dr: Ordering Physician: Valdemar Li Date of Service: 08/13/25 Procedure(s): CT head/brain wo IV con Accession Number(s): [id number] cc: Valdemar Li; Rony Roberts MD Report Number: [id number]: Total DLP = 0.00 mGy-cm Reason for [...] present bilaterally. No CT evidence of ac [place] infarct. The ventricles are proportional with the [...] in OV> 08/13/251755 DD/ 53 TD/TT: 08/13/251753 Oven Drier Tender: CT abdomen pelvis wo con Reviewed date:08/18/2025 06:22:24 AM Interpretation: Performing Lab: Notes/Report: [place] [address] CT Scan Report Signed Patient: Tj Page MR#: [id number] : 1945 Acct:[id number] Age/Sex: 80 / M ADM Date: 08/13/25 Loc: HO.ED Attending Dr: Ordering Physician: Valdemar Li Date of Service: 08/13/25 Procedure(s): CT abdomen pelvis wo IV con Accession Number(s): [id number] cc: Valdemar Li; Rony Roberts MD Report Number: [id number]: Total DLP = 0.00 mGy-cm Reason for [...] in OV> 08/13/251744 DD/ 43 TD/TT: 08/13/251743 Oven Drier Tender: [address] [address] [address] Scan Report Signed Patient: Tj Page MR#: [id number] : 1945 Acct:[id number] Age/Sex: 80 / M ADM Date: 08/13/25 Loc: HO.ED Attending Dr: Ordering Physician: Valdemar Li Date of Service: 08/13/25 Procedure(s): CT abdomen pelvis wo IV con Accession Number(s): [id number] cc: Valdemar Li; Rony Roberts MD Report Number: [id number]: Total DLP = 0.00 mGy-cm Reason for [...] 08/13/25 1745 DD/ 1744 TD/TT: 08/13/25 1744 Oven Drier Tender: XR femur LT 2V Reviewed date:08/18/2025 06:22:24 AM Interpretation: Performing Lab: Notes/Report: [address] [address] XRay Report Signed Patient: Tj Page MR#: [id number] : 1945 Acct:[id number] Age/Sex: 80 / M ADM Date: 08/13/25 Loc: HO.ED Attending Dr: Ordering Physician: Valdemar Li Date of Service: 08/13/25 Procedure(s): XR femur LT 2V Accession Number(s): [id number] cc: Valdemar Li; Rony Roberts MD Reason [...] 08/13/25 1659 DD/ 1630 TD/TT: 08/13/25 1640 Oven Drier Tender: [address] [address] XRay Report Signed Patient: Tj Page MR#: [id number] : 1945 Acct:[id number] Age/Sex: 80 / M ADM Date: 08/13/25 Loc: HO.ED Attending Dr: Ordering Physician: Valdemar Li Date of Service: 08/13/25 Procedure(s): XR fem ur LT 2V Accession Number(s): [id number] cc: Valdemar Li; Rony Roberts MD Reason [...] 08/13/25 1659 DD/ 1630 TD/TT: 08/13/25 1640 Oven Drier Tender: XR shoulder LT min 2V Reviewed date:08/18/2025 06:22:24 AM Interpretation: Performing Lab: Notes/Report: [address] [address] XRay Report Signed Patient: Tj Page MR#: [id number] : 1945 Acct:[id number] Age/Sex: 80 / M ADM Date: 08/13/25 Loc: .ED Attending Dr: Ordering Physician: Valdemar Li Date of Service: 08/13/25 Procedure(s): XR shoulder LT min 2V Accession Number(s): [id number] cc: Valdemar Li; Rony Roberts MD Reason [...] 08/13/25 1657 DD/ 1629 TD/TT: 08/13/25 1640 Oven Drier Tender: [place] [address] XRay Report Signed Patient: Tj Page MR#: [id number] : 1945 Acct:[id number] Age/Sex: 80 / M ADM Date: 08/13/25 Loc: HO.ED Attending Dr: Ordering Physician: Valdemar Li Date of Service: 08/13/25 Procedure(s): XR shoulder LT min 2V Accession Number(s): [id number] cc: Valdemar Li; Rony Roberts MD Reason [...] 08/13/25 1657 DD/ 1629 TD/TT: 08/13/25 1640 Oven Drier Tender: Reason For Referral Reason Consult and Treat [...] 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 Referral Priority Routine Referral Appointment Date 11/09/2024 Reason evaluation and treat ment back pain for 12 months DJD and DDD Diagnosis 1 Back pain (M54.9) Referral Organization Rony Roberts III, MD Referring Provider First Name Rony Referring Provider Last Name Armando Referring Provider Speciality Internal edicine Ref[facility] Provider Specialty Physical Med formerly [facility] General Notes Neetu Lai CMA 01/15 11:03:02 [...] Problem Status W/U Status Risk Notes Problem Obesity (877158378) Obesity (278.00) Active confirmed We discussed a healthy diet gradually reduction in weight watchers and portion control. Problem 7099771 Former smoker (Z87.891) Active confirmed He is highly motivated not to smoke and we have discussed strategies for maintenance of abstinence in time of illness distress. Problem 634378121 Overweight (E66.3) Active confirmed He has lost 9 pounds and his body mass index is 26. We reviewed diet and nutrition today. We made a plan to continue weight loss until his BMI is in the normal range. Problem 72230140 Diabetes mellitus (E11.9) Active confirmed His hemoglobin A1c has increased from 6.9-7.3. His fasting glucose is 119. He has lost weight. He admits to dietary indiscretions but says he is now back on the wagon. Problem 87753851 Unspecified fall, initial encounter (W19.XXXA) Active confirmed He tripped on t he stair well. He did not lose consciousness or chest pain. There was no vertigo. Problem 19590349 Essential hypertension (I10) Active confirmed His blood pressure is currently stable. The current regimen was continued. 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 No additional treatment is recommended today. Problem 89736271 Colonic polyp (K63.5) Active confirmed He will continu e to have his colonoscopies at the appropriate intervals. Problem 737085739 Metastatic malignant melanoma (C79.9) Active confirmed There was no si gn of a new primary melanoma or recurrent melanoma in any location on today's examination. Problem Shoulder joint pain (408245232) Shoulder pain, left (M25.512) Active confirmed He has had a mild pain in his shoulder for over a year but it is recently become worse. It is likely arthritic or inflammatory but x-rays have been ordered. He will use ibuprofen and a heating pad. If necessary he will be referred for injections. Problem 42840811 Age-related cataract of both eyes, unspecified age-related cataract type (H25.9) Active confirmed He is medically cleared for both operations. If necessary, he'll be seen before the first procedure. The rrisk is small and the benefit is great. He is given medical clearance. Problem 061197366 Benign prostatic hyperplasia, unspecified whether lower urinary tract symptoms present (N40.0) Active confirmed He rises from sleep twice a night to urinate. We discussed lifestyle modification has a way of reducing nocturia.His prostatism is stable. Problem 949772662 Obstipation (K59.00) Active confirmed He will use MiraLax and milk of magnesia and senna. He will also is fleets enemas. Problem 501887738 Closed fracture of left shoulder, initial encounter (S42.92XA) Active confirmed Imaging in the emergency room showed a fracture of the shoulder. The arm is immobilized in a sling and he will be sent to orthopedics. Vital Signs Heart Rate 85 /min 08/13/2025 Temperature 97.3 degrees Fahrenheit 08/13/2025 Blood pressure diastolic 78 mm Hg 08/13/2025 Height 70 in 08/13/2025 Blood pressure systolic 157 mm Hg 08/13/2025 Weight 181 lbs 08/13/2025 BMI 25.97 kg/m2 08/13/2025 Encounters Encounter Location Date Provider Diagnosis Rony Roberts III, MD [address] [place] [address] [place] [address] 08/31/2024 Rony Roberts Diabetes mellitus E11.9 ; Age-related cataract of both eyes, unspecified age-related cataract type H25.9 ; Benign prostatic hyperplasia, unspecified whether lower urinary tract symptoms present N40.0 ; Metastatic malignant melanoma C79.9 ; Essential hypertension I10 ; Peripheral neuropathy G62.9 and Former smoker Z87.891 Rony Roberts III, MD [address] [place] [address] [place] [address] 01/09/2025 Rony Roberts Benign prostatic hyperplasia, unspecified whether lower urinary tract symptoms present N40.0 ; Metastatic malignant melanoma C79.9 ; Essential hypertension I10 ; Overweight E66.3 ; Diabetes mellitus E11.9 ; Peripheral neuropathy G62.9 ; Age-related cataract of both eyes, unspecified age-related cataract type H25.9 and Former smoker Z87.891 Rony Roberts III, MD [address] [place] [address] [place] [address] 02/06/2025 Rony Roberts Benign prostatic hyperplasia, unspecified whether lower urinary tract symptoms present N40.0 ; Metastatic malignant melanoma C79.9 ; Former smoker Z87.891 ; Diabetes mellitus E11.9 ; Essential hypertension I10 ; Shoulder pain, left M25.512 ; Overweight E66.3 and Recurrent low back pain M54.50 Rony Roberts III, MD [address] [place] [address] [place] [address] 04/11/2025 Rony Roberts Benign prostatic hyperplasia, unspecified whether lower urinary tract symptoms present N40.0 ; Metastatic malignant melanoma C79.9 ; Diabetes mellitus E11.9 ; Overweight E66.3 ; Essential hypertension I10 ; Former smoker Z87.891 ; Shoulder pain, left M25.512 and Peripheral neuropathy G62.9 Rony Roberts III, MD [address] [place] [address] [place] [address] 07/12/2025 Rony Roberts Benign prostatic hyperplasia, unspecified whether lower urinary tract symptoms present N40.0 ; Metastatic malignant melanoma C79.9 ; Diabetes mellitus E11.9 ; Essential hypertension I10 ; Former smoker Z87.891 and Overweight E66.3 Rony Roberts III, MD [address] [place] [address] [place] [address] 08/13/2025 Rony Roberts Unspecified fall, initial encounter W19.XXXA ; Benign prostatic hyperplasia, unspecified whether lower urinary tract symptoms present N40.0 ; Closed fracture of left shoulder, initial encounter S42.92XA ; Essential hypertension I10 ; Obesity 278.00 ; Former smoker Z87.891 ; Diabetes mellitus E11.9 and Peripheral neuropathy G62.9 Rony Roberts III, MD [address] [place] [address] [place] [address] 08/23/2024 Rony Roberts III, MD [address] [place] [address] [place] [address] 01/04/2025 Rony Roberts Essential hypertensi on I10 ; Diabetes mellitus E11.9 ; Benign prostatic hyperplasia, unspecified whether lower urinary tract symptoms present N40.0 and Overweight E66.3 Rony Roberts III, MD [address] [place] [address] [place] [address] 01/09/2025 Rony Roberts III, MD [address] [place] [address] [place] [address] 01/15/2025 Rony Roberts III, MD [address] [place] [address] [place] [address] 02/07/2025 Rony Roberts III, MD [address] [place] [address] [place] [address] 06/02/2025 Rony Roberts III, MD [address] [place] [address] [address] [place] [address] 08/14/2025 Rony Roberts III, MD [address] [place] [address] [place] [address] 08/15/2025 Rony Roberts III, MD [address] [place] [address] [address] [place] [address] 08/22/2025 Rony Roberts Assessments Encounter Date Diagnosis (ICD Code) Assessment Notes Treatment Notes Treatment Clinical Notes 08/31/2024 Diabetes mellitus (ICD-10 - E11.9) His [...] of reducing nocturia.His prostatism is stable. 08/13/2025 Unspecified fall, initial encounter (ICD-10 - W19.XXXA) He tripped on the stair well. He did not lose consciousness or chest pain. There was no vertigo. 01/04/2025 Essential hypertension (ICD-10 - I10) 08/31/2024 [...] is now back on the wagon. 08/13/2025 Benign prostatic hyperplasia, unspecified whether lower [...] and he will be sent to orthopedics. 01/04/2025 Diabetes mellitus (ICD-10 - E11.9) 08/31/2024 [...] stable. The current regimen was continued. 08/13/2025 Essential hypertension (ICD-10 - I10) His [...] abstinence in time of illness distress. 08/13/2025 Obesity (ICD9-CM - 278.00) We discussed a healthy diet gradually reduction in weight watchers and portion control. 01/04/2025 Overweight (ICD-10 - E66.3) 08/31/2024 Peripheral [...] his BMI is in the normal range. 08/13/2025 Former smoker (ICD-10 - Z87.891) He is highly motivated not to smoke and we have discussed strategies for maintenance of abstinence in time of illness distress. 08/31/2024 Former smoker (ICD-10 - Z87.891) He [...] necessary he will be referred for injections. 08/13/2025 Diabetes mellitus (ICD-10 - E11.9) His hemoglobin A1c has increased from 6.9-7.3. His fasting glucose is 119. He has lost weight. He admits to dietary indiscretions but says he is now back on the wagon. 01/09/2025 Former smoker (ICD-10 - Z87.891) He [...] living. No additional treatment is recommended today. 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 No additional treatment is recommended today. Plan Of Treatment Pending Test Test Name Order Date PROFILE, FASTING (COMPREHENSIVE METABOLI C) 06/09/2021 PROFILE, FASTING (COMPREHENSIVE METABOLI C) 04/17/2024 PROFILE, FASTING (COMPREHENSIVE METABOLI C) 07/12/2025 PROFILE, FASTING (COMPREHENSIVE METABOLI C) 02/17/2021 PROFILE, FASTING (COMPREHENSIVE METABOLI C) 01/10/2024 PROFILE, FASTING (COMPREHENSIVE METABOLI C) 01/09/2025 PROFILE, FASTING (COMPREHENSIVE METABOLI C) 11/15/2020 PROFILE, [...] C) 09/15/2021 PROFILE, FASTING (COMPREHENSIVE METABOLI C) 01/17/2024 PROFILE, FASTING (COMPREHENSIVE METABOLI C) 04/11/2025 PROFILE, RANDOM (COMPREHENSIVE METABOLIC ) 07/26/2018 PROFILE, [...] CPK 11/19/2023 PSA, TOTAL 04/11/2025 PSA, TOTAL 07/12/2025 PSA, TOTAL 04/17/2024 PSA, TOTAL 01/17/2024 PSA, TOTAL 09/15/2021 PSA, TOTAL 01/09/2025 PSA, TOTAL 06/09/2021 PSA, TOTAL 12/02/2020 PSA, TOTAL 01/04/2025 PSA, TOTAL 04/27/2022 PSA, TOTAL 11/19/2023 PSA, TOTAL SCREEN 07/29/2022 MICROALBUMIN, RANDOM 01/19/2022 MICROALBUMIN, RANDOM 11/05/2022 MICROALBUMIN, RANDOM 07/29/2022 MICROALBUMIN, RANDOM 11/15/2020 MICROALBUMIN, RANDOM 12/02/2020 MICROALBUMIN, RANDOM 01/04/2025 MICROALBUMIN, RANDOM 05/24/2023 CBC w DIFF 04/27/2022 CBC w DIFF 01/25/2020 CBC w DIFF 01/04/2025 CBC w DIFF 10/26/2019 CBC w DIFF 12/12/2018 CBC w DIFF 05/24/2023 CBC w DIFF 02/11/2023 CBC w DIFF 01/19/2022 CBC w DIFF 04/11/2025 CBC w DIFF 07/12/2025 CBC w DIFF 11/05/2022 CBC w DIFF 01/17/2024 CBC w DIFF 09/15/2021 CBC w DIFF 07/29/2022 CBC w DIFF 01/09/2025 CBC w DIFF 06/09/2021 CBC w DIFF [...] DIFF 04/17/2024 Lipid Panel 04/27/2022 Lipid Panel 01/19/2022 Lipid Panel 04/11/2025 Lipid Panel 07/12/2025 Lipid Panel 04/17/2024 Lipid Panel 01/17/2024 Lipid Panel 01/09/2025 Microalbumin, Random 04/11/2025 Microalbumin, Random 04/17/2024 Hemoglobin A1c 04/27/2022 Hemoglobin A1c 07/12/2025 Hemoglobin A1c 01/17/2024 Hemoglobin A1c 04/11/2025 Hemoglobin A1c 04/17/2024 Next Appt Details Provider Name:Rony Roberts , 10/11/2025 09:45:00 AM, [address] [place] [address] [place], [place], [address], Provider Name:Rony Roberts , 01/11/2026 02:00:00 PM, [address] [place] [address] [place], [place], [address], Insurance Providers Payer Name Payer Address Payer Phone Subscriber Number Group Number Insured Name Patient Relationship to Insured Coverage Start Date Coverage End Date MEDICARE NGS [address] [place] [address] [id number] [employer]ile[employer] , Vincent Self - patient is the insured [facility] [address] [place], [place] [id number] [phone] [id number] Desilets , Vincent Self - patient [...]
--- OUTSIDE RECORDS SUMMARY | 2025-08-22 16:45 | XMS_ITS | Clinical Summary ---
Author Organization [facility] Address [address] [address] Phone Care Team Providers Care Insulation Cutter And Former Name Role Phone Rony Roberts MD Unavailable [phone] Bobby Pedraza DO Primary Care Provider [phone] Allergies Active Allergy Reactions Criticality Noted Date [...] EDT) SODIUM 139 135 - 145 mmol/L [facility] LIC# [id number] Comment:SLT HEMOLYSIS CHLORIDE 105 98 - 108 mmol/L [facility] LIC# [id number] Comment:SLT HEMOLYSIS POTASSIUM 5.0 3.5 - 5.0 mmol/L [facility] LIC# [id number] Comment:SLT HEMOLYSIS CO2 23 23 - 32 mmol/L [facility] LIC# [id number] Comment:SLT HEMOLYSIS BUN 21 9 - 25 mg/dL [facility] LIC# [id number] Comment:SLT HEMOLYSIS CREATININE 0.72 0.7 - 1.3 mg/dL [facility] LIC# [id number] Comment:SLT HEMOLYSIS GLUCOSE 154(H) 70 - 100 mg/dL [facility] LIC# [id number] Comment:SLT HEMOLYSIS CALCIUM 9.7 8.8 - 10.5 mg/dL [facility] LIC# [id number] Comment:SLT HEMOLYSIS EGFR 95 >59 mL/min/1.7 3m2 [facility] LIC# [id number] Comment:If patient is Kisha n-Guinean, multiply result by 1.159. Estimated glomerular filtration rate calculated using the CKD-EPI equation. ANION GAP 11 5 - 17 mmol/L [facility] LIC# [id number] Blood 05/25/2018 6:38 AM EDT 05/25/2018 6:48 AM EDT us Femi Wyman MD LAB BLOOD ORDERABLES Edited Resu lt - Final [facility] LIC# [id number] [address] [place] [address] * (ABNORMAL) Historical Lab (10/24/2011 9:48 AM EST) Only the most recent of2 resultswithin the time period is included. HGB A1C 7.6(A) 4.2 - 5.8 % [facility] 10/24/2011 9:48 AM EST Comment:BLOOD us Edmond Feliciano MD LAB BLOOD ORDERABLES Final Re sult Performing Organization Address City/[facility] [[email or web address]] Co de Phone Number [address] [address] from Last 3 Months or Most Recently Relevant to Health Maintenance Insurance MEDICARE PART A & B [facility] MEDEX SUPPLEMENT MEDICARE PART A & B [employer] MEDEX SUPPLEMENT MEDICARE PART A & B [employer] MED[employer] SUPPLEMENT MEDICARE PART A & B [facility] MEDEX SUPPLEMENT MEDICARE PART A & B [employer] MED[employer] SUPPLEMENT MEDICARE PART A & B [employer] MED[employer] SUPPLEMENT MEDICARE PART A & B [employer] MEDEX SUPPLEMENT [employer] MEDEX SUPPLEMENT MEDICARE PART A & B [employer] MEDEX SUPPLEMENT Care Teams Insulation Cutter And Former Relationship Specialty Start Date End Date Bobby Pedraza DO [address] [place] [address] PCP - General Internal Medicine 03/30/16 Royn Roberts MD [address] [place] [address] [place] [address] Referring Physician Internal Medicine 02/03/16 Additional Source Comments The information contained in this document represents components of the legal health record. It is not the complete legal health record.[facility]
--- OUTSIDE RECORDS SUMMARY | 2025-08-22 16:46 | XMS_ITS | Encounter Summary ---
Author Organization [facility] Address [address] [address] Phone Care Team Providers Care Spring Coverer Name Role Phone Rony Roberts MD Unavailable Bobby Pedraza DO Primary Care Provider [phone] Fabi Snell BLOOD BANK BUSINESS MANAGER Unavailable [phone] Encounter Details Date Type Department Care Team (Late st Contact Info) Description 10/21/2016 Procedure Pass [facility] [address] [address] Social History Tobacco Use Types Packs/Day Years [...] on filedocumented in this encounter Care Teams Spring Coverer Relationship Specialty Start Date End Date Bobby Pedraza DO [address] [place] [address] PCP - General Internal Medicine 03/30/16 Rony Roberts MD [address] [place] [address] [place] [address] Referring Physician Internal Medicine 02/03/16 Fabi Snell NP [address] [place] [address] [place] [address] [email or web address] 04/28/17 05/24/18 documented as of this encounter Additional Source Comments The information contained in this document represents components of the legal health record. It is not the complete legal health record.[facility]
--- OUTSIDE RECORDS SUMMARY | 2025-08-22 16:46 | XMS_ITS | Patient Health Record ---
Author Organization [facility] Address [address] [place] [address] Care Team Providers Care Oil Field Pumper Name Role Phone Rony Roberts MD Primary Care Provider Eduardo Tomlinson Jr Unavailable Allergies Allergen (clinical drug ingredient) Drug/Non Drug Allergy documented on EMR Reaction Allergy Type Onset Date Status Morphine Sulfate Unknown Drug Allergy Active Reason For Referral No Information Medications Medication SIG (Take, Route, Frequency, Duration) Notes Start Date End Date Status MiraLax (colon prep) 17 GM/SCOOP mixed with Gatorade or Crystal Light Orally begin at 5:00 p.m. the day before the procedure; Duration: 1 day 01/10/2024 Active Atorvastatin Calcium 80 MG 1 tablet Oral ly Once a day; Duration: 30 day(s) Active Tamsulosin HCl 0.4 MG [...] Vitamin - 1 tablet Orally Once a day; Duration: 30 day(s) Active Fish Oil 1000 MG 1 capsule Orally Thr ee times a day; Duration: 30 day(s) Active Zinc 50 MG 1 tablet Orally Once a day; Duration: 30 day(s) Active Empagliflozin 25 MG 1 tablet Orally Once a day; Duration: 30 day(s) Active Immunizations Vaccine Route Administration Date Status Comme nts Flu vaccine no Preserv 3 and > Unknown 08/08/2014 Admin istered Flu vaccine no Preserv 3 and > Unknown 07/20/2017 Admin istered Influenza Unknown 01/10/2024 Refused Problems Problem Type SNOMED Code ICD Code Onset Dates Problem Status W/U Status Risk Notes Problem Colon cancer screening (699509114) Colon cancer screening (Z12.11) Active confirmed Problem History of polyp of colon (situation) (291203060) Personal history of colonic polyps (Z86.010) Active confirmed Problem Long-term current use of antiplatelet drug (201706604270482 ) Long-term use of aspirin therapy (Z79.82) Active confirmed Problem Long-term current use of drug therapy (438049206) Long-term current use of high risk medication other than anticoagulant (Z79.899) Active confirmed Problem Long-term current use of drug therapy (293975713) [facility] (current) use of oral hypoglycemic drugs (Z79.84) Active confirmed Plan Of Treatment Future Test Test Name Order Date COLONOSCOPY 01/02/2015 COLONOSCOPY 05/27/2018 COLONOSCOPY 01/10/2024 Insurance Providers Payer Name Payer Address Payer Phone Subscriber Number Group Number Insured Name Patient Relationship to Insured Coverage Start Date Coverage End Date MEDICARE OF [place] [address] [place] [address] [phone] [id number] DESILETS , VINCENT Self - patient is the insured MEDEX ATTN CLAIMS [address] [place] [address] [id number] DESILETS , VINCENT Self - patient is the insured Medical (General) History Medical History History ICD Code Hypertension Diabetes mellitus Colonoscopy, 09/25, tubular adenoma, fiv e-year followup Hyperlipidemia Low back pain, degenerative disc disease Melanoma Surgical History Surgery Date(Month/Year) appendectomy tonsillectomy pilonidal cyst excision left hip replacement 2009
--- OUTSIDE RECORDS SUMMARY | 2025-08-22 16:46 | XMS_ITS | Clinical Summary ---
Author Organization [address] [place] [address] Address [address] [place] [address] Phone Care Team Providers Care Record Press Operator Name Role Phone Physician, Pcp Unknown Primary Care Provider Michelle vailable Allergies No known active allergies Social History Tobacco Use Types Packs/Day Years [...] Upcoming Encounters Date Type Department Care Team ([facility] st Contact Info) Description 10/22/2025 8:45 AM EST Office Visit Orthopedic Surgery - [place] [address] [phone] Nazario Herrera DPM [address] [phone] Health Maintenance Due Date Last Done Comments [...] to complete this topic Insurance MEDICARE MEDEX [facility] Care Teams Record Press Operator Relationship Specialty Start Date End Date Physician, Pcp Unknown PCP - General 09/07/24
--- OUTSIDE RECORDS SUMMARY | 2025-08-22 16:46 | XMS_ITS | Encounter Summary ---
Author Organization [facility] Address [address] [address] Phone Care Team Providers Care Magnetizer Name Role Phone Rony Roberts MD Unavailable [phone] Bobby Pedraza DO Primary Care Provider [phone] Fabi Snell RATE QUOTING OPERATOR Unavailable [phone] Encounter Details Date Type Department Care Team (Late st Contact Info) Description 10/21/2016 Procedure Pass [facility] [address] [address] Social History Tobacco Use Types Packs/Day Years [...] on filedocumented in this encounter Care Teams Magnetizer Relationship Specialty Start Date End Date Bobby Pedraza DO [address] [place] [address] PCP - General Internal Medicine 03/30/16 Rony Roberts MD [address] [place] [address] [place] [address] Referring Physician Internal Medicine 02/03/16 Fabi Snell NP [address] [place] [address] [place] [address] [email or web address] 04/28/17 05/24/18 documented as of this encounter Additional Source Comments The information contained in this document represents components of the legal health record. It is not the complete legal health record.[facility]
--- OUTSIDE RECORDS SUMMARY | 2025-08-22 16:46 | XMS_ITS | Encounter Summary ---
Author Organization [facility] Address [address] [address] Phone Care Team Providers Care Trailer Mechanic Name Role Phone Rony Roberts MD Unavailable [phone] Bobby Pedraza DO Primary Care Provider [phone] Fabi Snell SLEEP TECH Unavailable [phone] Encounter Details Date Type Department Care Team (Late st Contact Info) Description 03/18/2017 Procedure Pass [facility] [address] [address] Social History Tobacco Use Types Packs/Day Years [...] on filedocumented in this encounter Care Teams Trailer Mechanic Relationship Specialty Start Date End Date Bobby Pedraza DO [address] [place] [address] PCP - General Internal Medicine 03/30/16 Rony Roberts MD [address] [place] [address] [place] [address] Referring Physician Internal Medicine 02/03/16 Fabi Snell NP [address] [place] [address] [place] [address] [email or web address] 04/28/17 05/24/18 documented as of this encounter Additional Source Comments The information contained in this document represents components of the legal health record. It is not the complete legal health record.[facility]
--- OUTSIDE RECORDS SUMMARY | 2025-08-22 16:46 | XMS_ITS | Encounter Summary ---
Author Organization [facility] Address [address] [address] Phone Care Team Providers Care Co Founder And Chairman Name Role Phone Rony Roberts MD Unavailable [phone] Bobby Pedraza DO Primary Care Provider [phone] Fabi Snell NP Unavailable [phone] Encounter Details Date Type Department Care Team (Late st Contact Info) Description 10/19/2016 Transcribe Orders Jennifer Lank Imaging Department, [facility] [place], Radiography [address] [facility], Floor [address]1 [place] [address] Miguel Ángel Florentino MD [address] [place] [address] [email or web address] Pre-procedural laboratory examination (Primary Dx) Social History [...] EST) CREATININE 0.78 0.7 - 1.3 mg/dL [facility] LIC# [id number] EGFR >60 mL/min/1.7 3m2 [facility] LIC# [id number] Comment:Abnormal if <60 mL/m in/1.73m2. If patient is -Kyrgyz, multiply the result by 1.21. 10/21/2016 7:48 AM EST 10/21/2016 7:57 AM EST us Miguel Ángel Florentino MD LAB BLOOD ORDERABL ES Final Result [facility] LIC# [id number] [address] [place] [id number] documented in this encounter Visit Diagnoses Diagnosis Pre-procedural laboratory examination- Primary documented in this encounter Care Teams Co Founder And Chairman Relationship Specialty Start Date End Date Bobby Pedraza DO [address] [place] [address] PCP - General Internal Medicine 03/30/16 Rony Roberts MD [address] [place] [address] [place] [address] Referring Physician Internal Medicine 02/03/16 Fabi Snell NP [address] [place] [address] Dr [place] [address] [place] [address] [email or web address] 04/28/17 05/24/18 documented as of this encounter Additional Source Comments The information contained in this document represents components of the legal health record. It is not the complete legal health record.[facility]
== END 2025-08-22 13:42 | disposition home or self-care (01) ==
LOC: HO.HOS 13:00
PROVIDERS: PCP Internal Medicine Medical Oncology; Visit Provider Physician Assistant
DX: S42.142A Displaced fracture of glenoid cavity of scapula, left shoulder, initial encounter for closed fracture (principal)
CPT/HCPCS: 99203; G2211

== ENCOUNTER → 2025-08-22 13:08 | Outpatient (BNV) | payer MEDICARE, SELFPAY | PROVIDERS: Visit Provider Radiology Diagnostic Radiology | DX: M25.512 Pain in left shoulder (principal) | CPT/HCPCS: 73030 ==

== ENCOUNTER 2025-09-26 08:19 | Outpatient (AMB) | payer MEDICARE, SELFPAY ==
--- OUTSIDE RECORDS SUMMARY | 2025-02-06 05:00 | XMS_ITS ---
Author Organization Rony oRberts III, MD Address [address] [place] [address] [place] [address] Care Team Providers Care Commercial Helicopter Pilot Name Role Phone Dr. Rony Roberts III Primary Care Provider [phone] Allergies Allergen (clinical drug ingredient) Drug/Non Drug [...] Date Provider Diagnosis Rony Roberts III, MD [address] [place] [address] [place] [address] 02/06/2025 Rony Roberts Benign prostatic hyperplasia, unspecified [...] Provider Name:Rony Roberts , 10/11/2025 09:45:00 AM, [address] [place] [address] [address], [place], [address], Provider Name:Rony Roberts , 01/11/2026 02:00:00 PM, [address] [place] [address] [address], [place], [address], Progress Notes * Ning PAGE: 947 (79 yo M)Acc No.[id number]:02/06/2025 Patient: Jona HEREDIAEhsannatasha Provider: Amador Roberts MD :1945 A ge:79 Y S ex:Male Date:02/06/2025 Address:[address] [place], [place] [id number] Subjective: * Chief Complaints: * A cute low back painHistory of metastatic melanomaHypertensionDiabetesBenign prostatic hypertrophy * HPI: * : This telehealth visit took place over 15 min. with the patient at home and me in my office. He gave consent for billing. His back pain has continued to improve. He has an appointment upcoming with rehabilitation medicine at [facility]. He is resuming his normal life. He is almost done with his medications.? He is breathing comfortably and has no new pain. 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 He has a daughter and a 2 grandaughters and 2 grand sons. He was born in [place], [place]. * Medications: T akingOneTovidio Ultra Test [...] List reviewed and reconciled with the patientTaking [employer] Ultra Test - Strip as directed In [...] 0 02/06/2025 Generated for Roseann russ/Mahin/Yamilaitting on: 11/26/2024 03:55 PM EST History and Physical Notes * HPI (History of Present Illness) Category Sub-Category Detail Notes Telehealth Location of [facility] rendering services:: {...} [address] [place] [id number] Location of patient:: address listed in demographics [...]
--- OUTSIDE RECORDS SUMMARY | 2025-02-07 05:49 | XMS_ITS ---
Author Organization Rony Roberts III, MD Address [address] [place] [address] [place] [address] Care Team Providers Care Spin Table Operator Name Role Phone Dr. Rony Roberts III Primary Care Provider [phone] REASON FOR VISIT Message Social History Sex Assigned At : Social History Observation Description Sex Assigned At Male Encounters Encounter Location Date Provider Diagnosis Rony Roberts III, MD [address] [place] [address] [place] [address] 02/07/2025 Rony Roberts Plan Of Treatment Next Appt Details Provider Name:Rony Roberts , 10/11/2025 09:45:00 AM, [address] [place] [address] [place], [address], Provider Name:Rony Roberts , 01/11/2026 02:00:00 PM, [address] [place] [address] [place], [address], Progress Notes * Tj PAGEDOB: [birth year] (79 yo M)Acc No.[id number]:02/07/2025 Patient: Jona Tj HEREDIA :1945 A ge:79 Y S ex:Male Address:[address] [place] [phone] * true * Date: Generated for Roseann russ/Mahin/Gagan on: 11/26/2024 03:58 PM EST
--- OUTSIDE RECORDS SUMMARY | 2025-04-11 05:00 | XMS_ITS ---
Author Organization Rony Roberts III, MD Address [address] [place] [address] Care Team Providers Care Flavor Room Worker Name Role Phone Dr. Rony Roberts III [...] Date Provider Diagnosis Rony Roberts III, MD [address] [place] [address] [place] [address] 04/11/2025 Rony Roberts Benign prostatic hyperplasia, unspecified [...] Provider Name:Rony Roberts , 10/11/2025 09:45:00 AM, [address] [place] [address] DR, [facility] [address], [place], [address], Provider Name:Rony Roberts , 01/11/2026 02:00:00 PM, [address] [place] [address] [address], [place], [address], Progress Notes * Tj PAGEDOB: [birth year] (79 yo M)Acc No.[id number]:04/11/2025 Progress Notes Patient: Tj IVERSON Provider: Amador Roberts MD :1945 A ge:79 Y S ex:Male Date:04/11/2025 Address:[address] [place], [place] [id number] Subjective: * Chief Complaints: * B lepharospasmHistory of melanomaHypertensionDiabetesBenign prostatic hypertrophyLeft shoulder pain * HPI: C OVID-19 Screening: Kassie cgale recently had Botox injections around his eyes to stop twitching. He now has some twitching of his upper lip,, which the fruit distributor is treating with observation. 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 He has a daughter and a 2 grandaughters and 2 grand sons. He was born in [place], [place]. * Medications: T akingOneTouch Ultra Test [...] List reviewed and reconciled with the patientTaking Mobi Tech Ultra Test - Strip as directed In [...] 0 04/11/2025 Generated for Roseann russ/Mahin/Yamilaitting on: 11/26/2024 03:56 PM EST History and Physical Notes * [...]
--- OUTSIDE RECORDS SUMMARY | 2025-06-02 15:59 | XMS_ITS ---
Author Organization Rony Roberts III, MD Address [address] [place] [address] [place] [address] Care Team Providers Care Shank Skinner Name Role Phone Dr. Rony Roberts III Primary Care Provider Social History Sex Assigned At : Social History Observation Description Sex Assigned At Male Encounters Encounter Location Date Provider Diagnosis Rony Roberts III, MD [address] [place] [address] [place] [address] 06/02/2025 Rony Roberts Plan Of Treatment Next Appt Details Provider Name:Rony Roberts , 10/11/2025 09:45:00 AM, [address] [place] [address] [place], [address], Provider Name:Rony Roberts , 01/11/2026 02:00:00 PM, [address] [place] [address] [place], [address], Progress Notes * Tj PAGEDOB: [birth year] (79 yo M)Acc No.[id number]:06/02/2025 Patient: Jona HEREDIATj :1945 A ge:79 Y S ex:Male Address:[address] [place] [phone] * true * Date: Generated for Roseann russ/Mahin/Gagan on: 11/26/2024 03:58 PM EST
--- OUTSIDE RECORDS SUMMARY | 2025-07-12 04:15 | XMS_ITS ---
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 Rony Roberts III Primary Care Provider Allergies Allergen (clinical drug ingredient) Drug/Non Drug Allergy documented on EMR Reaction Allergy Type Onset Date Status morphine Morphine Sulfate Unknown Drug Allergy Active REASON FOR VISIT History of melanoma, Hypertension, Diabetes, Left shoulder pain, Benign prostatic hypertrophy Medications Medication SIG (Take, Route, Frequency, Duration) Notes Start Date End Date Status traZODone HCl 100 MG 1 tablet at bedtime Orally one tab at bedtime 01/09/2025 Active Vitamin C Active Zinc Active Tamsulosin HCl 0.4 MG 1 capsule Orally Once a day 06/09/2021 Active Fish Oil Active Multivitamin Active Lutein Active Ozempic (0.25 or 0.5 MG/DOSE) 2 MG/3ML as directed Subcutaneous Active Empagliflozin 25 MG 1 tablet Orally Once a day Active Semaglutide 3 MG as directed Orally Active Atorvastatin Calcium 40 MG 1 tablet Orally Once a day Active Irbesartan 150 MG 1 tablet Oral Once a day (Avapro) Active metFORMIN HCl 1000 MG 1 tablet with a me al Orally Twice a day Active amLODIPine Besylate 5 MG 1 tablet Orally Once a day Active OneTouch Ultra Test - One strip In Vitro Once a day E11.9 Diabetes mellitus Active Social History Tobacco Use: Social History [...] Tobacco non-user Ex-cigaret te smoker Vital Signs Blood pressure systolic 129 mm Hg 07/12/20 25 Blood pressure diastolic 64 mm Hg 025 Heart Rate 80 /min 07/12/2025 Height 70 in 07/12/2025 Weight 183 lbs 07/12/2025 BMI 26.25 kg/m2 07/12/2025 Encounters Encounter Location Date Provider Diagnosis Rony Roberts III, MD [address] [place] [address] [place] [address] 07/12/2025 Rony Roberts Benign prostatic hyperplasia, unspecified whether lower urinary tract symptoms present N40.0 ; Metastatic malignant melanoma C79.9 ; Diabetes mellitus E11.9 ; Essential hypertension I10 ; Former smoker Z87.891 and Overweight E66.3 Assessments Encounter Date Diagnosis (ICD Code) Assessment Notes Treatment Notes Treatment Clinical Notes 07/12/2025 Benign prostatic hyperplasia, unspecified whether lower urinary tract symptoms present (ICD-10 - N40.0) He rises from sleep twice a night to urinate. We discussed lifestyle modification has a way of reducing nocturia.His prostatism is stable. 07/12/2025 Metastatic malignant melanoma (ICD-10 - C79.9) There was no sign of a new primary melanoma or recurrent melanoma in any location on today's examination. 07/12/2025 Diabetes mellitus (ICD-10 - E11.9) His hemoglobin A1c has increased from 6.9-7.3. His fasting glucose is 119. He has lost weight. He admits to dietary indiscretions but says he is now back on the wagon. 07/12/2025 Essential hypertension (ICD-10 - I10) His blood pressure is currently stable. The current regimen was continued. 07/12/2025 Former smoker (ICD-10 - Z87.891) He is highly motivated not to smoke and we have discussed strategies for maintenance of abstinence in time of illness distress. 07/12/2025 Overweight (ICD-10 - E66.3) He has lost 9 pounds and his body mass index is 26. We reviewed diet and nutrition today. We made a plan to continue weight loss until his BMI is in the normal range. Plan Of Treatment Medication Medication Name Sig Start Date Stop Date Notes traZODone HCl 100 MG 1 tablet at bedtime Orally one tab at bedtime 01/09/2025 Vitamin C Zinc Tamsulosin HCl 0.4 MG 1 capsule Orally O nce a day 06/09/2021 Fish Oil Multivitamin Lutein Ozempic (0.25 or 0.5 MG/DOSE) 2 MG/3ML as directed Subcutaneous Empagliflozin 25 MG 1 tablet Orally Once a day Semaglutide 3 MG as directed Orally Atorvastatin Calcium 40 MG 1 tablet Orally Once a day Irbesartan 150 MG 1 tablet Oral Once a day (Avapro) metFORMIN HCl 1000 MG 1 tablet with a me al Orally Twice a day amLODIPine Besylate 5 MG 1 tablet Orally Once a day OneTouch Ultra Test - One strip In Vitro Once a day E11.9 Diabetes mellitus Pending Test Test Name Order Date PROFILE, FASTING (COMPREHENSIVE METABOLI C) 07/12/2025 PSA, TOTAL 07/12/2025 CBC w DIFF 07/12/2025 Lipid Panel 07/12/2025 Hemoglobin A1c 07/12/2025 Next Appt Details Follow Up: 3 Months, Reason: f/u Provider Name:Rony Roberts , 10/11/2025 09:45:00 AM, [address] [place] [address] [address], [place], [address], Provider Name:Rony Roberts , 01/11/2026 02:00:00 PM, [address] [place] [address] [address], [place], [address], Progress Notes * Ehsan PAGEnatashaDOB: [birth year] (79 yo M)Acc No.[id number]:07/12/2025 Progress Notes Patient: Tj IVERSON Provider: Amador Roberts MD :1945 A ge:79 Y S ex:Male Date:07/12/2025 Address:[address] [place], [place] [id number] Subjective: * Chief Complaints: * H istory of melanomaHypertensionDiabetesLeft shoulder painBenign prostatic hypertrophy * HPI: C OVID-19 Screening: He returns for medical management. He has lost 9 pounds. She has glucose was morning was 129. He feels healthy and well and has no new skin lesions. The left shoulder pain is moderate. He is trying to consume a healthy diet.He says he rises once or twice a night to urinate. Questions H ave you had any new [...] enies. D iarrhea d enies. H e[place]burn o ccasional. N ausea d enies. R ectal bleeding [...] enies.?Headache d enies. L ow back pain t hat is chronic. P sychiatric: Depressed mood d enies. 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 He has a daughter and a 2 grandaughters and 2 grand sons. He was born in [place], [place]. * Medications: T akingamLODIPine Besylate 5 MG Tablet 1 tablet Orally Once a day metFORMIN HCl 1000 MG Tablet 1 tablet with a meal Orally Twice a day Irbesartan 150 MG Tablet 1 tablet Oral Once a day , Notes to Pharmacist: (Demarcus)Atorvastatin Calcium 40 MG Tablet 1 tablet Orally Once a day Empagliflozin 25 MG Tablet 1 tablet Orally Once a day Tamsulosin HCl 0.4 MG Capsule 1 capsule Orally Once a day Ozempic (0.25 or 0.5 MG/DOSE) 2 MG/3ML Solution Pen-injector as directed Subcutaneous Multivitamin Fish Oil traZODone HCl 100 MG Tablet 1 tablet at bedtime Orally one tab at bedtime OneTouch Ultra Test - Strip One strip In Vitro Once a day , Notes to Pharmacist: E11.9 Diabetes mellitusTaking amLODIPine Besylate 5 MG Tablet 1 tablet Orally Once a day Taking metFORMIN HCl 1000 MG Tablet 1 tablet with a meal Orally Twice a day Taking Irbesartan 150 MG Tablet 1 tablet Oral Once a day , Notes to Pharmacist: (Demarcus)Taking Atorvastatin Calcium 40 MG Tablet 1 tablet Orally Once a day Taking Empagliflozin 25 MG Tablet 1 tablet Orally Once a day Taking Tamsulosin HCl 0.4 MG Capsule 1 capsule Orally Once a day Taking Ozempic (0.25 or 0.5 MG/DOSE) 2 MG/3ML Solution Pen-injector as directed Subcutaneous Taking Multivitamin Taking Fish Oil Taking traZODone HCl 100 MG Tablet 1 tablet at bedtime Orally one tab at bedtime Taking OneTouch Ultra Test - Strip One strip In Vitro Once a day , Notes to Pharmacist: E11.9 Diabetes mellitusDiscontinuedSemaglutide 3 MG Tablet as directed Orally Lutein Zinc Vitamin C Medication List reviewed and reconciled with the patientDiscontinued Semaglutide 3 MG Tablet as directed Orally Discontinued Lutein Discontinued Zinc Discontinued Vitamin C Medication List reviewed and reconciled with the patient * Allergies: M orphine Sulfate: Side Effectsno[Allergies Verified] Objective: * Vitals: H t: 70, Wt:183, BMI:26.25, BP:129/64, HR:80, Ht-cm: 177.8, Wt-k.01. * P ast Orders: Lab:Prostate Specific Antige n * Collection Date 07/05/2025 04/03/2025 01/05/2025 Collection Time 06:37 AM 06:09 AM 06:52 AM Order Date 07/05/2025 04/03/2025 01/05/2025 Prostate Specific Antigen 2.83 (Ref Range: <0.05-4.0 ng/mL) 3.34 (Ref Range: <0.05-4.0 ng/mL) 2.29 (Ref Range: <0.05-4.0 ng/mL) * Lab:Microalbumin, Random * Collection Date 07/05/2025 01/05/2025 07/11/2024 Collection Time 06:32 AM 06:50 AM 07:19 AM Order Date 07/05/2025 01/05/2025 07/11/2024 Creatinine Urine 54.99 (Ref Range: mg/dL) 63.90 (Ref Range: mg/dL) 68.65 (Ref Range: mg/dL) Microalbumin Urine 6.0 (Ref Range: mg/L) 10.0 (Ref Range: mg/L) 10.0 (Ref Range: mg/L) Microalbum Creatinine Ratio Ur 10.9 (Ref Range: <30 ug/mg cr) 15.6 (Ref Range: <30 ug/mg cr) 14.5 (Ref Range: <30 ug/mg cr) * Lab:Hemoglobin A1c * Collection Date 07/05/2025 01/05/2025 07/11/2024 Collection Time 06:37 AM 06:52 AM 06:17 AM Order Date 07/05/2025 01/04/2025 07/11/2024 Hemoglobin A1c % 7.3 H (Ref Range: <6.0 %) 6.9 H (Ref Range: <6.0 %) 6.3 H (Ref Range: <6.0 %) Estimated Average Glucose 163 (Ref Range: mg/dL) 151 (Ref Range: mg/dL) 134 (Ref Range: mg/dL) * Lab:Complete Blood Count Aut o Diff * Collection Date 07/05/2025 04/03/2025 01/05/2025 Collection Time 06:37 AM 06:09 AM 06:52 AM Order Date 07/05/2025 04/03/2025 01/05/2025 White Blood Count 5.4 (Ref Range: 4.8-10.8 X10*3/uL) 6.7 (Ref Range: 4.8-10.8 X10*3/uL) 6.0 (Ref Range: 4.8-10.8 X10*3/uL) Red Blood Count 4.46 L (Ref Range: 4.60-5.80 X10*6/uL) 4.24 L (Ref Range: 4.60-5.80 X10*6/uL) 4.33 L (Ref Range: 4.60-5.80 X10*6/uL) Hemoglobin 14.1 (Ref Range: 14.0-18.0 g/dl) 13.7 L (Ref Range: 14.0-18.0 g/dl) 13.7 L (Ref Range: 14.0-18.0 g/dl) Hematocrit 42.0 (Ref Range: 42.0-52.0 %) 40.6 L (Ref Range: 42.0-52.0 %) 40.3 L (Ref Range: 42.0-52.0 %) Mean Corpuscular Volume 94.2 (Ref Range: 80.0-98.0 fL) 95.8 (Ref Range: 80.0-98.0 fL) 93.1 (Ref Range: 80.0-98.0 fL) Mean Corpuscular Hemoglobin 31.6 (Ref Range: 27.0-33.0 pg) 32.3 (Ref Range: 27.0-33.0 pg) 31.6 (Ref Range: 27.0-33.0 pg) Mean Corpuscular HGB Conc 33.6 (Ref Range: 31.0-36.0 g/dl) 33.7 (Ref Range: 31.0-36.0 g/dl) 34.0 (Ref Range: 31.0-36.0 g/dl) Red Cell Distribution Width 13.8 (Ref Range: 11.0-16.0 %) 13.9 (Ref Range: 11.0-16.0 %) 13.2 (Ref Range: 11.0-16.0 %) Platelet Count 243 (Ref Range: 160-400 X10*3/uL) 234 (Ref Range: 160-400 X10*3/uL) 264 (Ref Range: 160-400 X10*3/uL) Mean Platelet Volume 9.1 L (Ref Range: 9.4-12.4 fL) 9.6 (Ref Range: 9.4-12.4 fL) 9.1 L (Ref Range: 9.4-12.4 fL) Neutrophils Percent Auto 67.8 (Ref Range: 45-73 %) 63.9 (Ref Range: 45-73 %) 61.7 (Ref Range: 45-73 %) Imm Gran Pct Auto 0.2 (Ref Range: 0.0-0.4 %) 0.3 (Ref Range: 0.0-0.4 %) 0.3 (Ref Range: 0.0-0.4 %) Lymphocytes Percent Auto 16.3 L (Ref Range: 20-40 %) 20.4 (Ref Range: 20-40 %) 20.0 (Ref Range: 20-40 %) Monocytes Percent Auto 8.3 (Ref Range: 2-11 %) 10.0 (Ref Range: 2-11 %) 11.6 H (Ref Range: 2-11 %) Eosinophils Percent Auto 6.8 H (Ref Range: 0-4 %) 4.8 H (Ref Range: 0-4 %) 5.7 H (Ref Range: 0-4 %) Basophils Percent Auto 0.6 (Ref Range: 0-2 %) 0.6 (Ref Range: 0-2 %) 0.7 (Ref Range: 0-2 %) NRBC Pct Auto 0.0 (Ref Range: 0.0-0.2 /100WBC) 0.0 (Ref Range: 0.0-0.2 /100WBC) 0.0 (Ref Range: 0.0-0.2 /100WBC) Neutrophils Absolute Auto 3.7 (Ref Range: 2.0-8.3 x10*3/uL) 4.3 (Ref Range: 2.0-8.3 x10*3/uL) 3.7 (Ref Range: 2.0-8.3 x10*3/uL) Imm Gran Abs Auto 0.01 (Ref Range: 0.00-0.03 X10*3/uL) 0.02 (Ref Range: 0.00-0.03 X10*3/uL) 0.02 (Ref Range: 0.00-0.03 X10*3/uL) Lymphocytes Absolute Auto 0.9 L (Ref Range: 1.2-4.9 X10*3/uL) 1.4 (Ref Range: 1.2-4.9 X10*3/uL) 1.2 (Ref Range: 1.2-4.9 X10*3/uL) Monocytes Absolute Auto 0.5 (Ref Range: 0.1-1.2 X10*3/uL) 0.7 (Ref Range: 0.1-1.2 X10*3/uL) 0.7 (Ref Range: 0.1-1.2 X10*3/uL) Eosinophils Absolute Auto 0.4 (Ref Range: 0.0-0.4 X10*3/uL) 0.3 (Ref Range: 0.0-0.4 X10*3/uL) 0.3 (Ref Range: 0.0-0.4 X10*3/uL) Basophils Absolute Auto 0.0 (Ref Range: 0.0-0.2 X10*3/uL) 0.0 (Ref Range: 0.0-0.2 X10*3/uL) 0.0 (Ref Range: 0.0-0.2 X10*3/uL) NRBC Abs Auto 0.000 (Ref Range: 0.0-0.012 X10*3/uL) 0.000 (Ref Range: 0.0-0.012 X10*3/uL) 0.000 (Ref Range: 0.0-0.012 X10*3/uL) * Lab:Rosalba Kaplan Elvira fountain Fast * Collection Date 07/05/2025 04/03/2025 01/05/2025 Collection Time 06:37 AM 06:09 AM 06:52 AM Order Date 07/05/2025 04/03/2025 01/05/2025 Sodium 138 (Ref Range: 135-145 mmol/L) 140 (Ref Range: 135-145 mmol/L) 139 (Ref Range: 135-145 mmol/L) Bilirubin Total 0.6 (Ref Range: 0.0-1.0 mg/dL) 0.5 (Ref Range: 0.0-1.0 mg/dL) 0.4 (Ref Range: 0.0-1.0 mg/dL) Aspartate Amino Transferase 21 (Ref Range: 5-37 U/L) 19 (Ref Range: 5-37 U/L) 18 (Ref Range: 5-37 U/L) Alanine Aminotransferase 23 (Ref Range: 0-40 U/L) 19 (Ref Range: 0-40 U/L) 17 (Ref Range: 0-40 U/L) Total Protein 7.5 (Ref Range: 6.5-8.0 g/dL) 7.2 (Ref Range: 6.5-8.0 g/dL) 7.1 (Ref Range: 6.5-8.0 g/dL) Albumin Level 4.6 (Ref Range: 3.5-5.0 g/dL) 4.4 (Ref Range: 3.5-5.0 g/dL) 4.0 (Ref Range: 3.5-5.0 g/dL) Alkaline Phosphatase 66 (Ref Range: 39-117 U/L) 67 (Ref Range: 39-117 U/L) 65 (Ref Range: 39-117 U/L) Potassium 4.3 (Ref Range: 3.3-5.1 mmol/L) 4.2 (Ref Range: 3.3-5.1 mmol/L) 4.3 (Ref Range: 3.3-5.1 mmol/L) Chloride 103 (Ref Range: 96-108 mmol/L) 107 (Ref Range: 96-108 mmol/L) 108 (Ref Range: 96-108 mmol/L) Carbon Dioxide 25 (Ref Range: 22-29 mmol/L) 24 (Ref Range: 22-29 mmol/L) 22 (Ref Range: 22-29 mmol/L) Anion Gap 14 (Ref Range: 12-20) 13 (Ref Range: 12-20) 13 (Ref Range: 12-20) Blood Urea Nitrogen 21 H (Ref Range: 9-16 mg/dL) 18 H (Ref Range: 9-16 mg/dL) 16 (Ref Range: 9-16 mg/dL) Creatinine 0.71 (Ref Range: 0.5-1.4 mg/dL) 0.77 (Ref Range: 0.5-1.4 mg/dL) 0.67 (Ref Range: 0.5-1.4 mg/dL) Estimated Glomerular Filt Rate > 60 > 60 > 60 Glucose Fasting 119 H (Ref Range: 60-99 mg/dL) 144 H (Ref Range: 60-99 mg/dL) 125 H (Ref Range: 60-99 mg/dL) Calcium 9.6 (Ref Range: 8.4-10.2 mg/dL) 9.5 (Ref Range: 8.4-10.2 mg/dL) 9.4 (Ref Range: 8.4-10.2 mg/dL) * Lab:Lipid Panel * Collection Date 07/05/2025 04/03/2025 01/05/2025 Collection Time 06:37 AM 06:09 AM 06:52 AM Order Date 07/05/2025 04/03/2025 01/04/2025 Triglycerides 112 (Ref Range: <150 mg/dL) 66 (Ref Range: <150 mg/dL) 45 (Ref Range: <150 mg/dL) Cholesterol 118 (Ref Range: <200 mg/dL) 113 (Ref Range: <200 mg/dL) 97 (Ref Range: <200 mg/dL) LDL Cholesterol Calculated 54 (Ref Range: <100 mg/dL) 52 (Ref Range: <100 mg/dL) 47 (Ref Range: <100 mg/dL) HDL Cholesterol 42 (Ref Range: >40 mg/dL) 48 (Ref Range: >40 mg/dL) 41 (Ref Range: >40 mg/dL) * Examination: G eneral Examination: GENERAL APPEARANCE: p leasant, well nourished, well developed, in no acute distress, calm and relaxed: overweight: man. HEAD: a traumatic, normocephalic. EYES: e santa, perrla, anicteric, conjugate. EARS: n ormal. NOSE: s eptum intact. ORAL CAVITY: n ormal, unremarkable. NECK/THYROID: n o jugular venous distention, no carotid bruit, thyroid normal. LYMPH NODES: n o enlarged lymph nodes,spleen normal. SKIN: n o suspicious lesions, anicteric. HEART: n o clicks, gallops, murmurs, or rubs, regular rhythm, S1, S2 normal, no s3, or vascular bruits. LUNGS: c lear to auscultation . BREASTS: no masses palpable bilaterally. ABDOMEN: b owel sounds normal, no ascites, no organomegaly, no mass: overweight. RECTAL EXAM: n ot examined. MUSCULOSKELETAL: e xtremities unremarkable, no clubbing, cyanosis or edema, Extensive scarring and radiation changes right axilla. PERIPHERAL PULSES: n ormal. NEUROLOGIC: a lert [...] iabetes mellitus - E11.9 N otes :His hemoglobin A1c has increased from 6.9-7.3. His fasting glucose is 119. He has lost weight. He admits to dietary indiscretions but says he is now back on the wagon. 4 . E ssential hypertension - I10 N otes :His blood pressure is currently stable. The current regimen was continued. 5 . F ormer smoker - Z87.891 N otes :He is highly motivated not to smoke and we have discussed strategies for maintenance of abstinence in time of illness distress. 6 . O verweight - E66.3 N otes :He has lost 9 pounds and his body mass index is 26. We reviewed diet and nutrition today.? We made a plan to continue weight loss until his BMI is in the normal range. Plan: * Treatment: 2. D iabetes mellitus L AB: PROFILE, FASTING (COMPREHENSIVE METABOLIC) L AB: PSA, TOTAL L AB: CBC w DIFF L AB: Lipid Panel L AB: Hemoglobin A1c 3. E ssential hypertension L AB: PROFILE, FASTING (COMPREHENSIVE METABOLIC) L AB: PSA, TOTAL L AB: CBC w DIFF L AB: Lipid Panel L AB: Hemoglobin A1c 4. O thers Continue OneQponDirectuch Ultra Test Strip, -, One strip, In Vitro, Once a day, Notes to Pharmacist: E11.9 Diabetes mellitus. * Procedure Codes: * Preventive Medicine: Counseling: C are goal follow-up plan: Counseling for abnormal BMI given Y es Above Normal BMI Follow-up D ietary management education, guidance, and counseling S moking/Tobacco Use Patient counseled on the dangers of tobacco use and urged to quit. 0 07/11/2025 DM Care Plan: P atient Lifestyle Goals P atient wants to be able to manage diabetes without too much effort. T reatment Goals H bA1C < 7.0, Blood Sugars less than < 115. B arriers n o barriers. S elf-Managment Goals W ork on weight loss, with a goal of losing 1 lb per week. * Follow Up: 3 Months (Reason: f/u) * Images: * Sign off status: Completed true * Provider: Amador Roberts MD Date: 0 07/12/2025 Generated for Roseann russ/Mahin/Yamilaitting on: 1 11/26/2024 03:57 PM EST History and Physical Notes * HPI (History of Present Illness) Category Sub-Category Detail Notes COVID-19 Screening Questions Have you had any new onset fever, chills, cough, congestion, sore throat, shortness of breath, muscle aches?: No Examination Category Sub-Category Detail Notes General Examination GENERAL APPEARANCE: pleasant , well nourished, well developed, in no acute distress, calm and relaxed: overweight: man HEAD: atraumatic, normocep halic EYES: eomi, perrla, anicte екатерина, conjugate EARS: normal NOSE: septum intact NECK/THYROID: no jugular venous di stention, no carotid bruit, thyroid normal HEART: no clicks, gallops, murmurs, or rubs, regular rhythm, S1, S2 normal, no s3, or vascular bruits LUNGS: clear to auscultatio n ABDOMEN: bowel sounds normal, no ascites, no organomegaly, no mass: overweight NEUROLOGIC: alert and oriented, cranial nerves 2-12 grossly intact, deep tendon reflexes 2+ symmetrical, motor strength normal upper and lower extremities, sensory exam intact SKIN: no suspicious lesion s, anicteric PERIPHERAL PULSES: normal BREASTS: no masses palpable b ilaterally MUSCULOSKELETAL: extremities unremark able, no clubbing, cyanosis or edema, Extensive scarring and radiation changes right axilla LYMPH NODES: no enlarged lymph no susanna,spleen normal RECTAL EXAM: not examined PSYCH: alert, oriented ORAL CAVITY: normal, unremarkable
--- OUTSIDE RECORDS SUMMARY | 2025-08-13 08:30 | XMS_ITS ---
Author Organization Rony Roberts III, MD Address [address] [place] [address] Care Team Providers Care Office Coordinator Name Role Phone Dr. Rony Roberts III [...] Problem Status W/U Status Risk Notes Problem 402429256 Closed fracture of left shoulder, initial encounter (S42.92XA) Active confirmed Imaging in the emergency room showed a fracture of the shoulder. The arm is immobilized in a sling and he will be sent to orthopedics. Problem 26311031 Unspecified fall, initial encounter (W19.XXXA) Active confirmed He tripped on the stair well. He did not lose consciousness or chest pain. There was no vertigo. Problem Obesity (072128990) Obesity (278.00) Active confirmed We discussed a [...] Date Provider Diagnosis Rony Roberts III, MD [address] [place] [address] [place] [address] 08/13/2025 Rony Roberts Unspecified fall, initial encounter [...] Provider Name:Rony Roberts , 10/11/2025 09:45:00 AM, [address] [place] [address] [address], [place], [address], Provider Name:Rony Roberts , 01/11/2026 02:00:00 PM, [address] [place] [address] [address], [place], [address], Progress Notes * Tj PAGEDOB: [birth year] (80 yo M)Acc No.[id number]:08/13/2025 Patient: Tj IVERSON Provider: Amador Roberts MD :1945 A ge:80 Y S ex:Male Date:08/13/2025 Address:[address] [place], [place] [id number] Subjective: * Chief Complaints: * F all [...] was sent in a wheelchair to the [place] emergency room for an urgent care and [...] cagle is , 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 He has a daughter and a 2 grandaughters and 2 grand sons. He was born in [place], [place]. * [facility]ations: [facility] - Strip One strip In [...] List reviewed and reconciled with the patientTaking Magentouch Ultra Test - Strip One strip In [...] MD Date: Generated for Roseann russ/Mahin/eTransmitting on: 11/26/2024 03:57 PM EST History and Physical Notes * Examination [...]
--- OUTSIDE RECORDS SUMMARY | 2025-08-14 04:05 | XMS_ITS ---
Author Organization Rony Roberts III, MD Address [address] [place] [address] [place] [address] Care Team Providers Care Salt Lifter Name Role Phone Dr. Rony Roberts III Primary Care Provider REASON FOR VISIT Message Social History Sex Assigned At : Social History Observation Description Sex Assigned At Male Encounters Encounter Location Date Provider Diagnosis Rony Roberts III, MD [address] [place] [address] [place] [address] 08/14/2025 Rony Roberts Plan Of Treatment Next Appt Details Provider Name:Rony Roberts , 10/11/2025 09:45:00 AM, [address] [place] [address] [place], [address], Provider Name:Rony Roberts , 01/11/2026 02:00:00 PM, [address] [place] [address] [place], [address], Progress Notes * Tj PAGEDOB: [birth year] (80 yo M)Acc No.[id number]:08/14/2025 Patient: Jona Tj HEREDIA :1945 A ge:80 Y S ex:Male Address:[address] [place] [phone] * Addendum: * 08/14/2025 1 0:07 AM ARCHANAT Neetu Lai RUSSIAN RUBBER > [address] Roberts called [facility] [phone] to make sure they received the information from the pt ER visit. they do have [facility] ER notes and X rays will be reviewed by Sheila Mishra and pt will be called with appt . Dr Roberts made aware of this * true * Date: Generated for Roseann russ/Mahin/eTransmitting on: 11/26/2024 03:57 PM EST
--- OUTSIDE RECORDS SUMMARY | 2025-08-15 09:25 | XMS_ITS ---
Author Organization Rony Roberts III, MD Address [address] [place] [address] [place] [address] Care Team Providers Care Potato Chip Packaging Machine Operator Name Role Phone Dr. Rony Roberts III Primary Care Provider [phone] REASON FOR VISIT Message Social History Sex Assigned At : Social History Observation Description Sex Assigned At Male Encounters Encounter Location Date Provider Diagnosis Rony Roberts III, MD [address] [place] [address] [place] [address] 08/15/2025 Rony Roberts Plan Of Treatment Next Appt Details Provider Name:Rony Roberts , 10/11/2025 09:45:00 AM, [address] [place] [address] [place], [address], Provider Name:Rony Roberts , 01/11/2026 02:00:00 PM, [address] [place] [address] [place], [address], Progress Notes * Tj PAGEDOB: [birth year] (80 yo M)Acc No.[id number]:08/15/2025 Patient: Jona Tj HEREDIA :1945 A ge:80 Y S ex:Male Address:[address] [place] [phone] * true * Date: Generated for Roseann russ/Mahin/Gagan on: 11/26/2024 03:56 PM EST
--- OUTSIDE RECORDS SUMMARY | 2025-08-22 11:06 | XMS_ITS ---
Author Organization Rony Roberts III, MD Address [address] [place] [address] [place] [address] Care Team Providers Care Associate Software Engineer Name Role Phone Dr. Rony Roberts III Primary Care Provider REASON FOR VISIT FYI Social History Sex Assigned At : Social History Observation Description Sex Assigned At Male Encounters Encounter Location Date Provider Diagnosis Rony Roberts III, MD [address] [place] [address] [place] [address] 08/22/2025 Rony Roberts Plan Of Treatment Next Appt Details Provider Name:Rony Roberts , 10/11/2025 09:45:00 AM, [address] [place] [address] [place], [address], Provider Name:Rony Roberts , 01/11/2026 02:00:00 PM, [address] [place] [address] [place], [address], Progress Notes * Tj PAGEDOB: [birth year] (80 yo M)Acc No.[id number]:08/22/2025 Patient: Jona Tj HEREDIA :1945 A ge:80 Y S ex:Male Address:[address] [place] [phone] * true * Date: Generated for Roseann russ/Mahin/Gagan on: 11/26/2024 03:58 PM EST
--- OUTSIDE RECORDS SUMMARY | 2025-08-30 04:34 | XMS_ITS ---
Author Organization Rony Roberts III, MD Address [address] [place] [address] [place] [address] Care Team Providers Care Chain Builder Loom Control Name Role Phone Dr. Rony Roberts III Primary Care Provider REASON FOR VISIT FYI Social History Sex Assigned At : Social History Observation Description Sex Assigned At Male Encounters Encounter Location Date Provider Diagnosis Rony Roberts III, MD [address] [place] [address] [place] [address] 08/30/2025 Rony Roberts Plan Of Treatment Next Appt Details Provider Name:Rony Roberts , 10/11/2025 09:45:00 AM, [address] [place] [address] [place], [address], Provider Name:Rony Roberts , 01/11/2026 02:00:00 PM, [address] [place] [address] [place], [address], Progress Notes * Tj PAGEDOB: [birth year] (80 yo M)Acc No.[id number]:08/30/2025 Patient: Jona Tj HEREDIA :1945 A ge:80 Y S ex:Male Address:[address] [place] [phone] * true * Date: Generated for Roseann russ/Mahin/Gagan on: 11/26/2024 03:55 PM EST
--- NOTE | 2025-09-26 08:25 | A.OFFVIS_ITS ---
Vital Signs 09/26/25 08:52 Height 5 ft 10 in Weight 179 lb BMI 25.7 Intake Visit Reasons: OV: Lt glenoid fx, DOI: 08/13/25 w xrays Intake Note: Tj is a 80 year old male who presents today as a new patient for an ER follow uo of left shoulder fracture, DOI 08/13/25. At his last he was instructed to discontinue the use of the sling, he was given a prescription for Celebrex and Tylenol to help. He will follow up in 4-6 weeks with x-rays. Today patient reports his shoulder is doing well, states that he has a few questions for the provider. Allergies morphine Allergy (Unknown, Verified 09/26/25 08:52) hallucinations Medication List - Last Reconciled 09/26/25 by ANTHONY Ruiz-Hank acetaminophen 650 mg (2 x 325 mg) PO Q4-6H PRN 30 days amlodipine 5 mg PO DAILY atorvastatin 80 mg PO DAILY blood sugar diagnostic As directed blood sugar diagnostic (Shogetheruch Ultra Test strips) USE TO TEST BLOOD SUGAR TWICE DAILY blood sugar diagnostic As directed blood-glucose meter ([employer]ogetheruch Ultra2 Meter kit) As directed celecoxib (Celebrex) 200 mg PO BID 30 days empagliflozin 25 mg PO DAILY irbesartan 150 mg PO DAILY metformin 500 mg PO BID multivitamin 1 tab PO DAILY omega-3 fatty acids (Fish Oil Concentrate) 1,000 mg PO TID pen needle, diabetic As directed semaglutide (Ozempic) 0.5 mg (0.374 mL) subcut QWEEK 4 doses tamsulosin 0.4 mg PO DAILY trazodone 100 mg PO BEDTIME HPI HPI OV: Lt glenoid fx, DOI: 08/13/25 w xrays: Details: 80-year-old gentleman returns to the office today for a left glenoid fracture. Date of injury 08/13/2025. The patient denies pain. He has been doing most activities without limitations but using caution if there is any lifting involved. [facility] Medical History Melanoma Degenerative disc disease, lumbar Back pain HLD (hyperlipidemia) HTN (hypertension) T2DM (type 2 diabetes mellitus) Surgical History H/O colonoscopy History of adenectomy History of excision of pilonidal cyst History of left hip replacement Hx of appendectomy Hx of tonsillectomy Family History Father Congestive heart failure Mother Aneurysm Sister Cancer Social History Alcohol intake: current Alcohol intake frequency: holidays/special occasions only Comment: 2-3 a month Patient Tobacco Use Status: Former Tobacco user Cigarette Packs Per Day: 2 Years Smoked: 20 Review of Systems Const All systems reviewed & are unremarkable except as noted in HPI and below Physical Exam Vital Signs: BMI result Body Mass Index 25.7 Const General: cooperative and no acute distress Orientation/consciousness: patient oriented x3 Resp Effort & Inspection: normal respiratory effort and able to speak in complete sentences Cardio Peripheral pulses: Peripheral pulses 2+ throughout Neuro General: patient oriented x3 Extrem Other: Left shoulder is normal to inspection he has full range of motion in all planes. No tenderness to palpation. Neurovascularly intact. Results Reviewed Results Reviewed: X-rays of the left shoulder obtained in the office today and reviewed by me show evidence of glenoid fracture with stability Assessment & Plan Assessment & Plan (1) Fracture of glenoid cavity of left scapula: Code(s): S42.142A - Displaced fracture of glenoid cavity of scapula, left shoulder, initial encounter for closed fracture Category: Medical Qualifiers: Encounter type: subsequent encounter Fracture type: closed Fracture alignment: displaced Fracture healing: with routine healing Qualified Code(s): S42.142D - Displaced fracture of glenoid cavity of scapula, left shoulder, subsequent encounter for fracture with routine healing Plan: I explained to the patient and his he can begin to advance activities as tolerated continuing to use caution with any lifting activities. He states he does not do heavy lifting pushing pulling or carrying. He would like to resume his stretching exercises which I think it is safe to do so. He has been taking Tylenol and Celebrex on occasion for discomfort. I did educate him on the use of Celebrex and other anti-inflammatories and how they should be used occasionally. If they are use terminal gauger he should follow up with his primary for routine kidney function testing. The patient does express understanding. He was given a handout for some home rotator cuff strengthening exercises. If he would like a formal physical therapy referral he will call me to obtained. Otherwise he will follow up as needed. Orders: Orders XR shoulder LT min 2V Today M25.512 - Pain in left shoulder Coding Level of Care Code Global (95841) Diagnoses Closed displaced fracture of glenoid cavity of left scapula with routine healing, subsequent encounter S42.142D Encounter type: subsequent encounter Fracture type: closed Fracture alignment: displaced Fracture healing: with routine healing
[2025-09-26 08:52] VITALS: BMI 25.7
--- OUTSIDE RECORDS SUMMARY | 2025-09-26 15:56 | XMS_ITS | Encounter Summary ---
Author Organization [facility] Address [address] [address] Phone Care Team Providers Care Crown Perforator Operator Name Role Phone Rony Roberts MD Unavailable [phone] Bobby Pedraza DO Primary Care Provider [phone] Fabi Snell MACHINE ROOM ENGINEER Unavailable [phone] Encounter Details Date Type Department Care Team (Late st Contact Info) Description 04/28/2017 Procedure Pass Jennifer Lank Imaging Department, [facility] [place], [place] [address] [facility], Floor [address]1 [place] [address] Social History Tobacco Use Types Packs/Day Years [...] on filedocumented in this encounter Care Teams Crown Perforator Operator Relationship Specialty Start Date End Date Bobby Pedraza DO [address] [place] [id number] PCP - General Internal Medicine 03/30/16 Rony Roberts MD [address] [place] [address] [place] [address] Referring Physician Internal Medicine 02/03/16 Fabi Snell MACHINE ROOM ENGINEER [address] [place] [address] [place] [address] [email or web address] 04/28/17 05/24/18 documented as of this encounter Additional Source Comments The information contained in this document represents components of the legal health record. It is not the complete legal health record.[facility]
--- OUTSIDE RECORDS SUMMARY | 2025-09-26 15:56 | XMS_ITS | Encounter Summary ---
Author Organization [facility] Address [address] [address] Phone Care Team Providers Care Mainframe Software Developer Name Role Phone Rony Roberts MD Unavailable [phone] Bobby Pedraza DO Primary Care Provider [phone] Fabi Snell OUTPATIENT CASE MANAGER Unavailable [phone] Encounter Details Date Type Department Care Team (Late st Contact Info) Description 04/28/2017 Procedure Pass Jennifer Lank Imaging Department, [facility] [place], [place] [address] [facility], Floor [address]1 [place] [address] Social History Tobacco Use Types Packs/Day Years [...] on filedocumented in this encounter Care Teams Mainframe Software Developer Relationship Specialty Start Date End Date Bobby Pedraza DO [address] [place] [address] [phone] PCP - General Internal Medicine 03/30/16 Rony Roberts MD [address] [place] [address] [place] [address] Referring Physician Internal Medicine 02/03/16 Fabi Snell OUTPATIENT CASE MANAGER [address] [place] [address] [place] [address] [email or web address] 04/28/17 05/24/18 documented as of this encounter Additional Source Comments The information contained in this document represents components of the legal health record. It is not the complete legal health record.[facility]
--- OUTSIDE RECORDS SUMMARY | 2025-09-26 15:57 | XMS_ITS | Encounter Summary ---
Author Organization [facility] Address [address] [address] Phone Care Team Providers Care Sales And Marketing Executive Name Role Phone Rony Roberts MD Unavailable [phone] Bobby Pedraza DO Primary Care Provider [phone] Fabi Snell ASSET COORDINATOR Unavailable [phone] Encounter Details Date Type Department Care Team (Late st Contact Info) Description 11/24/2017 Procedure Pass Jennifer Lank Imaging Department, [facility] [place], MRI [address] [facility], Floor [address] [place] [address] Social History Tobacco Use Types Packs/Day Years [...] on filedocumented in this encounter Care Teams Sales And Marketing Executive Relationship Specialty Start Date End Date Bobby Pedraza DO [address] [place] [address] [phone] PCP - General Internal Medicine 03/30/16 Rony Roberts MD [address] [place] [address] [place] [address] Referring Physician Internal Medicine 02/03/16 Fabi Snell ASSET COORDINATOR [address] [place] [address] [place] [address] [email or web address] 04/28/17 05/24/18 documented as of this encounter Additional Source Comments The information contained in this document represents components of the legal health record. It is not the complete legal health record.[facility]
--- OUTSIDE RECORDS SUMMARY | 2025-09-26 15:57 | XMS_ITS | Encounter Summary ---
Author Organization [facility] Address [address] [address] Phone Care Team Providers Care Mail List Librarian Name Role Phone Rony Roberts MD Unavailable [phone] Bobby Pedraza DO Primary Care Provider [phone] Fabi Snell LAPIDARY APPRENTICE Unavailable Encounter Details Date Type Department Care Team (Late st Contact Info) Description 11/24/2017 Procedure Pass Jennifer Lank Imaging Department, [facility] [place], [place] [address] [facility], Floor [address] [place] [address] Social History Tobacco Use Types Packs/Day Years [...] on filedocumented in this encounter Care Teams Mail List Librarian Relationship Specialty Start Date End Date Bobby Pedraza DO [address] [place] [address] [phone] PCP - General Internal Medicine 03/30/16 Rony Roberts MD [address] [place] [address] [place] [address] Referring Physician Internal Medicine 02/03/16 Fabi Snell LAPIDARY APPRENTICE [address] [place] [address] [place] [address] [email or web address] 04/28/17 05/24/18 documented as of this encounter Additional Source Comments The information contained in this document represents components of the legal health record. It is not the complete legal health record.[facility]
--- OUTSIDE RECORDS SUMMARY | 2025-09-26 15:57 | XMS_ITS | Encounter Summary ---
Author Organization [facility] Address [address] [address] Phone Care Team Providers Care Legal Executive Name Role Phone Rony Roberts MD Unavailable [phone] Bobby Pedraza DO Primary Care Provider [phone] Fabi Snell FOOD TECHNICIAN Unavailable [phone] Encounter Details Date Type Department Care Team (Late st Contact Info) Description 11/24/2017 Procedure Pass Jennifer Lank Imaging Department, [facility] [place], [place] [address] [facility], [address] [place] [address] Social History Tobacco Use Types Packs/Day Years [...] on filedocumented in this encounter Care Teams Legal Executive Relationship Specialty Start Date End Date Bobby Pedraza DO [address] [place] [address] [phone] PCP - General Internal Medicine 03/30/16 Rony Roberts MD [address] [place] [address] [place] [address] Referring Physician Internal Medicine 02/03/16 Fabi Snell FOOD TECHNICIAN [address] [place] [address] [place] [address] [email or web address] 04/28/17 05/24/18 documented as of this encounter Additional Source Comments The information contained in this document represents components of the legal health record. It is not the complete legal health record.[facility]
--- OUTSIDE RECORDS SUMMARY | 2025-09-26 15:58 | XMS_ITS | Patient Health Record ---
Author Organization [facility] Address [address] [place] [id number] Care Team Providers Care Hazard Mitigation Officer Name Role Phone Rony Roberts MD Primary Care Provider Eduardo Tomlinson Jr Unavailable Allergies Allergen (clinical drug ingredient) Drug/Non Drug Allergy documented on EMR Reaction Allergy Type Onset Date Status morphine Morphine Sulfate Unknown Drug Allergy Active Reason For Referral No Information Medications Medication SIG (Take, Route, Frequency, Duration) Notes Start Date End Date Status MiraLax (colon prep) 17 GM/SCOOP Powder mixed with Gatorade or Crystal Light Orally begin at 5:00 p.m. the day before the procedure; Duration: 1 day 01/10/2024 Active Atorvastatin Calcium 80 MG Tablet 1 tablet Orally Once a day; Duration: 30 day(s) Active Tamsulosin HCl 0.4 MG Capsule Extended Release as directed Orally Active Ozempic (1 MG/DOSE) 2 MG/1.5ML Solution Pen-injector as directed Subcutaneous Act vanessa Irbesartan 150 MG Tablet 1 tablet Orally Once a day Active amLODIPine Besylate 5 MG Tablet 1 tablet Orally Once a day Active Vitamin C & D3/Kaye Hips 500-1000-20 MG-UNIT-MG Capsule as directed Orally Active metFORMIN HCl ER 500 MG Tablet Extended Release 24 Hour 1 tablet with evening meal Orally twice a day Active Vision Formula - Tablet as directed Orally Active glipiZIDE XL 2.5 MG Tablet Extended Release 24 Hour 1 tablet Orally Once a day Active Multi Vitamin - Tablet 1 tablet Orally O nce a day; Duration: 30 day(s) Active Fish Oil 1000 MG Capsule 1 capsule Orall y Three times a day; Duration: 30 day(s) Active Zinc 50 MG Tablet 1 tablet Orally Once a day; Duration: 30 day(s) Active Empagliflozin 25 MG Tablet 1 tablet Oral ly Once a day; Duration: 30 day(s) Active Immunizations Vaccine Route Administration Date Status Comme nts Flu vaccine no Preserv 3 and > Unknown 08/08/2014 Admin istered Flu vaccine no Preserv 3 and > Unknown 07/20/2017 Admin istered Influenza Unknown 01/10/2024 Refused Social History Social History Additional Details Category Social Info Options Details Miscellaneous: Marital status: Occupation: retired Problems Problem Type SNOMED Code ICD Code Onset Dates Problem Status W/U Status Risk Notes Problem Colon cancer screening (052895429) Colon cancer screening (Z12.11) Active confirmed Problem History of polyp of colon (situation) (181195040) Personal history of colonic polyps (Z86.010) Active confirmed Problem Long-term current use of antiplatelet drug (799105957299830 ) Long-term use of aspirin therapy (Z79.82) Active confirmed Problem Long-term current use of drug therapy (609564529) Long-term current use of high risk medication other than anticoagulant (Z79.899) Active confirmed Problem Long-term current use of drug therapy (900118696) shelter (current) use of oral hypoglycemic drugs (Z79.84) Active confirmed Plan Of Treatment Future Test Test Name Order Date COLONOSCOPY 01/02/2015 COLONOSCOPY 05/27/2018 COLONOSCOPY 01/10/2024 Insurance Providers Payer Name Payer Address Payer Phone Subscriber Number Group Number Insured Name Patient Relationship to Insured Coverage Start Date Coverage End Date MEDICARE OF [place] [address] [place] [id number] DESILETS , VINCENT Self - patient is the insured [employer] ATT[employer] CLAIMS [address] [place] [address] [id number] DESILETS , VINCENT Self - patient is the insured Medical (General) History Medical History History ICD Code Hypertension Diabetes mellitus Colonoscopy, 09/25, tubular adenoma, fiv e-year followup Hyperlipidemia Low back pain, degenerative disc disease Melanoma Surgical History Surgery Date(Month/Year) appendectomy tonsillectomy pilonidal cyst excision left hip replacement 2009
--- OUTSIDE RECORDS SUMMARY | 2025-09-26 15:58 | XMS_ITS | Patient Health Record ---
Author Organization Rony Roberts III, MD Address [address] [address] Care Team Providers Care Pleat Taper Name Role Phone Dr. Rony Roberts III Primary Care Provider Allergies Allergen (clinical drug ingredient) Drug/Non Drug Allergy documented on EMR Reaction Allergy Type Onset Date Status morphine Morphine Sulfate Unknown Drug Allergy Active Results Component Value Reference Range Notes Lipid Panel Reviewed date:01/08/2025 03:16:11 PM Interpretation: Performing Lab:[facility], [address] [place] [address] Notes/Report: Triglycerides 45 <150 mg/dL Desirable Triglyceride: [...] A1c Reviewed date:01/08/2025 03:16:12 PM Interpretation: Performing Lab:[address] [address] Notes/Report: Hemoglobin A1c % 6.9 <6.0 % [...] average glucose, using the formula of the G0X-Wbhwbzy Average Glucose study (ADAG), Diabetes Care, Vol.31,#8, Jun. 2007 Diabetic Eye Exam Reviewed date:01/09/2025 03:19:12 PM Interpretation:undefined Performing Lab: Notes/Report: undefined Complete Blood Count Auto Di ff Reviewed date:01/08/2025 03:16:11 PM Interpretation: Performing Lab:[facility], [address] [place] [address] Notes/Report: White Blood Count 6.0 4.8-10.8 X10*3/uL [...] NRBC Abs Auto 0.000 0.0-0.012 X10*3/uL [facility] [place]. Panel Fa st Reviewed date:01/08/2025 03:16:11 PM Interpretation: Performing Lab:[address] [address] Notes/Report: Sodium 139 135-145 mmol/L Potassium 4.3 [...] Antigen Reviewed date:01/08/2025 03:16:11 PM Interpretation: Performing Lab:[address] [address] Notes/Report: Prostate Specific Antigen 2.29 <0.05-4.0 ng/mL PSA methodology: Nath Alinity i Chemiluminescent Microparticle Immunoassay (CMIA) Microalbumin, Random Reviewed date:01/08/2025 03:16:11 PM Interpretation: Performing Lab:[facility], [address] [place] [address] Notes/Report: Creatinine Urine 63.90 Microalbumin Urine 10.0 Microalbum/Creatinine Ratio Ur 15.6 <30 ug/mg cr Albumin/Creatinine Ratio Reference Ranges: Normal: < 30 ug/mg creatinine Microalbuminuria: 30 - 300 ug/mg creatinine Clinical Albuminuria: > 300 ug/mg creatinine Complete Blood Count Auto Di ff Reviewed date:04/03/2025 03:31:57 PM Interpretation: Performing Lab:[facility], [address] [place] [address] Notes/Report: White Blood Count 6.7 4.8-10.8 X10*3/uL [...] NRBC Abs Auto 0.000 0.0-0.012 X10*3/uL [facility] [place]. Panel Fa Reviewed date:04/03/2025 03:31:57 PM Interpretation: Performing Lab:[facility], [address] [place] [address] Notes/Report: Sodium 140 135-145 mmol/L Potassium 4.2 [...] Panel Reviewed date:04/03/2025 03:31:57 PM Interpretation: Performing Lab:[facility], [address] [place] [address] Notes/Report: Triglycerides 66 <150 mg/dL Desirable Triglyceride: [...] Antigen Reviewed date:04/03/2025 03:31:57 PM Interpretation: Performing Lab:[facility], [address] [place] [address] Notes/Report: Prostate Specific Antigen 3.34 <0.05-4.0 ng/mL PSA methodology: Nath Alinity i Chemiluminescent Microparticle Immunoassay (CMIA) Complete Blood Count Auto Di ff Reviewed date:07/10/2025 04:49:00 AM Interpretation: Performing Lab:[facility], [address] [place] [address] Notes/Report: White Blood Count 5.4 4.8-10.8 X10*3/uL [...] NRBC Abs Auto 0.000 0.0-0.012 X10*3/uL [facility] [place]. Panel Fa Reviewed date:07/10/2025 04:49:00 AM Interpretation: Performing Lab:[facility], [address] [place] [address] Notes/Report: Sodium 138 135-145 mmol/L Potassium 4.3 [...] Panel Reviewed date:07/10/2025 04:49:00 AM Interpretation: Performing Lab:[facility], [address] [place] [phone] Notes/Report: Triglycerides 112 <150 mg/dL Desirable Triglyceride: [...] Antigen Reviewed date:07/10/2025 04:49:00 AM Interpretation: Performing Lab:[facility], [address] [place] [address] Notes/Report: Prostate Specific Antigen 2.83 <0.05-4.0 ng/mL PSA methodology: Nath Alinity i Chemiluminescent Microparticle Immunoassay (CMIA) Microalbumin, Random Reviewed date:07/10/2025 04:49:00 AM Interpretation: Performing Lab:[facility], [address] [place] [address] Notes/Report: Creatinine Urine 54.99 Microalbumin Urine 6.0 Microalbum/Creatinine Ratio Ur 10.9 <30 ug/mg cr Albumin/Creatinine Ratio Reference Ranges: Normal: < 30 ug/mg creatinine Microalbuminuria: 30 - 300 ug/mg creatinine Clinical Albuminuria: > 300 ug/mg creatinine Hemoglobin A1c Reviewed date:07/10/2025 04:49:00 AM Interpretation: Performing Lab:[facility], [address] [place] [address] Notes/Report: Hemoglobin A1c % 7.3 <6.0 % [...] average glucose, using the formula of the F4Q-Adiyylw Average Glucose study (ADAG), Diabetes Care, Vol.31,#8, Jun. 2007 CT cervical spine wo con Reviewed date:08/18/2025 06:22:24 AM Interpretation: Performing Lab: Notes/Report: [address] [place] [address] CT Scan Report Signed Patient: Tj Page MR#: [id number] : 1945 Acct:[id number] Age/Sex: 80 / M ADM Date: 08/13/25 Loc: HO.ED Attending Dr: Ordering Physician: Valdemar Li Date of Service: 08/13/25 Procedure(s): CT cervical spine wo IV con Accession Number(s): [id number] cc: Valdemar Li; Rony Robetrs MD Report Number: [id number]: Total DLP = 0.00 mGy-cm Reason for [...] Mild to moderate bilateral neural foraminal narrowing, znuy-nwowbvz-izvj-right. C6-C7: Anterior marginal osteophytes. Loss of disc space height. Uncovertebral joint hypertrophy. Mild right neural foraminal narrowing. IMPRESSION: 1. No evidence of acute injury to the cervical spine. This document has been electronically signed by: Evelio Purcell MD on 08/13/2025 17:44:46 Dictated By: Evelio Purcell MD Signed By: <Electronically signed by Evelio Purcell MD in OV> 08/13/251745 DD/ 43 TD/TT: 08/13/251743 Customer Leader: [address] [address] [address] Scan Report Signed Patient: Tj Page MR#: [id number] : 1945 Acct:[id number] Age/Sex: 80 / M ADM Date: 08/13/25 Loc: HO.ED Attending Dr: Ordering Physician: Valdemar Li Date of Service: 08/13/25 Procedure(s): CT cervical spine wo IV con Accession Number(s): [id number] cc: Valdemar Li; Rony Roberts MD Report Number: [id number]: Total DLP = 0.00 mGy-cm Reason for [...] Mild to moderate bilateral neural foraminal narrowing, xfpg-ksulwtq-poqw-right . C6-C7: Anterior marginal osteophytes. Loss of disc space height. Uncovertebral joint hypertrophy. Mild right neural foraminal narrowing. IMPRESSION: 1. No evidence of ac [place] injury to the cervical spine. This document has be en electronically signed by: Evelio Purcell MD on 08/13/2025 17:44:46 Dictated By: Evelio Purcell MD Signed By: <Electronically signed by Evelio Purcell MD in OV> 08/13/251745 DD/ 43 TD/TT: 08/13/251743 Customer Leader: CT chest cierra con Reviewed date:08/18/2025 06:22:24 AM Interpretation: Performing Lab: Notes/Report: [address] [address] [address] Scan Report Signed Patient: Tj Page MR#: [id number] : 1945 Acct:[id number] Age/Sex: 80 / M ADM Date: 08/13/25 Loc: HO.ED Attending Dr: Ordering Physician: Valdemar Li Date of Service: 08/13/25 Procedure(s): CT chest wo IV con Accession Number(s): [id number] cc: Valdemar Li; Rony Roberts MD Report Number: [id number]: Total DLP = 0.00 mGy-cm Reason for [...] in OV> 08/13/251754 DD/ 52 TD/TT: 08/13/251752 Customer Leader: [place] [address] CT Scan Report Signed Patient: Tj Page MR#: [id number] : 1945 Acct:[id number] Age/Sex: 80 / M ADM Date: 08/13/25 Loc: HO.ED Attending Dr: Ordering Physician: Valdemar Li Date of Service: 08/13/25 Procedure(s): CT ned st wo IV con Accession Number(s): [id number] cc: Valdemar Li; Rony Roberts MD Report Number: [id number]: Total DLP = 0.00 mGy-cm Reason for [...] the abdomen and pelvis performed at the [facility] e time. Normal vertebral bod y alignment. [...] in OV> 08/13/251754 DD/ 52 TD/TT: 08/13/251752 Customer Leader: CT head/brain wo con Reviewed date:08/18/2025 06:22:24 AM Interpretation: Performing Lab: Notes/Report: [facility] [address] [place] [address] CT Scan Report Signed Patient: Tj Page MR#: [id number] : 1945 Acct:[id number] Age/Sex: 80 / M ADM Date: 08/13/25 Loc: HO.ED Attending Dr: Ordering Physician: Valdemar Li Date of Service: 08/13/25 Procedure(s): CT head/brain wo IV con Accession Number(s): [id number] cc: Valdemar Li; Rony Roberts MD Report Number: [id number]: Total DLP = 0.00 mGy-cm Reason for [...] in OV> 08/13/251755 DD/ 53 TD/TT: 08/13/251753 Customer Leader: [facility] [address] [place] [address] [address] [address] Scan Report Signed Patient: Tj Page MR#: [id number] : 1945 Acct:[id number] Age/Sex: 80 / M ADM Date: 08/13/25 Loc: HO.ED Attending Dr: Ordering Physician: Valdemar Li Date of Service: 08/13/25 Procedure(s): CT head/brain wo IV con Accession Number(s): [id number] cc: Valdemar Li; Rony Roberts MD Report Number: [id number]: Total DLP = 0.00 mGy-cm Reason for [...] present bilaterally. No CT evidence of ac [place] infarct. The ventricles are proportional with the [...] in OV> 08/13/251755 DD/ 53 TD/TT: 08/13/251753 Customer Leader: CT abdomen pelvis wo con Reviewed date:08/18/2025 06:22:24 AM Interpretation: Performing Lab: Notes/Report: [place] [address] CT Scan Report Signed Patient: Tj Page MR#: [id number] : 1945 Acct:[id number] Age/Sex: 80 / M ADM Date: 08/13/25 Loc: HO.ED Attending Dr: Ordering Physician: Valdemar Li Date of Service: 08/13/25 Procedure(s): CT abdomen pelvis wo IV con Accession Number(s): [id number] cc: Valdemar Li; Rony Roberts MD Report Number: [id number]: Total DLP = 0.00 mGy-cm Reason for [...] in OV> 08/13/251744 DD/ 43 TD/TT: 08/13/251743 Customer Leader: [address] [address] [address] Scan Report Signed Patient: Tj Page MR#: [id number] : 1945 Acct:[id number] Age/Sex: 80 / M ADM Date: 08/13/25 Loc: HO.ED Attending Dr: Ordering Physician: Valdemar Li Date of Service: 08/13/25 Procedure(s): CT abdomen pelvis wo IV con Accession Number(s): [id number] cc: Valdemar Li; Rony Roberts MD Report Number: [id number]: Total DLP = 0.00 mGy-cm Reason for [...] 08/13/25 1745 DD/ 1744 TD/TT: 08/13/25 1744 Customer Leader: XR femur LT 2V Reviewed date:08/18/2025 06:22:24 AM Interpretation: Performing Lab: Notes/Report: [address] [address] XRay Report Signed Patient: Tj Page MR#: [id number] : 1945 Acct:[id number] Age/Sex: 80 / M ADM Date: 08/13/25 Loc: HO.ED Attending Dr: Ordering Physician: Valdemar Li Date of Service: 08/13/25 Procedure(s): XR femur LT 2V Accession Number(s): [id number] cc: Valdemar Li; Rony Roberts MD Reason [...] 08/13/25 1659 DD/ 1630 TD/TT: 08/13/25 1640 Customer Leader: [address] [address] XRay Report Signed Patient: Tj Page MR#: [id number] : 1945 Acct:[id number] Age/Sex: 80 / M ADM Date: 08/13/25 Loc: HO.ED Attending Dr: Ordering Physician: Valdemar Li Date of Service: 08/13/25 Procedure(s): XR fem ur LT 2V Accession Number(s): [id number] cc: Valdemar Li; Rony Roberts MD Reason [...] 08/13/25 1659 DD/ 1630 TD/TT: 08/13/25 1640 Customer Leader: XR shoulder LT min 2V Reviewed date:08/18/2025 06:22:24 AM Interpretation: Performing Lab: Notes/Report: [address] [address] XRay Report Signed Patient: Tj Page MR#: [id number] : 1945 Acct:[id number] Age/Sex: 80 / M ADM Date: 08/13/25 Loc: HO.ED Attending Dr: Ordering Physician: Valdemar Li Date of Service: 08/13/25 Procedure(s): XR shoulder LT min 2V Accession Number(s): [id number] cc: Valdemar Li; Rony Roberts MD Reason [...] 08/13/25 1657 DD/ 1629 TD/TT: 08/13/25 1640 Customer Leader: [place] [address] XRay Report Signed Patient: Tj Page MR#: [id number] : 1945 Acct:[id number] Age/Sex: 80 / M ADM Date: 08/13/25 Loc: HO.ED Attending Dr: Ordering Physician: Valdemar Li Date of Service: 08/13/25 Procedure(s): XR shoulder LT min 2V Accession Number(s): [id number] cc: Valdemar Li; Rony Roberts MD Reason [...] 08/13/25 1657 DD/ 1629 TD/TT: 08/13/25 1640 Customer Leader: Reason For Referral Reason evaluation and treat ment back pain for 12 months DJD and DDD Diagnosis 1 Back pain (M54.9) Referral Organization Rony Roberts III, MD Referring Provider First Name Rony Referring Provider Last Name Armando Referring Provider Speciality Internal M edicine Referred Provider Spine and Sp ann marie [place] Referred Provider Specialty Physical Med icine General Notes Joelle Neetuvicente VELASCO 01/15 11:03:02 AM > ref/demo/progress note and [facility] aware of this, Joelle Neetuvicente VELASCO 01/16/2025 03:33:07 PM >Called [facility] pt has appt with Dr Traore on [...] Status W/U Status Risk Notes Problem Obesity (583561582) Obesity (278.00) Active confirmed We discussed a healthy diet gradually reduction in weight watchers and portion control. Problem 6653994 Former smoker (Z87.891) Active confirmed He is highly motivated not to smoke and we have discussed strategies for maintenance of abstinence in time of illness distress. Problem 627086217 Overweight (E66.3) Active confirmed He has lost 9 pounds and his body mass index is 26. We reviewed diet and nutrition today. We made a plan to continue weight loss until his BMI is in the normal range. Problem 21571104 Diabetes mellitus (E11.9) Active confirmed His hemoglobin A1c has increased from 6.9-7.3. His fasting glucose is 119. He has lost weight. He admits to dietary indiscretions but says he is now back on the wagon. Problem 93103301 Unspecified fall, initial encounter (W19.XXXA) Active confirmed He tripped on t he stair well. He did not lose consciousness or chest pain. There was no vertigo. Problem 49058067 Essential hypertension (I10) Active confirmed His blood pressure is currently stable. The current regimen was continued. 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 No additional treatment is recommended today. Problem 82860218 Colonic polyp (K63.5) Active confirmed He will continu e to have his colonoscopies at the appropriate intervals. Problem 604383119 Metastatic malignant melanoma (C79.9) Active confirmed There was no si gn of a new primary melanoma or recurrent melanoma in any location on today's examination. Problem Shoulder joint pain (334302012) Shoulder pain, left (M25.512) Active confirmed He has had a mild pain in his shoulder for over a year but it is recently become worse. It is likely arthritic or inflammatory but x-rays have been ordered. He will use ibuprofen and a heating pad. If necessary he will be referred for injections. Problem 54766909 Age-related cataract of both eyes, unspecified age-related cataract type (H25.9) Active confirmed He is medically cleared for both operations. If necessary, he'll be seen before the first procedure. The rrisk is small and the benefit is great. He is given medical clearance. Problem 518366356 Benign prostatic hyperplasia, unspecified whether lower urinary tract symptoms present (N40.0) Active confirmed He rises from sleep twice a night to urinate. We discussed lifestyle modification has a way of reducing nocturia.His prostatism is stable. Problem 184729751 Obstipation (K59.00) Active confirmed He will use MiraLax and milk of magnesia and senna. He will also is fleets enemas. Problem 031644474 Closed fracture of left shoulder, initial encounter [...] Date Provider Diagnosis Rony Roberts III, MD [address] [place] [address] [place] [address] 01/09/2025 Rony Roberts Benign prostatic hyperplasia, unspecified whether lower urinary tract symptoms present N40.0 ; Metastatic malignant melanoma C79.9 ; Essential hypertension I10 ; Overweight E66.3 ; Diabetes mellitus E11.9 ; Peripheral neuropathy G62.9 ; Age-related cataract of both eyes, unspecified age-related cataract type H25.9 and Former smoker Z87.891 Rony Roberts III, MD [address] [place] [address] [place] [address] 02/06/2025 Rony Roberts Benign prostatic hyperplasia, unspecified whether lower urinary tract symptoms present N40.0 ; Metastatic malignant melanoma C79.9 ; Former smoker Z87.891 ; Diabetes mellitus E11.9 ; Essential hypertension I10 ; Shoulder pain, left M25.512 ; Overweight E66.3 and Recurrent low back pain M54.50 Rony Roberts III, MD [address] [place] [address] [place] [address] 04/11/2025 Rony Roberts Benign prostatic hyperplasia, unspecified whether lower urinary tract symptoms present N40.0 ; Metastatic malignant melanoma C79.9 ; Diabetes mellitus E11.9 ; Overweight E66.3 ; Essential hypertension I10 ; Former smoker Z87.891 ; Shoulder pain, left M25.512 and Peripheral neuropathy G62.9 Rony Roberts III, MD [address] [place] [address] [place] [address] 07/12/2025 Rony Roberts Benign prostatic hyperplasia, unspecified whether lower urinary tract symptoms present N40.0 ; Metastatic malignant melanoma C79.9 ; Diabetes mellitus E11.9 ; Essential hypertension I10 ; Former smoker Z87.891 and Overweight E66.3 Rony Roberts III, MD [address] [place] [address] [place] [address] 08/13/2025 Rony Roberts Unspecified fall, initial encounter W19.XXXA ; Benign prostatic hyperplasia, unspecified whether lower urinary tract symptoms present N40.0 ; Closed fracture of left shoulder, initial encounter S42.92XA ; Essential hypertension I10 ; Obesity 278.00 ; Former smoker Z87.891 ; Diabetes mellitus E11.9 and Peripheral neuropathy G62.9 Rony Roberts III, MD [address] [place] [address] [place] [address] 01/04/2025 Rony Roberts Essential hypertensi on I10 ; Diabetes mellitus E11.9 ; Benign prostatic hyperplasia, unspecified whether lower urinary tract symptoms present N40.0 and Overweight E66.3 Rony Roberts III, MD [address] [place] [address] [place] [address] 01/09/2025 Rony Roberts III, MD [address] [place] [address] [place] [address] 01/15/2025 Rony Roberts III, MD [address] [place] [address] [place] [address] 02/07/2025 Rony Roberts III, MD [address] [place] [address] [place] [address] 06/02/2025 Rony Roberts III, MD [address] [place] [address] [place] [address] 08/14/2025 Rony Roberts III, MD [address] [place] [address] [place] [address] 08/15/2025 Rony Roberts III, MD [address] [place] [address] [place] [address] 08/22/2025 Rony Roberts III, MD [address] [place] [address] [place] [address] 08/30/2025 Rony Roberts Assessments Encounter Date Diagnosis (ICD Code) Assessment Notes Treatment Notes Treatment Clinical Notes 01/09/2025 Metastatic malignant melanoma (ICD-10 - C79.9) [...] vertigo. 01/04/2025 Essential hypertension (ICD-10 - I10) 01/09/2025 Essential hypertension (ICD-10 - I10) His [...] orthopedics. 01/04/2025 Diabetes mellitus (ICD-10 - E11.9) 01/09/2025 Overweight (ICD-10 - E66.3) His body [...] urinary tract symptoms present (ICD-10 - N40.0) 01/09/2025 Diabetes mellitus (ICD-10 - E11.9) His [...] portion control. 01/04/2025 Overweight (ICD-10 - E66.3) 01/09/2025 Peripheral neuropathy (ICD-10 - G62.9) Diabetic [...] Name:Rony Roberts , 10/11/2025 09:45:00 AM, [address] [facility] [place], [place], [address], Provider Name:Rony Roberts , 01/11/2026 02:00:00 PM, [address] [facility] [place], [place], [address], Insurance Providers Payer Name Payer Address Payer Phone Subscriber Number Group Number Insured Name Patient Relationship to Insured Coverage Start Date Coverage End Date MEDICARE NGS [address] [place] [address] [id number] Desilets , Vincent Self - patient is the insured [facility] [address] [place], [place] [id number] Desilets , Vincent Self - patient [...]
--- OUTSIDE RECORDS SUMMARY | 2025-09-26 15:58 | XMS_ITS | Clinical Summary ---
Author Organization [facility] Address [address] [address] Phone Care Team Providers Care Cable Swager Name Role Phone Rony Roberts MD Unavailable [phone] Bobby Pedraza DO Primary Care Provider [phone] Allergies Active Allergy Reactions Criticality Noted Date [...] patient's age to complete this topic IPV VACCINES Aged Out No longer eligi ble [...] Date/Time Associated Diagnosis Comments BASIC METABOLIC PANEL (BMP) Routine 05/25/2018 6:38 AM EDT Malignant melanoma, unspecified site HISTORICAL LAB Routine 10/24/2011 9:48 AM EST HISTORICAL LAB Routine 01/13/2011 10:44 AM EST from Last 3 Months or Most Recently Relevant to Health Maintenance Results * (ABNORMAL) Basic metabolic panel (05/25/2018 6:38 AM EDT) SODIUM 139 135 - 145 mmol/L [facility] LIC# [id number] Comment:SLT HEMOLYSIS CHLORIDE 105 98 - 108 mmol/L [facility] LIC# [id number] Comment:SLT HEMOLYSIS POTASSIUM 5.0 3.5 - 5.0 mmol/L [facility] LIC# [id number] Comment:SLT HEMOLYSIS CO2 23 23 - 32 mmol/L [facility] LIC# [id number] Comment:SLT HEMOLYSIS BUN 21 9 - 25 mg/dL [facility] LIC# [id number] Comment:SLT HEMOLYSIS CREATININE 0.72 0.7 - 1.3 mg/dL [facility] LIC# [id number] Comment:SLT HEMOLYSIS GLUCOSE 154(H) 70 - 100 mg/dL [facility] LIC# [id number] Comment:SLT HEMOLYSIS CALCIUM 9.7 8.8 - 10.5 mg/dL [facility] LIC# [id number] Comment:SLT HEMOLYSIS EGFR 95 >59 mL/min/1.7 3m2 [facility] LIC# [id number] Comment:If patient is Kisha n-British, multiply result by 1.159. Estimated glomerular filtration rate calculated using the CKD-EPI equation. ANION GAP 11 5 - 17 mmol/L [facility] LIC# [id number] Blood 05/25/2018 6:38 AM EDT 05/25/2018 6:48 AM EDT Femi Wyman MD LAB BLOOD BKR ORDERABLES Edited Result - Final [facility] LIC# [id number] [address] [place] [address] * (ABNORMAL) Historical Lab (10/24/2011 9:48 AM EST) Only the most recent of2 resultswithin the time period is included. HGB A1C 7.6(A) 4.2 - 5.8 % [facility] 10/24/2011 9:48 AM EST Comment:BLOOD us Edmond Feliciano MD LAB BLOOD ORDERABLES Final Re sult [address] [address] from Last 3 Months or Most Recently Relevant to Health Maintenance Insurance MEDICARE PART A & B [employer] SUPPLEMENT MEDICARE PART A & B [place] [employer] SU[employer] MEDICARE PART A & B [place] [employer] SU[employer] MEDICARE PART A & B [facility] MEDEX SUPPLEMENT MEDICARE PART A & B Member Subscriber Plan / [facility] Name:Tj Page Member ID:[id number] Relation to Subscriber:Self Name:Tj Page Subscriber ID:[id number] Payer ID:[id number] Group ID:Not on file Type:Medicare Address: [employer] [address] [place] [id number] [place] MED[employer] SUPPLEMENT MEDICARE PART A & B [place] [employer] SUPPLEMENT MEDICARE PART A & B [place] [employer] SUPP[employer] MEDICARE PART A & B [place] [employer] SUPPLE[place] MEDICARE PART A & B [facility] MEDEX SUPPLEMENT Care Teams Cable Swager Relationship Specialty Start Date End Date Bobby Pedraza DO [address] [place] [address] PCP - General Internal Medicine 03/30/16 Rony Roberts MD [address] [place] [address] [place] [address] Referring Physician Internal Medicine 02/03/16 Additional Source Comments The information contained in this document represents components of the legal health record. It is not the complete legal health record.[facility]
--- OUTSIDE RECORDS SUMMARY | 2025-09-26 15:59 | XMS_ITS | Encounter Summary ---
Author Organization [facility] Address [address] [address] Phone Care Team Providers Care Head Men'S Golf Coach Name Role Phone Rony Roberts MD Unavailable [phone] Bobby Pedraza DO Primary Care Provider [phone] Fabi Snell NP Unavailable [phone] Encounter Details Date Type Department Care Team (Late st Contact Info) Description 10/19/2016 Transcribe Orders Jennifer Lank Imaging Department, [facility] [place], Radiography [address] [facility], Floor L1 [place] [address] Miguel Ángel Florentino MD [address] [place] [address] [email or web address] Pre-procedural laboratory examination (Primary Dx) Social History [...] EST) CREATININE 0.78 0.7 - 1.3 mg/dL [facility] LIC# [id number] EGFR >60 mL/min/1.7 3m2 [facility] LIC# [id number] Comment:Abnormal if <60 mL/m in/1.73m2. If patient is -Libyan, multiply the result by 1.21. 10/21/2016 7:48 AM EST 10/21/2016 7:57 AM EST us Miguel Ángel Florentino MD LAB BLOOD BKR ELY URENA Final Result [facility] LIC# [id number] [address] [place] [address] documented in this encounter Visit Diagnoses Diagnosis Pre-procedural laboratory examination- Primary documented in this encounter Care Teams Head Men'S Golf Coach Relationship Specialty Start Date End Date Bobby Pedraza DO [address] [place] [address] PCP - General Internal Medicine 03/30/16 Rony Roberts MD [address] [place] [address] Dr Palm [facility] [place] [address] Referring Physician Internal Medicine 02/03/16 Fabi Snell NP [address] [place] [address] Dr PALM [address] [place], [place] [address], [place] [address] [email or web address] 04/28/17 05/24/18 documented as of this encounter Additional Source Comments The information contained in this document represents components of the legal health record. It is not the complete legal health record.[facility]
--- OUTSIDE RECORDS SUMMARY | 2025-09-26 15:59 | XMS_ITS | Encounter Summary ---
Author Organization [facility] Address [address] [address] Phone Care Team Providers Care Tobacco Shaker Name Role Phone Rony Roberts MD Unavailable [phone] Bobby Pedraza DO Primary Care Provider [phone] Fabi Snell PLANT CULTURE MANAGER Unavailable [phone] Encounter Details Date Type Department Care Team (Late st Contact Info) Description 10/21/2016 Procedure Pass [facility] Mixing Technician [facility] [address] [address] Social History Tobacco Use Types Packs/Day Years [...] on filedocumented in this encounter Care Teams Tobacco Shaker Relationship Specialty Start Date End Date Bobby Pedraza DO [address] [place] [address] PCP - General Internal Medicine 03/30/16 Rony Roberts MD [address] [place] [address] [place] [address] Referring Physician Internal Medicine 02/03/16 Fabi Snell NP [address] [place] [address] [place] [address] [email or web address] Family [facility] 04/28/17 05/24/18 documented as of this encounter Additional Source Comments The information contained in this document represents components of the legal health record. It is not the complete legal health record.[facility]
--- OUTSIDE RECORDS SUMMARY | 2025-09-26 15:59 | XMS_ITS | Clinical Summary ---
Author Organization [address] [place] [address] Address 175 [place] [address] Phone Care Team Providers Care Metallurgical Or Materials Technician Name Role Phone Physician, Pcp Unknown Primary [...] Upcoming Encounters Date Type Department Care Team ([facility] st Contact Info) Description 10/22/2025 8:45 AM EST Office Visit Orthopedic Surgery - [place] [address] [phone] Nazario Herrera DPM [address] [phone] Health Maintenance Due Date Last Done Comments [...] to complete this topic Insurance MEDICARE MEDEX [facility] Care Teams Metallurgical Or Materials Technician Relationship Specialty Start Date End Date Physician, Pcp Unknown PCP - General 09/07/24
--- OUTSIDE RECORDS SUMMARY | 2025-09-26 15:59 | XMS_ITS | Encounter Summary ---
Author Organization [facility] Address [address] [address] Phone Care Team Providers Care Automotive Technician Instructor Name Role Phone Rony Roberts MD Unavailable [phone] Bobby Pedraza DO Primary Care Provider [phone] Fabi Snell HOSE MAKER Unavailable Encounter Details Date Type Department Care Team (Late st Contact Info) Description 03/18/2017 Procedure Pass [facility]' New Accounts Representative Center [address] [address] Social History Tobacco Use Types Packs/Day Years [...] on filedocumented in this encounter Care Teams Automotive Technician Instructor Relationship Specialty Start Date End Date Bobby Pedraza DO [address] [place] [address] PCP - General Internal Medicine 03/30/16 Rony Roberts MD [address] [place] [place] [address] [place] [address] Referring Physician Internal Medicine 02/03/16 aFbi Snell NP [address] [place] [address] [place] [address] [email or web address] 04/28/17 05/24/18 documented as of this encounter Additional Source Comments The information contained in this document represents components of the legal health record. It is not the complete legal health record.[facility]
--- OUTSIDE RECORDS SUMMARY | 2025-09-26 15:59 | XMS_ITS | Encounter Summary ---
Author Organization [facility] Address [address] [address] Phone Care Team Providers Care Commercial Lines Manager Name Role Phone Rnoy Roberts MD Unavailable [phone] Bobby Pedraza DO Primary Care Provider [phone] Fabi Snell DESIGN AGENT Unavailable [phone] Encounter Details Date Type Department Care Team (Late st Contact Info) Description 10/21/2016 Procedure Pass [facility] Consumer Loan Underwriter Center [address] [address] Social History Tobacco Use Types Packs/Day Years [...] filedocumented in this encounter Care Teams Commercial Lines Manager Relationship Specialty Start Date End Date Bobby Pedraza DO [address] [place] [address] PCP - General Internal Medicine 03/30/16 Rony Roberts MD [address] [place] [address] [place] [address] Referring Physician Internal Medicine 02/03/16 Fabi Snell NP [address] [place] [address] [place] [address] [email or web address] 04/28/17 05/24/18 documented as of this encounter Additional Source Comments The information contained in this document represents components of the legal health record. It is not the complete legal health record.[facility]
== END 2025-09-26 09:12 | disposition home or self-care (01) ==
LOC: HO.HOS 08:20
PROVIDERS: PCP Internal Medicine Medical Oncology; Visit Provider Physician Assistant
DX: S42.142D Displaced fracture of glenoid cavity of scapula, left shoulder, subsequent encounter for fracture with routine healing (principal)
CPT/HCPCS: 99024

== ENCOUNTER 2025-09-26 08:31 | Outpatient (REF) | payer MEDICARE, SELFPAY ==
--- NOTE | ~2025-09-26 | XR_ITS ---
EXAMINATION: XR SHOULDER, LEFT CLINICAL INFORMATION: M25.512 - Pain in left shoulder COMPARISON: August 22, 2025. TECHNIQUE: AP and Y-view projections of the left shoulder. FINDINGS: There is no callus formation or bony bridging between the fragments in the superior aspect of the glenoid of the left scapula. Degenerative changes in the greater tuberosity of the humerus. There is an upward position of the left acromioclavicular joint. XR/XR shoulder LT min 2V IMPRESSION: No healing fracture, left scapula glenoid. Subluxation, left acromioclavicular joint. Degenerative changes in the greater tuberosity left humerus. Electronically signed by: Alvaro Frias MD 09/26/2025 08:47 AM [facility]
--- OUTSIDE RECORDS SUMMARY | 2025-09-27 09:38 | XMS_ITS | Encounter Summary ---
Author Organization [facility] Address [address] [address] Phone Care Team Providers Care Venetian Blind Machine Operator Name Role Phone Rony Roberts MD Unavailable [phone] Bobby Pedraza DO Primary Care Provider [phone] Fabi Snell CLINICAL TRIALS SYSTEMS ADMINISTRATOR Unavailable [phone] Encounter Details Date Type Department Care Team (Late st Contact Info) Description 11/24/2017 Procedure Pass Jennifer Lank Imaging Department, [facility] [place], [place] [address] [facility], Floor L1 [place] [address] Social History Tobacco Use Types Packs/Day Years [...] on filedocumented in this encounter Care Teams Venetian Blind Machine Operator Relationship Specialty Start Date End Date Bobby Pedraza DO [address] [place] [phone] PCP - General Internal Medicine 03/30/16 Rony Roberts MD [address] [place] [address] [place] [address] Referring Physician Internal Medicine 02/03/16 Fabi Snell CLINICAL TRIALS SYSTEMS ADMINISTRATOR [address] [place] [address] [place] [address] [email or web address] 04/28/17 05/24/18 documented as of this encounter Additional Source Comments The information contained in this document represents components of the legal health record. It is not the complete legal health record.[facility]
--- OUTSIDE RECORDS SUMMARY | 2025-09-27 09:38 | XMS_ITS | Encounter Summary ---
Author Organization [facility] Address [address] [address] Phone Care Team Providers Care Cost And Sales Record Supervisor Name Role Phone Rony Roberts MD Unavailable [phone] Bobby Pedraza DO Primary Care Provider [phone] Fabi Snell FOLEY ARTIST Unavailable [phone] Encounter Details Date Type Department Care Team (Late st Contact Info) Description 11/24/2017 Procedure Pass Jennifer Lank Imaging Department, [facility] [place], [place] [address] [facility], Floor L1 [place] [address] Social History Tobacco Use Types Packs/Day Years [...] on filedocumented in this encounter Care Teams Cost And Sales Record Supervisor Relationship Specialty Start Date End Date Bobby Pedraza DO [address] [place] [id number] PCP - General Internal Medicine 03/30/16 Rony Roberts MD [address] [place] [address] [place] [address] Referring Physician Internal Medicine 02/03/16 Fabi Snell FOLEY ARTIST [address] [place] [address] [place] [address] [email or web address] 04/28/17 05/24/18 documented as of this encounter Additional Source Comments The information contained in this document represents components of the legal health record. It is not the complete legal health record.[facility]
--- OUTSIDE RECORDS SUMMARY | 2025-09-27 09:38 | XMS_ITS | Clinical Summary ---
Author Organization [facility] Address [address] [address] Phone Care Team Providers Care Manager Critical Care Unit Name Role Phone Rony Roberts MD Unavailable [phone] Bobby Pedraza DO Primary Care Provider [phone] Allergies Active Allergy Reactions Criticality Noted Date [...] EDT) SODIUM 139 135 - 145 mmol/L [facility] LIC# [id number] Comment:SLT HEMOLYSIS CHLORIDE 105 98 - 108 mmol/L [facility] LIC# [id number] Comment:SLT HEMOLYSIS POTASSIUM 5.0 3.5 - 5.0 mmol/L [facility] LIC# [id number] Comment:SLT HEMOLYSIS CO2 23 23 - 32 mmol/L [facility] LIC# [id number] Comment:SLT HEMOLYSIS BUN 21 9 - 25 mg/dL [facility] LIC# [id number] Comment:SLT HEMOLYSIS CREATININE 0.72 0.7 - 1.3 mg/dL [facility] LIC# [id number] Comment:SLT HEMOLYSIS GLUCOSE 154(H) 70 - 100 mg/dL [facility] LIC# [id number] Comment:SLT HEMOLYSIS CALCIUM 9.7 8.8 - 10.5 mg/dL [facility] LIC# [id number] Comment:SLT HEMOLYSIS EGFR 95 >59 mL/min/1.7 3m2 [facility] LIC# [id number] Comment:If patient is Kisha n-South African, multiply result by 1.159. Estimated glomerular filtration rate calculated using the CKD-EPI equation. ANION GAP 11 5 - 17 mmol/L [facility] LIC# [id number] Blood 05/25/2018 6:38 AM EDT 05/25/2018 6:48 AM EDT Femi Wyman MD LAB BLOOD BKR ORDERABLES Edited Result - Final [facility] LIC# [id number] [address] [place] [address] * (ABNORMAL) Historical Lab (10/24/2011 9:48 AM EST) Only the most recent of2 resultswithin the time period is included. HGB A1C 7.6(A) 4.2 - 5.8 % [facility] 10/24/2011 9:48 AM EST Comment:BLOOD us Edmond Feliciano MD LAB BLOOD ORDERABLES Final Re sult [address] [address] from Last 3 Months or Most Recently Relevant to Health Maintenance Insurance MEDICARE PART A & B [employer] MEDEX SUPPLEMENT MEDICARE PART A & B [employer] MEDEX SUPPLEMENT MEDICARE PART A & B [employer] MEDEX SUPPLEMENT MEDICARE PART A & B [facility] MEDEX SUPPLEMENT MEDICARE PART A & B Member Subscriber Plan / Payer ([facility] 07/09/2012-) Name:Tj Page Member ID:[id number] Relation to Subscriber:Self Name:Tj Page Subscriber ID:[id number] Payer ID:[id number] Group ID:Not on file Type:Medicare Address: [employer] [address] [place] [phone] [employer] MEDEX SUPPLEMENT MEDICARE PART A & B [employer] MEDEX SUPPLEMENT MEDICARE PART A & B [employer] MEDEX SUPPLEMENT MEDICARE PART A & B [employer] MEDEX SUPPLEMENT MEDICARE PART A & B [facility] MEDEX SUPPLEMENT Care Teams Manager Critical Care Unit Relationship Specialty Start Date End Date Bobby Pedraza DO [address] [place] [address] PCP - General Internal Medicine 03/30/16 Rony Roberts MD [address] [place] [address] [place] [address] Referring Physician Internal Medicine 02/03/16 Additional Source Comments The information contained in this document represents components of the legal health record. It is not the complete legal health record.[facility]
--- OUTSIDE RECORDS SUMMARY | 2025-09-27 09:38 | XMS_ITS | Encounter Summary ---
Author Organization [facility] Address [address] [address] Phone Care Team Providers Care Grommet Machine Operator Name Role Phone Rony Roberts MD Unavailable [phone] Bobby Pedraza DO Primary Care Provider [phone] Fabi Snell LABORER STEEL HANDLING Unavailable [phone] Encounter Details Date Type Department Care Team (Late st Contact Info) Description 11/24/2017 Procedure Pass Jennifer Lank Imaging Department, [facility] [place], MRI [address] [facility], Floor L1 [place] [address] Social History Tobacco Use Types Packs/Day Years [...] on filedocumented in this encounter Care Teams Grommet Machine Operator Relationship Specialty Start Date End Date Bobby Pedraza DO [address] [place] [address] PCP - General Internal Medicine 03/30/16 Rony Roberts MD [address] [place] [address] [place] [address] Referring Physician Internal Medicine 02/03/16 Fabi Snell LABORER STEEL HANDLING [address] [place] [address] [place] [address] [email or web address] Family Medicine 04/28/17 05/24/18 documented as of this encounter Additional Source Comments The information contained in this document represents components of the legal health record. It is not the complete legal health record.[facility]
--- OUTSIDE RECORDS SUMMARY | 2025-09-27 09:38 | XMS_ITS | Encounter Summary ---
Author Organization [facility] Address [address] [address] Phone Care Team Providers Care Hris Analyst Name Role Phone Rony Roberts MD Unavailable [phone] Bobby Pedraza DO Primary Care Provider [phone] Fabi Snell LUMBER SCALER Unavailable Encounter Details Date Type Department Care Team (Late st Contact Info) Description 04/28/2017 Procedure Pass Jennifer Lank Imaging Department, [facility] [place], [place] 450 [facility], Floor L1 [place] [address] Social History Tobacco Use Types Packs/Day Years [...] on filedocumented in this encounter Care Teams Hris Analyst Relationship Specialty Start Date End Date Bobby Pedraza DO [address] [place] [phone] PCP - General Internal Medicine 03/30/16 Rony Roberts MD [address] [place] [address] [place] [address] Referring Physician Internal Medicine 02/03/16 Fabi Snell LUMBER SCALER [address] [place] [address] [place] [address] [email or web address] 04/28/17 05/24/18 documented as of this encounter Additional Source Comments The information contained in this document represents components of the legal health record. It is not the complete legal health record.[facility]
--- OUTSIDE RECORDS SUMMARY | 2025-09-27 09:38 | XMS_ITS | Encounter Summary ---
Author Organization [facility] Address [address] [address] Phone Care Team Providers Care Quoter Name Role Phone Rony Roberts MD Unavailable [phone] Bobby Pedraza DO Primary Care Provider [phone] Fabi Snell PARKING REGULATION ENFORCEMENT OFFICER Unavailable [phone] Encounter Details Date Type Department Care Team (Late st Contact Info) Description 04/28/2017 Procedure Pass Jennifer Lank Imaging Department, [facility] [place], [place] [address] [facility], Floor L1 [place] [address] Social History Tobacco Use Types Packs/Day Years [...] on filedocumented in this encounter Care Teams Quoter Relationship Specialty Start Date End Date Bobby Pedraza DO [address] [place] [phone] PCP - General Internal Medicine 03/30/16 Rony Roberts MD [address] [place] [address] [place] [address] Referring Physician Internal Medicine 02/03/16 Fabi Snell PARKING REGULATION ENFORCEMENT OFFICER [address] [place] [address] [place] [address] [email or web address] 04/28/17 05/24/18 documented as of this encounter Additional Source Comments The information contained in this document represents components of the legal health record. It is not the complete legal health record.[facility]
--- OUTSIDE RECORDS SUMMARY | 2025-09-27 09:39 | XMS_ITS | Encounter Summary ---
Author Organization [facility] Address [address] [address] Phone Care Team Providers Care Binder Technician Name Role Phone Rony Roberts MD Unavailable [phone] Bobby Pedraza DO Primary Care Provider [phone] Fabi Snell PNEUMATIC DEICER INSPECTOR Unavailable [phone] Encounter Details Date Type Department Care Team (Late st Contact Info) Description 10/21/[address] [facility] Block And Case Maker Center [address] [address] Social History Tobacco Use Types Packs/Day Years [...] on filedocumented in this encounter Care Teams Binder Technician Relationship Specialty Start Date End Date Bobby Pedraza DO [address] [place] [address] PCP - General Internal Medicine 03/30/16 Rony Roberts MD [address] [place] [address] [place] [address] Referring Physician Internal Medicine 02/03/16 Fabi Snell NP [address] [place] [address] [place] [address] [email or web address] 04/28/17 05/24/18 documented as of this encounter Additional Source Comments The information contained in this document represents components of the legal health record. It is not the complete legal health record.[facility]
--- OUTSIDE RECORDS SUMMARY | 2025-09-27 09:39 | XMS_ITS | Encounter Summary ---
Author Organization [facility] Address [address] [address] Phone Care Team Providers Care Dog Walker Name Role Phone Rony Roberts MD Unavailable [phone] Bobby Pedraza DO Primary Care Provider [phone] Fabi Snell FIRE SAFETY DIRECTOR Unavailable [phone] Encounter Details Date Type Department Care Team (Late st Contact Info) Description 03/18/2017 Procedure Pass [facility] [employer] [facility] [address] [address] Social History Tobacco Use Types Packs/Day Years [...] on filedocumented in this encounter Care Teams Dog Walker Relationship Specialty Start Date End Date Bobby Pedraza DO [address] [place] [address] PCP - General Internal Medicine 03/30/16 Rony Roberts MD [address] [place] [address] [place] [address] Referring Physician Internal Medicine 02/03/16 Fabi Snell NP [address] [place] [address] [place] [address] [email or web address] Family [email or web address] 04/28/17 05/24/18 documented as of this encounter Additional Source Comments The information contained in this document represents components of the legal health record. It is not the complete legal health record.[facility]
--- OUTSIDE RECORDS SUMMARY | 2025-09-27 09:40 | XMS_ITS | Encounter Summary ---
Author Organization [facility] Address [address] [address] Phone Care Team Providers Care Jive Developer Name Role Phone Rony Roberts MD Unavailable [phone] Bobby Pedraza DO Primary Care Provider [phone] Fabi Snell NP Unavailable [phone] Encounter Details Date Type Department Care Team (Late st Contact Info) Description 10/19/2016 Transcribe Orders Jennifer Lank Imaging Department, [facility] [place], Radiography 450 [facility], Floor L1 [place] [address] Miguel Ángel Florentino MD [address] [place] [address] [email or web address] Pre-procedural laboratory examination (Primary Dx) Social History [...] EST) CREATININE 0.78 0.7 - 1.3 mg/dL [facility] LIC# [id number] EGFR >60 mL/min/1.7 3m2 [facility] LIC# [id number] Comment:Abnormal if <60 mL/m in/1.73m2. If patient is -Saudi Arabian, multiply the result by 1.21. 10/21/2016 7:48 AM EST 10/21/2016 7:57 AM EST us Miguel Ángel Florentino MD LAB BLOOD BKR ELY URENA Final Result [facility] LIC# [id number] [address] [place] [address] documented in this encounter Visit Diagnoses Diagnosis Pre-procedural laboratory examination- Primary documented in this encounter Care Teams Jive Developer Relationship Specialty Start Date End Date Bobby Pedraza DO [address] [place] [address] PCP - General Internal Medicine 03/30/16 Rony Roberts MD [address] [place] [address] Dr Palm [facility] [place] [address] Referring Physician Internal Medicine 02/03/16 Fabi Snell NP [address] [place] [address] [address] PALM [address] [place], [place] [address] [address] [email or web address] 04/28/17 05/24/18 documented as of this encounter Additional Source Comments The information contained in this document represents components of the legal health record. It is not the complete legal health record.[facility]
--- OUTSIDE RECORDS SUMMARY | 2025-09-27 09:40 | XMS_ITS | Encounter Summary ---
Author Organization [facility] Address [address] [address] Phone Care Team Providers Care Battery Service Technician Name Role Phone Rony Roberts MD Unavailable [phone] Bobby Pedraza DO Primary Care Provider [phone] Fabi Snell KINESEOLOGIST Unavailable [phone] Encounter Details Date Type Department Care Team (Late st Contact Info) Description 10/21/2016 Procedure [facility] [address] [address] Social History Tobacco Use Types Packs/Day Years [...] on filedocumented in this encounter Care Teams Battery Service Technician Relationship Specialty Start Date End Date Bobby Pedraza DO [address] [place] [address] PCP - General Internal Medicine 03/30/16 Rony Roberts MD [address] [place] [address] [place] [address] Referring Physician Internal Medicine 02/03/16 Fabi Snell NP [address] [place] [address] [place] [address] [email or web address] 04/28/17 05/24/18 documented as of this encounter Additional Source Comments The information contained in this document represents components of the legal health record. It is not the complete legal health record.[facility]
== END 2025-09-26 08:32 | disposition home or self-care (01) ==
LOC: HO.HOSX 08:31
PROVIDERS: Visit Provider Physician Assistant
DX: S42.142D Displaced fracture of glenoid cavity of scapula, left shoulder, subsequent encounter for fracture with routine healing (principal); X58.XXXD Exposure to other specified factors, subsequent encounter
CPT/HCPCS: 73030; 99212

== ENCOUNTER → 2025-09-26 08:32 | Outpatient (BNV) | payer MEDICARE, SELFPAY | PROVIDERS: Visit Provider Radiology Diagnostic Radiology | DX: S43.112A Subluxation of left acromioclavicular joint, initial encounter (principal); M19.012 Primary osteoarthritis, left shoulder | CPT/HCPCS: 73030 ==

== ENCOUNTER 2025-10-01 06:16 | Outpatient (REF) | payer MEDICARE, SELFPAY ==
--- OUTSIDE RECORDS SUMMARY | 2025-02-06 05:00 | XMS_ITS ---
Author Organization Rony Roberts III, MD Address [address] [place] [address] Care Team Providers Care Director Volunteer Services Name Role Phone Dr. Rony Roberts III Primary Care Provider Allergies Allergen (clinical drug ingredient) Drug/Non Drug Allergy documented on EMR Reaction Allergy Type Onset Date Status morphine Morphine Sulfate Unknown Drug Allergy Active REASON FOR VISIT Acute low back pain, History of metastatic melanoma, Hypertension, Diabetes, Benign prostatic hypertrophy Medications Medication SIG (Take, Route, Frequency, Duration) Notes Start Date End Date Status Multivitamin Active Fish Oil Active Zinc Active Vitamin C Active traZODone HCl 100 MG 1 tablet at bedtime Orally one tab at bedtime 01/09/2025 Active Empagliflozin 25 MG 1 tablet Orally Once a day Active Tamsulosin HCl 0.4 MG 1 capsule Orally Once a day 06/09/2021 Active Ozempic (0.25 or 0.5 MG/DOSE) 2 MG/3ML as directed Subcutaneous Active Lutein Active Semaglutide 3 MG as directed Orally Active OneTouch Ultra Test - as directed In Vit ro test blood sugars once a day DX: E11.9 Diabetes Active amLODIPine Besylate 5 MG 1 tablet Orally Once a day Active metFORMIN HCl 1000 MG 1 tablet with a me al Orally Twice a day Active Irbesartan 150 MG 1 tablet Oral Once a day (Avapro) Active Atorvastatin Calcium 40 MG 1 tablet Orally Once a day Active Social History Tobacco Use: Social History Observation Description Date Details (start date - stop date) Former Smoker NA - NA Sex Assigned At : Social History Observation Description Sex Assigned At Male Tobacco Control (Standard) Question Answer Notes Tobacco use: Former smoker How long has it been since you last smoked? Monse ter than 10 years Additional Findings: Tobacco non-user Ex-cigaret te smoker Vital Signs Height 70 in 02/06/2025 Weight 187 lbs 02/06/2025 BMI 26.83 kg/m2 02/06/2025 Encounters Encounter Location Date Provider Diagnosis Rony Roberts III, MD [address] [place] [address] [place] [address] 02/06/2025 Rony Roberts Benign prostatic hyperplasia, unspecified whether lower urinary tract symptoms present N40.0 ; Metastatic malignant melanoma C79.9 ; Former smoker Z87.891 ; Diabetes mellitus E11.9 ; Essential hypertension I10 ; Shoulder pain, left M25.512 ; Overweight E66.3 and Recurrent low back pain M54.50 Assessments Encounter Date Diagnosis (ICD Code) Assessment Notes Treatment Notes Treatment Clinical Notes 02/06/2025 Benign prostatic hyperplasia, unspecified whether lower urinary tract symptoms present (ICD-10 - N40.0) He rises from sleep twice a night to urinate. We discussed lifestyle modification has a way of reducing nocturia.His prostatism is stable. 02/06/2025 Metastatic malignant melanoma (ICD-10 - C79.9) There was no sign of a new primary melanoma or recurrent melanoma in any location on today's examination. 02/06/2025 Former smoker (ICD-10 - Z87.891) He is highly motivated not to smoke and we have discussed strategies for maintenance of abstinence in time of illness distress. 02/06/2025 Diabetes mellitus (ICD-10 - E11.9) His fasting glucose was 125 and his hemoglobin A1c is 6.9. His weight is in the normal range. His lipids are stable. No change in his regimen as needed. 02/06/2025 Essential hypertension (ICD-10 - I10) His blood pressure is currently stable and no change in his regimen was necessary today. 02/06/2025 Shoulder pain, left (ICD-10 - M25.512) He has had a mild pain in his shoulder for over a year but it is recently become worse. It is likely arthritic or inflammatory but x-rays have been ordered. He will use ibuprofen and a heating pad. If necessary he will be referred for injections. 02/06/2025 Overweight (ICD-10 - E66.3) His body mass index is 26. He has gained 2 pounds. We discussed diet and nutrition today. We discussed lifestyle modifications she could make to reduce his weight. We made a plan to lose weight at a rate of one half of a pound per week. 02/06/2025 Recurrent low back pain (ICD-10 - M54.50) This is resolving and is 90% gone. He will gradually resume normal life. Plan Of Treatment Medication Medication Name Sig Start Date Stop Date Notes Multivitamin Fish Oil Zinc Vitamin C traZODone HCl 100 MG 1 tablet at bedtime Orally one tab at bedtime 01/09/2025 Empagliflozin 25 MG 1 tablet Orally Once a day Tamsulosin HCl 0.4 MG 1 capsule Orally O nce a day 06/09/2021 Ozempic (0.25 or 0.5 MG/DOSE) 2 MG/3ML as directed Subcutaneous Lutein Semaglutide 3 MG as directed Orally OneTouch Ultra Test - as directed In Vit ro test blood sugars once a day DX: E11.9 Diabetes amLODIPine Besylate 5 MG 1 tablet Orally Once a day metFORMIN HCl 1000 MG 1 tablet with a me al Orally Twice a day Irbesartan 150 MG 1 tablet Oral Once a day (Avapro) Atorvastatin Calcium 40 MG 1 tablet Orally Once a day Next Appt Details Follow Up: As Scheduled, Bella son: OV Provider Name:Rony Roberts , 10/11/2025 09:45:00 AM, [address] [place] [address] [address], [place], [address], Provider Name:Rony Roberts , 01/11/2026 02:00:00 PM, [address] [place] [address] [address], [place], [address], Progress Notes * Ning PAGE: 947 (79 yo M)Acc No.[id number]:02/06/2025 Patient: Jona HEREDIAEhsannatasha Provider: Amador Roberts MD :1945 A ge:79 Y S ex:Male Date:02/06/2025 Address:[address] [place], [place] [phone] Subjective: * Chief Complaints: * A cute low back painHistory of metastatic melanomaHypertensionDiabetesBenign prostatic hypertrophy * HPI: * : This telehealth visit took place over 15 min. with the patient at home and me in my office. He gave consent for billing. His back pain has continued to improve. He has an appointment upcoming with rehabilitation medicine at [facility]. He is resuming his normal life. He is almost done with his medications.? He is breathing comfortably and has no new pain. Telehealth L ocation of provider rendering services: { ...} [address] [facility] [address] L ocation of patient: a ddress listed in demographics for today's visit P atient identification confirmed using: TIFFANIE Dean ame T elehealth method: T elephone only. Patient not visible to care provider. C onsent: P atient verbally consented to treatment, Patient verbally consented to billing insurance company, Patient informed of any privacy concerns related to method of visit T otal time spent with patient (mins) 1 5 * ROS: G eneral/Constitutional: pain L ow back and buttocks. C hills d enies. F atigue a dmits. F ever d enies. E NT: Decreased hearing m ild. R espiratory: Cough d enies. C ardiovascular: Chest pain with exertion d enies. D yspnea on exertion?denies. S hortness of breath w ith exertion. G astrointestinal: Constipation o ccasional. D ecreased appetite d enies. D iarrhea d enies. H eartburn d enies. N ausea d enies. R ectal bleeding d enies. V omiting d enies. H ematology: bruising d enies. p etechiae d enies. S wollen glands n one have been noted. G enitourinary: Frequent urination t wice a night. M usculoskeletal: Muscle aches d enies. P ainful joints d enies. S ciatica d enies. W eakness d enies. S kin: Itching d enies. R herminia d enies. S kin lesion(s)?denies. N eurologic: Difficulty speaking d enies. D izziness d enies.?Headache d enies. L ow back pain d enies. P sychiatric: Depressed mood d enies. * Medical History: * Surgical History: e xcision Robinson level IV melanoma from back 11/2002right axillary dissection 2012colonoscopy 5 polyps 2015Tonsilectomy Appendectomy axillary dissection Interferon Left Hip replacement Colonoscopy 09/2018No history Cataract surgery * Hospitalization/Major Diagno stic Procedure: D enies Past Hospitalization * Family History: F ather: 61 yrs, hypertension, diagnosed with HTN. M other: 78 yrs, aneurysm. S iblings: 79 yrs, one sister has hypertension, diagnosed with Cancer. P aternal Grand Mother: , type I diabetes. M aternal Grand Father: 59 yrs, heat attack. 2 sister(s) - healthy. 1 daughter(s) - healthy. . He has no family history of melanoma. He is not aware of any family history of inherited cancer. Family syndromes. He is not aware of any history of mental illness or substance abuse. The patient himself has no history of mental illness or substance abuse. pt sister from colon cancer. 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 He has a daughter and a 2 grandaughters and 2 grand sons. He was born in [place], [place]. * Medications: T akingOneTovidio Ultra Test - Strip as directed In Vitro test blood sugars once a day , Notes to Pharmacist: DX: E11.9 DiabetesamLODIPine Besylate 5 MG Tablet 1 tablet Orally Once a day metFORMIN HCl 1000 MG Tablet 1 tablet with a meal Orally Twice a day Irbesartan 150 MG Tablet 1 tablet Oral Once a day , Notes to Pharmacist: (Avapro)Atorvastatin Calcium 40 MG Tablet 1 tablet Orally Once a day Semaglutide 3 MG Tablet as directed Orally Empagliflozin 25 MG Tablet 1 tablet Orally Once a day Tamsulosin HCl 0.4 MG Capsule 1 capsule Orally Once a day Ozempic (0.25 or 0.5 MG/DOSE) 2 MG/3ML Solution Pen-injector as directed Subcutaneous Lutein Multivitamin Fish Oil Zinc Vitamin C traZODone HCl 100 MG Tablet 1 tablet at bedtime Orally one tab at bedtime Medication List reviewed and reconciled with the patientTaking Food on the Table Ultra Test - Strip as directed In Vitro test blood sugars once a day , Notes to Pharmacist: DX: E11.9 DiabetesTaking amLODIPine Besylate 5 MG Tablet 1 tablet Orally Once a day Taking metFORMIN HCl 1000 MG Tablet 1 tablet with a meal Orally Twice a day Taking Irbesartan 150 MG Tablet 1 tablet Oral Once a day , Notes to Pharmacist: (Demarcus)Taking Atorvastatin Calcium 40 MG Tablet 1 tablet Orally Once a day Taking Semaglutide 3 MG Tablet as directed Orally Taking Empagliflozin 25 MG Tablet 1 tablet Orally Once a day Taking Tamsulosin HCl 0.4 MG Capsule 1 capsule Orally Once a day Taking Ozempic (0.25 or 0.5 MG/DOSE) 2 MG/3ML Solution Pen- injector as directed Subcutaneous Taking Lutein Taking Multivitamin Taking Fish Oil Taking Zinc Taking Vitamin C Taking traZODone HCl 100 MG Tablet 1 tablet at bedtime Orally one tab at bedtime Medication List reviewed and reconciled with the patient * Allergies: M orphine Sulfate: Side Effectsno[Allergies Verified] Objective: * Vitals: H t: 70, Wt:187, BMI:26.83, Ht-cm: 177.8, Wt-k.82. * P ast Orders: Lab:Microalbumin, Random * Collection Date 01/05/2025 07/11/2024 01/12/2024 Collection Time 06:50 AM 07:19 AM 06:14 AM Order Date 01/05/2025 07/11/2024 01/10/2024 Creatinine Urine 63.90 (Ref Range: mg/dL) 68.65 (Ref Range: mg/dL) 52.08 (Ref Range: mg/dL) Microalbumin Urine 10.0 (Ref Range: mg/L) 10.0 (Ref Range: mg/L) 5.0 (Ref Range: mg/L) Microalbum Creatinine Ratio Ur 15.6 (Ref Range: <30 ug/mg cr) 14.5 (Ref Range: <30 ug/mg cr) 9.6 (Ref Range: <30 ug/mg cr) * Lab:Lipid Panel * Collection Date 01/05/2025 07/11/2024 04/04/2024 Collection Time 06:52 AM 06:17 AM 06:21 AM Order Date 01/04/2025 07/11/2024 04/04/2024 Triglycerides 45 (Ref Range: <150 mg/dL) 99 (Ref Range: <150 mg/dL) 46 (Ref Range: <150 mg/dL) Cholesterol 97 (Ref Range: <200 mg/dL) 111 (Ref Range: <200 mg/dL) 104 (Ref Range: <200 mg/dL) LDL Cholesterol Calculated 47 (Ref Range: <100 mg/dL) 45 (Ref Range: <100 mg/dL) 50 (Ref Range: <100 mg/dL) HDL Cholesterol 41 (Ref Range: >40 mg/dL) 47 (Ref Range: >40 mg/dL) 45 (Ref Range: >40 mg/dL) * Lab:Hemoglobin A1c * Collection Date 01/05/2025 07/11/2024 04/04/2024 Collection Time 06:52 AM 06:17 AM 06:21 AM Order Date 01/04/2025 07/11/2024 04/04/2024 Hemoglobin A1c % 6.9 H (Ref Range: <6.0 %) 6.3 H (Ref Range: <6.0 %) 6.4 H (Ref Range: <6.0 %) Estimated Average Glucose 151 (Ref Range: mg/dL) 134 (Ref Range: mg/dL) 137 (Ref Range: mg/dL) * Lab:Complete Blood Count Aut o Diff * Collection Date 01/05/2025 07/11/2024 04/04/2024 Collection Time 06:52 AM 06:17 AM 06:21 AM Order Date 01/05/2025 07/11/2024 04/04/2024 White Blood Count 6.0 (Ref Range: 4.8-10.8 X10*3/uL) 5.6 (Ref Range: 4.8-10.8 X10*3/uL) 6.7 (Ref Range: 4.8-10.8 X10*3/uL) Red Blood Count 4.33 L (Ref Range: 4.60-5.80 X10*6/uL) 4.49 L (Ref Range: 4.60-5.80 X10*6/uL) 4.38 L (Ref Range: 4.60-5.80 X10*6/uL) Hemoglobin 13.7 L (Ref Range: 14.0-18.0 g/dl) 14.4 (Ref Range: 14.0-18.0 g/dl) 13.8 L (Ref Range: 14.0-18.0 g/dl) Hematocrit 40.3 L (Ref Range: 42.0-52.0 %) 43.4 (Ref Range: 42.0-52.0 %) 41.1 L (Ref Range: 42.0-52.0 %) Mean Corpuscular Volume 93.1 (Ref Range: 80.0-98.0 fL) 96.7 (Ref Range: 80.0-98.0 fL) 93.8 (Ref Range: 80.0-98.0 fL) Mean Corpuscular Hemoglobin 31.6 (Ref Range: 27.0-33.0 pg) 32.1 (Ref Range: 27.0-33.0 pg) 31.5 (Ref Range: 27.0-33.0 pg) Mean Corpuscular HGB Conc 34.0 (Ref Range: 31.0-36.0 g/dl) 33.2 (Ref Range: 31.0-36.0 g/dl) 33.6 (Ref Range: 31.0-36.0 g/dl) Red Cell Distribution Width 13.2 (Ref Range: 11.0-16.0 %) 14.1 (Ref Range: 11.0-16.0 %) 14.2 (Ref Range: 11.0-16.0 %) Platelet Count 264 (Ref Range: 160-400 X10*3/uL) 215 (Ref Range: 160-400 X10*3/uL) 252 (Ref Range: 160-400 X10*3/uL) Mean Platelet Volume 9.1 L (Ref Range: 9.4-12.4 fL) 10.6 (Ref Range: 9.4-12.4 fL) 9.6 (Ref Range: 9.4-12.4 fL) Neutrophils Percent Auto 61.7 (Ref Range: 45-73 %) 60.6 (Ref Range: 45-73 %) 69.7 (Ref Range: 45-73 %) Imm Gran Pct Auto 0.3 (Ref Range: 0.0-0.4 %) 0.4 (Ref Range: 0.0-0.4 %) 0.3 (Ref Range: 0.0-0.4 %) Lymphocytes Percent Auto 20.0 (Ref Range: 20-40 %) 21.5 (Ref Range: 20-40 %) 16.2 L (Ref Range: 20-40 %) Monocytes Percent Auto 11.6 H (Ref Range: 2-11 %) 10.4 (Ref Range: 2-11 %) 8.7 (Ref Range: 2-11 %) Eosinophils Percent Auto 5.7 H (Ref Range: 0-4 %) 6.6 H (Ref Range: 0-4 %) 4.5 H (Ref Range: 0-4 %) Basophils Percent Auto 0.7 (Ref Range: 0-2 %) 0.5 (Ref Range: 0-2 %) 0.6 (Ref Range: 0-2 %) NRBC Pct Auto 0.0 (Ref Range: 0.0-0.2 /100WBC) 0.0 (Ref Range: 0.0-0.2 /100WBC) 0.0 (Ref Range: 0.0-0.2 /100WBC) Neutrophils Absolute Auto 3.7 (Ref Range: 2.0-8.3 x10*3/uL) 3.4 (Ref Range: 2.0-8.3 x10*3/uL) 4.6 (Ref Range: 2.0-8.3 x10*3/uL) Imm Gran Abs Auto 0.02 (Ref Range: 0.00-0.03 X10*3/uL) 0.02 (Ref Range: 0.00-0.03 X10*3/uL) 0.02 (Ref Range: 0.00-0.03 X10*3/uL) Lymphocytes Absolute Auto 1.2 (Ref Range: 1.2-4.9 X10*3/uL) 1.2 (Ref Range: 1.2-4.9 X10*3/uL) 1.1 L (Ref Range: 1.2-4.9 X10*3/uL) Monocytes Absolute Auto 0.7 (Ref Range: 0.1-1.2 X10*3/uL) 0.6 (Ref Range: 0.1-1.2 X10*3/uL) 0.6 (Ref Range: 0.1-1.2 X10*3/uL) Eosinophils Absolute Auto 0.3 (Ref Range: 0.0-0.4 X10*3/uL) 0.4 (Ref Range: 0.0-0.4 X10*3/uL) 0.3 (Ref Range: 0.0-0.4 X10*3/uL) Basophils Absolute Auto 0.0 (Ref Range: 0.0-0.2 X10*3/uL) 0.0 (Ref Range: 0.0-0.2 X10*3/uL) 0.0 (Ref Range: 0.0-0.2 X10*3/uL) NRBC Abs Auto 0.000 (Ref Range: 0.0-0.012 X10*3/uL) 0.000 (Ref Range: 0.0-0.012 X10*3/uL) 0.000 (Ref Range: 0.0-0.012 X10*3/uL) * Lab:Rosalba fountain Fast * Collection Date 01/05/2025 07/11/2024 04/04/2024 Collection Time 06:52 AM 06:17 AM 06:21 AM Order Date 01/05/2025 07/11/2024 04/04/2024 Sodium 139 (Ref Range: 135-145 mmol/L) 140 (Ref Range: 135-145 mmol/L) 138 (Ref Range: 135-145 mmol/L) Bilirubin Total 0.4 (Ref Range: 0.0-1.0 mg/dL) 0.7 (Ref Range: 0.0-1.0 mg/dL) 0.6 (Ref Range: 0.0-1.0 mg/dL) Aspartate Amino Transferase 18 (Ref Range: 5-37 U/L) 17 (Ref Range: 5-37 U/L) 16 (Ref Range: 5-37 U/L) Alanine Aminotransferase 17 (Ref Range: 0-40 U/L) 19 (Ref Range: 0-40 U/L) 15 (Ref Range: 0-40 U/L) Total Protein 7.1 (Ref Range: 6.5-8.0 g/dL) 7.3 (Ref Range: 6.5-8.0 g/dL) 6.9 (Ref Range: 6.5-8.0 g/dL) Albumin Level 4.0 (Ref Range: 3.5-5.0 g/dL) 4.4 (Ref Range: 3.5-5.0 g/dL) 4.2 (Ref Range: 3.5-5.0 g/dL) Alkaline Phosphatase 65 (Ref Range: 39-117 U/L) 70 (Ref Range: 39-117 U/L) 68 (Ref Range: 39-117 U/L) Potassium 4.3 (Ref Range: 3.3-5.1 mmol/L) 4.3 (Ref Range: 3.3-5.1 mmol/L) 4.2 (Ref Range: 3.3-5.1 mmol/L) Chloride 108 (Ref Range: 96-108 mmol/L) 105 (Ref Range: 96-108 mmol/L) 106 (Ref Range: 96-108 mmol/L) Carbon Dioxide 22 (Ref Range: 22-29 mmol/L) 25 (Ref Range: 22-29 mmol/L) 21 L (Ref Range: 22-29 mmol/L) Anion Gap 13 (Ref Range: 12-20) 14 (Ref Range: 12-20) 15 (Ref Range: 12-20) Blood Urea Nitrogen 16 (Ref Range: 9-16 mg/dL) 18 H (Ref Range: 9-16 mg/dL) 20 H (Ref Range: 9-16 mg/dL) Creatinine 0.67 (Ref Range: 0.5-1.4 mg/dL) 0.75 (Ref Range: 0.5-1.4 mg/dL) 0.73 (Ref Range: 0.5-1.4 mg/dL) Estimated Glomerular Filt Rate > 60 > 60 > 60 Glucose Fasting 125 H (Ref Range: 60-99 mg/dL) 115 H (Ref Range: 60-99 mg/dL) 112 H (Ref Range: 60-99 mg/dL) Calcium 9.4 (Ref Range: 8.4-10.2 mg/dL) 10.0 (Ref Range: 8.4-10.2 mg/dL) 9.5 (Ref Range: 8.4-10.2 mg/dL) * Lab:Prostate Specific Antige n * Collection Date 01/05/2025 07/11/2024 04/04/2024 Collection Time 06:52 AM 06:17 AM 06:21 AM Order Date 01/05/2025 07/11/2024 04/04/2024 Prostate Specific Antigen 2.29 (Ref Range: <0.05-4.0 ng/mL) 2.00 (Ref Range: <0.05-4.0 ng/mL) 1.52 (Ref Range: <0.05-4.0 ng/mL) ???Imaging:Diabetic Eye Exam (Order Date - 12/07/2024) (Performed Date - 12/07/2024)?Result: undefined Assessment: * Assessment: 1. M etastatic malignant melanoma - C79.9 (Primary) N otes :There was no sign of a new primary melanoma or recurrent melanoma in any location on today's examination. 2 . B enign prostatic hyperplasia, unspecified whether lower urinary tract symptoms present - N40.0 N otes :He rises from sleep twice a night to urinate. We discussed lifestyle modification has a way of reducing nocturia.His prostatism is stable. 3 . F ormer smoker - Z87.891 N otes :He is highly motivated not to smoke and we have discussed strategies for maintenance of abstinence in time of illness distress. 4 . D iabetes mellitus - E11.9 N otes :His fasting glucose was 125 and his hemoglobin A1c is 6.9. His weight is in the normal range. His lipids are stable. No change in his regimen as needed. 5 . E ssential hypertension - I10 N otes :His blood pressure is currently stable and no change in his regimen was necessary today. 6 . S houlder pain, left - M25.512 N otes :He has had a mild pain in his shoulder for over a year but it is recently become worse. It is likely arthritic or inflammatory but x-rays have been ordered. He will use ibuprofen and a heating pad. If necessary he will be referred for injections. 7 . O verweight - E66.3 N otes :His body mass index is 26. He has gained 2 pounds. We discussed diet and nutrition today. We discussed lifestyle modifications she could make to reduce his weight. We made a plan to lose weight at a rate of one half of a pound per week. 8 . R ecurrent low back pain - M54.50 N otes :This is resolving and is 90% gone. He will gradually resume normal life. Plan: * Treatment: 2. O thers Continue OneTouch Ultra Test Strip, -, as directed, In Vitro, test blood sugars once a day, Notes to Pharmacist: DX: E11.9 Diabetes. * Procedure Codes: 9 8012 SYNCH AUDIO-ONLY EST SF 10 * Preventive Medicine: Counseling: C are goal follow-up plan: Counseling for abnormal BMI given Y es Above Normal BMI Follow-up D ietary needs education, Exercise promotion: strength training, Exercise promotion: stretching DM Care Plan: P atient Lifestyle Goals P atient wants to be able to manage diabetes without too much effort. T reatment Goals H bA1C < 7.0, Blood Sugars less than < 115. B arriers n o barriers. S elf-Managment Goals W ork on weight loss, with a goal of losing 1 lb per week. * Follow Up: A s Scheduled (Reason: OV) * Images: * Sign off status: Completed true * Provider: Amador Roberts MD Date: 0 02/06/2025 Generated for Roseann russ/Mahin/Yamilaitting on: 12/01/2024 06:19 AM EST History and Physical Notes * HPI (History of Present Illness) Category Sub-Category Detail Notes Telehealth Location of [facility] rendering services:: {...} [address] [place] [address] Location of patient:: address listed in demographics for today's visit Patient identification confirmed using:: Name, Telehealth method:: Telephone only. Velma ent not visible to care provider. Consent:: Patient verbally c onsented to treatment, Patient verbally consented to billing insurance company, Patient informed of any privacy concerns related to method of visit Total time spent with patient (mins): 15
--- OUTSIDE RECORDS SUMMARY | 2025-02-07 05:49 | XMS_ITS ---
Author Organization Rony Roberts III, MD Address [address] [place] [address] [place] [address] Care Team Providers Care Shoulder Boner Name Role Phone Dr. Rony Roberts III Primary Care Provider REASON FOR VISIT Message Social History Sex Assigned At : Social History Observation Description Sex Assigned At Male Encounters Encounter Location Date Provider Diagnosis Rony Roberts III, MD [address] [place] [address] [place] [address] 02/07/2025 Rony Roberts Plan Of Treatment Next Appt Details Provider Name:Rony Roberts , 10/11/2025 09:45:00 AM, [address] [place] [address] [address], [phone], Provider Name:Rony Roberts , 01/11/2026 02:00:00 PM, [address] [place] [address] [address], [address], Progress Notes * Tj PAGEDOB: [birth year] (79 yo M)Acc No.[id number]:02/07/2025 Patient: Jona Tj HEREDIA :1945 A ge:79 Y S ex:Male Address:[address] [place] [phone] * true * Date: Generated for Roseann russ/Mahin/Gagan on: 12/01/2024 06:20 AM EST
--- OUTSIDE RECORDS SUMMARY | 2025-04-11 05:00 | XMS_ITS ---
Author Organization Rony Roberts III, MD Address [address] [place] [address] Care Team Providers Care Round Up Ring Hand Name Role Phone Dr. Rony Roberts III Primary Care Provider [phone] Allergies Allergen (clinical drug ingredient) Drug/Non Drug Allergy documented on EMR Reaction Allergy Type Onset Date Status morphine Morphine Sulfate Unknown Drug Allergy Active REASON FOR VISIT Blepharospasm, History of melanoma, Hypertension, Diabetes, Benign prostatic hypertrophy, Left shoulder pain Medications Medication SIG (Take, Route, Frequency, Duration) Notes Start Date End Date Status OneTouch Ultra Test - as directed In Vit ro test blood sugars once a day DX: E11.9 Diabetes Active amLODIPine Besylate 5 MG 1 tablet Orally Once a day Active Zinc Active Vitamin C Active traZODone HCl 100 MG 1 tablet at bedtime Orally one tab at bedtime 01/09/2025 Active Tamsulosin HCl 0.4 MG 1 capsule Orally Once a day 06/09/2021 Active Ozempic (0.25 or 0.5 MG/DOSE) 2 MG/3ML as directed Subcutaneous Active Fish Oil Active Lutein Active Multivitamin Active Semaglutide 3 MG as directed Orally Active Empagliflozin 25 MG 1 tablet Orally [...] Tobacco non-user Ex-cigaret te smoker Vital Signs Temperature 97.9 degrees Fahrenheit 04/11/20 25 Blood pressure systolic 126 mm Hg 04/11/20 25 Blood pressure diastolic 67 mm Hg 025 Heart Rate 85 /min 04/11/2025 Height 70 in 04/11/2025 Weight 192 lbs 04/11/2025 BMI 27.55 kg/m2 04/11/2025 Encounters Encounter Location Date Provider Diagnosis Rony Roberts III, MD [address] [place] [address] [place] [address] 04/11/2025 Rony Roberts Benign prostatic hyperplasia, unspecified whether lower urinary tract symptoms present N40.0 ; Metastatic malignant melanoma C79.9 ; Diabetes mellitus E11.9 ; Overweight E66.3 ; Essential hypertension I10 ; Former smoker Z87.891 ; Shoulder pain, left M25.512 and Peripheral neuropathy G62.9 Assessments Encounter Date Diagnosis (ICD Code) Assessment Notes Treatment Notes Treatment Clinical Notes 04/11/2025 Benign prostatic hyperplasia, unspecified whether lower urinary tract symptoms present (ICD-10 - N40.0) He rises from sleep twice a night to urinate. We discussed lifestyle modification has a way of reducing nocturia.His prostatism is stable. 04/11/2025 Metastatic malignant melanoma (ICD-10 - C79.9) There was no sign of a new primary melanoma or recurrent melanoma in any location on today's examination. 04/11/2025 Diabetes mellitus (ICD-10 - E11.9) His fasting glucose is 144. He is feeling well. No change in his regimen was made. He has gained 5 pounds we discussed a weight reduction program. 04/11/2025 Overweight (ICD-10 - E66.3) He remains overweight but has gained 5 pounds. We discussed diet and nutrition. We made a plan to lose weight at a rate of 1 pound per week through a diet restricted in fat calories and sodium. 04/11/2025 Essential hypertension (ICD-10 - I10) His blood pressure is currently stable and no change in his regimen was necessary today. 04/11/2025 Former smoker (ICD-10 - Z87.891) He is highly motivated not to smoke and we have discussed strategies for maintenance of abstinence in time of illness distress. 04/11/2025 Shoulder pain, left (ICD-10 - M25.512) He has had a mild pain in his shoulder for over a year but it is recently become worse. It is likely arthritic or inflammatory but x-rays have been ordered. He will use ibuprofen and a heating pad. If necessary he will be referred for injections. 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 No additional treatment is recommended today. Plan Of Treatment Medication Medication Name Sig Start Date Stop Date Notes OneTouch Ultra Test - as directed In Vit ro test blood sugars once a day DX: E11.9 Diabetes amLODIPine Besylate 5 MG 1 tablet Orally Once a day Zinc Vitamin C traZODone HCl 100 MG 1 tablet at bedtime Orally one tab at bedtime 01/09/2025 Tamsulosin HCl 0.4 MG 1 capsule Orally O nce a day 06/09/2021 Ozempic (0.25 or 0.5 MG/DOSE) 2 MG/3ML as directed Subcutaneous Fish Oil Lutein Multivitamin Semaglutide 3 MG as directed Orally Empagliflozin 25 MG 1 tablet Orally Once a day metFORMIN HCl 1000 MG 1 tablet with a me al Orally Twice a day Irbesartan 150 MG 1 tablet Oral Once a day (Avapro) Atorvastatin Calcium 40 MG 1 tablet Orally Once a day Pending Test Test Name Order Date PROFILE, FASTING (COMPREHENSIVE METABOLI C) 04/11/2025 PSA, TOTAL 04/11/2025 CBC w DIFF 04/11/2025 Lipid Panel 04/11/2025 Microalbumin, Random 04/11/2025 Hemoglobin A1c 04/11/2025 Next Appt Details Follow Up: 3 Months, Reason: OV Provider Name:Rony Roberts , 10/11/2025 09:45:00 AM, [address] [place] [address] DR, [facility] [address], [place], [address], Provider Name:Rony Roberts , 01/11/2026 02:00:00 PM, [address] [place] [address] [address], [place], [address], Progress Notes * Tj PAGEDOB: [birth year] (79 yo M)Acc No.[id number]:04/11/2025 Progress Notes Patient: Tj IVERSON Provider: Amador Roberts MD :1945 A ge:79 Y S ex:Male Date:04/11/2025 Address:[address] [place], [place] [phone] Subjective: * Chief Complaints: * B lepharospasmHistory of melanomaHypertensionDiabetesBenign prostatic hypertrophyLeft shoulder pain * HPI: C OVID-19 Screening: Kassie cagle recently had Botox injections around his eyes to stop twitching. He now has some twitching of his upper lip,, which the director behavioral health is treating with observation. He has gained 4 pounds. He admits to nocturia 2 or 3 times a night. Otherwise he feels well and has been free of recurrent melanoma. Questions H ave you had any new onset fever, chills, cough, congestion, sore throat, shortness of breath, muscle aches? N o * ROS: G eneral/Constitutional: pain o nly normal aches and pains. C hills d enies.?Fatigue a dmits. F ever d enies. E NT: Decreased hearing d enies. R espiratory: Cough d enies. C ardiovascular: Chest pain with exertion d enies. D yspnea on exertion?denies. S hortness of breath d enies. G astrointestinal: Constipation o ccasional. D ecreased appetite d enies. D iarrhea d enies. H eartburn d enies. N ausea d enies. R ectal bleeding d enies. V omiting d enies. H ematology: bruising d enies. p etechiae d enies. S wollen glands n one have been noted. G enitourinary: Frequent urination t wijessica a night. 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 He has a daughter and a 2 grandaughters and 2 grand sons. He was born in [place], [place]. * Medications: T akingOneTouch Ultra Test - Strip as directed In [...] List reviewed and reconciled with the patientTaking yoonew Ultra Test - Strip as directed In [...] Verified] Objective: * Vitals: H t: 70, Wt:192, BMI:27.55, BP:126/67, HR:85, Temp:97.9, Ht-cm: 177.8, Wt-k.09. * P ast Orders: Lab:Complete Blood Count Aut o Diff * Collection Date 04/03/2025 01/05/2025 07/11/2024 Collection Time 06:09 AM 06:52 AM 06:17 AM Order Date 04/03/2025 01/05/2025 07/11/2024 White Blood Count 6.7 (Ref Range: 4.8-10.8 X10*3/uL) 6.0 (Ref Range: 4.8-10.8 X10*3/uL) 5.6 (Ref Range: 4.8-10.8 X10*3/uL) Red Blood Count 4.24 L (Ref Range: 4.60-5.80 X10*6/uL) 4.33 L (Ref Range: 4.60-5.80 X10*6/uL) 4.49 L (Ref Range: 4.60-5.80 X10*6/uL) Hemoglobin 13.7 L (Ref Range: 14.0-18.0 g/dl) 13.7 L (Ref Range: 14.0-18.0 g/dl) 14.4 (Ref Range: 14.0-18.0 g/dl) Hematocrit 40.6 L (Ref Range: 42.0-52.0 %) 40.3 L (Ref Range: 42.0-52.0 %) 43.4 (Ref Range: 42.0-52.0 %) Mean Corpuscular Volume 95.8 (Ref Range: 80.0-98.0 fL) 93.1 (Ref Range: 80.0-98.0 fL) 96.7 (Ref Range: 80.0-98.0 fL) Mean Corpuscular Hemoglobin 32.3 (Ref Range: 27.0-33.0 pg) 31.6 (Ref Range: 27.0-33.0 pg) 32.1 (Ref Range: 27.0-33.0 pg) Mean Corpuscular HGB Conc 33.7 (Ref Range: 31.0-36.0 g/dl) 34.0 (Ref Range: 31.0-36.0 g/dl) 33.2 (Ref Range: 31.0-36.0 g/dl) Red Cell Distribution Width 13.9 (Ref Range: 11.0-16.0 %) 13.2 (Ref Range: 11.0-16.0 %) 14.1 (Ref Range: 11.0-16.0 %) Platelet Count 234 (Ref Range: 160-400 X10*3/uL) 264 (Ref Range: 160-400 X10*3/uL) 215 (Ref Range: 160-400 X10*3/uL) Mean Platelet Volume 9.6 (Ref Range: 9.4-12.4 fL) 9.1 L (Ref Range: 9.4-12.4 fL) 10.6 (Ref Range: 9.4-12.4 fL) Neutrophils Percent Auto 63.9 (Ref Range: 45-73 %) 61.7 (Ref Range: 45-73 %) 60.6 (Ref Range: 45-73 %) Imm Gran Pct Auto 0.3 (Ref Range: 0.0-0.4 %) 0.3 (Ref Range: 0.0-0.4 %) 0.4 (Ref Range: 0.0-0.4 %) Lymphocytes Percent Auto 20.4 (Ref Range: 20-40 %) 20.0 (Ref Range: 20-40 %) 21.5 (Ref Range: 20-40 %) Monocytes Percent Auto 10.0 (Ref Range: 2-11 %) 11.6 H (Ref Range: 2-11 %) 10.4 (Ref Range: 2-11 %) Eosinophils Percent Auto 4.8 H (Ref Range: 0-4 %) 5.7 H (Ref Range: 0-4 %) 6.6 H (Ref Range: 0-4 %) Basophils Percent Auto 0.6 (Ref Range: 0-2 %) 0.7 (Ref Range: 0-2 %) 0.5 (Ref Range: 0-2 %) NRBC Pct Auto 0.0 (Ref Range: 0.0-0.2 /100WBC) 0.0 (Ref Range: 0.0-0.2 /100WBC) 0.0 (Ref Range: 0.0-0.2 /100WBC) Neutrophils Absolute Auto 4.3 (Ref Range: 2.0-8.3 x10*3/uL) 3.7 (Ref Range: 2.0-8.3 x10*3/uL) 3.4 (Ref Range: 2.0-8.3 x10*3/uL) Imm Gran Abs Auto 0.02 (Ref Range: 0.00-0.03 X10*3/uL) 0.02 (Ref Range: 0.00-0.03 X10*3/uL) 0.02 (Ref Range: 0.00-0.03 X10*3/uL) Lymphocytes Absolute Auto 1.4 (Ref Range: 1.2-4.9 X10*3/uL) 1.2 (Ref Range: 1.2-4.9 X10*3/uL) 1.2 (Ref Range: 1.2-4.9 X10*3/uL) Monocytes Absolute Auto 0.7 (Ref Range: 0.1-1.2 X10*3/uL) 0.7 (Ref Range: 0.1-1.2 X10*3/uL) 0.6 (Ref Range: 0.1-1.2 X10*3/uL) Eosinophils Absolute Auto 0.3 (Ref Range: 0.0-0.4 X10*3/uL) 0.3 (Ref Range: 0.0-0.4 X10*3/uL) 0.4 (Ref Range: 0.0-0.4 X10*3/uL) Basophils Absolute Auto 0.0 (Ref Range: 0.0-0.2 X10*3/uL) 0.0 (Ref Range: 0.0-0.2 X10*3/uL) 0.0 (Ref Range: 0.0-0.2 X10*3/uL) NRBC Abs Auto 0.000 (Ref Range: 0.0-0.012 X10*3/uL) 0.000 (Ref Range: 0.0-0.012 X10*3/uL) 0.000 (Ref Range: 0.0-0.012 X10*3/uL) * Lab:Rosalba fountain Fast * Collection Date 04/03/2025 01/05/2025 07/11/2024 Collection Time 06:09 AM 06:52 AM 06:17 AM Order Date 04/03/2025 01/05/2025 07/11/2024 Sodium 140 (Ref Range: 135-145 mmol/L) 139 (Ref Range: 135-145 mmol/L) 140 (Ref Range: 135-145 mmol/L) Bilirubin Total 0.5 (Ref Range: 0.0-1.0 mg/dL) 0.4 (Ref Range: 0.0-1.0 mg/dL) 0.7 (Ref Range: 0.0-1.0 mg/dL) Aspartate Amino Transferase 19 (Ref Range: 5-37 U/L) 18 (Ref Range: 5-37 U/L) 17 (Ref Range: 5-37 U/L) Alanine Aminotransferase 19 (Ref Range: 0-40 U/L) 17 (Ref Range: 0-40 U/L) 19 (Ref Range: 0-40 U/L) Total Protein 7.2 (Ref Range: 6.5-8.0 g/dL) 7.1 (Ref Range: 6.5-8.0 g/dL) 7.3 (Ref Range: 6.5-8.0 g/dL) Albumin Level 4.4 (Ref Range: 3.5-5.0 g/dL) 4.0 (Ref Range: 3.5-5.0 g/dL) 4.4 (Ref Range: 3.5-5.0 g/dL) Alkaline Phosphatase 67 (Ref Range: 39-117 U/L) 65 (Ref Range: 39-117 U/L) 70 (Ref Range: 39-117 U/L) Potassium 4.2 (Ref Range: 3.3-5.1 mmol/L) 4.3 (Ref Range: 3.3-5.1 mmol/L) 4.3 (Ref Range: 3.3-5.1 mmol/L) Chloride 107 (Ref Range: 96-108 mmol/L) 108 (Ref Range: 96-108 mmol/L) 105 (Ref Range: 96-108 mmol/L) Carbon Dioxide 24 (Ref Range: 22-29 mmol/L) 22 (Ref Range: 22-29 mmol/L) 25 (Ref Range: 22-29 mmol/L) Anion Gap 13 (Ref Range: 12-20) 13 (Ref Range: 12-20) 14 (Ref Range: 12-20) Blood Urea Nitrogen 18 H (Ref Range: 9-16 mg/dL) 16 (Ref Range: 9-16 mg/dL) 18 H (Ref Range: 9-16 mg/dL) Creatinine 0.77 (Ref Range: 0.5-1.4 mg/dL) 0.67 (Ref Range: 0.5-1.4 mg/dL) 0.75 (Ref Range: 0.5-1.4 mg/dL) Estimated Glomerular Filt Rate > 60 > 60 > 60 Glucose Fasting 144 H (Ref Range: 60-99 mg/dL) 125 H (Ref Range: 60-99 mg/dL) 115 H (Ref Range: 60-99 mg/dL) Calcium 9.5 (Ref Range: 8.4-10.2 mg/dL) 9.4 (Ref Range: 8.4-10.2 mg/dL) 10.0 (Ref Range: 8.4-10.2 mg/dL) * Lab:Lipid Panel * Collection Date 04/03/2025 01/05/2025 07/11/2024 Collection Time 06:09 AM 06:52 AM 06:17 AM Order Date 04/03/2025 01/04/2025 07/11/2024 Triglycerides 66 (Ref Range: <150 mg/dL) 45 (Ref Range: <150 mg/dL) 99 (Ref Range: <150 mg/dL) Cholesterol 113 (Ref Range: <200 mg/dL) 97 (Ref Range: <200 mg/dL) 111 (Ref Range: <200 mg/dL) LDL Cholesterol Calculated 52 (Ref Range: <100 mg/dL) 47 (Ref Range: <100 mg/dL) 45 (Ref Range: <100 mg/dL) HDL Cholesterol 48 (Ref Range: >40 mg/dL) 41 (Ref Range: >40 mg/dL) 47 (Ref Range: >40 mg/dL) * Lab:Prostate Specific Antige n * Collection Date 04/03/2025 01/05/2025 07/11/2024 Collection Time 06:09 AM 06:52 AM 06:17 AM Order Date 04/03/2025 01/05/2025 07/11/2024 Prostate Specific Antigen 3.34 (Ref Range: <0.05-4.0 ng/mL) 2.29 (Ref Range: <0.05-4.0 ng/mL) 2.00 (Ref Range: <0.05-4.0 ng/mL) * Examination: G eneral Examination: GENERAL APPEARANCE: p leasant, well nourished, well developed, in no acute distress, calm and relaxed, overweight, man. HEAD: a traumatic, normocephalic. EYES: e santa, perrla, anicteric, conjugate. EARS: n ormal. NOSE: s eptum intact. ORAL CAVITY: n ormal, unremarkable. NECK/THYROID: n o jugular venous distention, no carotid bruit, thyroid normal. LYMPH NODES: n o enlarged lymph nodes,spleen normal. SKIN: n o suspicious lesions, anicteric, No signs of new melanomas her metastatic foci. Extensive radiation changes and scarring axilla. HEART: n o clicks, gallops, murmurs, or rubs, regular rhythm, S1, S2 normal, no s3, or vascular bruits. LUNGS: c lear to auscultation . BREASTS: no masses palpable bilaterally. ABDOMEN: b owel sounds normal, no ascites, no organomegaly, no mass, overweight. RECTAL EXAM: n ot examined. MUSCULOSKELETAL: e xtremities unremarkable, no clubbing, cyanosis or edema. PERIPHERAL PULSES: n ormal. NEUROLOGIC: a lert and oriented, cranial nerves 2-12 grossly intact, deep tendon reflexes 2+ symmetrical, motor strength normal upper and lower extremities, sensory exam intact. PSYCH: a lert, oriented. Assessment: * Assessment: 1. M etastatic malignant [...] reducing nocturia.His prostatism is stable. 3 . D iabetes mellitus - E11.9 N otes :His fasting glucose is 144. He is feeling well. No change in his regimen was made. He has gained 5 pounds we discussed a weight reduction program. 4 . O verweight - E66.3 N otes :He remains overweight but has gained 5 pounds. We discussed diet and nutrition. We made a plan to lose weight at a rate of 1 pound per week through a diet restricted in fat calories and sodium. 5 . E ssential hypertension - I10 N otes :His blood pressure is currently stable and no change in his regimen was necessary today. 6 . F ormer smoker - Z87.891 N otes :He is highly motivated not to smoke and we have discussed strategies for maintenance of abstinence in time of illness distress. 7 . S houlder pain, left - M25.512 N otes :He has had a mild pain in his shoulder for over a year but it is recently become worse. It is likely arthritic or inflammatory but x-rays have been ordered. He will use ibuprofen and a heating pad. If necessary he will be referred for injections. 8 . 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 No additional treatment is recommended today. Plan: * Treatment: 2. D iabetes mellitus L AB: PROFILE, FASTING (COMPREHENSIVE METABOLIC) L AB: PSA, TOTAL L AB: CBC w DIFF L AB: Lipid Panel L AB: Microalbumin, Random L AB: Hemoglobin A1c 3. O verweight L AB: PROFILE, FASTING (COMPREHENSIVE METABOLIC) L AB: PSA, TOTAL L AB: CBC w DIFF L AB: Lipid Panel L AB: Microalbumin, Random L AB: Hemoglobin A1c 4. O thers Continue OneTouch Ultra Test Strip, -, as directed, In Vitro, test blood sugars once a day, Notes to Pharmacist: DX: E11.9 Diabetes. * Procedure Codes: * Preventive Medicine: Counseling: C are goal follow-up plan: Counseling for abnormal BMI given Y es Above Normal BMI Follow-up D ietary management education, guidance, and counseling S moking/Tobacco Use Patient counseled on the dangers of tobacco use and urged to quit. 0 04/11/2025 DM Care Plan: P atient Lifestyle Goals P atient wants to be able to manage diabetes without too much effort. T reatment Goals H bA1C < 7.0, Blood Sugars less than < 115. B arriers n o barriers. S elf-Managment Goals W ork on weight loss, with a goal of losing 1 lb per week. * Follow Up: 3 Months (Reason: OV) * Images: * Sign off status: Completed true * Provider: Amador Roberts MD Date: 0 04/11/2025 Generated for Roseann russ/Mahin/Yamilaitting on: 12/01/2024 06:19 AM EST History and Physical Notes * HPI (History of Present Illness) Category Sub-Category Detail Notes COVID-19 Screening Questions Have you had any new onset fever, chills, cough, congestion, sore throat, shortness of breath, muscle aches?: No Examination Category Sub-Category Detail Notes General Examination GENERAL APPEARANCE: pleasant , well nourished, well developed, in no acute distress, calm and relaxed, overweight, man HEAD: atraumatic, normocep halic EYES: eomi, perrla, anicte екатерина, conjugate EARS: normal NOSE: septum intact NECK/THYROID: no jugular venous di stention, no carotid bruit, thyroid normal HEART: no clicks, gallops, murmurs, or rubs, regular rhythm, S1, S2 normal, no s3, or vascular bruits LUNGS: clear to auscultatio n ABDOMEN: bowel sounds normal, no ascites, no organomegaly, no mass, overweight NEUROLOGIC: alert and oriented, cranial nerves 2-12 grossly intact, deep tendon reflexes 2+ symmetrical, motor strength normal upper and lower extremities, sensory exam intact SKIN: no suspicious lesion s, anicteric, No signs of new melanomas her metastatic foci. Extensive radiation changes and scarring axilla PERIPHERAL PULSES: normal BREASTS: no masses palpable b ilaterally MUSCULOSKELETAL: extremities unremark able, no clubbing, cyanosis or edema LYMPH NODES: no enlarged lymph no susanna,spleen normal RECTAL EXAM: not examined PSYCH: alert, oriented ORAL CAVITY: normal, unremarkable
--- OUTSIDE RECORDS SUMMARY | 2025-06-02 15:59 | XMS_ITS ---
Author Organization Rony Roberts III, MD Address [address] [place] [address] [place] [address] Care Team Providers Care Lokie Driver Name Role Phone Dr. Rony Roberts III Primary Care Provider Social History Sex Assigned At : Social History Observation Description Sex Assigned At Male Encounters Encounter Location Date Provider Diagnosis Rony Roberts III, MD [address] [place] [address] [place] [address] 06/02/2025 Rony Roberts Plan Of Treatment Next Appt Details Provider Name:Rony Roberts , 10/11/2025 09:45:00 AM, [address] [place] [address] [place], [address], Provider Name:Rony Roberts , 01/11/2026 02:00:00 PM, [address] [place] [address] [place], [address], Progress Notes * Tj PAGEDOB: [birth year] (79 yo M)Acc No.[id number]:06/02/2025 Patient: Jona HEREDIATj :1945 A ge:79 Y S ex:Male Address:[address] [place] [address] * true * Date: Generated for Roseann russ/Mahin/Gagan on: 12/01/2024 06:20 AM EST
--- OUTSIDE RECORDS SUMMARY | 2025-07-12 04:15 | XMS_ITS ---
Author Organization Rony Roberts III, MD Address [address] [place] [address] Care Team Providers Care Range Scientist Name Role Phone Dr. Rony Roberts III Primary Care Provider [phone] Allergies Allergen (clinical drug ingredient) Drug/Non Drug [...] Date Provider Diagnosis Rony Roberts III, MD [address] [place] [address] [place] [address] 07/12/2025 Rony Roberts Benign prostatic hyperplasia, unspecified [...] Provider Name:Rony Roberts , 10/11/2025 09:45:00 AM, [address] [place] [address] [address], [place], [address], Provider Name:Rony Roberts , 01/11/2026 02:00:00 PM, [address] [place] [address] [address], [place], [address], Progress Notes * Ehsan PAGEnatashaDOB: [birth year] (79 yo M)Acc No.[id number]:07/12/2025 Progress Notes Patient: Tj IVERSON Provider: Amador Roberts MD :1945 A ge:79 Y S ex:Male Date:07/12/2025 Address:[address] [place], [place] [id number] Subjective: * Chief Complaints: * H istory [...] 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 He has a daughter and a 2 grandaughters and 2 grand sons. He was born in [place], [place]. * Medications: T akingamLODIPine Besylate 5 [...] AB: Hemoglobin A1c 4. O thers Continue OneApperianuch Ultra Test Strip, -, One strip, In [...] 07/12/2025 Generated for Roseann russ/Mahin/Yamilaitting on: 1 12/01/2024 06:19 AM EST History and Physical [...]
--- OUTSIDE RECORDS SUMMARY | 2025-08-13 08:30 | XMS_ITS ---
Author Organization Rony Roberts III, MD Address [address] [place] [address] Care Team Providers Care Rail Transportation Tabeler Name Role Phone Dr. Rony Roberts III Primary Care Provider [phone] Allergies Allergen (clinical drug ingredient) Drug/Non Drug Allergy documented on EMR Reaction Allergy Type Onset Date Status morphine Morphine Sulfate Unknown Drug Allergy Active REASON FOR VISIT Fall down stairs at home, Severe left shoulder pain, Left hip pain, Right back pain, History of melanoma Medications Medication SIG (Take, Route, Frequency, Duration) Notes Start Date End Date Status Multivitamin Active Lutein Active Zinc Active Fish Oil Active Ozempic (0.25 or 0.5 MG/DOSE) 2 MG/3ML as directed Subcutaneous Active Atorvastatin Calcium 40 MG 1 tablet Orally Once a day Active Irbesartan 150 MG 1 tablet Oral Once a day (Avapro) Active Empagliflozin 25 MG 1 tablet Orally Once a day Active Semaglutide 3 MG as directed Orally Active Tamsulosin HCl 0.4 MG 1 capsule Orally Once a day 06/09/2021 Active Vitamin C Active traZODone HCl 100 MG 1 tablet at bedtime Orally one tab at bedtime 01/09/2025 Active metFORMIN HCl 1000 MG 1 tablet [...] Additional Findings: Tobacco non-user Ex-cigaret te smoker Problems Problem Type SNOMED Code ICD Code Onset Dates Problem Status W/U Status Risk Notes Problem 604802263 Closed fracture of left shoulder, initial encounter (S42.92XA) Active confirmed Imaging in the emergency room showed a fracture of the shoulder. The arm is immobilized in a sling and he will be sent to orthopedics. Problem 20222302 Unspecified fall, initial encounter (W19.XXXA) Active confirmed He tripped on the stair well. He did not lose consciousness or chest pain. There was no vertigo. Problem Obesity (407374531) Obesity (278.00) Active confirmed We discussed a healthy diet gradually reduction in weight watchers and portion control. Vital Signs Temperature 97.3 degrees Fahrenheit 08/13/20 25 Blood pressure systolic 157 mm Hg 08/13/20 25 Blood pressure diastolic 78 mm Hg 025 Heart Rate 85 /min 08/13/2025 Height 70 in 08/13/2025 Weight 181 lbs 08/13/2025 BMI 25.97 kg/m2 08/13/2025 Encounters Encounter Location Date Provider Diagnosis Rony Roberts III, MD [address] [place] [address] [place] [address] 08/13/2025 Rony Roberts Unspecified fall, initial encounter W19.XXXA ; Benign prostatic hyperplasia, unspecified whether lower urinary tract symptoms present N40.0 ; Closed fracture of left shoulder, initial encounter S42.92XA ; Essential hypertension I10 ; Obesity 278.00 ; Former smoker Z87.891 ; Diabetes mellitus E11.9 and Peripheral neuropathy G62.9 Assessments Encounter Date Diagnosis (ICD Code) Assessment Notes Treatment Notes Treatment Clinical Notes 08/13/2025 Unspecified fall, initial encounter (ICD-10 - W19.XXXA) He tripped on the stair well. He did not lose consciousness or chest pain. There was no vertigo. 08/13/2025 Benign prostatic hyperplasia, unspecified whether lower urinary tract symptoms present (ICD-10 - N40.0) He rises from sleep twice a night to urinate. We discussed lifestyle modification has a way of reducing nocturia.His prostatism is stable. 08/13/2025 Closed fracture of left shoulder, initial encounter (ICD-10 - S42.92XA) Imaging in the emergency room showed a fracture of the shoulder. The arm is immobilized in a sling and he will be sent to orthopedics. 08/13/2025 Essential hypertension (ICD-10 - I10) His blood pressure is currently stable. The current regimen was continued. 08/13/2025 Obesity (ICD9-CM - 278.00) We discussed a healthy diet gradually reduction in weight watchers and portion control. 08/13/2025 Former smoker (ICD-10 - Z87.891) He is highly motivated not to smoke and we have discussed strategies for maintenance of abstinence in time of illness distress. 08/13/2025 Diabetes mellitus (ICD-10 - E11.9) His hemoglobin A1c has increased from 6.9-7.3. His fasting glucose is 119. He has lost weight. He admits to dietary indiscretions but says he is now back on the wagon. 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 No additional treatment is recommended today. Plan Of Treatment Medication Medication Name Sig Start Date Stop Date Notes Multivitamin Lutein Zinc Fish Oil Ozempic (0.25 or 0.5 MG/DOSE) 2 MG/3ML as directed Subcutaneous Atorvastatin Calcium 40 MG 1 tablet Orally Once a day Irbesartan 150 MG 1 tablet Oral Once a day (Avapro) Empagliflozin 25 MG 1 tablet Orally Once a day Semaglutide 3 MG as directed Orally Tamsulosin HCl 0.4 MG 1 capsule Orally O nce a day 06/09/2021 Vitamin C traZODone HCl 100 MG 1 tablet at bedtime Orally one tab at bedtime 01/09/2025 metFORMIN HCl 1000 MG 1 tablet with a me al Orally Twice a day amLODIPine Besylate 5 MG 1 tablet Orally Once a day OneTouch Ultra Test - One strip In Vitro Once a day E11.9 Diabetes mellitus Next Appt Details Follow Up: 1 Week, Reason: o v Provider Name:Rony Roberts , 10/11/2025 09:45:00 AM, [address] [place] [address] [address], [place], [address], Provider Name:Rony Roberts , 01/11/2026 02:00:00 PM, [address] [place] [address] [address], [place], [address], Progress Notes * Tj PAGEDOB: [birth year] (80 yo M)Acc No.[id number]:08/13/2025 Patient: Tj IVERSON Provider: Amador Roberts MD :1945 A ge:80 Y S ex:Male Date:08/13/2025 Address:[address] [place], [place] [address] Subjective: * Chief Complaints: * F all down stairs at homeSevere left shoulder painLeft hip painRight back painHistory of melanoma * HPI: C OVID-19 Screening: Kassie cagle comes in for an urgent visit after a fall down stairs this morning due to tripping. There was no loss of consciousness or seizure. He struck her left side of his head and has a swollen area. Therefore centimeters in diameter, buut no palpable fracture. He has severe pain in his left shoulder and is unable to move it normally. He has a history of left hip replacement and now has pain in his medial upper thigh. Upon examination today the head and neck seems stable and the abrasion on the back with trivial but he appears to have a fractured shoulder and possibly displacement of the prosthesis in the left hip. He was sent in a wheelchair to the [place] emergency room for an urgent care and stabilization.He was found to have a fracture of the shoulder joint and was immobilized in a sling. An appointment is being arranged with orthopedics. * ROS: G eneral/Constitutional: pain U pper right neck, left upper leg and hip, left shoulder, left side of his head. C hills d enies. F atigue a [...] have been noted. G enitourinary: Frequent urination o nce a night. M usculoskeletal: Muscle aches d enies. P ainful joints L eft hip and left shoulder. S ciatica d enies. 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 He has a daughter and a 2 grandaughters and 2 grand sons. He was born in [place], [place]. * Medications: [facility] - Strip One strip In Vitro Once a day , Notes to Pharmacist: E11.9 Diabetes mellitusamLODIPine Besylate 5 MG Tablet 1 tablet Orally Once a day metFORMIN HCl 1000 MG Tablet 1 tablet with a meal Orally Twice a day Irbesartan 150 MG Tablet 1 tablet Oral Once a day , Notes to Pharmacist: (Herbertapro)Atorvastatin Calcium 40 MG Tablet 1 tablet Orally [...] List reviewed and reconciled with the patientTaking Pycnouch Ultra Test - Strip One strip In Vitro Once a day , Notes to Pharmacist: E11.9 Diabetes mellitusTaking amLODIPine Besylate 5 MG Tablet 1 tablet Orally Once a day Taking metFORMIN HCl 1000 MG Tablet 1 tablet with a meal Orally Twice a day Taking Irbesartan 150 MG Tablet 1 tablet Oral Once a day , Notes to Pharmacist: (Herbertapro)Taking Atorvastatin Calcium 40 MG Tablet 1 tablet Orally Once a day Taking Semaglutide 3 MG Tablet as directed Orally Taking Empagliflozin 25 MG Tablet 1 tablet Orally Once a day Taking Tamsulosin HCl 0.4 MG Capsule 1 capsule Orally Once a day Taking Ozempic (0.25 or 0.5 MG/DOSE) 2 MG/3ML Solution Pen-injector as directed Subcutaneous Taking Lutein Taking Multivitamin Taking Fish Oil Taking Zinc Taking Vitamin C Taking traZODone HCl 100 MG Tablet 1 tablet at bedtime Orally one tab at bedtime Medication List reviewed and reconciled with the patient * Allergies: M orphine Sulfate: Side Effectsno[Allergies Verified] Objective: * Vitals: H t: 70, Wt:181, BMI:25.97, BP:157/78, HR:85, Temp:97.3, Ht-cm: 177.8, Wt-k.1. * Examination: G eneral Examination: GENERAL APPEARANCE: p paolo, well nourished, well developed,Gentleman in obvious pain walking with an antalgic gait the left leg and visible bruising on the left side of his head, gait is slow and painful mental status is normal. HEAD: 4 cm swollen area over the left temporal bone. EYES: e santa, perrla, anicteric, conjugate. EARS: n ormal. NOSE: s eptum intact. ORAL CAVITY: n ormal, unremarkable. NECK/THYROID: n o jugular venous distention, no carotid bruit, thyroid normal, Supple range of motion in all directions free of pain. LYMPH NODES: n o enlarged lymph nodes,spleen normal. SKIN: n o suspicious lesions, anicteric. HEART: n o clicks, gallops, murmurs, or rubs, regular rhythm, S1, S2 normal, no s3, or vascular bruits. LUNGS: c lear to auscultation . BREASTS: no masses palpable bilaterally. ABDOMEN: b owel sounds normal, no ascites, no organomegaly, no mass. RECTAL EXAM: n ot examined. MUSCULOSKELETAL: e xtremities unremarkable, no clubbing, cyanosis or edema, Scarring and radiation changes Left maxilla, severe pain to range of motion left arm. Pain to range of motion left hip. PERIPHERAL PULSES: n ormal. NEUROLOGIC: a lert and oriented, cranial nerves 2-12 grossly intact, deep tendon reflexes 2+ symmetrical, motor strength normal upper and lower extremities, sensory exam intact. PSYCH: c ooperative with exam: alert, oriented: speech clear: thought process logical, goal directed: cognitive function intact. Assessment: * Assessment: 1. U nspecified fall, initial encounter - W19.XXXA (Primary) N otes :He tripped on the stair well. He did not lose consciousness or chest pain. There was no vertigo. 2 . B enign prostatic hyperplasia, unspecified whether lower urinary tract symptoms present - N40.0 N otes :He rises from sleep twice a night to urinate. We discussed lifestyle modification has a way of reducing nocturia.His prostatism is stable. 3 . C losed fracture of left shoulder, initial encounter - S42.92XA N otes :Imaging in the emergency room showed a fracture of the shoulder. The arm is immobilized in a sling and he will be sent to orthopedics. 4 . E ssential hypertension - I10 N otes :His blood pressure is currently stable. The current regimen was continued. 5 . O besity - 278.00 N otes :We discussed a healthy diet gradually reduction in weight watchers and portion control. 6 . F ormer smoker - Z87.891 N otes :He is highly motivated not to smoke and we have discussed strategies for maintenance of abstinence in time of illness distress. 7 . D iabetes mellitus - E11.9 N otes :His hemoglobin A1c has increased from 6.9-7.3. His fasting glucose is 119. He has lost weight. He admits to dietary indiscretions but says he is now back on the wagon. 8 . 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 No additional treatment is recommended today. Plan: * Treatment: 2. O thers Continue OneTouch Ultra Test Strip, -, One strip, In Vitro, Once a day, Notes to Pharmacist: E11.9 Diabetes mellitus. * Procedure Codes: * Preventive Medicine: Counseling: C are goal follow-up plan: Counseling for abnormal BMI given Y es Above Normal BMI Follow-up D ietary management education, guidance, and counseling S moking/Tobacco Use Patient counseled on the dangers of tobacco use and urged to quit. 1 DM Care Plan: P atient Lifestyle Goals P atient wants to be able to manage diabetes without too much effort. T reatment Goals B lood Sugars less than < 115.? B arriers n o barriers. S elf-Managment Goals W ork on weight loss, with a goal of losing 1 lb per week. * Follow Up: 1 Week (Reason: ov) * Images: * Sign off status: Completed true * Provider: Amador Roberts MD Date: Generated for Roseann russ/Mahin/eTransmitting on: 12/01/2024 06:20 AM EST History and Physical Notes * Examination Category Sub-Category Detail Notes General Examination GENERAL APPEARANCE: pleasant , well nourished, well developed,Gentleman in obvious pain walking with an antalgic gait the left leg and visible bruising on the left side of his head, gait is slow and painful mental status is normal HEAD: 4 cm swollen area ov er the left temporal bone EYES: eomi, perrla, anicte екатерина, conjugate EARS: normal NOSE: septum intact NECK/THYROID: no jugular venous di stention, no carotid bruit, thyroid normal, Supple range of motion in all directions free of pain HEART: no clicks, gallops, murmurs, or rubs, regular rhythm, S1, S2 normal, no s3, or vascular bruits LUNGS: clear to auscultatio n ABDOMEN: bowel sounds normal, no ascites, no organomegaly, no mass NEUROLOGIC: alert and oriented, cranial nerves 2-12 grossly intact, deep tendon reflexes 2+ symmetrical, motor strength normal upper and lower extremities, sensory exam intact SKIN: no suspicious lesion s, anicteric PERIPHERAL PULSES: normal BREASTS: no masses palpable b ilaterally MUSCULOSKELETAL: extremities unremark able, no clubbing, cyanosis or edema, Scarring and radiation changes Left maxilla, severe pain to range of motion left arm. Pain to range of motion left hip LYMPH NODES: no enlarged lymph no susanna,spleen normal RECTAL EXAM: not examined PSYCH: cooperative with exa m: alert, oriented: speech clear: thought process logical, goal directed: cognitive function intact ORAL CAVITY: normal, unremarkable
--- OUTSIDE RECORDS SUMMARY | 2025-08-14 04:05 | XMS_ITS ---
Author Organization Rony Roberts III, MD Address [address] [place] [address] [place] [address] Care Team Providers Care Systems Testing Laboratory Technician Name Role Phone Dr. Rony Roberts III Primary Care Provider REASON FOR VISIT Message Social History Sex Assigned At : Social History Observation Description Sex Assigned At Male Encounters Encounter Location Date Provider Diagnosis Rony Roberts III, MD [address] [place] [address] [place] [address] 08/14/2025 Rony Roberts Plan Of Treatment Next Appt Details Provider Name:Rony Roberts , 10/11/2025 09:45:00 AM, [address] [place] [address] [place], [address], Provider Name:Rony Roberts , 01/11/2026 02:00:00 PM, [address] [place] [address] [place], [address], Progress Notes * Tj PAGEDOB: [birth year] (80 yo M)Acc No.[id number]:08/14/2025 Patient: Jona Tj HEREDIA :1945 A ge:80 Y S ex:Male Address:[address] [place] [phone] * Addendum: * 08/14/2025 1 0:07 AM ARCHANAT Neetu Lai AUTO APPRENTICE MECHANIC > [address] Roberts called [facility] [phone] to make sure they received the information from the pt ER visit. they do have [place] ER notes and X rays will be reviewed by Sheila Mishra and pt will be called with appt . Dr Roberts made aware of this * true * Date: Generated for Roseann russ/Mahin/eTransmitting on: 12/01/2024 06:19 AM EST
--- OUTSIDE RECORDS SUMMARY | 2025-08-15 09:25 | XMS_ITS ---
Author Organization Rony Roberts III, MD Address [address] [place] [address] [place] [address] Care Team Providers Care Poultry Dresser Name Role Phone Dr. Rony Roberts III Primary Care Provider REASON FOR VISIT Message Social History Sex Assigned At : Social History Observation Description Sex Assigned At Male Encounters Encounter Location Date Provider Diagnosis Rony Robrets III, MD [address] [place] [address] [place] [address] 08/15/2025 Rony Roberts Plan Of Treatment Next Appt Details Provider Name:Rony Roberts , 10/11/2025 09:45:00 AM, [address] [place] [address] [place], [address], Provider Name:Rony Roberts , 01/11/2026 02:00:00 PM, [address] [place] [address] [place], [address], Progress Notes * Tj PAGEDOB: [birth year] (80 yo M)Acc No.[id number]:08/15/2025 Patient: Jona Tj HEREDIA :1945 A ge:80 Y S ex:Male Address:[address] [place] [phone] * true * Date: Generated for Roseann russ/Mahin/Gagan on: 12/01/2024 06:19 AM EST
--- OUTSIDE RECORDS SUMMARY | 2025-08-22 11:06 | XMS_ITS ---
Author Organization Rony Roberts III, MD Address [address] [place] [address] [place] [address] Care Team Providers Care Design Agent Name Role Phone Dr. Rony Roberts III Primary Care Provider REASON FOR VISIT FYI Social History Sex Assigned At : Social History Observation Description Sex Assigned At Male Encounters Encounter Location Date Provider Diagnosis Rony Roberts III, MD [address] [place] [address] [place] [address] 08/22/2025 Rony Roberts Plan Of Treatment Next Appt Details Provider Name:Rony Roberts , 10/11/2025 09:45:00 AM, [address] [place] [address] [place], [address], Provider Name:Rony Roberts , 01/11/2026 02:00:00 PM, [address] [place] [address] [place], [address], Progress Notes * Tj PAGEDOB: [birth year] (80 yo M)Acc No.[id number]:08/22/2025 Patient: Jona Tj HEREDIA :1945 A ge:80 Y S ex:Male Address:[address] [place] [phone] * true * Date: Generated for Roseann russ/Mahin/Gagan on: 12/01/2024 06:20 AM EST
--- OUTSIDE RECORDS SUMMARY | 2025-08-30 04:34 | XMS_ITS ---
Author Organization Rony Roberts III, MD Address [address] [place] [address] [place] [address] Care Team Providers Care Grand Scribe Name Role Phone Dr. Rony Roberts III Primary Care Provider [phone] REASON FOR VISIT FYI Social History Sex Assigned At : Social History Observation Description Sex Assigned At Male Encounters Encounter Location Date Provider Diagnosis Rony Roberts III, MD [address] [place] [address] [place] [address] 08/30/2025 Rony Roberts Plan Of Treatment Next Appt Details Provider Name:Rony Roberts , 10/11/2025 09:45:00 AM, [address] [place] [address] [place], [address], Provider Name:Rony Roberts , 01/11/2026 02:00:00 PM, [address] [place] [address] [place], [address], Progress Notes * Tj PAGEDOB: [birth year] (80 yo M)Acc No.[id number]:08/30/2025 Patient: Jona Tj HEREDIA :1945 A ge:80 Y S ex:Male Address:[address] [place] [phone] * true * Date: Generated for Roseann russ/Mahin/Gagan on: 12/01/2024 06:19 AM EST
--- OUTSIDE RECORDS SUMMARY | 2025-10-01 06:19 | XMS_ITS | Encounter Summary ---
Author Organization [facility] Address [address] [address] Phone Care Team Providers Care Front End Web Developer Name Role Phone Rony Roberts MD Unavailable [phone] Bobby Pedraza DO Primary Care Provider [phone] Fabi Snell MOBILE UI DESIGNER Unavailable [phone] Encounter Details Date Type Department Care Team (Late st Contact Info) Description 04/28/2017 Procedure Pass [facility], [facility] [place], [place] [address] [facility], [address] [place] [address] Social History Tobacco Use Types Packs/Day Years [...] on filedocumented in this encounter Care Teams Front End Web Developer Relationship Specialty Start Date End Date Bobby Pedraza DO [address] [place] [address] [phone] PCP - General Internal Medicine 03/30/16 Rony Roberts MD [address] [place] [address] [place] [address] Referring Physician Internal Medicine 02/03/16 Fabi Snell MOBILE UI DESIGNER [address] [place] [address] [place] [address] [email or web address] 04/28/17 05/24/18 documented as of this encounter Additional Source Comments The information contained in this document represents components of the legal health record. It is not the complete legal health record.[facility]
--- OUTSIDE RECORDS SUMMARY | 2025-10-01 06:19 | XMS_ITS | Encounter Summary ---
Author Organization [facility] Address [address] [address] Phone Care Team Providers Care Polysomnographer Name Role Phone Rony Roberts MD Unavailable [phone] Bobby Pedraza DO Primary Care Provider [phone] Fabi Snell ARMATURE AND ROTOR WINDER Unavailable [phone] Encounter Details Date Type Department Care Team (Late st Contact Info) Description 04/28/2017 Procedure Pass Jennifer [facility] Imaging Department, [facility] [place], [place] [address] [facility], [address] [place] [address] Social History Tobacco Use Types Packs/Day Years [...] on filedocumented in this encounter Care Teams Polysomnographer Relationship Specialty Start Date End Date Bobby Pedraza DO [address] [place] [address] [phone] PCP - General Internal Medicine 03/30/16 Rony Roberts MD [address] [place] [address] [place] [address] Referring Physician Internal Medicine 02/03/16 Fabi Snell ARMATURE AND ROTOR WINDER [address] [place] [address] [place] [address] [email or web address] 04/28/17 05/24/18 documented as of this encounter Additional Source Comments The information contained in this document represents components of the legal health record. It is not the complete legal health record.[facility]
--- OUTSIDE RECORDS SUMMARY | 2025-10-01 06:20 | XMS_ITS | Encounter Summary ---
Author Organization [facility] Address [address] [address] Phone Care Team Providers Care Bailiff Name Role Phone Rony Roberts MD Unavailable [phone] Bobby Pedraza DO Primary Care Provider [phone] Fabi Snell ACCOUNT MANAGEMENT ASSISTANT Unavailable [phone] Encounter Details Date Type Department Care Team (Late st Contact Info) Description 11/24/2017 Procedure Pass Jennifer Lank Imaging Department, [facility] [place], [place] [address] [facility], [address] [place] [address] Social History Tobacco Use Types Packs/Day Years [...] on filedocumented in this encounter Care Teams Bailiff Relationship Specialty Start Date End Date Bobby Pedraza DO [address] [place] [address] [phone] PCP - General Internal Medicine 03/30/16 Rony Roberts MD [address] [place] [address] [place] [address] Referring Physician Internal Medicine 02/03/16 Fabi Snell ACCOUNT MANAGEMENT ASSISTANT [address] [place] [address] [place] [address] [email or web address] 04/28/17 05/24/18 documented as of this encounter Additional Source Comments The information contained in this document represents components of the legal health record. It is not the complete legal health record.[facility]
--- OUTSIDE RECORDS SUMMARY | 2025-10-01 06:20 | XMS_ITS | Clinical Summary ---
Author Organization [facility] Address [address] [address] Phone Care Team Providers Care Tool Coordinator Name Role Phone Rony Roberts MD Unavailable [phone] Bobby Pedraza DO Primary Care Provider [phone] Allergies Active Allergy Reactions Criticality Noted Date [...] EDT) SODIUM 139 135 - 145 mmol/L [facility] LIC# [id number] Comment:SLT HEMOLYSIS CHLORIDE 105 98 - 108 mmol/L [facility] LIC# [id number] Comment:SLT HEMOLYSIS POTASSIUM 5.0 3.5 - 5.0 mmol/L [facility] LIC# [id number] Comment:SLT HEMOLYSIS CO2 23 23 - 32 mmol/L [facility] LIC# [id number] Comment:SLT HEMOLYSIS BUN 21 9 - 25 mg/dL [facility] LIC# [id number] Comment:SLT HEMOLYSIS CREATININE 0.72 0.7 - 1.3 mg/dL [facility] LIC# [id number] Comment:SLT HEMOLYSIS GLUCOSE 154(H) 70 - 100 mg/dL [facility] LIC# [id number] Comment:SLT HEMOLYSIS CALCIUM 9.7 8.8 - 10.5 mg/dL [facility] LIC# [id number] Comment:SLT HEMOLYSIS EGFR 95 >59 mL/min/1.7 3m2 [facility] LIC# [id number] Comment:If patient is Kisha n-Afghan, multiply result by 1.159. Estimated glomerular filtration rate calculated using the CKD-EPI equation. ANION GAP 11 5 - 17 mmol/L [facility] LIC# [id number] Blood 05/25/2018 6:38 AM EDT 05/25/2018 6:48 AM EDT Femi Wyman MD LAB BLOOD BKR ORDERABLES Edited Result - Final [facility]CER POTOSI LIC# [id number] [address] [place] [id number] * (ABNORMAL) Historical Lab (10/24/2011 9:48 AM EST) Only the most recent of2 resultswithin the time period is included. HGB A1C 7.6(A) 4.2 - 5.8 % [facility] 10/24/2011 9:48 AM EST Comment:BLOOD us Edmond Feliciano MD LAB BLOOD ORDERABLES Final Re sult [address] [address] from Last 3 Months or Most Recently Relevant to Health Maintenance Insurance MEDICARE PART A & B [employer] SUPPLEMENT MEDICARE PART A & B [place] [employer] SU[employer] MEDICARE PART A & [place] SU[place] MEDICARE PART A & B [facility] MEDEX SUPPLEMENT MEDICARE PART A & B Member Subscriber Plan / Payer [facility] Name:Tj Page Member ID:[id number] Relation to Subscriber:Self Name:Tj Page Subscriber ID:[id number] Payer ID:[id number] Group ID:Not on file Type:Medicare Address: [employer] [place] Travel [address] [place] [phone] [place] [employer] SUPPLEMENT MEDICARE PART A & B [place] [employer] SU[employer] MEDICARE PART A & [place] [employer] SU[employer] MEDICARE PART A & [place] SU[place] MEDICARE PART A & B [facility] MEDEX SUPPLEMENT Care Teams Tool Coordinator Relationship Specialty Start Date End Date Bobby Pedraza DO [address] [place] [address] PCP - General Internal Medicine 03/30/16 Rony Roberts MD [address] [place] [address] [place] [address] Referring Physician Internal Medicine 02/03/16 Additional Source Comments The information contained in this document represents components of the legal health record. It is not the complete legal health record.[facility]
--- OUTSIDE RECORDS SUMMARY | 2025-10-01 06:20 | XMS_ITS | Patient Health Record ---
Author Organization Rony Roberts III, MD Address [address] [place] [address] Care Team Providers Care Fish Farmer Name Role Phone Dr. Rony Roberts III Primary Care Provider Allergies Allergen (clinical drug ingredient) Drug/Non Drug Allergy documented on EMR Reaction Allergy Type Onset Date Status morphine Morphine Sulfate Unknown Drug Allergy Active Results Component Value Reference Range Notes Lipid Panel Reviewed date:01/08/2025 03:16:11 PM Interpretation: Performing Lab:[facility], [address] [place] [phone] Notes/Report: Triglycerides 45 <150 mg/dL Desirable Triglyceride: [...] A1c Reviewed date:01/08/2025 03:16:12 PM Interpretation: Performing Lab:[address] [address] Notes/Report: Hemoglobin A1c % 6.9 <6.0 % [...] average glucose, using the formula of the A2V-[place]ud[place] Average Glucose study (ADAG), Diabetes Care, Vol.31,#8, Jun. 2007 Diabetic Eye Exam Reviewed date:01/09/2025 03:19:12 PM Interpretation:undefined Performing Lab: Notes/Report: undefined Complete Blood Count Auto Di ff Reviewed date:01/08/2025 03:16:11 PM Interpretation: Performing Lab:[facility], [address] [place] [phone] Notes/Report: White Blood Count 6.0 4.8-10.8 X10*3/uL [...] NRBC Abs Auto 0.000 0.0-0.012 X10*3/uL Comprehensive [place]. Panel Fa st Reviewed date:01/08/2025 03:16:11 PM Interpretation: Performing Lab:[address] [address] Notes/Report: Sodium 139 135-145 mmol/L Potassium 4.3 [...] Reviewed date:01/08/2025 03:16:11 PM Interpretation: Performing Lab:[address] [address] Notes/Report: Prostate Specific Antigen 2.29 <0.05-4.0 ng/mL PSA methodology: Nath Alinity i Chemiluminescent Microparticle Immunoassay (CMIA) Microalbumin, Random Reviewed date:01/08/2025 03:16:11 PM Interpretation: Performing Lab:[facility], [address] [place] [address] Notes/Report: Creatinine Urine 63.90 Microalbumin Urine 10.0 Microalbum/Creatinine Ratio Ur 15.6 <30 ug/mg cr Albumin/Creatinine Ratio Reference Ranges: Normal: < 30 ug/mg creatinine Microalbuminuria: 30 - 300 ug/mg creatinine Clinical Albuminuria: > 300 ug/mg creatinine Complete Blood Count Auto Di ff Reviewed date:04/03/2025 03:31:57 PM Interpretation: Performing Lab:[facility], [address] [place] [address] Notes/Report: White Blood Count 6.7 4.8-10.8 X10*3/uL [...] NRBC Abs Auto 0.000 0.0-0.012 X10*3/uL Comprehensive [place]. Panel Fa Reviewed date:04/03/2025 03:31:57 PM Interpretation: Performing Lab:[facility], [address] [place] [address] Notes/Report: Sodium 140 135-145 mmol/L Potassium 4.2 [...] Panel Reviewed date:04/03/2025 03:31:57 PM Interpretation: Performing Lab:[facility], [address] [place] [address] Notes/Report: Triglycerides 66 <150 mg/dL Desirable Triglyceride: [...] Antigen Reviewed date:04/03/2025 03:31:57 PM Interpretation: Performing Lab:[facility], [address] [place] [address] Notes/Report: Prostate Specific Antigen 3.34 <0.05-4.0 ng/mL PSA methodology: Nath Alinity i Chemiluminescent Microparticle Immunoassay (CMIA) Complete Blood Count Auto Di ff Reviewed date:07/10/2025 04:49:00 AM Interpretation: Performing Lab:[facility], [address] [place] [address] Notes/Report: White Blood Count 5.4 4.8-10.8 X10*3/uL [...] NRBC Abs Auto 0.000 0.0-0.012 X10*3/uL Comprehensive [place]. Panel Fa Reviewed date:07/10/2025 04:49:00 AM Interpretation: Performing Lab:[facility], [address] [place] [address] Notes/Report: Sodium 138 135-145 mmol/L Potassium 4.3 [...] Panel Reviewed date:07/10/2025 04:49:00 AM Interpretation: Performing Lab:[facility], [address] [place] [address] Notes/Report: Triglycerides 112 <150 mg/dL Desirable Triglyceride: [...] Antigen Reviewed date:07/10/2025 04:49:00 AM Interpretation: Performing Lab:[facility], [address] [place] [phone] Notes/Report: Prostate Specific Antigen 2.83 <0.05-4.0 ng/mL PSA methodology: Nath Alinity i Chemiluminescent Microparticle Immunoassay (CMIA) Microalbumin, Random Reviewed date:07/10/2025 04:49:00 AM Interpretation: Performing Lab:[facility], [address] [place] [address] Notes/Report: Creatinine Urine 54.99 Microalbumin Urine 6.0 Microalbum/Creatinine Ratio Ur 10.9 <30 ug/mg cr Albumin/Creatinine Ratio Reference Ranges: Normal: < 30 ug/mg creatinine Microalbuminuria: 30 - 300 ug/mg creatinine Clinical Albuminuria: > 300 ug/mg creatinine Hemoglobin A1c Reviewed date:07/10/2025 04:49:00 AM Interpretation: Performing Lab:[facility], [address] [place] [phone] Notes/Report: Hemoglobin A1c % 7.3 <6.0 % [...] average glucose, using the formula of the F6J-Lclemgx Average Glucose study (ADAG), Diabetes Care, Vol.31,#8, Jun. 2007 CT cervical spine wo con Reviewed date:08/18/2025 06:22:24 AM Interpretation: Performing Lab: Notes/Report: [address] [place] [address] CT Scan Report Signed Patient: Tj Page MR#: [id number] : 1945 Acct:[id number] Age/Sex: 80 / M ADM Date: 08/13/25 Loc: HO.ED Attending Dr: Ordering Physician: Valdemar Li Date of Service: 08/13/25 Procedure(s): CT cervical spine wo IV con Accession Number(s): [id number] cc: Valdemar Li; Rony Roberts MD Report Number: [id number]: Total DLP = 0.00 mGy-cm Reason for [...] Mild to moderate bilateral neural foraminal narrowing, dswm-umiknfa-bzws-right. C6-C7: Anterior marginal osteophytes. Loss of disc space height. Uncovertebral joint hypertrophy. Mild right neural foraminal narrowing. IMPRESSION: 1. No evidence of acute injury to the cervical spine. This document has been electronically signed by: Evelio Purcell MD on 08/13/2025 17:44:46 Dictated By: Evelio Purcell MD Signed By: <Electronically signed by Evelio Purcell MD in OV> 08/13/251745 DD/ 43 TD/TT: 08/13/251743 Auxiliary Power Equipment Operator: [address] [address] [address] Scan Report Signed Patient: Tj Page MR#: [id number] : 1945 Acct:[id number] Age/Sex: 80 / M ADM Date: 08/13/25 Loc: HO.ED Attending Dr: Ordering Physician: Valdemar Li Date of Service: 08/13/25 Procedure(s): CT cervical spine wo IV con Accession Number(s): [id number] cc: Valdemar Li; Rony Roberts MD Report Number: [id number]: Total DLP = 0.00 mGy-cm Reason for [...] Mild to moderate bilateral neural foraminal narrowing, mbwz-pjkhxgs-ogyx-right . C6-C7: Anterior marginal osteophytes. Loss of disc space height. Uncovertebral joint hypertrophy. Mild right neural foraminal narrowing. IMPRESSION: 1. No evidence of ac [place] injury to the cervical spine. This document has be en electronically signed by: Evelio Purcell MD on 08/13/2025 17:44:46 Dictated By: Evelio Purcell MD Signed By: <Electronically signed by Evelio Purcell MD in OV> 08/13/251745 DD/ 43 TD/TT: 08/13/251743 Auxiliary Power Equipment Operator: CT chest cierra con Reviewed date:08/18/2025 06:22:24 AM Interpretation: Performing Lab: Notes/Report: [address] [address] [address] Scan Report Signed Patient: Tj Page MR#: [id number] : 1945 Acct:[id number] Age/Sex: 80 / M ADM Date: 08/13/25 Loc: HO.ED Attending Dr: Ordering Physician: Valdemar Li Date of Service: 08/13/25 Procedure(s): CT chest wo IV con Accession Number(s): [id number] cc: Valdemar Li; Rony Roberts MD Report Number: [id number]: Total DLP = 0.00 mGy-cm Reason for [...] in OV> 08/13/251754 DD/ 52 TD/TT: 08/13/251752 Auxiliary Power Equipment Operator: [place] [address] CT Scan Report Signed Patient: Tj Page MR#: [id number] : 1945 Acct:[id number] Age/Sex: 80 / M ADM Date: 08/13/25 Loc: HO.ED Attending Dr: Ordering Physician: Valdemar Li Date of Service: 08/13/25 Procedure(s): CT ned st wo IV con Accession Number(s): [id number] cc: Valdemar Li; Rony Roberts MD Report Number: [id number]: Total DLP = 0.00 mGy-cm Reason for [...] the abdomen and pelvis performed at the [facility] e time. Normal vertebral bod y [...] in OV> 08/13/251754 DD/ 52 TD/TT: 08/13/251752 Auxiliary Power Equipment Operator: CT head/brain wo con Reviewed date:08/18/2025 06:22:24 AM Interpretation: Performing Lab: Notes/Report: [facility] [address] [place] [address] CT Scan Report Signed Patient: Tj Page MR#: [id number] : 1945 Acct:[id number] Age/Sex: 80 / M ADM Date: 08/13/25 Loc: HO.ED Attending Dr: Ordering Physician: Valdemar Li Date of Service: 08/13/25 Procedure(s): CT head/brain wo IV con Accession Number(s): [id number] cc: Valdemar Li; Rony Roberts MD Report Number: [id number]: Total DLP = 0.00 mGy-cm Reason for [...] in OV> 08/13/251755 DD/ 53 TD/TT: 08/13/251753 Auxiliary Power Equipment Operator: [facility] [address] [place] [address] [address] [address] Scan Report Signed Patient: Tj Page MR#: [id number] : 1945 Acct:[id number] Age/Sex: 80 / M ADM Date: 08/13/25 Loc: HO.ED Attending Dr: Ordering Physician: Valdemar Li Date of Service: 08/13/25 Procedure(s): CT head/brain wo IV con Accession Number(s): [id number] cc: Valdemar Li; Rony Roberts MD Report Number: [id number]: Total DLP = 0.00 mGy-cm Reason for [...] present bilaterally. No CT evidence of ac [place] infarct. The ventricles are proportional with the [...] in OV> 08/13/251755 DD/ 53 TD/TT: 08/13/251753 Auxiliary Power Equipment Operator: CT abdomen pelvis wo con Reviewed date:08/18/2025 06:22:24 AM Interpretation: Performing Lab: Notes/Report: [place] [address] CT Scan Report Signed Patient: Tj Page MR#: [id number] : 1945 Acct:[id number] Age/Sex: 80 / M ADM Date: 08/13/25 Loc: HO.ED Attending Dr: Ordering Physician: Valdemar Li Date of Service: 08/13/25 Procedure(s): CT abdomen pelvis wo IV con Accession Number(s): [id number] cc: Valdemar Li; Rony Roberts MD Report Number: [id number]: Total DLP = 0.00 mGy-cm Reason for [...] in OV> 08/13/251744 DD/ 43 TD/TT: 08/13/251743 Auxiliary Power Equipment Operator: [address] [address] [address] Scan Report Signed Patient: Tj Page MR#: [id number] : 1945 Acct:[id number] Age/Sex: 80 / M ADM Date: 08/13/25 Loc: HO.ED Attending Dr: Ordering Physician: Valdemar Li Date of Service: 08/13/25 Procedure(s): CT abdomen pelvis wo IV con Accession Number(s): [id number] cc: Valdemar Li; Rony Roberts MD Report Number: [id number]: Total DLP = 0.00 mGy-cm Reason for [...] 08/13/25 1745 DD/ 1744 TD/TT: 08/13/25 1744 Auxiliary Power Equipment Operator: XR femur LT 2V Reviewed date:08/18/2025 06:22:24 AM Interpretation: Performing Lab: Notes/Report: [address] [address] XRay Report Signed Patient: Tj Page MR#: [id number] : 1945 Acct:[id number] Age/Sex: 80 / M ADM Date: 08/13/25 Loc: HO.ED Attending Dr: Ordering Physician: Valdemar Li Date of Service: 08/13/25 Procedure(s): XR femur LT 2V Accession Number(s): [id number] cc: Valdemar Li; Rony Roberts MD Reason [...] 08/13/25 1659 DD/ 1630 TD/TT: 08/13/25 1640 Auxiliary Power Equipment Operator: [address] [address] XRay Report Signed Patient: Tj Page MR#: [id number] : 1945 Acct:[id number] Age/Sex: 80 / M ADM Date: 08/13/25 Loc: HO.ED Attending Dr: Ordering Physician: Valdemar Li Date of Service: 08/13/25 Procedure(s): XR fem ur LT 2V Accession Number(s): [id number] cc: Valdemar Li; Rony Roberts MD Reason [...] 08/13/25 1659 DD/ 1630 TD/TT: 08/13/25 1640 Auxiliary Power Equipment Operator: XR shoulder LT min 2V Reviewed date:08/18/2025 06:22:24 AM Interpretation: Performing Lab: Notes/Report: [address] [address] XRay Report Signed Patient: Tj Page MR#: [id number] : 1945 Acct:[id number] Age/Sex: 80 / M ADM Date: 08/13/25 Loc: HO.ED Attending Dr: Ordering Physician: Valdemar Li Date of Service: 08/13/25 Procedure(s): XR shoulder LT min 2V Accession Number(s): [id number] cc: Valdemar Li; Rony Roberts MD Reason [...] 08/13/25 1657 DD/ 1629 TD/TT: 08/13/25 1640 Auxiliary Power Equipment Operator: [place] [address] XRay Report Signed Patient: Tj Page MR#: [id number] : 1945 Acct:[id number] Age/Sex: 80 / M ADM Date: 08/13/25 Loc: HO.ED Attending Dr: Ordering Physician: Valdemar Li Date of Service: 08/13/25 Procedure(s): XR shoulder LT min 2V Accession Number(s): [id number] cc: Valdemar Li; Rony Roberts MD Reason [...] 08/13/25 1657 DD/ 1629 TD/TT: 08/13/25 1640 Auxiliary Power Equipment Operator: Reason For Referral Reason evaluation and treat ment back pain for 12 months DJD and DDD Diagnosis 1 Back pain (M54.9) Referral Organization Rony Roberts III, MD Referring Provider First Name Rony Referring Provider Last Name Armando Referring Provider Speciality Internal M edicine Referred Provider Spine and Sp ann marie Newell Referred Provider Specialty Physical Med icine General Notes Joelle Neetuvicente VELASCO 01/15 11:03:02 AM > ref/demo/progress note and [facility] aware of this, Joelle Neetuvicente VELASCO 01/16/2025 03:33:07 PM >Called [facility] pt has appt with Dr Traore on [...] Status W/U Status Risk Notes Problem Obesity (191015236) Obesity (278.00) Active confirmed We discussed a healthy diet gradually reduction in weight watchers and portion control. Problem 2069104 Former smoker (Z87.891) Active confirmed He is highly motivated not to smoke and we have discussed strategies for maintenance of abstinence in time of illness distress. Problem 089892352 Overweight (E66.3) Active confirmed He has lost 9 pounds and his body mass index is 26. We reviewed diet and nutrition today. We made a plan to continue weight loss until his BMI is in the normal range. Problem 43790657 Diabetes mellitus (E11.9) Active confirmed His hemoglobin A1c has increased from 6.9-7.3. His fasting glucose is 119. He has lost weight. He admits to dietary indiscretions but says he is now back on the wagon. Problem 29296529 Unspecified fall, initial encounter (W19.XXXA) Active confirmed He tripped on t he stair well. He did not lose consciousness or chest pain. There was no vertigo. Problem 29243224 Essential hypertension (I10) Active confirmed His blood pressure is currently stable. The current regimen was continued. 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 No additional treatment is recommended today. Problem 06584293 Colonic polyp (K63.5) Active confirmed He will continu e to have his colonoscopies at the appropriate intervals. Problem 475697665 Metastatic malignant melanoma (C79.9) Active confirmed There was no si gn of a new primary melanoma or recurrent melanoma in any location on today's examination. Problem Shoulder joint pain (377795015) Shoulder pain, left (M25.512) Active confirmed He has had a mild pain in his shoulder for over a year but it is recently become worse. It is likely arthritic or inflammatory but x-rays have been ordered. He will use ibuprofen and a heating pad. If necessary he will be referred for injections. Problem 58195991 Age-related cataract of both eyes, unspecified age-related cataract type (H25.9) Active confirmed He is medically cleared for both operations. If necessary, he'll be seen before the first procedure. The rrisk is small and the benefit is great. He is given medical clearance. Problem 805870277 Benign prostatic hyperplasia, unspecified whether lower urinary tract symptoms present (N40.0) Active confirmed He rises from sleep twice a night to urinate. We discussed lifestyle modification has a way of reducing nocturia.His prostatism is stable. Problem 764654264 Obstipation (K59.00) Active confirmed He will use MiraLax and milk of magnesia and senna. He will also is fleets enemas. Problem 880336469 Closed fracture of left shoulder, initial encounter [...] Date Provider Diagnosis Rony Roberts III, MD [address] [place] [address] [place] [address] 01/09/2025 Rony Roberts Benign prostatic hyperplasia, unspecified whether lower urinary tract symptoms present N40.0 ; Metastatic malignant melanoma C79.9 ; Essential hypertension I10 ; Overweight E66.3 ; Diabetes mellitus E11.9 ; Peripheral neuropathy G62.9 ; Age-related cataract of both eyes, unspecified age-related cataract type H25.9 and Former smoker Z87.891 Rony Roberts III, MD [address] [place] [address] [place] [address] 02/06/2025 Rony Roberts Benign prostatic hyperplasia, unspecified whether lower urinary tract symptoms present N40.0 ; Metastatic malignant melanoma C79.9 ; Former smoker Z87.891 ; Diabetes mellitus E11.9 ; Essential hypertension I10 ; Shoulder pain, left M25.512 ; Overweight E66.3 and Recurrent low back pain M54.50 Rony Roberts III, MD [address] [place] [address] [place] [address] 04/11/2025 Rony Roberts Benign prostatic hyperplasia, unspecified whether lower urinary tract symptoms present N40.0 ; Metastatic malignant melanoma C79.9 ; Diabetes mellitus E11.9 ; Overweight E66.3 ; Essential hypertension I10 ; Former smoker Z87.891 ; Shoulder pain, left M25.512 and Peripheral neuropathy G62.9 Rony Roberts III, MD [address] [place] [address] [place] [address] 07/12/2025 Rony Roberts Benign prostatic hyperplasia, unspecified whether lower urinary tract symptoms present N40.0 ; Metastatic malignant melanoma C79.9 ; Diabetes mellitus E11.9 ; Essential hypertension I10 ; Former smoker Z87.891 and Overweight E66.3 Rony Roberts III, MD [address] [place] [address] [place] [address] 08/13/2025 Rony Roberts Unspecified fall, initial encounter W19.XXXA ; Benign prostatic hyperplasia, unspecified whether lower urinary tract symptoms present N40.0 ; Closed fracture of left shoulder, initial encounter S42.92XA ; Essential hypertension I10 ; Obesity 278.00 ; Former smoker Z87.891 ; Diabetes mellitus E11.9 and Peripheral neuropathy G62.9 Rony Roberts III, MD [address] [place] [address] [place] [address] 01/04/2025 Rony Roberts Essential hypertensi on I10 ; Diabetes mellitus E11.9 ; Benign prostatic hyperplasia, unspecified whether lower urinary tract symptoms present N40.0 and Overweight E66.3 Rony Roberts III, MD [address] [place] [address] [place] [address] 01/09/2025 Rony Roberts III, MD [address] [place] [address] [place] [address] 01/15/2025 Rony Roberts III, MD [address] [place] [address] [place] [address] 02/07/2025 Rony Roberts III, MD [address] [place] [address] [place] [address] 06/02/2025 Rony Roberts III, MD [address] [place] [address] [place] [address] 08/14/2025 Rony Roberts III, MD [address] [place] [address] [place] [address] 08/15/2025 Rony Roberts III, MD [address] [place] [address] [place] [address] 08/22/2025 Rony Roberts III, MD [address] [place] [address] [place] [address] 08/30/2025 Rony Roberts Assessments Encounter Date Diagnosis [...] Name:Rony Roberts , 10/11/2025 09:45:00 AM, [address] [place], [place], [address], Provider Name:Rony Roberts , 01/11/2026 02:00:00 PM, [address] [place], [place], [address], Insurance Providers Payer Name Payer Address Payer Phone Subscriber Number Group Number Insured Name Patient Relationship to Insured Coverage Start Date Coverage End Date MEDICARE NGS [address] [place] [address] [id number] Desilets , Vincent Self - patient is the insured [facility] [address] [place], [place] [id number] Desilets , Vincent Self - patient [...]
--- OUTSIDE RECORDS SUMMARY | 2025-10-01 06:20 | XMS_ITS | Encounter Summary ---
Author Organization [facility] Address [address] [address] Phone Care Team Providers Care Cloth Winder Machine Operator Name Role Phone Rony Roberts MD Unavailable [phone] Bobby Pedraza DO Primary Care Provider [phone] Fabi Snell SUBSORTER Unavailable [phone] Encounter Details Date Type Department Care Team (Late st Contact Info) Description 11/24/2017 Procedure Pass Jennifer [facility]ank Imaging Department, [facility] [place], [place] [address] [facility], Floor [address] [place] [address] Social History Tobacco Use Types Packs/Day Years [...] on filedocumented in this encounter Care Teams Cloth Winder Machine Operator Relationship Specialty Start Date End Date Bobby Pedraza DO [address] [place] [address] [phone] PCP - General Internal Medicine 03/30/16 Rony Roberts MD [address] [place] [address] [place] [address] Referring Physician Internal Medicine 02/03/16 Fabi Snell SUBSORTER [address] [place] [address] [place] [address] [email or web address] 04/28/17 05/24/18 documented as of this encounter Additional Source Comments The information contained in this document represents components of the legal health record. It is not the complete legal health record.[facility]
--- OUTSIDE RECORDS SUMMARY | 2025-10-01 06:20 | XMS_ITS | Encounter Summary ---
Author Organization [facility] Address [address] [address] Phone Care Team Providers Care Assembler Metal Furniture Name Role Phone Rony Roberts MD Unavailable [phone] Bobby Pedraza DO Primary Care Provider [phone] Fabi Snell VENEER PULLER Unavailable [phone] Encounter Details Date Type Department Care Team (Late st Contact Info) Description 11/24/2017 Procedure Pass Jennifer Lank Imaging Department, [facility] [place], [place] [address] [facility], Floor [address] [place] [address] Social History Tobacco Use Types Packs/Day Years [...] filedocumented in this encounter Care Teams Assembler Metal Furniture Relationship Specialty Start Date End Date Bobby Pedraza DO [address] [place] [address] [phone] PCP - General Internal Medicine 03/30/16 Rony Roberts MD [address] [place] [address] [place] [address] Referring Physician Internal Medicine 02/03/16 Fabi Snell VENEER PULLER [address] [place] [address] [place] [address] [email or web address] 04/28/17 05/24/18 documented as of this encounter Additional Source Comments The information contained in this document represents components of the legal health record. It is not the complete legal health record.[facility]
--- OUTSIDE RECORDS SUMMARY | 2025-10-01 06:20 | XMS_ITS | Patient Health Record ---
Author Organization [facility] Address [address] [place] [address] Care Team Providers Care Finishing Range Feeder Name Role Phone Rony Roberts MD Primary [...] Status Risk Notes Problem Colon cancer screening (827117866) Colon cancer screening (Z12.11) Active confirmed Problem History of polyp of colon (situation) (084328543) Personal history of colonic polyps (Z86.010) Active confirmed Problem Long-term current use of antiplatelet drug (782103169105107 ) Long-term use of aspirin therapy (Z79.82) Active confirmed Problem Long-term current use of drug therapy (962227611) Long-term current use of high risk medication other than anticoagulant (Z79.899) Active confirmed Problem Long-term current use of drug therapy (678861726) group home (current) use of oral hypoglycemic drugs (Z79.84) Active confirmed Plan Of Treatment Future Test Test Name Order Date COLONOSCOPY 01/02/2015 COLONOSCOPY 05/27/2018 COLONOSCOPY 01/10/2024 Insurance Providers Payer Name Payer Address Payer Phone Subscriber Number Group Number Insured Name Patient Relationship to Insured Coverage Start Date Coverage End Date MEDICARE OF [place] [address] [place] [address] [phone] [id number] DESILETS , VINCENT Self - patient is the insured MEDEX ATT[employer] CLAIMS [address] [place] [address] [phone] [id number] DESILETS , VINCENT Self - patient is the insured Medical (General) History Medical History History ICD Code Hypertension Diabetes mellitus Colonoscopy, 09/25, tubular adenoma, fiv e-year followup Hyperlipidemia Low back pain, degenerative disc disease Melanoma Surgical History Surgery Date(Month/Year) appendectomy tonsillectomy pilonidal cyst excision left hip replacement 2009
--- OUTSIDE RECORDS SUMMARY | 2025-10-01 06:21 | XMS_ITS | Encounter Summary ---
Author Organization [facility] Address [address] [address] Phone Care Team Providers Care Fertilizer Processing Supervisor Name Role Phone Rony Roberts MD Unavailable [phone] Bobby Pedraza DO Primary Care Provider [phone] Fabi Snlel PRICING CONSULTANT Unavailable [phone] Encounter Details Date Type Department Care Team (Late st Contact Info) Description 10/21/2016 Procedure Pass [facility] [address] [address] Social History Tobacco Use Types Packs/Day Years [...] on filedocumented in this encounter Care Teams Fertilizer Processing Supervisor Relationship Specialty Start Date End Date Bobby Pedraza DO [address] [place] [address] PCP - General Internal Medicine 03/30/16 Rony Roberts MD [address] [place] [address] [place] [address] Referring Physician Internal Medicine 02/03/16 Fabi Snell NP [address] [place] [address] [place] [address] [email or web address] 04/28/17 05/24/18 documented as of this encounter Additional Source Comments The information contained in this document represents components of the legal health record. It is not the complete legal health record.[facility]
--- OUTSIDE RECORDS SUMMARY | 2025-10-01 06:21 | XMS_ITS | Encounter Summary ---
Author Organization [facility] Address [address] [address] Phone Care Team Providers Care Garment Fitter Name Role Phone Rony Roberts MD Unavailable [phone] Bobby Pedraza DO Primary Care Provider [phone] Fabi Snell FIELD SUPPORT REPRESENTATIVE Unavailable [phone] Encounter Details Date Type Department Care Team (Late st Contact Info) Description 10/21/2016 Procedure Pass [facility] [address] [address] Social History Tobacco Use Types Packs/Day Years [...] on filedocumented in this encounter Care Teams Garment Fitter Relationship Specialty Start Date End Date Bobby Pedraza DO [address] [place] [address] PCP - General Internal Medicine 03/30/16 Rony Roberts MD [address] [place] [address] [place] [address] Referring Physician Internal Medicine 02/03/16 Fabi Snell NP [address] [place] [address] [place] [address] [email or web address] 04/28/17 05/24/18 documented as of this encounter Additional Source Comments The information contained in this document represents components of the legal health record. It is not the complete legal health record.[facility]
--- OUTSIDE RECORDS SUMMARY | 2025-10-01 06:21 | XMS_ITS | Encounter Summary ---
Author Organization [facility] Address [address] [address] Phone Care Team Providers Care Internet Programmer Name Role Phone Rony Roberts MD Unavailable [phone] Bobby Pedraza DO Primary Care Provider [phone] Fabi Snell NP Unavailable [phone] Encounter Details Date Type Department Care Team (Late st Contact Info) Description 10/19/2016 Transcribe Orders Jennifer Lank Imaging Department, [facility] [place], Radiography [address] [facility], Floor [address] [place] [address] Miguel Ángel Florentino MD [address] [place] [address] [email or web address] Pre-procedural laboratory examination (Primary Dx) Social [...] EST) CREATININE 0.78 0.7 - 1.3 mg/dL [facility]# [id number] EGFR >60 mL/min/1.7 3m2 [facility]# [id number] Comment:Abnormal if <60 mL/m in/1.73m2. If patient is -Montenegr[place], multiply the result by 1.21. 10/21/2016 7:48 AM EST 10/21/2016 7:57 AM EST us Miguel Ángel Florentino MD LAB BLOOD BKR ELY URENA Final Result [facility]# [id number] [address] [place] [address] documented in this encounter Visit Diagnoses Diagnosis Pre-procedural laboratory examination- Primary documented in this encounter Care Teams Internet Programmer Relationship Specialty Start Date End Date Bobby Pedraza DO [address] [place] [address] PCP - General Internal Medicine 03/30/16 Rony Roberts MD [address] [place] [address] Dr Palm [facility] [place] [address] Referring Physician Internal Medicine 02/03/16 Fabi Snell NP [address] [place] [address] [address] PALM [address] [place], [place] [address], [place] [address] [email or web address] 04/28/17 05/24/18 documented as of this encounter Additional Source Comments The information contained in this document represents components of the legal health record. It is not the complete legal health record.[facility]
--- OUTSIDE RECORDS SUMMARY | 2025-10-01 06:21 | XMS_ITS | Encounter Summary ---
Author Organization [facility] Address [address] [address] Phone Care Team Providers Care Youth Nutritional Monitor Name Role Phone Rony Roberts MD Unavailable [phone] Bobby Pedraza DO Primary Care Provider [phone] Fabi Snell FOOD PROCESSING CHEMIST Unavailable [phone] Encounter Details Date Type Department Care Team (Late st Contact Info) Description 03/18/2017 Procedure Pass [facility] [address] [address] Social History Tobacco Use Types Packs/Day Years [...] on filedocumented in this encounter Care Teams Youth Nutritional Monitor Relationship Specialty Start Date End Date Bobby Pedraza DO [address] [place] [address] PCP - General Internal Medicine 03/30/16 Rony Roberts MD [address] [place] [address] [place] [address] Referring Physician Internal Medicine 02/03/16 Fabi Snell NP [address] [place] [address] [place] [address] [email or web address] 04/28/17 05/24/18 documented as of this encounter Additional Source Comments The information contained in this document represents components of the legal health record. It is not the complete legal health record.[facility]
--- OUTSIDE RECORDS SUMMARY | 2025-10-01 06:21 | XMS_ITS | Clinical Summary ---
Author Organization [address] [place] [address] Address [address] [place] [address] Phone Care Team Providers Care Air Cargo Agent Name Role Phone Physician, Pcp Unknown Primary [...] Upcoming Encounters Date Type Department Care Team ([facility] st Contact Info) Description 10/22/2025 8:45 AM EST Office Visit Orthopedic Surgery - [place] [address] [phone] Nazario Herrera DPM [address] [id number] Health Maintenance Due Date Last Done Comments [...] to complete this topic Insurance MEDICARE MEDEX [facility] Care Teams Air Cargo Agent Relationship Specialty Start Date End Date Physician, Pcp Unknown PCP - General 09/07/24
[2025-10-01 06:37] LABS: MANUAL DIFF FLAG NO
[2025-10-01 08:12] LABS: Hematocrit 39.4 % (42.0-52.0); Hemoglobin 13.1 g/dl (14.0-18.0); Imm Gran Abs Auto 0.01 X10*3/uL (0.00-0.03); Imm Gran Pct Auto 0.2 % (0.0-0.4); Lymphocytes Absolute Auto 1.1 X10*3/uL (1.2-4.9); Mean Corpuscular HGB Conc 33.2 g/dl (31.0-36.0); Mean Corpuscular Hemoglobin 31.9 pg (27.0-33.0); Mean Corpuscular Volume 95.9 fL (80.0-98.0); NRBC Abs Auto 0.000 X10*3/uL (0.0-0.012); NRBC Pct Auto 0.0 /100WBC (0.0-0.2); Platelet Count 219 X10*3/uL (160-400); Red Blood Count 4.11 X10*6/uL (4.60-5.80); White Blood Count 4.9 X10*3/uL (4.8-10.8)
[2025-10-01 08:32] LABS: Alanine Aminotransferase 20 U/L (0-40); Albumin Level 4.3 g/dL (3.5-5.0); Alkaline Phosphatase 100 U/L (39-117); Anion Gap 11 (12-20); Aspartate Amino Transferase 21 U/L (5-37); Blood Urea Nitrogen 25 mg/dL (9-16); Calcium 9.4 mg/dL (8.4-10.2); Carbon Dioxide 26 mmol/L (22-29); Chloride 106 mmol/L (96-108); Cholesterol 121 mg/dL (<200); Estimated Glomerular Filt Rate > 60; HDL Cholesterol 46 mg/dL (>40); Potassium 4.3 mmol/L (3.3-5.1); Sodium 139 mmol/L (135-145); Total Protein 6.9 g/dL (6.5-8.0); Triglycerides 120 mg/dL (<150)
[2025-10-01 08:56] LABS: Prostate Specific Antigen 1.39 ng/mL (<0.05-4.0)
== END 2025-10-01 06:17 | disposition home or self-care (01) ==
LOC: HO.LAB 06:16
PROVIDERS: PCP Internal Medicine Medical Oncology; Visit Provider Internal Medicine Medical Oncology
DX: N40.0 Benign prostatic hyperplasia without lower urinary tract symptoms (principal); E11.9 Type 2 diabetes mellitus without complications; I10 Essential (primary) hypertension; Z12.5 Encounter for screening for malignant neoplasm of prostate
CPT/HCPCS: 36415; 80053; 80061; 83036; 84153; 85025